=== PATIENT | male | born 1955 ===

== ENCOUNTER 2020-02-25 10:33 | Emergency (ER) | payer OTHER, SELFPAY ==
[2020-02-25 10:58] VITALS: BP 175/82; PULSE 79; RESP 16; TEMP 36.7; O2SAT 97; BMI 27.3
--- NOTE | 2020-02-25 10:58 | ED_ITS ---
HPI - Abdominal Pain General Chief Complaint: Abdominal Pain Stated Complaint: abd pain Time Seen by Provider: 02/25/20 10:48 Source: patient Mode of arrival: ambulatory Limitations: no limitations History of Present Illness HPI narrative: Patient presents to the ED for left lower abdominal/groin pain that is worse on movement. Patient states no nausea, vomiting, fever, chills, flank pain, testicular pain, swelling in the groin, penile discharge, penile lesions, dysuria, or hematuria. Patient admits to heavy lifting and plenty of bending down movements for work. Related Data Previous Rx's Medication Instructions Recorded cyclobenzaprine 10 mg PO TID PRN #15 tab 02/25/20 naproxen 500 mg PO BID PRN #20 tab 02/25/20 Allergies Allergy/AdvReac Type Severity Reaction Status Date / Time tramadol Allergy Unknown Unknown Verified 02/25/20 11:09 Review of Systems Review of Systems Yes all other systems are reviewed and are negative Constitutional: Reports as per HPI and Reports no additional constitutional complaints Eyes: Reports as per HPI and Reports no additional eye complaints Reports system reviewed and no additional complaints, except as documented and Reports as per HPI Cardiovascular: Reports as per HPI and Reports no additional cardiovascular complaints Respiratory: Reports as per HPI and Reports no additional respiratory complaints Gastrointestinal: Reports as per HPI, Reports no additional gastrointestinal complaints, Reports abdominal pain, Denies belching, Denies melena, Denies bloating, Denies hematochezia, Denies change in bowel habits, Denies tenesmus, Denies coffee ground emesis, Denies constipation, Denies GI cramping, Denies heartburn, Denies fecal incontinence, Denies diarrhea, Denies nausea and Denies vomiting Genitourinary: Reports no additional male genitourinary complaints and Reports as per HPI Musculoskeletal: Reports no additional musculoskeletal complaints and Reports as per HPI Reports system reviewed and no additional complaints, except as documented and Reports as per HPI Psychiatric: Reports no additional psychiatric complaints and Reports as per HPI Physical Exam Vital Signs: Vital Signs: Last Vital Signs Temp 98.0 F 02/25/20 10:58 Pulse 62 02/25/20 16:22 Resp 16 02/25/20 16:22 BP 136/77 02/25/20 16:22 Pulse Ox 98 02/25/20 16:22 Body Mass Index 27.3 Const: General: cooperative, healthy appearing, comfortable, no acute distr ess, well developed, alert, awake and Physically active Orientation/consciousness: oriented to person, oriented to place, oriented to time and patient oriented x3 HENMT: Head: Yes normal to inspection and Yes No palpable skull fracture present Eyes: General: appearance normal, both eyes and all related structures Neck: Neck: Yes normal visual inspection and Yes full ROM Chest: Chest palpation & inspection: normal inspection of the chest, normal palpation of entire chest wall and no localized rib tenderness Resp: Effort & Inspection: normal respiratory effort and able to speak in complete sentences Auscultation: clear to auscultation bilaterally Cardio: Jugular venous distension: no JVD Heart sounds: S1 normal heart sound present and S2 normal heart sound present GI: Inspection: Yes normal to inspection and No abdominal wall ecchymosis Palpation (GI): Soft to palpation, not firm, Tenderness to palpation present (GI) in the LLQ (mild), no guarding and not rigid : Other: negative for any mass, swelling, or tenderness in bilateral groins or testicles. Negative for lymphadenopathy. Negative for penile lesions or penile discharge. Negative for testicular tenderness or swelling. General: Yes Bimanual renal exam normal bilaterally Male General Exam: Yes normal external exam, No ecchymosis, No edema, No erythema, No hernia and No Genital lesions present Penis: normal penis, no ecchymosis, not edematous, not erythematous, no masses, no nodules, no papules, no pustules, no vesicles, no paraphimosis, no phimosis, no swelling, no ulcerations and No Genital lesions present Meatus: meatus normal Scrotum: scrotum normal, no ecchymosis, not edematous, not erythematous, No testes descended bilaterally, no hydroceles, no inguinal hernias, no masses, no scrotal swelling, no spermatoceles, no ulcerations and no varicoceles Testes: Testes normal, testicular lie normal, not enlarged, no epididymal induration, no epidiymal masses, no epidiymal tenderness, no masses, no testicular mass, no testicular swelling and no testicular tenderness Skin: General skin exam: no rashes or lesions noted Neuro: General: oriented to person, oriented to place, oriented to time, patient oriented x3 and CN's II-XI intact bilaterally Cranial nerves: Yes CN' s II-XII intact bilaterally Extrem: General: Yes normal to inspection and Yes full ROM Psych: Appearance: grossly normal, well kempt and not disheveled Course Course Course Narrative: history physical exam indicates most likely abdominal/groin strain. But due to patient's age he will have labs, urine and possibly CT scan. Patient presently ordered fluids and Toradol Reevaluation(s) Reevaluation #1: Labs came back normal. Negative for white blood cell count, negative for any urinary tract infection. Negative for abnormal LFTs. Due to age, patient will be sent for CT scan to make sure there is no diverticulitis. Patient presently stable in ER Time: 12:57 Reevaluation #2: CT scan came back negative for any emergent medical/surgical etiology. Negative for any diverticulitis, appendicitis, cholecystitis, peritonitis, pancreatitis, or bleed. Patient probably have abdominal/ /inguinal strain. CT scan shows fat containing inguinal hernia that is not incarcerated. Time: 16:02 MDM - Abdominal Pain MDM Narrative Medical decision making narrative: abdominal/inguinal strain. Lab Data Result diagrams: 02/25/20 11:17 02/25/20 12:57 Labs: Lab Results 02/25/20 02/25/20 02/25/20 Range/Units 11:17 11:17 11:17 WBC 6.2 (4.8-10.8) X10*3/uL RBC 5.15 (4.60-5.80) X10*6/uL Hgb 14.9 (14.0-18.0) g/dl Hct 44.8 (42-52) % MCV 87.0 (80-98) fL MCH 28.9 (27.0-33.0) pg MCHC 33.3 (31.0-36.0) g/dl RDW 14.5 (11.0-16.0) % Plt Count 184 (160-400) X10*3/uL MPV Not Reportable Immature Gran % (Auto) 0.2 (0.0-0.4) % Neut % (Auto) 51.9 (45-73) % Lymph % (Auto) 37.2 (20-40) % Anson % (Auto) 6.1 (2-11) % Eos % (Auto) 4.0 (0-4) % Baso % (Auto) 0.6 (0-2) % Lymph # (Auto) 2.3 (1.2-4.9) X10*3/uL Anson # (Auto) 0.4 (0.1-1.2) X10*3/uL Eos # (Auto) 0.3 (0.0-0.4) X10*3/uL Baso # (Auto) 0.0 (0.0-0.2) X10*3/uL Abs Immat Gran (auto) 0.01 (0.00-0.03) X10*3/uL Absolute Neuts (auto) 3.2 (2.0-8.3) X10*3/uL Absolute Nucleated RBC 0.000 (0.0-0.012) X10*3/uL Nucleated RBC % (auto) 0.0 (0.0-0.2) /100WBC Smear Tech's Comments VERIFIED PT Cancelled INR Cancelled APTT Cancelled Sodium Cancelled Potassium Cancelled Chloride Cancelled Carbon Dioxide Cancelled Anion Gap Cancelled BUN Cancelled Creatinine Cancelled Estim Creat Clear Calc Cancelled Estimated GFR Cancelled Random Glucose Cancelled Calcium Cancelled Total Bilirubin Cancelled Direct Bilirubin Cancelled AST Cancelled ALT Cancelled Alkaline Phosphatase Cancelled Total Protein Cancelled Albumin Cancelled Lipase Cancelled Urine Color Urine Appearance Urine pH (5.0-8.0) Ur Specific [place] (1.005-1.025) Urine Protein (NEG-TRACE) MG/DL Urine Glucose (UA) (NEG) MG/DL Urine Ketones (NEG) MG/DL Urine Blood (NEG) Urine Nitrite (NEG) Ur Leukocyte Esterase (NEG) 02/25/20 02/25/20 02/25/20 Range/Units 11:17 12:57 12:57 WBC (4.8-10.8) X10*3/uL RBC (4.60-5.80) X10*6/uL Hgb (14.0-18.0) g/dl Hct (42-52) % MCV (80-98) fL MCH (27.0-33.0) pg MCHC (31.0-36.0) g/dl RDW (11.0-16.0) % Plt Count (160-400) X10*3/uL MPV Immature Gran % (Auto) (0.0-0.4) % Neut % (Auto) (45-73) % Lymph % (Auto) (20-40) % Anson % (Auto) (2-11) % Eos % (Auto) (0-4) % Baso % (Auto) (0-2) % Lymph # (Auto) (1.2-4.9) X10*3/uL Anson # (Auto) (0.1-1.2) X10*3/uL Eos # (Auto) (0.0-0.4) X10*3/uL Baso # (Auto) (0.0-0.2) X10*3/uL Abs Immat Gran (auto) (0.00-0.03) X10*3/uL Absolute Neuts (auto) (2.0-8.3) X10*3/uL Absolute Nucleated RBC (0.0-0.012) X10*3/uL Nucleated RBC % (auto) (0.0-0.2) /100WBC Smear Tech's Comments PT 11.7 INR 1.0 APTT 33.1 Sodium 139 Potassium 4.2 Chloride 105 Carbon Dioxide 28 Anion Gap 10 L BUN 11 Creatinine 1.12 Estim Creat Clear Calc 66.1 Estimated GFR > 60 Random Glucose 145 H Calcium 8.7 Total Bilirubin 0.8 Direct Bilirubin 0.2 AST 24 ALT 23 Alkaline Phosphatase 58 Total Protein 7.4 Albumin 4.2 Lipase 49 Urine Color YELLOW Urine Appearance CLEAR Urine pH 7.0 (5.0-8.0) Ur Specific [place] 1.015 (1.005-1.025) Urine Protein NEG (NEG-TRACE) MG/DL Urine Glucose (UA) NEG (NEG) MG/DL Urine Ketones NEG (NEG) MG/DL Urine Blood NEG (NEG) Urine Nitrite NEG (NEG) Ur Leukocyte Esterase NEG (NEG) Discharge Plan Discharge Clinical Impression: Abdominal muscle strain Patient Disposition: Home, Self-Care Instructions: Muscle Strain (ED), Groin Strain (ED) Additional Instructions: return to the ED immediately for any worsening abdominal pain, fever, chills, shortness of breath, dysuria, hematuria, flank pain, fever, chills, testicular swelling, testicular pain, blood in urine, swelling of the groin, vomtting, diarrhea, or any other concerning symptoms. Prescriptions: New naproxen 500 mg tablet 500 mg PO BID PRN (Reason: pain) Qty: 20 RF: 0 cyclobenzaprine 10 mg tablet 10 mg PO TID PRN (Reason: muscle spasm) Qty: 15 RF: 0 Referrals: Josué Ríos MD [Primary Care Provider] - 2 days ( Abdominal wall strain. CT scan negative for any emergent surgical/ medical etiology. incidental small left fat containing inguinal hernia and hepatic steatosis.) Stand Alone Forms: Work/School Release Print Language: Croatian [facility] Past Medical History Medical History Hypothyroidism Multiple sclerosis Social History Social History Advance Directives: No Advance Directives Information Provided: No
[2020-02-25 11:38] LABS: Imm Gran Abs Auto 0.01 X10*3/uL (0.00-0.03); Imm Gran Pct Auto 0.2 % (0.0-0.4); MANUAL DIFF FLAG SCAN; Neutrophils Percent Auto 51.9 % (45-73); PLT CLUMP 1; SCAN SMEAR FLAG 1
[2020-02-25 11:40] LABS: Basophils Percent Auto 0.6 % (0-2); Eosinophils Absolute Auto 0.3 X10*3/uL (0.0-0.4); Hematocrit 44.8 % (42-52); Hemoglobin 14.9 g/dl (14.0-18.0); Lymphocytes Absolute Auto 2.3 X10*3/uL (1.2-4.9); Lymphocytes Percent Auto 37.2 % (20-40); Mean Corpuscular HGB Conc 33.3 g/dl (31.0-36.0); Mean Corpuscular Hemoglobin 28.9 pg (27.0-33.0); Monocytes Absolute Auto 0.4 X10*3/uL (0.1-1.2); Monocytes Percent Auto 6.1 % (2-11); Neutrophils Absolute Auto 3.2 X10*3/uL (2.0-8.3); Red Blood Count 5.15 X10*6/uL (4.60-5.80); Red Cell Distribution Width 14.5 % (11.0-16.0); White Blood Count 6.2 X10*3/uL (4.8-10.8)
[2020-02-25] MEDS: 0.9 % Sodium Chloride 1,000 ML 999 ML IVCONT (11:40)
[2020-02-25] MEDS: Ketorolac Tromethamine 15 MG/ML VIAL 30 MG IVPUSH (11:40)
[2020-02-25 11:45] LABS: Glucose Urine UA NEG (NEG); Leukocyte Esterase Urine NEG (NEG); Nitrite Urine NEG (NEG); Specific Gravity - Urine 1.015 (1.005-1.025); Urine Blood NEG (NEG); Urine Ketones NEG (NEG); Urine Protein NEG (NEG-TRACE)
[2020-02-25 11:48] LABS: Appearance Urine CLEAR; Color Urine YELLOW
[2020-02-25 12:18] LABS: Platelet Count 184 X10*3/uL (160-400)
[2020-02-25 13:13] LABS: Prothrombin Time 11.7 SEC (10.8-13.0)
[2020-02-25 13:14] VITALS: BP 144/84; PULSE 60; RESP 18; O2SAT 97
[2020-02-25 13:16] LABS: Partial Thromboplastin Time 33.1 SEC (24.1-38.0)
--- NOTE | 2020-02-25 13:30 | PC.NURSE ---
pt triaged c/o LLQ pain, chronic pain for yrs, recently worsened, typically worse overnight. denies n/v/d/, fevers. Reports heavy lifting as part of occupational hazards. Reports relief with IV Toradol.
[2020-02-25 13:40] LABS: Alanine Aminotransferase 23 U/L (0-40); Albumin Level 4.2 g/dL (3.5-5.0); Alkaline Phosphatase 58 U/L (39-117); Anion Gap 10 (12-20); Aspartate Amino Transferase 24 U/L (5-37); Bilirubin Direct 0.2 mg/dL (0.0-0.5); Bilirubin Total 0.8 mg/dL (0.0-1.0); Blood Urea Nitrogen 11 mg/dL (9-16); Calcium 8.7 mg/dL (8.4-10.2); Carbon Dioxide 28 mmol/L (22-29); Chloride 105 mmol/L (96-108); Creatinine Clr Calc Pharmacy 66.1; Estimated Glomerular Filt Rate > 60; Glucose Random 145 mg/dL (60-115); Lipase 49 U/L (8-78); Potassium 4.2 mmol/l (3.3-5.1); Sodium 139 mmol/L (135-145); Total Protein 7.4 g/dL (6.5-8.0)
--- NOTE | 2020-02-25 13:43 | CT_ITS ---
EXAMINATION: CT ABDOMEN AND PELVIS WITH CONTRAST CLINICAL INFORMATION: Left lower quadrant pain. COMPARISON: 02/09/2018 CT scan of the abdomen and pelvis. TECHNIQUE: Multidetector volumetric images were obtained from the superior aspect of the liver through the pubic symphysis following administration 85 mL of Omnipaque 350 intravenous contrast. Sagittal and coronal reformatted images were obtained on the technologist's workstation. Oral contrast: No This CT examination was performed using dose optimization techniques as appropriate, variously including the following: *Automated exposure control *Adjustment of mA and/or kV according to patient size (this includes techniques or standardized protocols for targeted exams where dose is matched to indication/reason for exam; i.e. extremities or head) *Use of iterative reconstruction technique DLP: 542 mGy-cm FINDINGS: LUNG BASES: A 0.5 cm nodule is seen on the first image posteriorly in the left lower lobe without significant change (image 1, series 2). No new nodule seen in the visualized lung elizabeth. No pericardial or pleural effusions. LIVER, GALLBLADDER, AND BILIARY TREE: Mild diffuse decreased attenuation without focal abnormality. PANCREAS: Unremarkable. SPLEEN: Unremarkable. ADRENAL GLANDS: Unremarkable. KIDNEYS AND URETERS: The kidneys are normal in size, shape, and attenuation. No hydronephrosis, hydroureter, or calculi seen. No perinephric stranding. BLADDER: Unremarkable. GASTROINTESTINAL TRACT: The stomach, small bowel and appendix are unremarkable. The colon is unremarkable. ABDOMINAL WALL: Small fat-containing left inguinal hernia without abnormality or change. LYMPH NODES: No lymphadenopathy. VASCULAR: Unremarkable. PELVIC VISCERA: Unremarkable. OSSEOUS STRUCTURES: Unremarkable. CT/CT abdomen pelvis w con IMPRESSION: 1. No abnormality in the left lower quadrant to explain the patient's pain. 2. Hepatic steatosis. 3. Very small fat-containing left inguinal hernia without significant change or associated abnormality.
[2020-02-25 14:44] LABS: SLIDE REVIEW VERIFIED
[2020-02-25] MEDS: iohexoL 350 MG/ML 100 ML INFUS..BTL 85 ML IV (14:44)
[2020-02-25 15:26] VITALS: BP 134/79; PULSE 58; RESP 18; O2SAT 96
[2020-02-25 16:22] VITALS: BP 136/77; PULSE 62; RESP 16; O2SAT 98
== END 2020-02-25 16:40 | disposition home or self-care (01) ==
PROVIDERS: Nurse Practitioner Family; Physician Assistant; Emergency Provider Emergency Medicine; PCP Internal Medicine
DX: S39.011A Strain of muscle, fascia and tendon of abdomen, initial encounter (principal); X50.0XXA Overexertion from strenuous movement or load, initial encounter; G35 Multiple sclerosis; E03.9 Hypothyroidism, unspecified; Y93.9 Activity, unspecified; Y92.9 Unspecified place or not applicable; Y99.9 Unspecified external cause status
CPT/HCPCS: 36415; 74177; 80053; 80076; 81003; 82248; 83690; 85025; 85610; 85730; 96361; 96374; 99284; J1885; Q9967

== ENCOUNTER 2020-04-14 12:42 | Outpatient (REF) | payer OTHER, SELFPAY | END 2020-04-14 12:43 | disposition home or self-care (01) | LOC: HO.LAB 12:42 | PROVIDERS: PCP Internal Medicine; Visit Provider Internal Medicine | DX: Z20.822 Contact with and (suspected) exposure to COVID-19 (principal) | CPT/HCPCS: 36415; C9803; U0003 ==

== ENCOUNTER 2020-07-02 12:11 | Outpatient (REF) | payer OTHER, SELFPAY | END 2020-07-02 12:12 | disposition home or self-care (01) | LOC: HO.LAB 12:11 | PROVIDERS: Visit Provider Internal Medicine | DX: Z20.822 Contact with and (suspected) exposure to COVID-19 (principal) | CPT/HCPCS: C9803; U0003; U0005 ==

== ENCOUNTER 2020-07-07 13:21 | Outpatient (REF) | payer OTHER, SELFPAY | END 2020-07-07 13:22 | disposition home or self-care (01) | LOC: HO.LAB 13:21 | PROVIDERS: Visit Provider Internal Medicine | DX: Z20.822 Contact with and (suspected) exposure to COVID-19 (principal) | CPT/HCPCS: C9803; U0003; U0005 ==

== ENCOUNTER 2020-07-15 11:51 | Outpatient (REF) | payer OTHER, SELFPAY ==
[2020-07-15 13:14] LABS: COVID-19 Test Negative (Negative); IDNOW Serial# 55D5AD1C
== END 2020-07-15 11:52 | disposition home or self-care (01) ==
LOC: HO.LAB 11:51
PROVIDERS: Visit Provider Internal Medicine
DX: Z20.822 Contact with and (suspected) exposure to COVID-19 (principal)
CPT/HCPCS: 36415; 87635; C9803

== ENCOUNTER 2020-07-24 10:49 | Emergency (ER) | payer OTHER, SELFPAY ==
--- NOTE | ~2020-07-24 | US_ITS ---
EXAMINATION: US VENOUS ULTRASOUND WITH DOPPLER LOWER EXTREMITY, LEFT CLINICAL INFORMATION: Pain COMPARISON: None TECHNIQUE: Ultrasound of the deep veins is performed from the hip to the calf with compression sonography and color and pulse Doppler assessment. Spectral analysis with color-flow imaging is performed. FINDINGS: There is normal venous compression and respiratory variation and augmented flow. The visualized common femoral vein, superficial femoral vein, profunda femoral vein, popliteal vein, and the trifurcation region shows no evidence of deep venous thrombosis. There is no significant popliteal fossa cyst. US/US venous duplex LE LT IMPRESSION: No DVT demonstrated in the left lower extremity.
[2020-07-24 11:25] VITALS: BP 138/87; PULSE 84; RESP 16; TEMP 36.4; O2SAT 96; BMI 32.9
--- NOTE | 2020-07-24 11:50 | ED.EXTPRO ---
HPI - Extremity Problem General Chief complaint: Extremity Injury, Lower Stated complaint: LEG PAIN Time Seen by Provider: 07/24/20 11:49 Source: patient Mode of arrival: ambulatory Limitations: language barrier (Space Operations Officer present) History of Present Illness HPI Narrative: Patient is a male with a past medical history of multiple sclerosis and hypothyroidism complaining of left leg pain that has gotten worse over the last month or 2. States he can walk but it is very painful. He states the pain starts in the knee healing goes all the way up the leg. He also has a pain on the bottom of his foot rate below his toe, he states there is a bump that is painful. He denies any history of cancer, long sedentary periods and is a nonsmoker. Related Data Previous Rx's Medication Instructions Recorded cyclobenzaprine 10 mg PO TID PRN #15 tab 02/25/20 naproxen 500 mg PO BID PRN #20 tab 02/25/20 Allergies Allergy/AdvReac Type Severity Reaction Status Date / Time tramadol Allergy Unknown Unknown Verified 02/25/20 11:09 Review of Systems Review of Systems: Yes all other systems are reviewed and are negative [facility] Past Medical History Medical History Hypothyroidism Multiple sclerosis Social History Social History Advance Directives: No Advance Directives Information Provided: No Physical Exam Vital Signs: Vital Signs: Last Vital Signs Temp 97.5 F 07/24/20 11:25 Pulse 84 07/24/20 11:25 Resp 16 07/24/20 11:25 BP 138/87 07/24/20 11:25 Pulse Ox 96 07/24/20 11:25 Body Mass Index 32.9 Const: General: cooperative, healthy appearing, comfortable and no acute distress Nutritional Appearance: obese Orientation/consciousness: patient oriented x3 Eyes: General: appearance normal, both eyes and all related structures EOM: EOMs intact bilaterally Neuro: General: patient oriented x3 Extrem: Right lower extremity: normal to inspection Left lower extremity: normal to inspection, full ROM, normal capillary refill, no joint enlargement and lower leg Details: normal to inspection and tenderness (- César's, slight ttp along anterior left leg); no edema Course Course Course Narrative: Patient is a 65-year-old male with past medical history of MS and hypothyroidism who presents with 2 months of leg pain which is much worse today, he is unable to ambulate on it without pain. VSS. Physical exam revealed normal appearing leg but slightly tender to palpation, negative Homans. Full range of motion. Wells criteria is a 1 so I will get an ultrasound to rule out a DVT. Reevaluation(s) Reevaluation #1: US negative for DVT Time: 14:02 MDM - Extremity (Nontraumatic) Imaging Data Venous US: Attestation: I personally reviewed and interpreted this imaging study as follows: Radiologist's impression: [address] [id number] ReportSigned Patient: Juan Monroe AMR#: [id number]: 8Acct:[id number]/Sex: 65 / MADM Date: 07/24/20Loc: [email or web address] Dr: Ordering Physician: Apple Villegas PA-C Date of Service: 07/24/20 Procedure(s): US venous duplex LE LT Accession Number(s): [id number] cc: Apple Villegas PA-C~ EXAMINATION: US VENOUS ULTRASOUND WITH DOPPLER LOWER EXTREMITY, LEFT CLINICAL INFORMATION: Pain COMPARISON: None TECHNIQUE: Ultrasound of the deep veins is performed from the hip to the calf with compression sonography and color and pulse Doppler assessment. Spectral analysis with color-flow imaging is performed. FINDINGS: There is normal venous compression and respiratory variation and augmented flow. The visualized common femoral vein, superficial femoral vein, profunda femoral vein, popliteal vein, and the trifurcation region shows no evidence of deep venous thrombosis. There is no significant popliteal fossa cyst. US/US venous duplex LE LT IMPRESSION: No DVT demonstrated in the left lower extremity. Dictated By:STEW OLGUIN MDSigned By:<Electronically signed by STEW OLGUIN MD in OV>07/24/20 1355 DD/ [id number]/TT: Supply Clerk: TOMASA Discharge Plan Discharge Clinical Impression: Foot pain, left Patient Disposition: Home, Self-Care Instructions: Leg Pain (ED) Additional Instructions: You have been ruled out for a DVT in your left leg today. The pain on the bottom of your foot near your toe on your left foot is likely causing you to change how your walking which is throwing off your knee in your hip in causing her leg pain. You can follow-up with your PCP and possibly get a referral to a log chain worker. If you develop any chest pain shortness of breath or coughing up blood, please return to the emergency department. Prescriptions: No Action naproxen 500 mg tablet 500 mg PO BID PRN (Reason: pain) Qty: 20 RF: 0 cyclobenzaprine 10 mg tablet 10 mg PO TID PRN (Reason: muscle spasm) Qty: 15 RF: 0 Referrals: Josué Ríos MD [Primary Care Provider] - 2 days (referral for podiatry)
== END 2020-07-24 14:25 | disposition home or self-care (01) ==
PROVIDERS: Emergency Provider Emergency Medicine; PCP Internal Medicine
DX: M79.605 Pain in left leg (principal); G35 Multiple sclerosis; M79.672 Pain in left foot
CPT/HCPCS: 93971; 99283; 99284

== ENCOUNTER 2020-09-22 09:19 | Outpatient (REF) | payer OTHER, SELFPAY ==
--- NOTE | ~2020-09-22 | XR_ITS ---
EXAMINATION: BILATERAL FOOT. CLINICAL INFORMATION: Bilateral heel pain. COMPARISON: None TECHNIQUE: 3 views of each foot. FINDINGS: RIGHT FOOT: There is no visible acute fracture, dislocation or subluxation seen. No bony erosive changes seen. The ankle mortise and subtalar joints are normal. There is a small calcaneal heel and retrocalcaneal enthesophytes. LEFT FOOT: There is a small calcaneal heel spur. Ankle mortise and subtalar joints are normal. No visible acute fracture, dislocation or subluxation seen. The soft tissues are normal. XR/XR foot LT min 3V IMPRESSION: Bilateral calcaneal heel and and right retrocalcaneal heel enthesophytes. No visible acute fracture, dislocation or subluxation seen.
--- NOTE | ~2020-09-22 | XR_ITS ---
EXAMINATION: BILATERAL FOOT. CLINICAL INFORMATION: Bilateral heel pain. COMPARISON: None TECHNIQUE: 3 views of each foot. FINDINGS: RIGHT FOOT: There is no visible acute fracture, dislocation or subluxation seen. No bony erosive changes seen. The ankle mortise and subtalar joints are normal. There is a small calcaneal heel and retrocalcaneal enthesophytes. LEFT FOOT: There is a small calcaneal heel spur. Ankle mortise and subtalar joints are normal. No visible acute fracture, dislocation or subluxation seen. The soft tissues are normal. XR/XR foot RT min 3V IMPRESSION: Bilateral calcaneal heel and and right retrocalcaneal heel enthesophytes. No visible acute fracture, dislocation or subluxation seen.
[2020-09-22 10:49] LABS: PSA,Total (Free>4and<10) 0.57 ng/mL (0.00-4.00)
== END 2020-09-22 09:20 | disposition home or self-care (01) ==
LOC: HO.LAB 09:19
PROVIDERS: Absent Provider Podiatrist; PCP Internal Medicine; Visit Provider Urology
DX: Z12.5 Encounter for screening for malignant neoplasm of prostate (principal); M79.672 Pain in left foot; M79.671 Pain in right foot
CPT/HCPCS: 36415; 73630; 84153

== ENCOUNTER → 2020-11-24 13:41 | Outpatient (BNVA) | payer OTHER, SELFPAY | PROVIDERS: PCP Internal Medicine; Visit Provider Urology | DX: N40.0 Benign prostatic hyperplasia without lower urinary tract symptoms (principal); N52.9 Male erectile dysfunction, unspecified | CPT/HCPCS: Q3014 ==

== ENCOUNTER 2021-02-22 10:03 | Outpatient (REF) | payer OTHER, SELFPAY ==
[2021-02-22 11:23] LABS: PSA,Total (Free>4and<10) 0.72 ng/mL (0.00-4.00)
== END 2021-02-22 10:04 | disposition home or self-care (01) ==
LOC: HO.LAB 10:03
PROVIDERS: PCP Internal Medicine; Visit Provider Urology
DX: N40.0 Benign prostatic hyperplasia without lower urinary tract symptoms (principal); Z12.5 Encounter for screening for malignant neoplasm of prostate
CPT/HCPCS: 36415; 84153

== ENCOUNTER → 2021-02-24 14:03 | Outpatient (BNVA) | payer OTHER, SELFPAY | PROVIDERS: Visit Provider Urology | DX: N40.0 Benign prostatic hyperplasia without lower urinary tract symptoms (principal); N52.9 Male erectile dysfunction, unspecified | CPT/HCPCS: 99212 ==

== ENCOUNTER 2021-06-17 09:00 | Outpatient (RCR) | payer OTHER, SELFPAY | END 2021-07-19 08:19 | disposition home or self-care (01) | LOC: HO.PT 09:00 | PROVIDERS: PCP Internal Medicine; Visit Provider Nurse Practitioner Primary Care | DX: R42 Dizziness and giddiness (principal) | CPT/HCPCS: 95992; 97112; 97162; 97530 ==

== ENCOUNTER → 2021-06-29 20:38 | Outpatient (REF) | payer OTHER, MEDICAID, SELFPAY | LOC: HO.SL 20:38 | PROVIDERS: PCP Internal Medicine; Visit Provider Internal Medicine | DX: G47.33 Obstructive sleep apnea (adult) (pediatric) (principal); R06.83 Snoring | CPT/HCPCS: 95810 ==

== ENCOUNTER 2021-07-06 09:40 | Emergency (ER) | payer OTHER, MEDICAID, SELFPAY ==
[2021-07-06 09:54] VITALS: BP 150/91; PULSE 89; RESP 20; TEMP 36.4; O2SAT 100; BMI 27.2
[2021-07-06 10:00] LABS: Glucose, Whole Blood 503 mg/dL (60-115)
--- NOTE | 2021-07-06 10:00 | ECG_ITS ---
Test Reason : sugar elevated Blood Pressure : / mmHG Vent. Rate : 083 BPM Atrial Rate : 083 BPM P-R Int : 154 ms QRS Dur : 090 ms QT Int : 370 ms P-R-T Axes : 066 014 040 degrees QTc Int : 434 ms Normal sinus rhythm Normal ECG When compared to the previous EKG of No significant changes seen Referred By: Herlinda Chamorro Electronically Signed By:Reji Green
--- NOTE | 2021-07-06 10:08 | ED_ITS ---
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 Mode of arrival: ambulatory Limitations: no limitations History of Present Illness complaint: abnormal lab (sent by PCP for elevated BS) Initial visit (ago): hour(s) (just prior to arrival) Initial visit for: other (check up) Returns today for: called because of abnormal lab/test (BS HIGH in PCP office) Symptoms since prior visit: no new symptoms Context: other (sent from office here) Associated symptoms: other (dry mouth, increased thirst almost 20lb weight loss over 2 months) Related Data Previous Rx's Medication Instructions Recorded cyclobenzaprine 10 mg tablet 10 mg PO TID PRN #15 tab 02/25/20 naproxen 500 mg tablet 500 mg PO BID PRN #20 tab 02/25/20 tadalafil 10 mg tablet 10 mg PO DAILY 90 Days #90 tab 02/24/21 alcohol swabs (Alcohol Prep Pads) 1 pad TOPICAL QIDACHS #100 ea 07/06/21 blood sugar diagnostic (FreeStyle #100 ea 07/06/21 Test) blood-glucose meter (FreeStyle #1 ea 07/06/21 Lite Meter) insulin glargine 100 unit/mL (3 10 unit (0.1 mL) SUBCUT QAM #3 ml 07/06/21 mL) subcutaneous pen (Lantus Solostar U-100 Insulin) lancets 28 gauge (FreeStyle #100 ea 07/06/21 Lancets) metformin 500 mg tablet 500 mg PO BID #30 tab 07/06/21 Allergies Allergy/AdvReac Type Severity Reaction Status Date / Time tramadol Allergy Unknown Unknown Verified 02/24/21 14:13 Review of Systems Review of Systems: Constitutional : pos Weight loss, No Fever, No Chills, No Fatigue, No Malaise ENT/Mouth : No sore throat, No Rhinorrhe, pos dry mouth Eyes: No Eye Pain, No Swelling, No Redness Cardiovascular : No Chest Pain, No SOB, No Dyspnea on Exertion, No Orthopnea, No Edema, No Palpitations Respiratory : No Cough, No Sputum, No Wheezing Gastrointestinal : No Nausea, No Vomiting, No Diarrhea, No Constipation, No abdominal Pain, No Hematochezia, No Melena Genitourinary : No Dysuria, No Urinary Frequency, No Hematuria, Musculoskeletal : No joint pain, No Myalgias, No Joint Swelling Skin : No Skin Lesions, No rash Neuro : No Weakness, No Numbness, No Dizziness, No Headache Psych : No Anxiety/Panic, No Depression Heme/Lymph: No Bruising, No Bleeding,No Lymphadenopathy Endocrine : pos Polyuria, pos Polydipsia All other systems reviewed and are negative [facility] Past Medical History Attestation statement: The following information was validated with the patient. Medical History TAMIKO positive Arthralgia Enlarged prostate without lower urinary tract symptoms (luts) Flatus History of urinary hesitancy Hypothyroidism Medial meniscus tear Multiple sclerosis OA (osteoarthritis) Prostate nodule Unspecified constipation Surgical History History of surgery Social History Social History Patient Tobacco Use Status: Never used Tobacco Advance Directives: No Advance Directives Information Provided: No Physical Exam Vital Signs: Vital Signs: Last Vital Signs Temp 98.0 F 07/06/21 14:15 Pulse 63 07/06/21 14:15 Resp 15 07/06/21 14:15 BP 125/90 H 07/06/21 14:15 Pulse Ox 96 07/06/21 14:15 BMI result Body Mass Index 27.2 Appearance: Alert. Oriented X3. No acute distress. Eyes: Pupils equal, round and reactive to light. ENT: Pharynx dry MM Neck: Normal inspection. Neck supple. CVS: Normal heart rate and rhythm. Pulses normal. Respiratory: No respiratory distress. Breath sounds normal. Abdomen: Soft and nontender. Skin: Skin warm and dry. Normal skin color. Normal skin turgor. Extremities: No lower extremity edema. No calf ttp Neuro: Oriented X 3. No motor deficit. No sensory deficit. Course Course Course Narrative: BS in 200s will need glucometer, lantus and metformin repeat blood sugars remain in 200s MDM - Recheck/Abnormal Lab/Rx MDM Narrative Medical decision making narrative: 65 yo male with hx of HTN, MS - no recent infections or steroid use per him but reports over 2 months dry mouth, thirst and almost 20 lb weight loss at this time BS > 500. Will obtain labs, UA, IVF and IV insulin - will check hemoglobin A1c as well. Daughter is at bedside and states mom is a diabetic and is very good at managing her own and can help him with his new diagnosis. Lab Data Result diagrams: 07/06/21 10:08 07/06/21 10:08 Labs: Lab Results 07/06/21 07/06/21 07/06/21 Range/Units 09:56 10:08 10:08 WBC 5.2 (4.8-10.8) X10*3/uL RBC 5.20 (4.60-5.80) X10*6/uL Hgb 15.7 (14.0-18.0) g/dl Hct 44.3 (42.0-52.0) % MCV 85.2 (80.0-98.0) fL MCH 30.2 (27.0-33.0) pg MCHC 35.4 (31.0-36.0) g/dl RDW 12.5 (11.0-16.0) % Plt Count 190 (160-400) X10*3/uL MPV 12.1 (9.4-12.4) fL Immature Gran % (Auto) 0.2 (0.0-0.4) % Neut % (Auto) 46.0 (45-73) % Lymph % (Auto) 38.4 (20-40) % [place] % (Auto) 8.2 (2-11) % Eos % (Auto) 6.4 H (0-4) % Baso % (Auto) 0.8 (0-2) % Lymph # (Auto) 2.0 (1.2-4.9) X10*3/uL [place] # (Auto) 0.4 (0.1-1.2) X10*3/uL Eos # (Auto) 0.3 (0.0-0.4) X10*3/uL Baso # (Auto) 0.0 (0.0-0.2) X10*3/uL Abs Immat Gran (auto) 0.01 (0.00-0.03) X10*3/uL Absolute Neuts (auto) 2.4 (2.0-8.3) x10*3/uL Absolute Nucleated RBC 0.000 (0.0-0.012) X10*3/uL Nucleated RBC % (auto) 0.0 (0.0-0.2) /100WBC VBG pH (7.32-7.43) VBG pCO2 mmHg VBG pO2 mmHg VBG HCO3 (22-26) mmol/L VBG O2 Saturation % VBG Base Excess mmol/L Sodium 132 L (135-145) mmol/L Potassium 4.1 (3.3-5.1) mmol/L Chloride 99 (96-108) mmol/L Carbon Dioxide 23 (22-29) mmol/L Anion Gap 14 (12-20) BUN 16 (9-16) mg/dL Creatinine 1.30 (0.5-1.4) mg/dL Estim Creat Clear Calc 56.2 Estimated GFR 56 POC Glucose 503 H* (60-115) mg/dL Random Glucose 540 H* (60-115) mg/dL Estimat Average Glucose mg/dL Hemoglobin A1c % % Lactic Acid (0.5-2.0) mmol/L Calcium 9.7 D (8.4-10.2) mg/dL Magnesium 1.8 (1.6-2.6) mg/dL Total Bilirubin 0.8 (0.0-1.0) mg/dL Direct Bilirubin 0.2 (0.0-0.5) mg/dL AST 16 (5-37) U/L ALT 22 (0-40) U/L Alkaline Phosphatase 80 D (39-117) U/L Troponin I High Sens (<3.5-35.0) ng/L Total Protein 7.4 (6.5-8.0) g/dL Albumin 4.2 (3.5-5.0) g/dL Lipase 48 (8-78) U/L Urine Color Urine Appearance Urine pH (5.0-8.0) Ur Specific [place] (1.005-1.025) Urine Protein (NEG-TRACE) MG/DL Urine Glucose (UA) (NEG) MG/DL Urine Ketones (NEG) MG/DL Urine Blood (NEG) Urine Nitrite (NEG) Ur Leukocyte Esterase (NEG) Urine RBC (0) /HPF Urine WBC (0-4) /HPF Ur Squamous Epith Cells /LPF Urine Bacteria /LPF Acetone, Qual Negative (Negative) COVID-19 ([place]) (Negative) COVID-19 Clin Com 07/06/21 07/06/21 07/06/21 Range/Units 10:08 10:08 10:08 WBC (4.8-10.8) X10*3/uL RBC (4.60-5.80) X10*6/uL Hgb (14.0-18.0) g/dl Hct (42.0-52.0) % MCV (80.0-98.0) fL MCH (27.0-33.0) pg MCHC (31.0-36.0) g/dl RDW (11.0-16.0) % Plt Count (160-400) X10*3/uL MPV (9.4-12.4) fL Immature Gran % (Auto) (0.0-0.4) % Neut % (Auto) (45-73) % Lymph % (Auto) (20-40) % [place] % (Auto) (2-11) % Eos % (Auto) (0-4) % Baso % (Auto) (0-2) % Lymph # (Auto) (1.2-4.9) X10*3/uL [place] # (Auto) (0.1-1.2) X10*3/uL Eos # (Auto) (0.0-0.4) X10*3/uL Baso # (Auto) (0.0-0.2) X10*3/uL Abs Immat Gran (auto) (0.00-0.03) X10*3/uL Absolute Neuts (auto) (2.0-8.3) x10*3/uL Absolute Nucleated RBC (0.0-0.012) X10*3/uL Nucleated RBC % (auto) (0.0-0.2) /100WBC VBG pH (7.32-7.43) VBG pCO2 mmHg VBG pO2 mmHg VBG HCO3 (22-26) mmol/L VBG O2 Saturation % VBG Base Excess mmol/L Sodium (135-145) mmol/L Potassium (3.3-5.1) mmol/L Chloride (96-108) mmol/L Carbon Dioxide (22-29) mmol/L Anion Gap (12-20) BUN (9-16) mg/dL Creatinine (0.5-1.4) mg/dL Estim Creat Clear Calc Estimated GFR POC Glucose (60-115) mg/dL Random Glucose (60-115) mg/dL Estimat Average Glucose mg/dL Hemoglobin A1c % % Lactic Acid 1.5 (0.5-2.0) mmol/L Calcium (8.4-10.2) mg/dL Magnesium (1.6-2.6) mg/dL Total Bilirubin (0.0-1.0) mg/dL Direct Bilirubin (0.0-0.5) mg/dL AST (5-37) U/L ALT (0-40) U/L Alkaline Phosphatase (39-117) U/L Troponin I High Sens < 3.5 (<3.5-35.0) ng/L Total Protein (6.5-8.0) g/dL Albumin (3.5-5.0) g/dL Lipase (8-78) U/L Urine Color Urine Appearance Urine pH (5.0-8.0) Ur Specific [place] (1.005-1.025) Urine Protein (NEG-TRACE) MG/DL Urine Glucose (UA) (NEG) MG/DL Urine Ketones (NEG) MG/DL Urine Blood (NEG) Urine Nitrite (NEG) Ur Leukocyte Esterase (NEG) Urine RBC (0) /HPF Urine WBC (0-4) /HPF Ur Squamous Epith Cells /LPF Urine Bacteria /LPF Acetone, Qual (Negative) COVID-19 ([place]) Negative (Negative) COVID-19 Clin Com See Note 07/06/21 07/06/21 07/06/21 Range/Units 10:08 10:13 11:27 WBC (4.8-10.8) X10*3/uL RBC (4.60-5.80) X10*6/uL Hgb (14.0-18.0) g/dl Hct (42.0-52.0) % MCV (80.0-98.0) fL MCH (27.0-33.0) pg MCHC (31.0-36.0) g/dl RDW (11.0-16.0) % Plt Count (160-400) X10*3/uL MPV (9.4-12.4) fL Immature Gran % (Auto) (0.0-0.4) % Neut % (Auto) (45-73) % Lymph % (Auto) (20-40) % [place] % (Auto) (2-11) % Eos % (Auto) (0-4) % Baso % (Auto) (0-2) % Lymph # (Auto) (1.2-4.9) X10*3/uL [place] # (Auto) (0.1-1.2) X10*3/uL Eos # (Auto) (0.0-0.4) X10*3/uL Baso # (Auto) (0.0-0.2) X10*3/uL Abs Immat Gran (auto) (0.00-0.03) X10*3/uL Absolute Neuts (auto) (2.0-8.3) x10*3/uL Absolute Nucleated RBC (0.0-0.012) X10*3/uL Nucleated RBC % (auto) (0.0-0.2) /100WBC VBG pH 7.40 (7.32-7.43) VBG pCO2 33 mmHg VBG pO2 95 mmHg VBG HCO3 21 L (22-26) mmol/L VBG O2 Saturation 97.0 % VBG Base Excess -2.6 mmol/L Sodium (135-145) mmol/L Potassium (3.3-5.1) mmol/L Chloride (96-108) mmol/L Carbon Dioxide (22-29) mmol/L Anion Gap (12-20) BUN (9-16) mg/dL Creatinine (0.5-1.4) mg/dL Estim Creat Clear Calc Estimated GFR POC Glucose (60-115) mg/dL Random Glucose (60-115) mg/dL Estimat Average Glucose 332 mg/dL Hemoglobin A1c % 13.2 % Lactic Acid (0.5-2.0) mmol/L Calcium (8.4-10.2) mg/dL Magnesium (1.6-2.6) mg/dL Total Bilirubin (0.0-1.0) mg/dL Direct Bilirubin (0.0-0.5) mg/dL AST (5-37) U/L ALT (0-40) U/L Alkaline Phosphatase (39-117) U/L Troponin I High Sens (<3.5-35.0) ng/L Total Protein (6.5-8.0) g/dL Albumin (3.5-5.0) g/dL Lipase (8-78) U/L Urine Color STRAW Urine Appearance CLEAR Urine pH 5.5 (5.0-8.0) Ur Specific [place] 1.010 (1.005-1.025) Urine Protein NEG (NEG-TRACE) MG/DL Urine Glucose (UA) >=1000 H (NEG) MG/DL Urine Ketones 15 (NEG) MG/DL Urine Blood NEG (NEG) Urine Nitrite NEG (NEG) Ur Leukocyte Esterase NEG (NEG) Urine RBC 0-2 (0) /HPF Urine WBC 0 (0-4) /HPF Ur Squamous Epith Cells NONE /LPF Urine Bacteria NONE /LPF Acetone, Qual (Negative) COVID-19 ([place]) (Negative) COVID-19 Clin Com 07/06/21 Range/Units 14:10 WBC (4.8-10.8) X10*3/uL RBC (4.60-5.80) X10*6/uL Hgb (14.0-18.0) g/dl Hct (42.0-52.0) % MCV (80.0-98.0) fL MCH (27.0-33.0) pg MCHC (31.0-36.0) g/dl RDW (11.0-16.0) % Plt Count (160-400) X10*3/uL MPV (9.4-12.4) fL Immature Gran % (Auto) (0.0-0.4) % Neut % (Auto) (45-73) % Lymph % (Auto) (20-40) % [place] % (Auto) (2-11) % Eos % (Auto) (0-4) % Baso % (Auto) (0-2) % Lymph # (Auto) (1.2-4.9) X10*3/uL [place] # (Auto) (0.1-1.2) X10*3/uL Eos # (Auto) (0.0-0.4) X10*3/uL Baso # (Auto) (0.0-0.2) X10*3/uL Abs Immat Gran (auto) (0.00-0.03) X10*3/uL Absolute Neuts (auto) (2.0-8.3) x10*3/uL Absolute Nucleated RBC (0.0-0.012) X10*3/uL Nucleated RBC % (auto) (0.0-0.2) /100WBC VBG pH (7.32-7.43) VBG pCO2 mmHg VBG pO2 mmHg VBG HCO3 (22-26) mmol/L VBG O2 Saturation % VBG Base Excess mmol/L Sodium (135-145) mmol/L Potassium (3.3-5.1) mmol/L Chloride (96-108) mmol/L Carbon Dioxide (22-29) mmol/L Anion Gap (12-20) BUN (9-16) mg/dL Creatinine (0.5-1.4) mg/dL Estim Creat Clear Calc Estimated GFR POC Glucose 288 H (60-115) mg/dL Random Glucose (60-115) mg/dL Estimat Average Glucose mg/dL Hemoglobin A1c % % Lactic Acid (0.5-2.0) mmol/L Calcium (8.4-10.2) mg/dL Magnesium (1.6-2.6) mg/dL Total Bilirubin (0.0-1.0) mg/dL Direct Bilirubin (0.0-0.5) mg/dL AST (5-37) U/L ALT (0-40) U/L Alkaline Phosphatase (39-117) U/L Troponin I High Sens (<3.5-35.0) ng/L Total Protein (6.5-8.0) g/dL Albumin (3.5-5.0) g/dL Lipase (8-78) U/L Urine Color Urine Appearance Urine pH (5.0-8.0) Ur Specific [place] (1.005-1.025) Urine Protein (NEG-TRACE) MG/DL Urine Glucose (UA) (NEG) MG/DL Urine Ketones (NEG) MG/DL Urine Blood (NEG) Urine Nitrite (NEG) Ur Leukocyte Esterase (NEG) Urine RBC (0) /HPF Urine WBC (0-4) /HPF Ur Squamous Epith Cells /LPF Urine Bacteria /LPF Acetone, Qual (Negative) COVID-19 ([place]) (Negative) COVID-19 Clin Com ECG Data Attestation: I personally reviewed and interpreted this ECG as follows: ECG interpretation date: 07/06/21 ECG interpretation time: 10:15 Interpretation: Rate: 83 Rhythm: NSR [place]: normal Normal P waves. Normal LILIA. Normal QRS complex. ST T wave : normal no GINGER qTC: normal prior studies: no acute ischemia The study has been interpreted contemporaneously by me. . Critical Care Time Critical Care Time Critical Care Time: Yes Total Critical Care Time: 35 Attestation: IVF x 2L, IV insulin I attest to this time spent taking care of the patient Discharge Plan Discharge Clinical Impression: Diabetes mellitus with hyperglycemia Qualifiers: Diabetes mellitus type: type 2 Diabetes mellitus custodial insulin use: without machine long goods helper use Qualified Code(s): E11.65 - Type 2 diabetes mellitus with hyperglycemia Patient Disposition: Home, Self-Care Instructions: How to Give an Insulin Injection (ED), Diabetic Hyperglycemia ( ED), How to Check your Blood Sugar (ED), Type 2 Diabetes Management for Adults (ED) Additional Instructions: return to ED for any worsening symptoms or concerns Prescriptions: New Lantus Solostar U-100 Insulin 100 unit/mL (3 mL) insulin pen 10 unit subcut QAM Qty: 3 0RF metformin 500 mg tablet 500 mg PO BID Qty: 30 0RF (DME) blood-glucose meter [FreeStyle Lite Meter] Kit See Rx Instructions .Route Qty: 1 0RF Rx Instructions: As directed (DME) lancets [FreeStyle Lancets] 28 gauge misc See Rx Instructions .Route Qty: 100 0RF Rx Instructions: As directed (DME) FreeStyle Test Strip See Rx Instructions .Route Qty: 100 0RF Rx Instructions: As directed alcohol swabs [Alcohol Prep Pads] Pads, Medicated 1 pad topical QIDACHS Qty: 100 0RF No Action naproxen 500 mg tablet 500 mg PO BID PRN (Reason: pain) Qty: 20 0RF cyclobenzaprine 10 mg tablet 10 mg PO TID PRN (Reason: muscle spasm) Qty: 15 0RF Rx Instructions: side effect is drowsiness. Do not take at work or while driving. tadalafil 10 mg tablet 10 mg PO DAILY 90 Days Qty: 90 0RF Referrals: [place],[facility] [Primary Care Provider] - 2 days Interventions: ED Discharge Assessment Last Done: 07/06/21 15:30 Print Language: English
[2021-07-06] MEDS: 0.9 % Sodium Chloride 1,000 ML 999 ML IVCONT (10:11)
[2021-07-06 10:17] LABS: MANUAL DIFF FLAG NO
[2021-07-06 10:18] LABS: VBG Base Excess -2.6 mmol/L; VBG HCO3 21 mmol/L (22-26); VBG pCO2 33 mmHg; VBG pO2 95 mmHg
[2021-07-06 10:19] LABS: Venous Blood Gas Refer to POC result
[2021-07-06] MEDS: Insulin Regular, Human 100 UNIT/ML 3 ML VIAL IVPUSH ×2 (10:20→11:36)
[2021-07-06 10:24] LABS: Basophils Percent Auto 0.8 % (0-2); Eosinophils Absolute Auto 0.3 X10*3/uL (0.0-0.4); Eosinophils Percent Auto 6.4 % (0-4); Hematocrit 44.3 % (42.0-52.0); Hemoglobin 15.7 g/dl (14.0-18.0); Imm Gran Abs Auto 0.01 X10*3/uL (0.00-0.03); Imm Gran Pct Auto 0.2 % (0.0-0.4); Lymphocytes Percent Auto 38.4 % (20-40); Mean Corpuscular HGB Conc 35.4 g/dl (31.0-36.0); Mean Corpuscular Hemoglobin 30.2 pg (27.0-33.0); Mean Corpuscular Volume 85.2 fL (80.0-98.0); Mean Platelet Volume 12.1 fL (9.4-12.4); Monocytes Absolute Auto 0.4 X10*3/uL (0.1-1.2); Monocytes Percent Auto 8.2 % (2-11); Neutrophils Absolute Auto 2.4 x10*3/uL (2.0-8.3); Platelet Count 190 X10*3/uL (160-400); Red Cell Distribution Width 12.5 % (11.0-16.0); White Blood Count 5.2 X10*3/uL (4.8-10.8)
[2021-07-06 10:29] LABS: Lactic Acid 1.5 mmol/L (0.5-2.0)
[2021-07-06 10:36] LABS: Alanine Aminotransferase 22 U/L (0-40); Albumin Level 4.2 g/dL (3.5-5.0); Alkaline Phosphatase 80 U/L (39-117); Anion Gap 14 (12-20); Aspartate Amino Transferase 16 U/L (5-37); Bilirubin Direct 0.2 mg/dL (0.0-0.5); Bilirubin Total 0.8 mg/dL (0.0-1.0); Blood Urea Nitrogen 16 mg/dL (9-16); Calcium 9.7 mg/dL (8.4-10.2); Carbon Dioxide 23 mmol/L (22-29); Chloride 99 mmol/L (96-108); Creatinine Clr Calc Pharmacy 56.2; Estimated Glomerular Filt Rate 56; Glucose Random 540 mg/dL (60-115); Lipase 48 U/L (8-78); Magnesium 1.8 mg/dL (1.6-2.6); Potassium 4.1 mmol/L (3.3-5.1); Sodium 132 mmol/L (135-145); Total Protein 7.4 g/dL (6.5-8.0)
[2021-07-06 10:37] LABS: Acetone, serum QL Negative (Negative)
[2021-07-06 10:41] LABS: Estimated Average Glucose 332 mg/dL; Hemoglobin A1c % 13.2 %
[2021-07-06 10:43] LABS: Troponin-I High Sensitivity < 3.5 ng/L (<3.5-35.0)
[2021-07-06 10:52] LABS: COVID-19 Test Negative (Negative); IDNOW Serial# 16C4AD1C
--- NOTE | 2021-07-06 11:09 | PC.NURSE ---
RN aware of POC [id number]
[2021-07-06 11:37] LABS: Appearance Urine CLEAR; Color Urine STRAW; Glucose Urine UA >=1000 MG/DL (NEG); Leukocyte Esterase Urine NEG (NEG); Nitrite Urine NEG (NEG); PH 5.5 (5.0-8.0); Urine Blood NEG (NEG); Urine Ketones 15 MG/DL (NEG); Urine Protein NEG (NEG-TRACE)
[2021-07-06 11:41] VITALS: BP 144/75; PULSE 78; RESP 16; O2SAT 97
[2021-07-06 12:02] LABS: RBC Urine 0-2 /HPF (0); WBC Urine 0 /HPF (0-4)
--- NOTE | 2021-07-06 12:46 | PC.NURSE ---
RN aware of POC [id number]
[2021-07-06] MEDS: 0.9 % Sodium Chloride 1,000 ML 999 ML IV (13:02)
[2021-07-06] MEDS: Insulin Regular, Human 100 UNIT/ML 3 ML VIAL 10 UNIT IVPUSH (13:21)
--- NOTE | 2021-07-06 14:12 | PC.NURSE ---
RN aware POC [id number]
[2021-07-06 14:15] VITALS: BP 125/90; PULSE 63; RESP 15; TEMP 36.7; O2SAT 96
[2021-07-06 14:19] LABS: Glucose, Whole Blood 288 mg/dL (60-115)
[2021-07-06] MEDS: metFORMIN HCl 500 MG TABLET PO (15:21)
[2021-07-06 15:43] LABS: Glucose, Whole Blood 238 mg/dL (60-115)
[2021-07-07 09:05] LABS: Glucose, Whole Blood 456 mg/dL (60-115)
[2021-07-07 09:06] LABS: Glucose, Whole Blood 468 mg/dL (60-115)
== END 2021-07-06 15:48 | disposition home or self-care (01) ==
PROVIDERS: Emergency Provider Emergency Medicine
DX: E11.65 Type 2 diabetes mellitus with hyperglycemia (principal); I10 Essential (primary) hypertension; Z20.822 Contact with and (suspected) exposure to COVID-19
CPT/HCPCS: 36415; 80048; 80076; 81001; 82009; 82803; 82947; 83036; 83605; 83690; 83735; 84484; 85025; 87635; 93005; 96361; 96374; 96376; 99284; 99291

== ENCOUNTER → 2021-07-21 09:23 | Outpatient (BNVA) | payer OTHER, MEDICAID, SELFPAY | PROVIDERS: PCP Internal Medicine; Visit Provider Urology | DX: Z13.89 Encounter for screening for other disorder (principal) | CPT/HCPCS: Q3014 ==

== ENCOUNTER → 2021-10-26 09:52 | Outpatient (BNVA) | payer OTHER, SELFPAY | PROVIDERS: PCP Internal Medicine; Visit Provider Nurse Practitioner Family | DX: G47.33 Obstructive sleep apnea (adult) (pediatric) (principal) | CPT/HCPCS: 99202 ==

== ENCOUNTER 2021-12-09 07:26 | Outpatient (REF) | payer OTHER, SELFPAY ==
[2021-12-09 07:42] LABS: MANUAL DIFF FLAG NO
[2021-12-09 08:13] LABS: Basophils Percent Auto 0.7 % (0-2); Eosinophils Absolute Auto 0.2 X10*3/uL (0.0-0.4); Eosinophils Percent Auto 3.4 % (0-4); Hematocrit 42.7 % (42.0-52.0); Hemoglobin 14.6 g/dl (14.0-18.0); Imm Gran Abs Auto 0.02 X10*3/uL (0.00-0.03); Imm Gran Pct Auto 0.4 % (0.0-0.4); Lymphocytes Absolute Auto 2.4 X10*3/uL (1.2-4.9); Lymphocytes Percent Auto 42.2 % (20-40); Mean Corpuscular HGB Conc 34.2 g/dl (31.0-36.0); Mean Corpuscular Hemoglobin 29.5 pg (27.0-33.0); Mean Corpuscular Volume 86.3 fL (80.0-98.0); Mean Platelet Volume 10.5 fL (9.4-12.4); Monocytes Absolute Auto 0.4 X10*3/uL (0.1-1.2); Monocytes Percent Auto 6.6 % (2-11); Neutrophils Absolute Auto 2.6 x10*3/uL (2.0-8.3); Neutrophils Percent Auto 46.7 % (45-73); Platelet Count 170 X10*3/uL (160-400); Red Blood Count 4.95 X10*6/uL (4.60-5.80); Red Cell Distribution Width 14.2 % (11.0-16.0); White Blood Count 5.6 X10*3/uL (4.8-10.8)
[2021-12-09 08:26] LABS: Alanine Aminotransferase 22 U/L (0-40); Albumin Level 4.2 g/dL (3.5-5.0); Alkaline Phosphatase 56 U/L (39-117); Anion Gap 14 (12-20); Aspartate Amino Transferase 23 U/L (5-37); Bilirubin Total 0.6 mg/dL (0.0-1.0); Blood Urea Nitrogen 11 mg/dL (9-16); C Reactive Protein 0.51 mg/dL (< or = 0.50); Calcium 8.9 mg/dL (8.4-10.2); Carbon Dioxide 26 mmol/L (22-29); Chloride 106 mmol/L (96-108); Cholesterol 178 mg/dL; Estimated Glomerular Filt Rate > 60; Glucose Fasting 100 mg/dL (60-99); HDL Cholesterol 32 mg/dL; LDL Cholesterol Calculated 110 mg/dl; Potassium 4.2 mmol/L (3.3-5.1); Rheumatoid Factor < 15.0 IU/mL (<15.0); Sodium 142 mmol/L (135-145); Total Protein 7.4 g/dL (6.5-8.0); Triglycerides 180 mg/dL
[2021-12-09 08:49] LABS: Free T4 (Free Thyroxine) 0.93 ng/dL (0.71-1.85); Thyroid Stimulating Hormone 14.38 uIU/mL (0.32-4.0); Vitamin D 25-OH Total 41.8 ng/mL (>30)
[2021-12-09 08:56] LABS: Erythrocyte Sedimentation Rate 9 MM/HR (0-15)
[2021-12-09 12:04] LABS: Creatinine Urine 33.13 mg/dL; Microalbumin Urine < 5.0 mg/L
[2021-12-11 09:06] LABS: Thyroglobulin Antibodies >1000 IU/mL (< or = 1); Thyroid Peroxidase Antibodies 294 IU/mL (<9)
[2021-12-13 11:21] LABS: Cyclic Citrullinated Peptide 16 UNITS
[2021-12-13 22:57] LABS: Anti DNA DS Antibody <1 IU/mL
== END 2021-12-09 07:27 | disposition home or self-care (01) ==
LOC: HO.LAB 07:26
PROVIDERS: PCP Internal Medicine; Visit Provider Internal Medicine
DX: E11.9 Type 2 diabetes mellitus without complications (principal); R76.8 Other specified abnormal immunological findings in serum; G35 Multiple sclerosis; E03.9 Hypothyroidism, unspecified; E55.9 Vitamin D deficiency, unspecified; Z79.4 Long term (current) use of insulin
CPT/HCPCS: 36415; 80053; 80061; 82043; 82306; 84439; 84443; 85025; 85652; 86140; 86200; 86225; 86376; 86431; 86800

== ENCOUNTER 2021-12-28 10:35 | Outpatient (REF) | payer OTHER, SELFPAY | END 2021-12-28 10:36 | disposition home or self-care (01) | LOC: HO.XRAY 10:35 | PROVIDERS: PCP Internal Medicine; Visit Provider Internal Medicine | DX: M25.562 Pain in left knee (principal) | CPT/HCPCS: 73560 ==

== ENCOUNTER 2022-01-18 08:05 | Outpatient (REF) | payer OTHER, SELFPAY ==
[2022-01-18 09:21] LABS: Prostate Specific Antigen 0.73 ng/mL (<0.05-4.0)
== END 2022-01-18 08:06 | disposition home or self-care (01) ==
LOC: HO.LAB 08:05
PROVIDERS: PCP Internal Medicine; Visit Provider Urology
DX: Z12.5 Encounter for screening for malignant neoplasm of prostate (principal); N40.1 Benign prostatic hyperplasia with lower urinary tract symptoms; N13.8 Other obstructive and reflux uropathy
CPT/HCPCS: 36415; 84153

== ENCOUNTER 2022-01-18 08:17 | Emergency (ER) | payer OTHER, SELFPAY ==
--- NOTE | ~2022-01-18 | CT_ITS ---
EXAMINATION: CT HEAD WITHOUT CONTRAST CLINICAL INFORMATION: Status post fall, rule out intracranial abnormality. COMPARISON: Brain MRI dated 11/26/2015. TECHNIQUE: Contiguous axial imaging was performed from the skull base to vertex without intravenous administration of contrast. Coronal and sagittal reformatted images were obtained. This CT examination was performed using dose optimization techniques as appropriate, variously including the following: *Automated exposure control *Adjustment of mA and/or kV according to patient size (this includes techniques or standardized protocols for targeted exams where dose is matched to indication/reason for exam; i.e. extremities or head) *Use of iterative reconstruction technique DLP: 769.66 mGy-cm FINDINGS: The cortical sulci are normal. The lateral ventricles are symmetrical. The third and fourth ventricles are in their normal midline position. The basilar and prepontine cisterns are unremarkable. There is no acute intra or extracerebral abnormality. There is no mass effect or midline shift. Sections through the bony calvarium are unremarkable. The paranasal sinuses are clear. The bony orbits and orbital contents are unremarkable. Mild anterior nasal septal deviation, apex the left. CT/CT head/brain wo IV con IMPRESSION: No acute intracranial pathology.
--- NOTE | ~2022-01-18 | CT_ITS ---
EXAMINATION: CT CERVICAL SPINE WITHOUT CONTRAST CLINICAL INFORMATION: Status post fall with neck pain. COMPARISON: None TECHNIQUE: Multiple axial images of the cervical spine were obtained without the administration of intravenous contrast. Coronal and sagittal reformatted images were obtained. This CT examination was performed using dose optimization techniques as appropriate, variously including the following: *Automated exposure control *Adjustment of mA and/or kV according to patient size (this includes techniques or standardized protocols for targeted exams where dose is matched to indication/reason for exam; i.e. extremities or head) *Use of iterative reconstruction technique DLP: 583.68 mGy-cm FINDINGS: There is normal cervical lordosis and spinal alignment. The vertebral bodies and intervertebral disc spaces are unremarkable. Mild anterior osteophyte formation is seen at C6-7. The odontoid process is intact. The neural foramina are patent. The facet joints are unremarkable. The spinous processes are intact. The transverse processes are intact. The cervical soft tissues are unremarkable. No lymphadenopathy. The thyroid gland is unremarkable. The lung apices are clear. CT/CT cervical spine wo IV con IMPRESSION: Mild anterior osteophyte formation at C6-7 without other significant abnormality.
[2022-01-18 08:20] VITALS: BP 130/88; PULSE 93; RESP 20; TEMP 36.5; O2SAT 98; BMI 28.1
--- NOTE | 2022-01-18 09:31 | ED_ITS ---
HPI - General Adult General Chief complaint: General Medical Stated complaint: Pain Back Of Head Time Seen by Provider: 01/18/22 09:18 Source: patient Mode of arrival: ambulatory Limitations: language barrier ([place]) History of Present Illness HPI narrative: Patient is a 66 year old male with a past medical history of MS, type 2 diabetes, hypothyroidism, ROLDAN, and BPH who presents to the ED today with left-sided neck and eye pain x2 weeks. Patient states he was trimming trees in his yard 1 month ago when a branch fell and hit the back of his neck. He denies any LOC or pain at the time of injury. He reports having no complaints up until 2 weeks ago when he gradually developed pain on the left side of his neck and left eye. He denies any associated vision changes, hearing changes, dizziness, numbness and tingling, weakness, CP, back pain, and urinary/bowel dysfunction. He states that he has a slow gait and intermittent HAs due to his MS, however denies any changes or worsening of these symptoms since his initial injury. MD complaint: head injury/neck injury Onset (ago): month(s) (1) Location: neck Radiation: non-radiation Severity: moderate Severity scale (1-10): 8 Quality: aching and constant Pain Consistency: constant Relieving factors: immobilization Exacerbating factors: movement (turning neck side to side) Associated symptoms: other (L eye pain) Treatments prior to arrival: none Related Data Home Medications Medication Instructions Recorded Confirmed cholecalciferol (vitamin D3) 25 25 mcg PO BID 07/20/21 12/21/21 mcg (1,000 unit) tablet quetiapine 25 mg tablet 25 mg PO BID 07/20/21 12/21/21 amlodipine 5 mg tablet 5 mg PO DAILY 07/21/21 12/21/21 citalopram 20 mg tablet 20 mg PO DAILY 07/21/21 12/21/21 clotrimazole 10 mg radha 10 mg PO 07/21/21 12/21/21 fluticasone propionate 50 1 - 2 spray intranasal DAILY PRN 07/21/21 12/21/21 mcg/actuation nasal spray,suspension lancets 33 gauge (TRUEplus Lancets) #100 ea 07/21/21 12/21/21 metformin 850 mg tablet 850 mg PO 07/21/21 12/21/21 oxybutynin chloride 10 mg 10 mg PO DAILY 07/21/21 12/21/21 tablet,extended release 24 hr sennosides 8.6 mg tablet (senna) 17.2 mg PO BID 07/21/21 12/21/21 omeprazole 20 mg capsule,delayed 20 mg PO QAM 10/26/21 12/21/21 release Previous Rx's Medication Instructions Recorded cyclobenzaprine 10 mg tablet 10 mg PO TID PRN muscle spasm #15 02/25/20 tabs naproxen 500 mg tablet 500 mg PO BID PRN pain #20 tabs 02/25/20 alcohol swabs (Alcohol Prep Pads) 1 pad topical QIDACHS #100 ea 07/06/21 blood sugar diagnostic (FreeStyle #100 ea 07/06/21 Test strips) blood-glucose meter (FreeStyle #1 ea 07/06/21 Lite Meter kit) insulin glargine 100 unit/mL (3 10 unit (0.1 mL) subcut QAM #3 mL 07/06/21 mL) subcutaneous pen (Lantus Solostar U-100 Insulin) lancets 28 gauge (FreeStyle #100 ea 07/06/21 Lancets) tadalafil 10 mg tablet 10 mg PO DAILY sexual activity 90 07/21/21 days #90 tabs melatonin 3 mg tablet 3 mg PO BEDTIME PRN sleep 30 days 10/26/21 #30 tabs CPAP (CPAP Machine/Device) #1 ea 12/21/21 levothyroxine 175 mcg tablet 175 mcg PO DAILY 90 days #90 tabs 12/21/21 cyclobenzaprine 10 mg tablet 10 mg PO Q8H PRN Muscle spasm #14 01/18/22 tabs naproxen 500 mg tablet 500 mg PO BID PRN pain #10 tabs 01/18/22 Allergies Allergy/AdvReac Type Severity Reaction Status Date / Time tramadol Allergy Intermediate Hives Verified 12/21/21 14:05 Review of Systems Review of Systems: Constitutional : No trauma, No Weight loss, No Fever, No Chills, ENT/Mouth : + eye pain. No Hearing loss, No Ear Pain, No Nasal Congestion, No Sinus Pain, No Hoarseness, No sore throat, No Rhinorrhea, No Swallowing Difficulty Cardiovascular : No Chest Pain, No SOB Respiratory : No Cough, No Dyspnea Gastrointestinal : No Nausea, No Vomiting, No Diarrhea, No abdominal Pain, No Hematochezia, No Melena Genitourinary : No Dysuria, No Urinary Frequency, No Hematuria, No Urinary or Bowel Incontinence/retention Musculoskeletal : + Neck pain, No Back pain, No joint stiffness, No joint swelling Skin : No Skin Lesions, No rash or signs of infection Neuro : No Tingling to b/l arms/legs, No Weakness, No radiation, No Numbness, No headache, no loss of bowel or bladder incontinence, no saddle anesthesia Denies history of IV drug usage. Yes all other systems are reviewed and are negative [facility] Past Medical History Attestation statement: The following information was validated with the patient. Source: old records reviewed, obtained from family and nursing notes reviewed Medical History CATHY positive Arthralgia Enlarged prostate without lower urinary tract symptoms (luts) Erectile dysfunction Flatus History of urinary hesitancy Hypothyroidism Hypovitaminosis D Medial meniscus tear Moderate recurrent major depression Multiple sclerosis OA (osteoarthritis) ROLDAN (obstructive sleep apnea) Prostate nodule Type 2 diabetes mellitus, with long-term current use of insulin Unspecified constipation Voice hoarseness Surgical History History of surgery Family History Family History Mother No problems noted. Father No problems noted. Social History Social History Household Members Other:: and daughter Housing: House Alcohol intake: never Patient Tobacco Use Status: Never used Tobacco e-Cigarette/Vaping Use: Never Used Second Hand Smoke Exposure: No Advance Directives: No Advance Directives Information Provided: Yes service: No Current occupational status: disabled Cognitive needs: Yes Hearing needs: No Vision needs: Yes Physical Exam ED Vital Signs: Vital Signs - 24 hr 01/18/22 08:20 Temperature 97.7 F Pulse Rate 93 Respiratory Rate 20 Blood Pressure 130/88 Pulse Oximetry 98 Oxygen Delivery Method Room Air BMI result Body Mass Index 28.1 vital signs have been reviewed as normal and appeared to be correct. Blood pressure normal. Heart rate normal. Respiration rate normal. Temperature normal. Oxygen saturation normal. Appearance: Alert. Oriented X3. No acute distress. Head: Normal external exam. Normocephalic. Atraumatic. No Harman signs noted. No raccoon eyes noted Eyes: PERRLA. EOMI. Conjunctiva and sclera normal. Eyelids normal. ENT: EAC normal. TM's Normal. No septal hematoma noted. No hemotympanum noted. Pharynx normal. Uvula midline. Moist mucous membranes. No lesions/ulcerations or masses noted on the tongue. Normal voice. No trismus noted. No drooling noted. No muffled voice noted. Neck: Normal inspection. Neck supple. FROM. Pain with rotation of neck and mild tenderness palpation to left upper paracervical musculature. No mid cervical tenderness step-offs or deformities are noted. No adenopathy. Thyroid Normal. No tracheal deviation noted. No crepitus is noted. No meningeal signs. No neck mass noted. No signs of trauma noted. No rashes/lesion/induration/fluctuance or signs of infection noted. Patient neuro intact bilaterally and distally in all 4 extremities. Reflexes intact bilaterally and distally in all 4 extremities. CVS: Normal heart rate and rhythm. Heart sound normal. Pulses normal throughout. No murmurs/rales/gallops. Respiratory: No respiratory distress. Painless inspiration. Breath sounds normal. No wheezes/rales/rhonchi noted. Chest nontender. No crepitus is noted. No signs of trauma noted. No accessory muscle usage noted or decreased air movement noted. No signs of trauma. Back: Full range of motion noted. Nontender. No signs of trauma. Patient neuro intact bilaterally and distally on all 4 extremities. No rashes/lesion/induration/fluctuance or signs of infection noted. Skin: Skin warm and dry. Normal skin color. Normal skin turgor. No rashes/lesions/lacerations noted. Extremities: Extremities exhibit normal range of motion and nontender. Neuro: Oriented X 3. No motor deficit. No sensory deficit. Reflexes normal. Normal steady gait. No focal neuro deficits noted. CN's II-XII intact bilaterally? Vascular: + radial pulses. Normal cap refill. Course Course Course Narrative: Patient is a 66 year old male with a past medical history of MS, type 2 diabetes, hypothyroidism, ROLDAN, and BPH who presents to the ED today with left- sided neck and eye pain x2 weeks. Patient states he was trimming trees in his yard 1 month ago when a branch fell and hit the back of his neck. He denies any LOC or pain at the time of injury. He reports having no complaints up until 2 weeks ago when he gradually developed pain on the left side of his neck and left eye pain. He denies any associated vision changes, dizziness, numbness and tingling, weakness, back pain, and urinary/bowel dysfunction. He states that he has a slower gait and intermittent HAs prior to the injury due to his MS, however denies any changes in these symptoms since his initial injury. VSS. PE unremarkable aside from pain with active neck rotation. FROM with no focal neuro deficits noted. Plan: CT of head and neck without contrast and re-evaluate. Reevaluation(s) Reevaluation #1: CT scan of brain within normal limits no acute processes noted. CT scan of cervical spine revealed chronic changes no acute processes noted. Therefore at this time patient most likely muscular skeletal pain. Will DC home with symptomatic treatment instructions return if any new or worsening symptoms follow up with primary care provider. Patient understands agrees with this plan. Time: 12:26 Medical Decision Making Medical Records Medical records reviewed: Yes I reviewed the patient's medical records. Imaging Data CT scan of brain/cervical spine without contrast: Attestation: I personally reviewed and interpreted this imaging study as follows: Radiologist's impression: FINDINGS: The cortical sulci are normal. The lateral ventricles are symmetrical. The third and fourth ventricles are in their normal midline position. The basilar and prepontine cisterns are unremarkable. There is no acute intra or extracerebral abnormality. There is no mass effect or midline shift. Sections through the bony calvarium are unremarkable. The paranasal sinuses are clear. The bony orbits and orbital contents are unremarkable. Mild anterior nasal septal deviation, apex the left. CT/CT head/brain wo IV con IMPRESSION: No acute intracranial pathology. FINDINGS: There is normal cervical lordosis and spinal alignment. The vertebral bodies and intervertebral disc spaces are unremarkable. Mild anterior osteophyte formation is seen at C6-7. The odontoid process is intact. The neural foramina are patent. The facet joints are unremarkable. The spinous processes are intact. The transverse processes are intact. The cervical soft tissues are unremarkable. No lymphadenopathy. The thyroid gland is unremarkable. The lung apices are clear. CT/CT cervical spine wo IV con IMPRESSION: Mild anterior osteophyte formation at C6-7 without other significant abnormality. Discharge Plan Discharge Clinical Impression: Cervical muscle strain Patient Disposition: Home, Self-Care Prescriptions: New cyclobenzaprine 10 mg tablet 10 mg PO Q8H PRN (Reason: Muscle spasm) Qty: 14 0RF naproxen 500 mg tablet 500 mg PO BID PRN (Reason: pain) Qty: 10 0RF No Action naproxen 500 mg tablet 500 mg PO BID PRN (Reason: pain) Qty: 20 0RF cyclobenzaprine 10 mg tablet 10 mg PO TID PRN (Reason: muscle spasm) Qty: 15 0RF Rx Instructions: side effect is drowsiness. Do not take at work or while driving. Lantus Solostar U-100 Insulin 100 unit/mL (3 mL) insulin pen 10 unit subcut QAM Qty: 3 0RF (DME) blood-glucose meter [FreeStyle Lite Meter] Kit See Rx Instructions .Route Qty: 1 0RF Rx Instructions: As directed (DME) lancets [FreeStyle Lancets] 28 gauge misc See Rx Instructions .Route Qty: 100 0RF Rx Instructions: As directed (DME) FreeStyle Test Strip See Rx Instructions .Route Qty: 100 0RF Rx Instructions: As directed alcohol swabs [Alcohol Prep Pads] Pads, Medicated 1 pad topical QIDACHS Qty: 100 0RF cholecalciferol (vitamin D3) 25 mcg (1,000 unit) tablet 25 mcg PO BID quetiapine 25 mg tablet 25 mg PO BID (DME) CPAP Machine/Device Device See Rx Instructions .Route Qty: 1 0RF Rx Instructions: autoPAP 5-20 cmH2O, heated humidification unit levothyroxine 175 mcg tablet 175 mcg PO DAILY 90 Days Qty: 90 1RF sennosides [senna] 8.6 mg tablet 17.2 mg PO BID metformin 850 mg tablet 850 mg PO (DME) lancets [TRUEplus Lancets] 33 gauge misc See Rx Instructions topical .MEDSUPPLY Qty: 100 Rx Instructions: As directed amlodipine 5 mg tablet 5 mg PO DAILY clotrimazole 10 mg radha 10 mg PO fluticasone propionate 50 mcg/actuation spray,suspension 1 - 2 spray intranasal DAILY PRN citalopram 20 mg tablet 20 mg PO DAILY oxybutynin chloride 10 mg tablet extended release 24hr 10 mg PO DAILY tadalafil 10 mg tablet 10 mg PO DAILY 90 Days Qty: 90 2RF omeprazole 20 mg capsule,delayed release(DR/EC) 20 mg PO QAM melatonin 3 mg tablet 3 mg PO BEDTIME PRN (Reason: sleep) 30 Days Qty: 30 3RF Referrals: Cathy Velazquez MD [Primary Care Provider] - 2 days Print Language: [place]
== END 2022-01-18 12:44 | disposition home or self-care (01) ==
PROVIDERS: Emergency Provider Emergency Medicine Emergency Medical Services; PCP Internal Medicine
DX: R51.9 Headache, unspecified (principal); M54.2 Cervicalgia; E11.9 Type 2 diabetes mellitus without complications; Z79.899 Other long term (current) drug therapy; Z79.4 Long term (current) use of insulin
CPT/HCPCS: 70450; 72125; 99283; 99284

== ENCOUNTER → 2022-01-25 09:47 | Outpatient (BNVA) | payer OTHER, SELFPAY | PROVIDERS: PCP Internal Medicine; Visit Provider Urology | DX: N40.1 Benign prostatic hyperplasia with lower urinary tract symptoms (principal); N13.8 Other obstructive and reflux uropathy; E11.69 Type 2 diabetes mellitus with other specified complication; N52.1 Erectile dysfunction due to diseases classified elsewhere | CPT/HCPCS: 51798; 99212 ==

== ENCOUNTER → 2022-02-08 13:37 | Outpatient (BNVA) | payer OTHER, SELFPAY | PROVIDERS: PCP Internal Medicine; Visit Provider Nurse Practitioner Family | DX: G47.33 Obstructive sleep apnea (adult) (pediatric) (principal) | CPT/HCPCS: 99212 ==

== ENCOUNTER 2022-04-14 09:34 | Outpatient (REF) | payer OTHER, SELFPAY ==
[2022-04-14 11:15] LABS: Alanine Aminotransferase 30 U/L (0-40); Albumin Level 4.4 g/dL (3.5-5.0); Alkaline Phosphatase 61 U/L (39-117); Anion Gap 13 (12-20); Aspartate Amino Transferase 24 U/L (5-37); Bilirubin Total 0.8 mg/dL (0.0-1.0); Blood Urea Nitrogen 9 mg/dL (9-16); Calcium 9.4 mg/dL (8.4-10.2); Carbon Dioxide 28 mmol/L (22-29); Chloride 104 mmol/L (96-108); Cholesterol 175 mg/dL; Estimated Glomerular Filt Rate > 60; Glucose Fasting 118 mg/dL (60-99); HDL Cholesterol 30 mg/dL; LDL Cholesterol Calculated 102 mg/dl; Potassium 4.2 mmol/L (3.3-5.1); Sodium 141 mmol/L (135-145); Total Protein 7.8 g/dL (6.5-8.0); Triglycerides 219 mg/dL
[2022-04-14 11:31] LABS: Vitamin D 25-OH Total 28.8 ng/mL (>30)
[2022-04-14 13:37] LABS: Creatinine Urine 184.69 mg/dL; Microalbum/Creatinine Ratio Ur 10.2 ug/mg cr
== END 2022-04-14 09:35 | disposition home or self-care (01) ==
LOC: HO.LAB 09:34
PROVIDERS: PCP Internal Medicine; Visit Provider Internal Medicine
DX: E03.9 Hypothyroidism, unspecified (principal); E78.5 Hyperlipidemia, unspecified; G35 Multiple sclerosis; E55.9 Vitamin D deficiency, unspecified; E11.9 Type 2 diabetes mellitus without complications
CPT/HCPCS: 36415; 80053; 80061; 82043; 82306; 84443

== ENCOUNTER → 2022-04-25 21:59 | Outpatient (REF) | payer OTHER, SELFPAY | LOC: HO.SL 21:59 | PROVIDERS: PCP Internal Medicine; Visit Provider Nurse Practitioner Family | DX: G47.33 Obstructive sleep apnea (adult) (pediatric) (principal) | CPT/HCPCS: 95811 ==

== ENCOUNTER 2022-07-08 11:19 | Outpatient (REF) | payer OTHER, SELFPAY ==
--- NOTE | ~2022-07-08 | XR_ITS ---
EXAMINATION: XR CHEST CLINICAL INFORMATION: Shortness of breath COMPARISON: Previous chest x-ray most recent July 2017 and lung windows from abdominal and pelvic CT scan February 2020 TECHNIQUE: Two-view chest FINDINGS: The cardiac and mediastinal contours are stable. There is question of a 7 mm nodule at the left lung base overlying the left anterior sixth rib. It is uncertain whether this corresponds to nodule seen on abdominal and pelvic CT scan. This is not appreciated on prior chest x-rays. The lungs are otherwise clear. No pleural effusion or pneumothorax. Bony structures are unremarkable. XR/XR chest 2V IMPRESSION: Question 7 mm nodule at the left lung base. It is uncertain whether this corresponds to nodule seen on older abdominal and pelvic CT scan. Follow-up chest CT scan should be considered.
== END 2022-07-08 11:20 | disposition home or self-care (01) ==
LOC: HO.HMGCX 11:19
PROVIDERS: PCP Internal Medicine; Visit Provider Internal Medicine
DX: R06.02 Shortness of breath (principal)
CPT/HCPCS: 71046

== ENCOUNTER 2022-07-19 08:37 | Outpatient (REF) | payer OTHER, SELFPAY ==
[2022-07-19 11:26] LABS: Creatinine Urine 87.66 mg/dL; Microalbum/Creatinine Ratio Ur 7.9 ug/mg cr
[2022-07-19 11:36] LABS: Alanine Aminotransferase 32 U/L (0-40); Albumin Level 4.4 g/dL (3.5-5.0); Alkaline Phosphatase 73 U/L (39-117); Anion Gap 17 (12-20); Aspartate Amino Transferase 22 U/L (5-37); Bilirubin Total 0.9 mg/dL (0.0-1.0); Blood Urea Nitrogen 15 mg/dL (9-16); Calcium 9.2 mg/dL (8.4-10.2); Carbon Dioxide 22 mmol/L (22-29); Chloride 105 mmol/L (96-108); Cholesterol 114 mg/dL; Estimated Glomerular Filt Rate > 60; Glucose Fasting 125 mg/dL (60-99); HDL Cholesterol 26 mg/dL; LDL Cholesterol Calculated 48 mg/dl; Potassium 4.6 mmol/L (3.3-5.1); Sodium 139 mmol/L (135-145); Total Protein 7.4 g/dL (6.5-8.0); Triglycerides 201 mg/dL
[2022-07-19 11:43] LABS: Prostate Specific Antigen 1.05 ng/mL (<0.05-4.0); Vitamin D 25-OH Total 27.8 ng/mL (>30)
[2022-07-26 13:43] LABS: Testosterone, Total 379 ng/dL (250-1100)
== END 2022-07-19 08:38 | disposition home or self-care (01) ==
LOC: HO.LAB 08:37
PROVIDERS: Absent Provider Internal Medicine; PCP Internal Medicine; Visit Provider Urology
DX: N40.1 Benign prostatic hyperplasia with lower urinary tract symptoms (principal); N13.8 Other obstructive and reflux uropathy; E55.9 Vitamin D deficiency, unspecified; E78.5 Hyperlipidemia, unspecified; E11.9 Type 2 diabetes mellitus without complications; Z12.5 Encounter for screening for malignant neoplasm of prostate
CPT/HCPCS: 36415; 80053; 80061; 82043; 82306; 84153; 84403

== ENCOUNTER 2022-07-27 09:58 | Emergency (ER) | payer OTHER, SELFPAY ==
--- NOTE | ~2022-07-27 | XR_ITS ---
EXAMINATION: XR CHEST CLINICAL INFORMATION: Chest pain. COMPARISON: 07/08/2022 chest radiographs. TECHNIQUE: 2 views of the chest were obtained. FINDINGS: No significant abnormality is noted involving the heart, lungs, mediastinum, bony thorax or soft tissues. XR/XR chest 2V IMPRESSION: No acute cardiopulmonary process.
--- NOTE | 2022-07-27 10:05 | ECG_ITS ---
Test Reason : cp Blood Pressure : / mmHG Vent. Rate : 086 BPM Atrial Rate : 086 BPM P-R Int : 156 ms QRS Dur : 088 ms QT Int : 340 ms P-R-T Axes : 073 014 035 degrees QTc Int : 406 ms Normal sinus rhythm Normal ECG When compared with ECG of 06-JUL-2021 10:07, No significant change was found Referred By: Generic ED Physician Electronically Signed By:ANNAMARIA YUN MD
[2022-07-27 10:29] LABS: MANUAL DIFF FLAG NO
[2022-07-27 10:31] LABS: Basophils Percent Auto 0.7 % (0-2); Eosinophils Absolute Auto 0.2 X10*3/uL (0.0-0.4); Eosinophils Percent Auto 3.9 % (0-4); Hemoglobin 15.1 g/dl (14.0-18.0); Imm Gran Abs Auto 0.02 X10*3/uL (0.00-0.03); Imm Gran Pct Auto 0.3 % (0.0-0.4); Lymphocytes Absolute Auto 2.2 X10*3/uL (1.2-4.9); Lymphocytes Percent Auto 36.5 % (20-40); Mean Corpuscular HGB Conc 35.1 g/dl (31.0-36.0); Mean Corpuscular Hemoglobin 29.9 pg (27.0-33.0); Mean Corpuscular Volume 85.1 fL (80.0-98.0); Mean Platelet Volume 10.4 fL (9.4-12.4); Monocytes Absolute Auto 0.4 X10*3/uL (0.1-1.2); Monocytes Percent Auto 6.6 % (2-11); Neutrophils Absolute Auto 3.1 x10*3/uL (2.0-8.3); Platelet Count 200 X10*3/uL (160-400); Red Blood Count 5.05 X10*6/uL (4.60-5.80); Red Cell Distribution Width 12.8 % (11.0-16.0); White Blood Count 5.9 X10*3/uL (4.8-10.8)
[2022-07-27 10:39] VITALS: BP 119/75; PULSE 82; RESP 18; TEMP 36.6; O2SAT 98; BMI 26.8
[2022-07-27 10:45] LABS: Anion Gap 13 (12-20); Blood Urea Nitrogen 11 mg/dL (9-16); Calcium 9.4 mg/dL (8.4-10.2); Carbon Dioxide 23 mmol/L (22-29); Chloride 105 mmol/L (96-108); Estimated Glomerular Filt Rate > 60; Glucose Random 227 mg/dL (60-115); Potassium 4.2 mmol/L (3.3-5.1); Sodium 137 mmol/L (135-145)
[2022-07-27 11:03] LABS: Troponin-I High Sensitivity < 2.7 ng/L (<3.5-35.0)
--- NOTE | 2022-07-27 12:55 | ED_ITS ---
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 Patient states his last episode was last night at approximately midnight where he states that it feels like somebody is grabbing onto the right side of his chest he and has been associated with some dizziness and nausea. Patient reports he still has is gallbladder denies any fever, chills. Related Data Home Medications Medication Instructions Recorded Confirmed cholecalciferol (vitamin D3) 25 25 mcg PO BID 07/20/21 04/18/22 mcg (1,000 unit) tablet quetiapine 25 mg tablet 25 mg PO BID 07/20/21 04/18/22 citalopram 20 mg tablet 20 mg PO DAILY 07/21/21 04/18/22 clotrimazole 10 mg radha 10 mg PO 07/21/21 04/18/22 lancets 33 gauge (TRUEplus Lancets) #100 ea 07/21/21 04/18/22 sumatriptan succinate 50 mg tablet 50 mg PO DAILY PRN 02/08/22 04/18/22 Previous Rx's Medication Instructions Recorded cyclobenzaprine 10 mg tablet 10 mg PO TID PRN muscle spasm #15 02/25/20 tabs naproxen 500 mg tablet 500 mg PO BID PRN pain #20 tabs 02/25/20 lancets 28 gauge (FreeStyle #100 ea 07/06/21 Lancets) melatonin 3 mg tablet 3 mg PO BEDTIME PRN sleep 30 days 10/26/21 #30 tabs CPAP (CPAP Machine/Device) #1 ea 12/21/21 cyclobenzaprine 10 mg tablet 10 mg PO Q8H PRN Muscle spasm #14 01/18/22 tabs atorvastatin 10 mg tablet 10 mg PO BEDTIME 90 days #90 tabs 04/18/22 lisinopril 10 mg tablet 10 mg PO DAILY 90 days #90 tabs 04/18/22 metformin 500 mg tablet 500 mg PO DAILY 90 days #90 tabs 04/18/22 nonslip bath mat #1 ea 06/23/22 pantoprazole 40 mg tablet,delayed 40 mg PO DAILY #30 tabs 07/08/22 release levothyroxine 200 mcg tablet 200 mcg PO DAILY 90 days #90 tabs 07/20/22 Allergies Allergy/AdvReac Type Severity Reaction Status Date / Time tramadol Allergy Intermediate Hives Verified 07/27/22 10:42 Review of Systems Review of Systems: Pertinent positives and negatives as stated in [facility] Past Medical History Source: nursing notes reviewed Medical History CATHY positive Arthralgia Enlarged prostate without lower urinary tract symptoms (luts) Erectile dysfunction Flatus History of urinary hesitancy Hypothyroidism Hypovitaminosis D Medial meniscus tear Moderate recurrent major depression Multiple sclerosis OA (osteoarthritis) ROLDAN (obstructive sleep apnea) Prostate nodule Type 2 diabetes mellitus, with long-term current use of insulin Unspecified constipation Voice hoarseness Surgical History History of surgery Family History Family History Mother No problems noted. Father No problems noted. Social History Social History Household Members Other:: and daughter Housing: House Alcohol intake: never Patient Tobacco Use Status: Never used Tobacco e-Cigarette/Vaping Use: Never Used Second Hand Smoke Exposure: No Advance Directives: No service: No Current occupational status: disabled Cognitive needs: Yes Hearing needs: No Vision needs: Yes Physical Exam ED Vital Signs: Vital Signs - 24 hr 07/27/22 10:39 Temperature 98 F Pulse Rate 82 Respiratory Rate 18 Blood Pressure 119/75 Pulse Oximetry 98 Oxygen Delivery Method Room Air BMI result Body Mass Index 26.8 VITAL SIGNS: Reviewed. GENERAL: Well developed, well nourished, in no acute distress. HEAD: Normocephalic/atraumatic EYES: PERRLA, EOMI EARS: Ext canals without abnormality LUNGS: Normal breath sounds. No adventitious sounds or accessory muscle use. SpO2<98> CARDIOVASCULAR: Regular rate and rhythm without noted murmurs, no JVD or lower extremity edema. ABDOMEN: Soft, non-tender, non-distended with bowel sounds. MUSCULOSKELETAL: No tenderness, deformities, or effusions noted on gross insp ection. EXTREMITIES: No cyanosis, clubbing or edema. SKIN: Inspection of the skin reveals no rashes NEUROLOGIC: Alert and oriented x 4. Strength and sensation to light touch were grossly intact x 4. Medical Decision Making Medical Decision Making MDM Narrative: 67-year-old male with history and clinical presentation of atypical chest pain, no clinical exam findings to suggest right upper quadrant pain/pancreatitis and history does not support this either. The nature of patient's chest pain ap pears to be more consistent with muscle strain although he does report dizziness and nausea this appears to be somewhat nonspecific and the pain lasts for proximally 1 hour in the middle the night. Patient also endorses that he has ROLDAN but has not been started on a CPAP machine yet. I reviewed all investigations to include EKG and chest x-ray and my interpretation is this patient is suffering from atypical chest pain that is not associated with infection, anemia, electrolyte abnormalities and I have very low clinical suspicion for any ischemic event, HEART Score-3. Differential Diagnosis Please see the discussion above Lab Data Please see the discussion above 07/27/22 10:23 07/27/22 10:23 Labs: Lab Results 07/27/22 07/27/22 07/27/22 Range/Units 10:23 10:23 10:23 WBC 5.9 (4.8-10.8) X10*3/uL RBC 5.05 (4.60-5.80) X10*6/uL Hgb 15.1 (14.0-18.0) g/dl Hct 43.0 (42.0-52.0) % MCV 85.1 (80.0-98.0) fL MCH 29.9 (27.0-33.0) pg MCHC 35.1 (31.0-36.0) g/dl RDW 12.8 (11.0-16.0) % Plt Count 200 (160-400) X10*3/uL MPV 10.4 (9.4-12.4) fL Immature Gran % (Auto) 0.3 (0.0-0.4) % Neut % (Auto) 52.0 (45-73) % Lymph % (Auto) 36.5 (20-40) % Lares % (Auto) 6.6 (2-11) % Eos % (Auto) 3.9 (0-4) % Baso % (Auto) 0.7 (0-2) % Lymph # (Auto) 2.2 (1.2-4.9) X10*3/uL Lares # (Auto) 0.4 (0.1-1.2) X10*3/uL Eos # (Auto) 0.2 (0.0-0.4) X10*3/uL Baso # (Auto) 0.0 (0.0-0.2) X10*3/uL Abs Immat Gran (auto) 0.02 (0.00-0.03) X10*3/uL Absolute Neuts (auto) 3.1 (2.0-8.3) x10*3/uL Absolute Nucleated RBC 0.000 (0.0-0.012) X10*3/uL Nucleated RBC % (auto) 0.0 (0.0-0.2) /100WBC Sodium 137 (135-145) mmol/L Potassium 4.2 (3.3-5.1) mmol/L Chloride 105 (96-108) mmol/L Carbon Dioxide 23 (22-29) mmol/L Anion Gap 13 (12-20) BUN 11 (9-16) mg/dL Creatinine 1.13 (0.5-1.4) mg/dL Estim Creat Clear Calc 63.0 Estimated GFR > 60 Random Glucose 227 H (60-115) mg/dL Calcium 9.4 (8.4-10.2) mg/dL Troponin I High Sens < 2.7 (<3.5-35.0) ng/L Independent Interpretation I performed an independent interpretation of an: EKG Interpretation: Normal sinus rhythm, HR-86, no STEMI, TX/QRS/QTC is within normal limits. Radiology Impression Radiologist Impression: My interpretation is in agreement with radiology's impression of the imaging studies. External Record Review External record reviewed: Outpatient record and Prior outpatient labs Chronic Conditions Patient?s care impacted by: Diabetes and Hypertension Discharge Plan Discharge Clinical Impression: Atypical chest pain, Musculoskeletal pain Patient Disposition: Home, Self-Care Instructions: Chest Wall Pain (ED), Musculoskeletal Pain (ED) Additional Instructions: 1. Reanudar todos los medicamentos caseros. 2. Recomendar Tylenol/ibuprofeno de venta shirley seg?n sea necesario para controlar el dolor. 3. Llame hoy al consultorio de gutierres proveedor de atenci?n primaria para programar emeli derrick para emeli reevaluaci?n Regrese a la camryn de emergencias si los s?ntomas empeoran. 1. Resume all home medications. 2. Recommend [id number] Tylenol/ibuprofen as needed for pain control. 3. Please call the office of your primary care provider today to set up an appointment for re-evaluation Return to the ER for any worsening symptoms. Prescriptions: No Action (DME) nonslip bath mat See Rx Instructions .Route .MEDSUPPLY Qty: 1 0RF Rx Instructions: As directed levothyroxine 200 mcg tablet 200 mcg PO DAILY 90 Days Qty: 90 0RF naproxen 500 mg tablet 500 mg PO BID PRN (Reason: pain) Qty: 20 0RF cyclobenzaprine 10 mg tablet 10 mg PO TID PRN (Reason: muscle spasm) Qty: 15 0RF Rx Instructions: side effect is drowsiness. Do not take at work or while driving. (DME) lancets [FreeStyle Lancets] 28 gauge misc See Rx Instructions .Route Qty: 100 0RF Rx Instructions: As directed cyclobenzaprine 10 mg tablet 10 mg PO Q8H PRN (Reason: Muscle spasm) Qty: 14 0RF cholecalciferol (vitamin D3) 25 mcg (1,000 unit) tablet 25 mcg PO BID quetiapine 25 mg tablet 25 mg PO BID (DME) CPAP Machine/Device Device See Rx Instructions .Route Qty: 1 0RF Rx Instructions: autoPAP 5-20 cmH2O, heated humidification unit atorvastatin 10 mg tablet 10 mg PO BEDTIME 90 Days Qty: 90 1RF lisinopril 10 mg tablet 10 mg PO DAILY 90 Days Qty: 90 1RF metformin 500 mg tablet 500 mg PO DAILY 90 Days Qty: 90 1RF pantoprazole 40 mg tablet,delayed release (DR/EC) 40 mg PO DAILY Qty: 30 1RF (DME) lancets [TRUEplus Lancets] 33 gauge misc See Rx Instructions topical .MEDSUPPLY Qty: 100 Rx Instructions: As directed clotrimazole 10 mg radha 10 mg PO citalopram 20 mg tablet 20 mg PO DAILY melatonin 3 mg tablet 3 mg PO BEDTIME PRN (Reason: sleep) 30 Days Qty: 30 3RF sumatriptan succinate 50 mg tablet 50 mg PO DAILY PRN Referrals: Cathy Velazquez MD [Primary Care Provider] - Print Language: Guatemalan
[2022-07-27 14:25] VITALS: BP 147/81; PULSE 77; RESP 18; O2SAT 98
== END 2022-07-27 14:26 | disposition home or self-care (01) ==
PROVIDERS: Emergency Provider Student in an Organized Health Care Education/Training Program; PCP Internal Medicine
DX: R07.89 Other chest pain (principal); M79.10 Myalgia, unspecified site; E11.9 Type 2 diabetes mellitus without complications; I10 Essential (primary) hypertension; E78.5 Hyperlipidemia, unspecified; Z79.899 Other long term (current) drug therapy
CPT/HCPCS: 36415; 71046; 80048; 84484; 85025; 93005; 99283; 99284

== ENCOUNTER 2022-08-12 09:14 | Outpatient (REF) | payer OTHER, SELFPAY ==
--- NOTE | ~2022-08-12 | CT_ITS ---
EXAMINATION: CT CHEST WITHOUT CONTRAST CLINICAL INFORMATION: Pulmonary nodule COMPARISON: Previous chest x-ray July 2022 and lung windows from abdominal and pelvic CT from 2017 TECHNIQUE: Multidetector volumetric CT imaging of the chest was done. Axial MIP volume rendering provided. Sagittal and coronal reformatted images were obtained. This CT examination was performed using dose optimization techniques as appropriate, variously including the following: *Automated exposure control *Adjustment of mA and/or kV according to patient size (this includes techniques or standardized protocols for targeted exams where dose is matched to indication/reason for exam; i.e. extremities or head) *Use of iterative reconstruction technique DLP: 238 mGy-cm FINDINGS: LUNGS: Biapical pleural and parenchymal scarring. 2 mm peripheral or subpleural left upper lobe nodule axial image 138 series 4. 2 mm left upper lobe nodule axial image 147 series 4. 3 mm peripheral or subpleural right middle lobe nodule adjacent to the minor fissure axial image 242 series 4. 5 mm peripheral left lower lobe nodule axial image 263 series 4. This is similar to previous abdominal and pelvic CT January 2018 axial image 19 series 3. MEDIASTINUM: The mediastinum is normal. CORONARY ARTERY CALCIFICATION: None visualized on this study. PLEURA: There is no pleural effusion. No pleural mass or thickening. AXILLA: No lymphadenopathy. UPPER ABDOMEN: Unremarkable. OSSEOUS STRUCTURES: Unremarkable. CT/CT chest wo IV con IMPRESSION: Small pulmonary nodules. According to the UPDATED 2017 Fleischner Society recommendations, the advised follow-up imaging for less than 6 mm solid nodule: Low risk, no chest CT follow-up and high risk, optional chest CT follow-up in one year. Fleischner guidelines were followed.
== END 2022-08-12 09:15 | disposition home or self-care (01) ==
LOC: HO.CT 09:14
PROVIDERS: PCP Internal Medicine; Visit Provider Internal Medicine
DX: R91.1 Solitary pulmonary nodule (principal)
CPT/HCPCS: 71250

== ENCOUNTER → 2022-08-16 12:40 | Outpatient (REF) | payer OTHER, SELFPAY | LOC: HO.SL 12:40 | PROVIDERS: PCP Internal Medicine; Visit Provider Nurse Practitioner Family | DX: I10 Essential (primary) hypertension (principal); E11.9 Type 2 diabetes mellitus without complications; G47.33 Obstructive sleep apnea (adult) (pediatric); N40.1 Benign prostatic hyperplasia with lower urinary tract symptoms; N13.8 Other obstructive and reflux uropathy; R35.0 Frequency of micturition; Z79.4 Long term (current) use of insulin; Z79.899 Other long term (current) drug therapy | CPT/HCPCS: 95806; Q3014 ==

== ENCOUNTER → 2022-09-01 10:46 | Outpatient (BNVA) | payer OTHER, SELFPAY | PROVIDERS: PCP Internal Medicine; Visit Provider Nurse Practitioner Family | DX: G47.33 Obstructive sleep apnea (adult) (pediatric) (principal) | CPT/HCPCS: 99212 ==

== ENCOUNTER → 2022-09-16 20:22 | Outpatient (REF) | payer OTHER, SELFPAY | LOC: HO.SL 20:22 | PROVIDERS: PCP Internal Medicine; Visit Provider Nurse Practitioner Family | DX: G47.33 Obstructive sleep apnea (adult) (pediatric) (principal) | CPT/HCPCS: 95810 ==

== ENCOUNTER 2022-10-11 14:43 | Outpatient (AMB) | payer OTHER, SELFPAY ==
--- NOTE | 2022-10-11 14:58 | MHC.OFFVIS ---
Intake Intake Visit Reasons: Cysto Intake Note: Patient is present for Cystoscopy Urology Med: Terazosin Antibiotic Allergy:None Blood Thinner: None Disposable Cystoscope LOT:[id number] EXP:08/15/2024 Allergies tramadol Allergy (Intermediate, Verified 10/11/22 15:03) Hives Medication List - Last Reconciled 10/11/22 by Phillip Jennings MD atorvastatin 10 mg PO BEDTIME 90 days cholecalciferol (vitamin D3) 25 mcg PO BID citalopram 20 mg PO DAILY clotrimazole 10 mg PO cyclobenzaprine 10 mg PO Q8H PRN 30 days lancets (FreeStyle Lancets) As directed lancets (TRUEplus Lancets) As directed levothyroxine 200 mcg PO DAILY 90 days lisinopril 10 mg PO DAILY 90 days melatonin 3 mg PO BEDTIME PRN 30 days metformin 500 mg PO DAILY 90 days naproxen 500 mg PO BID PRN [nonslip bath mat As directed] pantoprazole 40 mg PO DAILY quetiapine 25 mg PO BID sumatriptan succinate 50 mg PO DAILY PRN terazosin 5 mg PO BEDTIME 90 days HPI HPI Comments History of Present Illness Details Juan is a pleasant a male. He is a patient of Dr. Jimenez. He is seen for the following urologic conditions. - lower urinary tract symptoms - erectile dysfunction Here for cystoscopy Had trial of terazosin Prior prostate procedure Open bladder neck Remain on terazosin Dominican translation provided by qualified medical technologist blood bank Lower urinary tract symptoms Prior therapy laser prostatectomy 2014 PSA 09/14 0.6, 02/14 0.7, 01/15 0.7, 07/17 T 380 P 1.1 Family history of prostate cancer Progressive weakness of stream Comorbidities include multiple sclerosis, type 2 diabetes Erectile dysfunction secondary to diabetes Limited response to on demand Cialis Trial of daily 10 mg Cialis Last HbA1c 07/16 12.4, 12/16 6.0 PFSH Medical History TAMIKO positive Arthralgia Enlarged prostate without lower urinary tract symptoms (luts) Erectile dysfunction Flatus History of urinary hesitancy Hypothyroidism Hypovitaminosis D Medial meniscus tear Moderate recurrent major depression Multiple sclerosis OA (osteoarthritis) ROLDAN (obstructive sleep apnea) Prostate nodule Type 2 diabetes mellitus, with long-term current use of insulin Unspecified constipation Voice hoarseness Surgical History History of surgery Family History Mother No problems noted. Father No problems noted. Social History Household Members Other:: and daughter Housing: House Alcohol intake: never Patient Tobacco Use Status: Never used Tobacco e-Cigarette/Vaping Use: Never Used Second Hand Smoke Exposure: No service: No Current occupational status: disabled Cognitive needs: Yes Hearing needs: No Vision needs: Yes Review of Systems Const Denies chills and Denies fever(s) Card Reports no additional complaints and Denies syncope Resp Denies cough GI Denies abdominal pain and Denies heartburn Reports as per HPI and Denies change in libido Neuro Denies syncope Psych Denies change in libido Endo Denies change in libido Physical Exam Const General: cooperative, healthy appearing, comfortable and no acute distress Orientation/consciousness: patient oriented x3 HEENT Face and sinus: Yes normal facial exam Mouth: moist mucous membranes Neck Neck: Yes normal visual inspection, Yes full ROM and Yes trachea midline Chest Chest palpation & inspection: normal inspection of the chest Resp Effort & Inspection: normal respiratory effort, able to speak in complete sentences and no respiratory distress GI Inspection: Yes normal to inspection Back/Spine/Pelvis Cervical Spine: normal cervical lordosis Thoracic/Lumbar Spine: thoracic and lumbar spine normal to inspection Skin General skin exam: no rashes or lesions noted Neuro General: patient oriented x3, gait normal, tone normal and moves all extremities Extrem General: Yes normal to inspection and Yes capillary refill normal Office Procedures Cystoscopy Consent Discussed risk and benefit or proposed procedure with the patient. Information consent for procedure given to the patient. Discussed technical aspects, risks, benefits and alternatives in full. Addressed all of the patient's questions and concerns regarding the procedure. The patient demonstrated knowledge and understanding. They wish to proceed with this procedure. Preparation The patient was prepped in the usual manner. A horticultural therapist was present and in the room. Genitalia was prepped with betadine solution in a sterile manner. Lidocaine Jelly 2% was placed into the urethra and 16Fr flexible Olympus cystoscope was inserted into the meatus after adequate lubrication. Procedure Meatus uncircumcised Urethra anterior posterior and normal Prostatic Urethra TURP defect Bladder examination with retroflexion of cystoscope Bladder Orifices normal shape and position Bladder Capacity medium Trabeculations grade 2 trabeculations Cellule Formation - Diverticulum Formation - Mucosal Erythema - Bladder Tumor - [id number] Procedure code (CPT) selection complete Office Meds lidocaine HCl Performing Provider: Phillip Jennings MD Documented (not given) by: Phillip Jennings MD on 10/11/22 15:28 Dose Route Admin Location Lot Number Expiration Date NDC Chair Upholsterer 10 mL intra-urethral nitrofurantoin monohyd/m-cryst 100 mg Performing Provider: Phillip Jennings MD Documented (not given) by: Phillip Jennings MD on 10/11/22 15:28 Dose Route Admin Location Lot Number Expiration Date NDC Chair Upholsterer 100 mg PO Assessment & Plan Assessment & Plan (1) BPH w urinary obs/LUTS: Code(s): N40.1 - Benign prostatic hyperplasia with lower urinary tract symptoms; N13.8 - Other obstructive and reflux uropathy (2) Erectile dysfunction associated with type 2 diabetes mellitus: Code(s): E11.69 - Type 2 diabetes mellitus with other specified complication; N52.1 - Erectile dysfunction due to diseases classified elsewhere Plan 6 month follow-up PVR Orders: Orders AMB Cystoscopy Today N13.8 - Other obstructive and reflux uropathy, N40.1 - Benign prostatic hyperplasia with lower urinary tract symptoms Medications: New nitrofurantoin monohyd/m-cryst 100 mg 100 mg PO ONCE 1 cap 0RF N13.8 - Other obstructive and reflux uropathy, N40.1 - Benign prostatic hyperplasia with lower urinary tract symptoms lidocaine HCl 2% 10 mL intra-urethral ONCE 10 mL 0RF N13.8 - Other obstructive and reflux uropathy, N40.1 - Benign prostatic hyperplasia with lower urinary tract symptoms tadalafil 5 mg PO DAILY 90 days 90 tabs 1RF sexual activity E11.69 - Type 2 diabetes mellitus with other specified complication, N52.01 - Erectile dysfunction due to arterial insufficiency, N52.1 - Erectile dysfunction due to diseases classified elsewhere Changed From terazosin 5 mg PO BEDTIME 30 days 30 caps 1RF N40.0 - Benign prostatic hyperplasia without lower urinary tract symptoms, N40.1 - Benign prostatic hyperplasia with lower urinary tract symptoms, R35.0 - Frequency of micturition To terazosin 5 mg PO BEDTIME 90 days 90 caps 1RF N40.0 - Benign prostatic hyperplasia without lower urinary tract symptoms, N40.1 - Benign prostatic hyperplasia with lower urinary tract symptoms, R35.0 - Frequency of micturition Patient Instructions: Imaging studies, laboratory and physical exam results were discussed and reviewed in detail. No major barriers to patient understanding were identified. An opportunity to ask questions regarding the treatment plan was provided. All questions were answered. The patient expressed understanding and agreement with the above treatment plan. The patient is aware they should contact our office by phone for worsening of their current condition or the appearance of new urologic symptoms. Compliance is encouraged with any medications and followup testing that is ordered. It is a privilege to participate in the urologic care of your patient. If you have any questions or concerns regarding treatment for the above conditions, or other urologic issues, please do not hesitate to contact me. The office telephone contact is [phone]. This note is constructed using voice recognition software. While every effort has been made to ensure accuracy bottom turning lathe tender errors may have been included. Yours sincerely, Dr Phillip Jennings MD, [facility] - Urology Providers of Expert, Compassionate Care for the Genitourinary System Coding Level of Care Code Est Pt Level 3 (86954) Diagnoses BPH w urinary obs/LUTS N40.1; N13.8 Erectile dysfunction associated with type 2 diabetes mellitus E11.69; N52.1 CPT Codes Cystoscopy - CPT: 20001-[id number] ([id number])
== END 2022-10-11 15:28 | disposition home or self-care (01) ==
PROVIDERS: Visit Provider Urology
DX: N40.1 Benign prostatic hyperplasia with lower urinary tract symptoms (principal)
CPT/HCPCS: 52000

== ENCOUNTER → 2022-10-11 14:43 | Outpatient (BNVA) | payer OTHER, SELFPAY | PROVIDERS: Visit Provider Urology | DX: N40.1 Benign prostatic hyperplasia with lower urinary tract symptoms (principal); N13.8 Other obstructive and reflux uropathy; G35 Multiple sclerosis; E11.69 Type 2 diabetes mellitus with other specified complication; N52.1 Erectile dysfunction due to diseases classified elsewhere; R39.12 Poor urinary stream; Z90.79 Acquired absence of other genital organ(s); Z79.4 Long term (current) use of insulin; Z79.899 Other long term (current) drug therapy | CPT/HCPCS: 52000 ==

== ENCOUNTER 2022-11-16 14:16 | Outpatient (AMB) | payer OTHER, SELFPAY ==
--- NOTE | 2022-11-16 14:18 | MHC.OFFVIS ---
Intake Vital Signs 11/16/22 14:19 Height 5 ft 8 in Weight 190 lb 11.198 oz BMI 29.0 BP 100/64 Blood Pressure Location Lt brachial Position Sitting Pulse 94 Pulse Source Pulse Oximeter Pulse Oximetry (%) 96 Oxygen Delivery Method Room Air Intake Visit Reasons: Pulmonary Nodules Allergies tramadol Allergy (Intermediate, Verified 11/16/22 14:23) Hives HPI Pulmonary Nodules HPI Details 67-year-old gentleman, nonsmoker, with no underlying family or personal history of lung disease with had CT chest demonstrating multiple bilateral 5 mm and under pulmonary nodules referred for further evaluation. Patient denies any pulmonary related concerns or complaints at this time. He denies exposure to industrial dusts. Patient is following with sleep medicine for underlying ROLDAN and is pending receiving his CPAP machine. [facility] Medical History TAMIKO positive Arthralgia Enlarged prostate without lower urinary tract symptoms (luts) Erectile dysfunction Flatus History of urinary hesitancy Hypothyroidism Hypovitaminosis D Medial meniscus tear Moderate recurrent major depression Multiple sclerosis OA (osteoarthritis) ROLDAN (obstructive sleep apnea) Prostate nodule Type 2 diabetes mellitus, with long-term current use of insulin Unspecified constipation Voice hoarseness Surgical History History of surgery Family History Mother No problems noted. Father No problems noted. Social History Household Members Other:: and daughter Housing: House Alcohol intake: never Patient Tobacco Use Status: Never used Tobacco e-Cigarette/Vaping Use: Never Used Second Hand Smoke Exposure: No service: No Current occupational status: disabled Cognitive needs: Yes Hearing needs: No Vision needs: Yes Review of Systems Const Denies daytime sleepiness, Denies excessive sweating, Denies fatigue, Denies fever(s), Denies lethargy, Denies malaise, Denies night sweats, Denies snoring and Denies weight loss Eyes Denies blurry vision and Denies itchy eyes ENT Denies nasal congestion, Denies post nasal drip, Denies sinus pain, Denies sinus pressure and Denies other ( Thrush) Card Denies chest pain, Denies pedal edema, Denies dyspnea, Denies orthopnea and Denies paroxysmal nocturnal dyspnea Resp Denies cough, Denies hemoptysis, Denies excessive phlegm production, Denies dyspnea, Denies snoring and Denies wheezing GI Denies abdominal pain and Denies heartburn Musc Denies myalgias, Denies arthralgias and Denies joint swelling Skin/Breast Denies rash Neuro Denies memory loss and Denies seizure-like activity Psych Denies abnormal sleep pattern, Denies anxiety and Denies memory loss Endo Denies excessive sweating, Denies fatigue and Denies heat intolerance Parish/Lymph Denies easy bruising Aller/Immun Denies itchy eyes, Denies seasonal rhinorrhea and Denies wheezing Physical Exam Vital Signs: Last Vital Signs Pulse 94 11/16/22 14:19 BP 100/64 11/16/22 14:19 Pulse Ox 96 11/16/22 14:19 Oxygen Delivery Method Room Air 11/16/22 14:19 BMI result Body Mass Index 29.0 Const General: no acute distress and alert Nutritional Appearance: not obese Orientation/consciousness: Other orientation findings ( oriented) HEENT Head: Yes atraumatic Eyes General: appearance normal, both eyes and all related structures Sclerae: sclerae normal EOM: EOMs intact bilaterally Neck Neck: Yes supple Lymphatic: no lymphadenopathy noted Resp Effort & Inspection: normal respiratory effort and no use of accessory muscles Auscultation: clear to auscultation bilaterally Cardio Rate: regular rate Rhythm: regular rhythm Heart sounds: no gallops, no murmurs and no rubs Skin General skin exam: other ( warm) Extrem General: No clubbing, No cyanosis and No edema Assessment & Plan Assessment & Plan (1) Lung nodule: Code(s): R91.1 - Solitary pulmonary nodule Plan: Results of CT chest reviewed, multiple bilateral 5 mm and under pulmonary nodules in a low risk patient. Will repeat CT chest for follow-up. Orders: Orders CT chest wo IV con Today R91.1 - Solitary pulmonary nodule Coding Level of Care Code New Pt Level 3 (34326) Diagnoses Lung nodule R91.1
[2022-11-16 14:19] VITALS: BP 100/64; PULSE 94; O2SAT 96; BMI 29.0
== END 2022-11-16 14:42 | disposition home or self-care (01) ==
PROVIDERS: PCP Internal Medicine; Visit Provider Internal Medicine Pulmonary Disease
DX: R91.1 Solitary pulmonary nodule (principal)
CPT/HCPCS: 99203

== ENCOUNTER → 2022-11-16 14:16 | Outpatient (BNVA) | payer OTHER, SELFPAY | PROVIDERS: PCP Internal Medicine; Visit Provider Internal Medicine Pulmonary Disease | DX: R91.1 Solitary pulmonary nodule (principal) | CPT/HCPCS: 99202 ==

== ENCOUNTER 2022-11-18 13:03 | Outpatient (AMB) | payer OTHER, SELFPAY ==
--- NOTE | 2022-11-18 13:17 | MHC.OFFVIS ---
Intake Vital Signs 11/18/22 13:20 Height 5 ft 8 in Weight 191 lb BMI 29.0 BP 112/74 Blood Pressure Location Rt brachial Position Sitting Intake Visit Reasons: 2m follow up ROLDAN - LVM Intake Note: Patient presents for 2 month follow up. Patient states I wasn't able to sleep because of chocking while sleeping, he hasn't gotten the machine Allergies tramadol Allergy (Intermediate, Verified 11/18/22 13:19) Hives HPI HPI Comments History of Present Illness Details 67 y/o male patient presents for follow up of ROLDAN. Pt had a repeat sleep study done. The PSG sleep study result was significant for moderate degree of sleep apnea. The AHI was 24/hr and oxygen oren was 85%. Pt had a titration study and his breathing and oxygenation stablized on CPAP at [id number]. CPAP ordered, but patient has not received it yet. Pt experiences daytime tiredness, frequent gasping arousal with heartburn and chest tightness. Pt has hx of mild MS and is followed by Dr. Street.? Pt's usual bedtime is 10 pm to 6 am, denies difficulty falling asleep but has difficulty maintaining sleep. ? [facility] Medical History TAMIKO positive Arthralgia Enlarged prostate without lower urinary tract symptoms (luts) Erectile dysfunction Flatus History of urinary hesitancy Hypothyroidism Hypovitaminosis D Medial meniscus tear Moderate recurrent major depression Multiple sclerosis OA (osteoarthritis) ROLDAN (obstructive sleep apnea) Prostate nodule Type 2 diabetes mellitus, with long-term current use of insulin Unspecified constipation Voice hoarseness Surgical History History of surgery Family History Mother No problems noted. Father No problems noted. Social History Household Members Other:: and daughter Housing: House Alcohol intake: never Patient Tobacco Use Status: Never used Tobacco e-Cigarette/Vaping Use: Never Used Second Hand Smoke Exposure: No service: No Current occupational status: disabled Cognitive needs: Yes Hearing needs: No Vision needs: Yes Review of Systems Const All systems reviewed & are unremarkable except as noted in HPI and below Physical Exam Vital Signs: Last Vital Signs BP 112/74 11/18/22 13:20 BMI result Body Mass Index 29.0 Const General: cooperative and no acute distress Nutritional Appearance: overweight Orientation/consciousness: patient oriented x3 Limitations: language barrier (tongan only) Neck Neck: Yes full ROM and Yes supple Resp Effort & Inspection: normal respiratory effort and able to speak in complete sentences Neuro General: patient oriented x3 and gait normal Cranial nerves: Yes CN's II-XII intact bilaterally Cognition (Neuro): normal cognition Motor exam (neuro): Motor abnormalities not present Psych Appearance: grossly normal Mental Status: mental status grossly normal Speech and movement: Normal speech and movement present Assessment & Plan Assessment & Plan (1) ROLDAN (obstructive sleep apnea): Comment: Severe degree of sleep apnea with increased in REM. The total AHI was 28/hr, REM was 48/hr, oxygen oren was 79%. Code(s): G47.33 - Obstructive sleep apnea (adult) (pediatric) Plan Start CPAP at [id number]. Stressed compliance, use CPAP nightly and more than 4 hrs. Advised patient to avoid taking a nap, and try melatonin 3 mg q HS. Coding Level of Care Code Est Pt Level 3 (80270) Diagnoses ROLDAN (obstructive sleep apnea) G47.33
[2022-11-18 13:20] VITALS: BP 112/74; BMI 29.0
== END 2022-11-18 13:47 | disposition home or self-care (01) ==
PROVIDERS: PCP Internal Medicine; Visit Provider Nurse Practitioner Family
DX: G47.33 Obstructive sleep apnea (adult) (pediatric) (principal)
CPT/HCPCS: 99213

== ENCOUNTER → 2022-11-18 13:03 | Outpatient (BNVA) | payer OTHER, SELFPAY | PROVIDERS: PCP Internal Medicine; Visit Provider Nurse Practitioner Family | DX: G47.33 Obstructive sleep apnea (adult) (pediatric) (principal) | CPT/HCPCS: 99212 ==

== ENCOUNTER 2022-12-21 07:36 | Outpatient (REF) | payer OTHER, SELFPAY ==
--- NOTE | ~2022-12-21 | CT_ITS ---
EXAMINATION: CT CHEST WITHOUT CONTRAST CLINICAL INFORMATION: Follow-up solitary pulmonary nodule COMPARISON: Aug 12 2022 TECHNIQUE: Multidetector volumetric CT imaging of the chest was done. Axial MIP volume rendering provided. Sagittal and coronal reformatted images were obtained. This CT examination was performed using dose optimization techniques as appropriate, variously including the following: *Automated exposure control *Adjustment of mA and/or kV according to patient size (this includes techniques or standardized protocols for targeted exams where dose is matched to indication/reason for exam; i.e. extremities or head) *Use of iterative reconstruction technique DLP: 194 mGy-cm FINDINGS: FLIGHT ENGINEER PERFORMANCE QUALIFIED: Unremarkable LUNGS: There is new since previous examination 0.5 cm nodule in the left lower lobe, seen on image 253 series 6. There is left upper lobe 0.3 cm nodule is identified on image 113. And there is stable since previous study left upper lobe 0.3 cm nodule on image 14. On the right there is right upper lobe stable 0.3 cm nodule seen on image 35 and 0.3 cm nodule seen on image 40. MEDIASTINUM: The mediastinum is normal. CORONARY ARTERY CALCIFICATION: None visualized on this study. PLEURA: There is no pleural effusion. No pleural mass or thickening. AXILLA: No lymphadenopathy. UPPER ABDOMEN: Unremarkable. OSSEOUS STRUCTURES: Unremarkable. CT/CT chest wo IV con IMPRESSION: New since previous examination 0.5 cm nodule in the left lower lobe. Fleischner guidelines were followed.
== END 2022-12-21 07:37 | disposition home or self-care (01) ==
LOC: HO.CT 07:36
PROVIDERS: PCP Internal Medicine; Visit Provider Internal Medicine Pulmonary Disease
DX: R91.1 Solitary pulmonary nodule (principal)
CPT/HCPCS: 71250

== ENCOUNTER 2022-12-22 14:13 | Outpatient (AMB) | payer OTHER, SELFPAY ==
--- NOTE | 2022-12-22 14:14 | MHC.PC.OV ---
Vital Signs 12/22/22 14:15 Height 5 ft 8 in Weight 187 lb BMI 28.4 BP 140/90 H Blood Pressure Location Lt brachial Position Sitting Intake Visit Reasons: PE Intake Note: Patient here for a physical exam Logistics Assistant Required: No Accompanied by: Self / Same As Patient Allergies tramadol Allergy (Intermediate, Verified 12/22/22 14:26) Hives Medication List - Last Reconciled 12/22/22 by Cathy Jimenez MD atorvastatin 10 mg PO BEDTIME 90 days cholecalciferol (vitamin D3) 25 mcg PO BID citalopram 20 mg PO DAILY clotrimazole 10 mg PO cyclobenzaprine 10 mg PO Q8H PRN 30 days lancets (FreeStyle Lancets) As directed lancets (TRUEplus Lancets) As directed levothyroxine 200 mcg PO DAILY 90 days lisinopril 10 mg PO DAILY 90 days melatonin 3 mg PO BEDTIME PRN 30 days metformin 500 mg PO DAILY 90 days naproxen 500 mg PO BID PRN [nonslip bath mat As directed] pantoprazole 40 mg PO DAILY quetiapine 25 mg PO BID sumatriptan succinate 50 mg PO DAILY PRN tadalafil 5 mg PO DAILY 90 days terazosin 5 mg PO BEDTIME 90 days Tobacco use date assessed: 08/08/22 Fall risk assessment: No Falls in past year Last assessed Fall Risk: 12/22/22 Dental Screening Dental Screen Date: 12/22/22 Did you have a dental visit in the last 12 months?: No Did you have a dental problem in the last 6 months where you did not have access to dental care?: No Was dental information given to patient?: Patient has dentist HPI HPI Comments History of Present Illness Details This is a 67-year-old male with diabetes mellitus type 2 that comes for his physical exam. A1c within goal. Last LDL was within goal. Last diabetic eye exam was about 3 years ago and will be referred to Ophthalmology. Had colonoscopy 2018 showing multiple polyps and was advised to repeat colonoscopy in 3-5 years. Was referred to open access last year but have never had a cold. Was refer again to open access today. [facility] Medical History Voice hoarseness ROLDAN (obstructive sleep apnea) Hypovitaminosis D Type 2 diabetes mellitus, with long-term current use of insulin Moderate recurrent major depression Erectile dysfunction History of urinary hesitancy Prostate nodule Enlarged prostate without lower urinary tract symptoms (luts) Flatus Unspecified constipation Medial meniscus tear OA (osteoarthritis) Arthralgia CATHY positive Hypothyroidism Multiple sclerosis Surgical History History of surgery Family History (Updated 12/22/22 @ 14:31 by Cathy Jimenez MD) Mother Diabetes mellitus Father No problems noted. Social History Household Members Other:: and daughter Housing: House Alcohol intake: never Patient Tobacco Use Status: Never used Tobacco e-Cigarette/Vaping Use: Never Used Second Hand Smoke Exposure: No service: No Current occupational status: disabled Cognitive needs: Yes Hearing needs: No Vision needs: Yes Questionnaire Thrive Questionnaire Date Thrive assessed: 08/08/22 RODDY-7 AMB Questionnaire RODDY-7 Date RODDY - 7 assessed: 08/08/22 Source: Developed by Drs. Jonas Rodriguez, Kelly Santo, Kingsley Keen and colleagues, with an educational alda from [employer]. Review of Systems Const All systems reviewed & are unremarkable except as noted in HPI and below Eyes Reports no additional complaints, Denies change in vision and Denies other visual disturbances Card Denies chest pain at rest, Denies chest pain with activity, Denies edema, Denies irregular heart rhythm, Denies claudication, Denies dyspnea, Denies dyspnea on exertion, Denies orthopnea, Denies paroxysmal nocturnal dyspnea and Denies slow heart rate Resp Denies cough, Denies dyspnea and Denies dyspnea on exertion GI Denies abdominal pain, Denies change in bowel habits, Denies excessive flatus, Denies nausea and Denies vomiting Denies urinary hesitancy, Denies urinary incontinence and Denies urinary urgency Musc Denies abnormal gait, Denies atrophy, Denies deformity and Denies limited range of motion Skin/Breast Denies bleeding lesions, Denies changing lesions and Denies rash Neuro Denies abnormal gait and Denies lack of coordination Physical exam (Primary Care) Vital Signs: Last Vital Signs BP 140/90 H 12/22/22 14:15 BMI result Body Mass Index 28.4 Tobacco/Smoking Status: Tobacco use Status Tobacco use date assessed 08/08/22 12/22/22 14:21 Patient Tobacco Use Status Never used Tobacco 12/22/22 14:21 e-Cigarette/Vaping Use Never Used 12/22/22 14:21 Thrive Assessment: Date of Thrive Assessment Date Thrive assessed 08/08/22 12/22/22 14:21 Const Orientation/consciousness: patient oriented x3 HENMT Head: Yes normal to inspection, Yes normocephalic and Yes atraumatic Ears: external ears normal Eyes General: appearance normal, both eyes and all related structures Eyelids: Yes eyelids normal Conjunctivae: conjunctivae normal Neck Neck: Yes normal visual inspection and Yes supple Resp Effort & Inspection: normal respiratory effort Auscultation: clear to auscultation bilaterally Cardio Jugular venous distension: no JVD Rate: regular rate Rhythm: regular rhythm Heart sounds: S1 normal heart sound present and S2 normal heart sound present GI Inspection: Yes normal to inspection Palpation (GI): Soft to palpation and nontender Auscultation: normal bowel sounds Skin General skin exam: no rashes or lesions noted Neuro General: patient oriented x3 and no focal motor deficits Extrem General: Yes full ROM Psych Appearance: grossly normal Results AMB Hemoglobin A1c AMB Hemoglobin A1c 6.0 % Last Edit by ELLY Tyson on 12/22/22 14:26 Assessment and Plan Assessment & Plan (1) Physical exam: Code(s): Z00.00 - Encounter for general adult medical examination without abnormal findings Plan: Repeat in a year. (2) Diabetes mellitus: Code(s): E11.9 - Type 2 diabetes mellitus without complications Plan: Continue metformin. A1c goal is equal or less than 7% Orders: Orders AMB Hemoglobin A1c Today E11.9 - Type 2 diabetes mellitus without complications Thyroid Stimulating Hormone 4 Months E03.9 - Hypothyroidism, unspecified Lipid Panel 4 Months E78.5 - Hyperlipidemia, unspecified Microalbumin, Random (w Creat) 4 Months E11.9 - Type 2 diabetes mellitus without complications Vitamin D 25-OH Total 4 Months E55.9 - Vitamin D deficiency, unspecified Comprehensive [place]. Panel Fast 4 Months E11.9 - Type 2 diabetes mellitus without complications Referrals Open Access Screening Colonoscopy Referral Z12.11 - Encounter for screening for malignant neoplasm of colon Ophthalmology Referral E11.9 - Type 2 diabetes mellitus without complications Coding Level of Care Code Est Pt Prev Care >65y(31789) Diagnoses Physical exam Z00.00 Diabetes mellitus E11.9 Time Spent (min) 31
[2022-12-22 14:15] VITALS: BP 140/90; BMI 28.4
== END 2022-12-22 14:35 | disposition home or self-care (01) ==
PROVIDERS: Visit Provider Internal Medicine
DX: Z00.00 Encounter for general adult medical examination without abnormal findings (principal); E11.9 Type 2 diabetes mellitus without complications
CPT/HCPCS: 83036; 99397

== ENCOUNTER 2023-01-11 14:17 | Outpatient (AMB) | payer OTHER, SELFPAY ==
[2023-01-11 14:18] VITALS: BP 128/80; PULSE 81; O2SAT 97; BMI 28.8
--- NOTE | 2023-01-11 14:18 | MHC.OFFVIS ---
Intake Vital Signs 01/11/23 14:18 Height 5 ft 8 in Weight 189 lb 9.561 oz BMI 28.8 BP 128/80 Blood Pressure Location Rt brachial Position Sitting Pulse 81 Pulse Source Doppler Pulse Oximetry (%) 97 Oxygen Delivery Method Room Air Intake Visit Reasons: Pulmonary Nodules Engine Service Repairer Required: Yes Engine Service Repairer Name: Tram Derek Layne Allergies tramadol Allergy (Intermediate, Verified 01/11/23 14:21) Hives HPI Pulmonary Nodules HPI Details 67-year-old gentleman, nonsmoker, with no underlying family or personal history of lung disease for followed for multiple bilateral 5 mm and under pulmonary nodules. Patient had follow-up CT scan in November of 2022 showing stable bilateral 5 admitted under pulmonary nodules and a new 5 mm left-sided nodule. [facility] Medical History Voice hoarseness ROLDAN (obstructive sleep apnea) Hypovitaminosis D Type 2 diabetes mellitus, with long-term current use of insulin Moderate recurrent major depression Erectile dysfunction History of urinary hesitancy Prostate nodule Enlarged prostate without lower urinary tract symptoms (luts) Flatus Unspecified constipation Medial meniscus tear OA (osteoarthritis) Arthralgia CATHY positive Hypothyroidism Multiple sclerosis Surgical History History of surgery Family History (Updated 12/22/22 @ 14:31 by Cathy Jimenez MD) Mother Diabetes mellitus Father No problems noted. Social History Household Members Other:: and daughter Housing: House Alcohol intake: never Patient Tobacco Use Status: Never used Tobacco e-Cigarette/Vaping Use: Never Used Second Hand Smoke Exposure: No service: No Current occupational status: disabled Cognitive needs: Yes Hearing needs: No Vision needs: Yes Review of Systems Const Denies daytime sleepiness, Denies excessive sweating, Denies fatigue, Denies fever(s), Denies lethargy, Denies malaise, Denies night sweats, Denies snoring and Denies weight loss Eyes Denies blurry vision and Denies itchy eyes ENT Denies nasal congestion, Denies post nasal drip, Denies sinus pain, Denies sinus pressure and Denies other ( Thrush) Card Denies chest pain, Denies pedal edema, Denies dyspnea, Denies orthopnea and Denies paroxysmal nocturnal dyspnea Resp Denies cough, Denies hemoptysis, Denies excessive phlegm production, Denies dyspnea, Denies snoring and Denies wheezing GI Denies abdominal pain and Denies heartburn Musc Denies myalgias, Denies arthralgias and Denies joint swelling Skin/Breast Denies rash Neuro Denies memory loss and Denies seizure-like activity Psych Denies abnormal sleep pattern, Denies anxiety and Denies memory loss Endo Denies excessive sweating, Denies fatigue and Denies heat intolerance Parish/Lymph Denies easy bruising Aller/Immun Denies itchy eyes, Denies seasonal rhinorrhea and Denies wheezing Physical Exam Vital Signs: Last Vital Signs Pulse 81 01/11/23 14:18 BP 128/80 01/11/23 14:18 Pulse Ox 97 01/11/23 14:18 Oxygen Delivery Method Room Air 01/11/23 14:18 BMI result Body Mass Index 28.8 Const General: no acute distress and alert Nutritional Appearance: not obese Orientation/consciousness: Other orientation findings ( oriented) HEENT Head: Yes atraumatic Eyes General: appearance normal, both eyes and all related structures Sclerae: sclerae normal EOM: EOMs intact bilaterally Neck Neck: Yes supple Lymphatic: no lymphadenopathy noted Resp Effort & Inspection: normal respiratory effort and no use of accessory muscles Auscultation: clear to auscultation bilaterally Cardio Rate: regular rate Rhythm: regular rhythm Heart sounds: no gallops, no murmurs and no rubs Skin General skin exam: other ( warm) Extrem General: No clubbing, No cyanosis and No edema Assessment & Plan Assessment & Plan (1) Lung nodule: Code(s): R91.1 - Solitary pulmonary nodule Plan: Follow-up CT scan reviewed, new 5 mm nodule on the left and otherwise stable 5 mm and under bilateral pulmonary nodules. Will repeat CT chest in 6 months. Orders: Orders CT chest wo IV con 07/03/23 R91.1 - Solitary pulmonary nodule Coding Level of Care Code Est Pt Level 3 (08465) Diagnoses Lung nodule R91.1
== END 2023-01-11 14:30 | disposition home or self-care (01) ==
PROVIDERS: PCP Internal Medicine; Visit Provider Internal Medicine Pulmonary Disease
DX: R91.1 Solitary pulmonary nodule (principal)
CPT/HCPCS: 99213

== ENCOUNTER → 2023-01-11 14:17 | Outpatient (BNVA) | payer OTHER, SELFPAY | PROVIDERS: PCP Internal Medicine; Visit Provider Internal Medicine Pulmonary Disease | DX: R91.1 Solitary pulmonary nodule (principal) | CPT/HCPCS: 99212 ==

== ENCOUNTER 2023-01-19 09:56 | Outpatient (AMB) | payer OTHER, SELFPAY ==
--- NOTE | 2023-01-19 09:57 | AM.OFFVISNUR ---
Intake Intake Visit Reasons: flu shot Allergies tramadol Allergy (Intermediate, Verified 01/11/23 14:21) Hives Office Procedures Flu Questionnaire Does the patient have a severe egg allergy?: No Does the patient have severe life threatening allergies?: No Does the patient have a fever or illness today?: No Has the patient ever had Guillain-[place] Syndrome?: No Has the patient ever had any past reaction to a flu shot?: No Immunizations flu vacc [id number] 6mos up(PF) 60 mcg(15 mcgx4)/0.5 mL IM syringe Performing Provider: Cathy Jimenez MD Performing Location: [facility] Administered by: Padmini Mari RN on 01/19/23 10:03 Dose Route Admin Location Dispensed Lot Number Expiration Date NDC Education Officer 0.5 mL IM Left Deltoid 0.5 mL [id number] 09/24/23 28201-736-90 Yeelion VIS Given Date VIS Provided VIS Publication Date 01/19/23 Single Vaccine 20 Eligibility Eligibility Date Funding Source Not [facility] Eligible 01/19/23 Private Coding Assessment & Plan Assessment & Plan Orders: Orders Influenza [id number] Immunization Today Z23 - Encounter for immunization
== END 2023-01-19 10:04 | disposition home or self-care (01) ==
PROVIDERS: PCP Internal Medicine; Visit Provider Internal Medicine
DX: Z23 Encounter for immunization (principal)
CPT/HCPCS: 90471; 90686

== ENCOUNTER 2023-03-22 13:51 | Outpatient (AMB) | payer OTHER, SELFPAY ==
[2023-03-22 13:58] VITALS: BP 122/88; PULSE 72; O2SAT 96; BMI 29.4
--- NOTE | 2023-03-22 13:58 | MHC.OFFVIS ---
Intake Vital Signs 03/22/23 13:58 Height 5 ft 8 in Weight 193 lb 6 oz BMI 29.4 BP 122/88 Blood Pressure Location Lt brachial Position Sitting Pulse 72 Pulse Source Pulse Oximeter Pulse Oximetry (%) 96 Oxygen Delivery Method Room Air Intake Visit Reasons: 2m follow up ROLDAN-Confirmed Intake Note: Patiet present for 2 mo fu-ROLDAN Wire Mesh Filter Fabricator Required: Yes Wire Mesh Filter Fabricator Name: Jocelyn [id number] Accompanied by: Spouse Allergies tramadol Allergy (Intermediate, Verified 03/22/23 14:01) Hives HPI HPI Comments History of Present Illness Details 67 y/o male patient presents for follow up of ROLDAN. splicing technician Jocelyn ID # [id number] helped for this visit. Pt had a repeat sleep study done. The PSG sleep study result was significant for moderate degree of sleep apnea. The AHI was 24/hr and oxygen oren was 85%. Pt had a titration study and his breathing and oxygenation stablized on CPAP at [id number]. Pt has received CPAP and started using it. The CPAP compliance and therapy response (02/20/23-03/21/23) reviewed. The usage days 50% and the average usage hours 5 hrs 30 min. The residual AHI was 1.2/ hr. Pt reports he sleeps much better, rested and wakes up refreshed. However, he was sick and had difficulty using CPAP due to cough and congestion. [facility] Medical History Voice hoarseness ROLDAN (obstructive sleep apnea) Hypovitaminosis D Type 2 diabetes mellitus, with long-term current use of insulin Moderate recurrent major depression Erectile dysfunction History of urinary hesitancy Prostate nodule Enlarged prostate without lower urinary tract symptoms (luts) Flatus Unspecified constipation Medial meniscus tear OA (osteoarthritis) Arthralgia CATHY positive Hypothyroidism Multiple sclerosis Surgical History History of surgery Family History Mother Diabetes mellitus Father No problems noted. Social History Household Members Other:: and daughter Housing: House Alcohol intake: never Patient Tobacco Use Status: Never used Tobacco e-Cigarette/Vaping Use: Never Used Second Hand Smoke Exposure: No service: No Current occupational status: disabled Cognitive needs: Yes Hearing needs: No Vision needs: Yes Review of Systems Const All systems reviewed & are unremarkable except as noted in HPI and below Physical Exam Vital Signs: Last Vital Signs Pulse 72 03/22/23 13:58 BP 122/88 03/22/23 13:58 Pulse Ox 96 03/22/23 13:58 Oxygen Delivery Method Room Air 03/22/23 13:58 BMI result Body Mass Index 29.4 Const General: cooperative and no acute distress Nutritional Appearance: overweight Orientation/consciousness: patient oriented x3 Limitations: language barrier (maori only) Neck Neck: Yes full ROM and Yes supple Resp Effort & Inspection: normal respiratory effort and able to speak in complete sentences Neuro General: patient oriented x3 and gait normal Cranial nerves: Yes CN's II-XII intact bilaterally Cognition (Neuro): normal cognition Motor exam (neuro): Motor abnormalities not present Psych Appearance: grossly normal Mental Status: mental status grossly normal Speech and movement: Normal speech and movement present Assessment & Plan Assessment & Plan (1) ROLDAN (obstructive sleep apnea): Comment: Severe degree of sleep apnea with increased in REM. The total AHI was 28/hr, REM was 48/hr, oxygen oren was 79%. Code(s): G47.33 - Obstructive sleep apnea (adult) (pediatric) Plan Continue to use CPAP at [id number] as patient experiences good clinical effects. Stressed compliance, use CPAP nightly and more than 4 hrs. Continue to practice good sleep hygiene. Coding Level of Care Code Est Pt Level 3 (33030) Diagnoses ROLDAN (obstructive sleep apnea) G47.33
== END 2023-03-22 14:14 | disposition home or self-care (01) ==
PROVIDERS: PCP Internal Medicine; Visit Provider Nurse Practitioner Family
DX: G47.33 Obstructive sleep apnea (adult) (pediatric) (principal)
CPT/HCPCS: 99213

== ENCOUNTER → 2023-03-22 13:51 | Outpatient (BNVA) | payer OTHER, SELFPAY | PROVIDERS: PCP Internal Medicine; Visit Provider Nurse Practitioner Family | DX: G47.33 Obstructive sleep apnea (adult) (pediatric) (principal) | CPT/HCPCS: 99212 ==

== ENCOUNTER 2023-03-28 08:24 | Outpatient (REF) | payer OTHER, SELFPAY ==
[2023-03-28 09:54] LABS: Creatinine Urine 124.78 mg/dL; Microalbum/Creatinine Ratio Ur 14.4 ug/mg cr (<30)
[2023-03-28 09:59] LABS: Alanine Aminotransferase 26 U/L (0-40); Albumin Level 4.3 g/dL (3.5-5.0); Alkaline Phosphatase 67 U/L (39-117); Anion Gap 10 (12-20); Aspartate Amino Transferase 19 U/L (5-37); Bilirubin Total 0.7 mg/dL (0.0-1.0); Blood Urea Nitrogen 12 mg/dL (9-16); Calcium 9.7 mg/dL (8.4-10.2); Carbon Dioxide 30 mmol/L (22-29); Chloride 103 mmol/L (96-108); Cholesterol 197 mg/dL (<200); Estimated Glomerular Filt Rate > 60; Glucose Fasting 228 mg/dL (60-99); HDL Cholesterol 31 mg/dL (>40); LDL Cholesterol Calculated 89 mg/dL (<100); Potassium 3.8 mmol/L (3.3-5.1); Sodium 139 mmol/L (135-145); Total Protein 8.3 g/dL (6.5-8.0); Triglycerides 388 mg/dL (<150)
[2023-03-28 10:15] LABS: Thyroid Stimulating Hormone 39.29 uIU/mL (0.32-4.0); Vitamin D 25-OH Total 26.8 ng/mL (>30)
== END 2023-03-28 08:25 | disposition home or self-care (01) ==
LOC: HO.LAB 08:24
PROVIDERS: PCP Internal Medicine; Visit Provider Internal Medicine
DX: E11.9 Type 2 diabetes mellitus without complications (principal); E78.5 Hyperlipidemia, unspecified; E06.3 Autoimmune thyroiditis; E55.9 Vitamin D deficiency, unspecified
CPT/HCPCS: 36415; 80053; 80061; 82043; 82306; 82570; 84443

== ENCOUNTER 2023-04-11 14:20 | Outpatient (AMB) | payer OTHER, SELFPAY ==
--- NOTE | 2023-04-11 14:22 | A.OFFVIS_ITS ---
Intake Intake Visit Reasons: 6M PVR Intake Note: Patient is Present for Follow Up Urology Medication:Tadalafil, Terazosin Antibiotic Allergies: None Blood Thinners: None PVR: 38ml Patient states that his urinary stream is not as strong Allergies tramadol Allergy (Intermediate, Verified 03/22/23 14:01) Hives Medication List - Last Reconciled 04/11/23 by Phillip Jennings MD atorvastatin 10 mg PO BEDTIME 90 days cholecalciferol (vitamin D3) 25 mcg PO BID citalopram 20 mg PO DAILY clotrimazole 10 mg PO cyclobenzaprine 10 mg PO Q8H PRN 30 days lancets (FreeStyle Lancets) As directed lancets (TRUEplus Lancets) As directed levothyroxine 200 mcg PO DAILY 90 days levothyroxine (Synthroid) 50 mcg PO DAILY 90 days lisinopril 10 mg PO DAILY 90 days melatonin 3 mg PO BEDTIME PRN 30 days metformin 1,000 mg PO BID 90 days naproxen 500 mg PO BID PRN [nonslip bath mat As directed] pantoprazole 40 mg PO DAILY quetiapine 25 mg PO BID sumatriptan succinate 50 mg PO DAILY PRN tadalafil 20 mg PO ONCE PRN 30 days terazosin 5 mg PO BEDTIME 90 days HPI HPI Comments History of Present Illness Details Juan is a pleasant a male. He is a patient of Dr. Jimenez. He is seen for the following urologic conditions. - lower urinary tract symptoms - erectile dysfunction Senegalese translation provided by qualified medical stenographer Continues with terazosin PVR 40 cc Weak stream Still has effective emptying No longer taking daily tadalafil Would like to restart p.r.n. Prescription provided Lower urinary tract symptoms Continues with terazosin Prior therapy laser prostatectomy 2014 PSA 09/14 0.6, 02/14 0.7, 01/15 0.7, 07/17 T 380 P 1.1 Family history of prostate cancer Progressive weakness of stream Comorbidities include multiple sclerosis, type 2 diabetes Cystoscopy 10/16 open bladder neck Erectile dysfunction secondary to diabetes Limited response to on demand Cialis Trial of daily 10 mg Cialis Last HbA1c 07/16 12.4, 12/16 6.0 PFSH Medical History Voice hoarseness ROLDAN (obstructive sleep apnea) Hypovitaminosis D Type 2 diabetes mellitus, with long-term current use of insulin Moderate recurrent major depression Erectile dysfunction History of urinary hesitancy Prostate nodule Enlarged prostate without lower urinary tract symptoms (luts) Flatus Unspecified constipation Medial meniscus tear OA (osteoarthritis) Arthralgia TAMIKO positive Hypothyroidism Multiple sclerosis Surgical History History of surgery Family History Mother Diabetes mellitus Father No problems noted. Social History Household Members Other:: and daughter Housing: House Alcohol intake: never Patient Tobacco Use Status: Never used Tobacco e-Cigarette/Vaping Use: Never Used Second Hand Smoke Exposure: No service: No Current occupational status: disabled Cognitive needs: Yes Hearing needs: No Vision needs: Yes Review of Systems Const Denies chills and Denies fever(s) Card Reports no additional complaints and Denies syncope Resp Denies cough GI Denies abdominal pain and Denies heartburn Reports as per HPI and Denies change in libido Neuro Denies syncope Psych Denies change in libido Endo Denies change in libido Physical Exam Const General: cooperative, healthy appearing, comfortable and no acute distress Orientation/consciousness: patient oriented x3 HEENT Face and sinus: Yes normal facial exam Mouth: moist mucous membranes Neck Neck: Yes normal visual inspection, Yes full ROM and Yes trachea midline Chest Chest palpation & inspection: normal inspection of the chest Resp Effort & Inspection: normal respiratory effort, able to speak in complete sentences and no respiratory distress GI Inspection: Yes normal to inspection Back/Spine/Pelvis Cervical Spine: normal cervical lordosis Thoracic/Lumbar Spine: thoracic and lumbar spine normal to inspection Skin General skin exam: no rashes or lesions noted Neuro General: patient oriented x3, gait normal, tone normal and moves all extremities Extrem General: Yes normal to inspection and Yes capillary refill normal Office Procedures Post Void Residual Post Residual Void Post Void Residual (PVR): 38 [id number] Void Residual by ultrasound Assessment & Plan Assessment & Plan (1) Erectile dysfunction associated with type 2 diabetes mellitus: Code(s): E11.69 - Type 2 diabetes mellitus with other specified complication; N52.1 - Erectile dysfunction due to diseases classified elsewhere (2) BPH w urinary obs/LUTS: Code(s): N40.1 - Benign prostatic hyperplasia with lower urinary tract symptoms; N13.8 - Other obstructive and reflux uropathy Plan Six-month follow-up Orders: Orders Prostate Specific Antigen 6 Months N13.8 - Other obstructive and reflux uropathy, N40.1 - Benign prostatic hyperplasia with lower urinary tract symptoms AMB Post Void Residual by ultrasound Today N40.0 - Benign prostatic hyperplasia without lower urinary tract symptoms Patient Instructions: Imaging studies, laboratory and physical exam results were discussed and reviewed in detail. No major barriers to patient understanding were identified. An opportunity to ask questions regarding the treatment plan was provided. All questions were answered. The patient expressed understanding and agreement with the above treatment plan. The patient is aware they should contact our office by phone for worsening of their current condition or the appearance of new urologic symptoms. Compliance is encouraged with any medications and followup testing that is ordered. It is a privilege to participate in the urologic care of your patient. If you have any questions or concerns regarding treatment for the above conditions, or other urologic issues, please do not hesitate to contact me. The office telephone contact is [phone]. This note is constructed using voice recognition software. While every effort has been made to ensure accuracy computer applications engineer errors may have been included. Yours sincerely, Dr Phillip Jennings MD, [facility] - Urology Providers of Expert, Compassionate Care for the Genitourinary System Coding Level of Care Code Est Pt Level 3 (45349) Diagnoses Erectile dysfunction associated with type 2 diabetes mellitus E11.69; N52.1 BPH w urinary obs/LUTS N40.1; N13.8 CPT Codes Post Residual Void - PVR CPT Code: [id number]-[id number] Void Residual by ultrasound ([id number])
== END 2023-04-11 14:48 | disposition home or self-care (01) ==
PROVIDERS: PCP Internal Medicine; Visit Provider Urology
DX: E11.69 Type 2 diabetes mellitus with other specified complication (principal); N52.1 Erectile dysfunction due to diseases classified elsewhere; N40.1 Benign prostatic hyperplasia with lower urinary tract symptoms; N13.8 Other obstructive and reflux uropathy
CPT/HCPCS: 99213

== ENCOUNTER → 2023-04-11 14:20 | Outpatient (BNVA) | payer OTHER, SELFPAY | PROVIDERS: PCP Internal Medicine; Visit Provider Urology | DX: N40.1 Benign prostatic hyperplasia with lower urinary tract symptoms (principal); N13.8 Other obstructive and reflux uropathy; E11.69 Type 2 diabetes mellitus with other specified complication; N52.1 Erectile dysfunction due to diseases classified elsewhere | CPT/HCPCS: 51798; 99212 ==

== ENCOUNTER 2023-04-26 12:58 | Outpatient (AMB) | payer OTHER, SELFPAY ==
[2023-04-26 13:04] VITALS: BP 132/80; BMI 28.7
--- NOTE | 2023-04-26 13:04 | A.OFFPC_ITS ---
Vital Signs 04/26/23 13:04 Height 5 ft 8 in Weight 189 lb BMI 28.7 BP 132/80 Blood Pressure Location Lt brachial Position Sitting Intake Visit Reasons: dm Intake Note: Patient here for a follow up DM Liquefaction Supervisor Required: No Accompanied by: Self / Same As Patient Allergies tramadol Allergy (Intermediate, Verified 04/26/23 13:31) Hives Medication List - Last Reconciled 04/26/23 by Cathy Jimenez MD atorvastatin 10 mg PO BEDTIME 90 days cholecalciferol (vitamin D3) 25 mcg PO BID citalopram 20 mg PO DAILY clotrimazole 10 mg PO cyclobenzaprine 10 mg PO Q8H PRN 30 days lancets (FreeStyle Lancets) As directed lancets (TRUEplus Lancets) As directed levothyroxine 200 mcg PO DAILY 90 days levothyroxine (Synthroid) 50 mcg PO DAILY 90 days lisinopril 10 mg PO DAILY 90 days melatonin 3 mg PO BEDTIME PRN 30 days metformin 1,000 mg PO BID 90 days naproxen 500 mg PO BID PRN [nonslip bath mat As directed] pantoprazole 40 mg PO DAILY quetiapine 25 mg PO BID sumatriptan succinate 50 mg PO DAILY PRN tadalafil 20 mg PO ONCE PRN 30 days terazosin 5 mg PO BEDTIME 90 days Tobacco use date assessed: 04/26/23 Fall risk assessment: No Falls in past year Last assessed Fall Risk: 04/26/23 Dental Screening Dental Screen Date: 04/26/23 Did you have a dental visit in the last 12 months?: No Did you have a dental problem in the last 6 months where you did not have access to dental care?: No Was dental information given to patient?: Patient has dentist HPI HPI Comments History of Present Illness Details This is a 67-year-old male with diabetes mellitus type 2, hypertension, hyperlipidemia, multiple sclerosis and moderate recurrent major depression that comes today accompanied by for follow-up on his conditions. A1c elevated and I will add Trulicity. Blood pressure stable. LDL not on goal and triglycerides are elevated and this is why I am adding fenofibrate. Multiple sclerosis has been in remission. Depression stable with Seroquel. 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 I told him to also have 50 mcg in addition to the 200. TSH will be repeated in 6 weeks. No chest pain or shortness of breath. No neurological deficit. [facility] Medical History (Updated 04/26/23 @ 13:45 by Cathy Jimenez MD) Voice hoarseness ROLDAN (obstructive sleep apnea) Hypovitaminosis D Type 2 diabetes mellitus, with long-term current use of insulin Moderate recurrent major depression Erectile dysfunction History of urinary hesitancy Prostate nodule Enlarged prostate without lower urinary tract symptoms (luts) Flatus Unspecified constipation Medial meniscus tear OA (osteoarthritis) Arthralgia CATHY positive Hypothyroidism Multiple sclerosis Surgical History History of surgery Family History Mother Diabetes mellitus Father No problems noted. Social History Household Members Other:: and daughter Housing: House Alcohol intake: never Patient Tobacco Use Status: Never used Tobacco e-Cigarette/Vaping Use: Never Used Second Hand Smoke Exposure: No service: No Current occupational status: disabled Cognitive needs: Yes Hearing needs: No Vision needs: Yes Questionnaire PHQ-9 Over the last 2 weeks, how often have you been bothered by any of the following problems? 1. Little interest or pleasure in doing things: not at all 2. Feeling down, depressed, or hopeless: not at all 3. Trouble falling or staying asleep, or sleeping too much: not at all 4. Feeling tired or having little energy: not at all 5. Poor appetite or overeating: not at all 6. Feeling bad about yourself - or that you are a failure or have let yourself or your family down: not at all 7. Trouble concentrating on things, such as reading the newspaper or watching television: not at all 8. Moving or speaking so slowly that other people could have noticed. Or the opposite - being so fidgety or restless that you have been moving around a lot more than usual: not at all 9. Thoughts that you would be better off or of hurting yourself in some way: not at all Total score: 0 Depression Screening Interpretation: Negative Depression Screening Done: Yes 49160 - PHQ-9 Billing: Yes Source: Developed by Drs. Joans Rodriguez, Kelly Santo, Kingsley Keen and colleagues, with an educational alda from [employer]. Thrive Questionnaire Date Thrive assessed: 04/26/23 I am a: Patient What is your living situation today?: I have a steady place to live Within the past 12 months, did the food you bought not last and you didn't have the money to get more?: Never true Within the past 12 months, did you worry whether your food would run out before you got money to buy more?: Never true Do you have trouble paying for medicines?: No Do you have trouble getting transportation to medical appointments?: No Do you have trouble paying your heating and electricity bill?: No Do you have trouble taking care of your child, family member or friend?: No Do you have trouble with day-to-day activities such as bathing, preparing meals, shopping, managing finances, etc.?: No Are you currently unemployed and looking for a job?: No Are you interested in more education?: No Please select the resources that you would like help with: None Currently or been in a relationship where the following occur: no concerns reported THRIVE Score: 0 AUDIT C Alcohol Use Questionnaire (AUDIT-C) 1. How often do you have a drink containing alcohol?: Never Total Score: 0 Score Reviewed/Action Taken: No RODDY-7 AMB Questionnaire RODDY-7 Date RODDY - 7 assessed: 04/26/23 Feeling nervous, anxious, or on edge: 1 = Several days Not being able to stop or control worryin = Not at all Worrying too much about different things: 0 = Not at all Trouble relaxin = Not at all Being so restless that it is hard to sit still: 0 = Not at all Becoming easily annoyed or irritable: 0 = Not at all Feeling afraid as if something awful might happen: 0 = Not at all Total RODDY-7 score (0-4 normal; 5-9 mild; 10-14 moderate; 15-21 severe): 1 Source: Developed by Drs. Jonas Rodriguez, Kingsley Booth and colleagues, with an educational alda from [employer]. RODDY-7 Assessment Billing RODDY-7 Assessment Tool: RODDY-7 Assessment 06980 Review of Systems Const All systems reviewed & are unremarkable except as noted in HPI and below Eyes Reports no additional complaints, Denies change in vision and Denies other visual disturbances Card Denies chest pain at rest, Denies chest pain with activity, Denies edema, Denies irregular heart rhythm, Denies claudication, Denies dyspnea, Denies dyspnea on exertion, Denies orthopnea, Denies paroxysmal nocturnal dyspnea and Denies slow heart rate Resp Denies cough, Denies dyspnea and Denies dyspnea on exertion GI Denies abdominal pain, Denies change in bowel habits, Denies excessive flatus, Denies nausea and Denies vomiting Denies urinary hesitancy, Denies urinary incontinence and Denies urinary urgency Musc Denies abnormal gait, Denies atrophy, Denies deformity and Denies limited range of motion Skin/Breast Denies bleeding lesions, Denies changing lesions and Denies rash Neuro Denies abnormal gait, Denies behavioral changes, Denies confusion and Denies l ack of coordination Psych Denies behavioral changes and Denies confusion Physical exam (Primary Care) Vital Signs: Last Vital Signs BP 132/80 04/26/23 13:04 BMI result Body Mass Index 28.7 Tobacco/Smoking Status: Tobacco use Status Tobacco use date assessed 04/26/23 04/26/23 13:13 Patient Tobacco Use Status Never used Tobacco 04/26/23 13:10 e-Cigarette/Vaping Use Never Used 04/26/23 13:10 PHQ-9: PHQ-9 Score PHQ-9: Total score 0 04/26/23 13:13 Depression Screening Interpretation: Negative Thrive Assessment: Date of Thrive Assessment Date Thrive assessed 04/26/23 04/26/23 13:13 Currently or been in a relationship where the following occur: no concerns reported Const General: No confusion Orientation/consciousness: patient oriented x3 and No confusion Eyes General: appearance normal, both eyes and all related structures Eyelids: Yes eyelids normal Conjunctivae: conjunctivae normal Neck Neck: Yes normal visual inspection and Yes supple Resp Effort & Inspection: normal respiratory effort Auscultation: clear to auscultation bilaterally Cardio Jugular venous distension: no JVD Rate: regular rate Rhythm: regular rhythm Heart sounds: S1 normal heart sound present and S2 normal heart sound present Neuro General: patient oriented x3, no focal motor deficits and No confusion Extrem General: Yes full ROM Results AMB Hemoglobin A1c AMB Hemoglobin A1c 8.5 % Last Edit by ELLY Tyson on 04/26/23 13:1 5 Results Reviewed Results Reviewed: Laboratory Last Values Hgb A1c (Clinic) 8.5 % (4.0-6.0) H 04/26/23 13:10 Assessment and Plan Assessment & Plan (1) Diabetes mellitus: Code(s): E11.9 - Type 2 diabetes mellitus without complications Plan: Continue metformin. Start Trulicity. A1c goal is equal or less than 7%. (2) Hyperlipidemia LDL goal <70: Code(s): E78.5 - Hyperlipidemia, unspecified Plan: Continue statins. Start fenofibrate. LDL goal is less than 70. 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 Start levothyroxine 50 mcg. Repeat TSH in 6 weeks. (4) Hypertension: Code(s): I10 - Essential (primary) hypertension Plan: Continue lisinopril. Blood pressure goal is equal or less than 130/80. (5) Multiple sclerosis: Code(s): G35 - Multiple sclerosis Plan: In remission. (6) Moderate recurrent major depression: Code(s): F33.1 - Major depressive disorder, recurrent, moderate Plan: Continue Seroquel. Orders: Orders Vitamin D 25-OH Total 4 Months E55.9 - Vitamin D deficiency, unspecified AMB Hemoglobin A1c Today E11.9 - Type 2 diabetes mellitus without complications Thyroid Stimulating Hormone 6 Weeks E03.9 - Hypothyroidism, unspecified Lipid Panel 4 Months E78.5 - Hyperlipidemia, unspecified Microalbumin, Random (w Creat) 4 Months E11.9 - Type 2 diabetes mellitus without complications Comprehensive Gray. Panel Fast 4 Months E11.9 - Type 2 diabetes mellitus without complications Medications: New fenofibrate 54 mg PO DAILY 90 days 90 tabs 1RF E78.5 - Hyperlipidemia, unspecified dulaglutide (Trulicity) 0.75 mg (0.5 mL) subcut QWEEK 30 days 2.5 mL 3RF E11.9 - Type 2 diabetes mellitus without complications Coding Level of Care Code Est Pt Level 4 (14668) Diagnoses Diabetes mellitus E11.9 Hyperlipidemia LDL goal <70 E78.5 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 Hypertension I10 Multiple sclerosis G35 Moderate recurrent major depression F33.1 Additional Codes RODDY-7 Assessment Billing - RODDY-7 Assessment Tool: RODDY-7 Assessment 14454 ([id number]) Time Spent (min) 24
== END 2023-04-26 13:40 | disposition home or self-care (01) ==
PROVIDERS: PCP Internal Medicine; Visit Provider Internal Medicine
DX: E11.69 Type 2 diabetes mellitus with other specified complication (principal); G35 Multiple sclerosis; F33.1 Major depressive disorder, recurrent, moderate; E78.5 Hyperlipidemia, unspecified; E06.3 Autoimmune thyroiditis; I10 Essential (primary) hypertension
CPT/HCPCS: 83036; 99214

== ENCOUNTER 2023-06-30 15:19 | Outpatient (REF) | payer OTHER, SELFPAY ==
--- NOTE | ~2023-06-30 | CT_ITS ---
EXAMINATION: CT CHEST WITHOUT CONTRAST CLINICAL INFORMATION: Solitary pulmonary nodule. COMPARISON: CT chest 12/21/2022 : New since previous examination 0.5 cm nodule in the left lower lobe. CT chest 08/12/2022. TECHNIQUE: Multidetector volumetric CT imaging of the chest was done. Axial MIP volume rendering provided. Sagittal and coronal reformatted images were obtained. This CT examination was performed using dose optimization techniques as appropriate, variously including the following: *Automated exposure control. *Adjustment of mA and/or kV according to patient size (this includes techniques or standardized protocols for targeted exams where dose is matched to indication/reason for exam; i.e. extremities or head). *Use of iterative reconstruction technique. DLP: 159.89 mGy-cm FINDINGS: LUNGS: The previously seen new 5 mm nodule in the left lower lobe (prior 12/21/2022, 6:252), I believe was present on the exam prior on 08/12/2022 but had surrounding atelectasis and was more difficult to see (prior 08/12/2022, 4:263). This remains entirely unchanged (5:288). Other smaller nodules appear unchanged. Infante images of all have been saved. MEDIASTINUM: The mediastinum is normal. CORONARY ARTERY CALCIFICATION: Minimal. PLEURA: There is no pleural effusion. No pleural mass or thickening. AXILLA: No lymphadenopathy. UPPER ABDOMEN: Unremarkable. OSSEOUS STRUCTURES: Unremarkable. CT/CT chest wo IV con IMPRESSION: The previously new 5 mm left lower lobe nodule is unchanged and I believe this was not actually new at the time of the prior study but has been unchanged since at least 08/12/2022. Fleischner guidelines were followed.
== END 2023-06-30 15:20 | disposition home or self-care (01) ==
LOC: HO.CT 15:19
PROVIDERS: PCP Internal Medicine; Visit Provider Internal Medicine Pulmonary Disease
DX: R91.1 Solitary pulmonary nodule (principal)
CPT/HCPCS: 71250

== ENCOUNTER 2023-07-06 12:38 | Outpatient (AMB) | payer OTHER, SELFPAY ==
[2023-07-06 13:01] VITALS: BP 142/80; PULSE 76; O2SAT 96; BMI 28.5
--- NOTE | 2023-07-06 13:01 | A.OFFVIS_ITS ---
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 Patient had a follow-up CT scan on June 29, official read is not available for this visit. On my review pulmonary nodules are stable. He denies any other pulmonary related complaints. [facility]LY [facility] Medical History (Updated 04/26/23 @ 13:45 by Cathy Jimenez MD) Voice hoarseness ROLDAN (obstructive sleep apnea) Hypovitaminosis D Type 2 diabetes mellitus, with long-term current use of insulin Moderate recurrent major depression Erectile dysfunction History of urinary hesitancy Prostate nodule Enlarged prostate without lower urinary tract symptoms (luts) Flatus Unspecified constipation Medial meniscus tear OA (osteoarthritis) Arthralgia CATHY positive Hypothyroidism Multiple sclerosis Surgical History History of surgery Family History Mother Diabetes mellitus Father No problems noted. Social History Household Members Other:: and daughter Housing: House Alcohol intake: never Patient Tobacco Use Status: Never used Tobacco e-Cigarette/Vaping Use: Never Used Second Hand Smoke Exposure: No service: No Current occupational status: disabled Cognitive needs: Yes Hearing needs: No Vision needs: Yes Review of Systems Const Denies daytime sleepiness, Denies excessive sweating, Denies fatigue, Denies fever(s), Denies lethargy, Denies malaise, Denies night sweats, Denies snoring and Denies weight loss Eyes Denies blurry vision and Denies itchy eyes ENT Denies nasal congestion, Denies post nasal drip, Denies sinus pain, Denies sinus pressure and Denies other ( Thrush) Card Denies chest pain, Denies pedal edema, Denies dyspnea, Denies orthopnea and Denies paroxysmal nocturnal dyspnea Resp Denies cough, Denies hemoptysis, Denies excessive phlegm production, Denies dyspnea, Denies snoring and Denies wheezing GI Denies abdominal pain and Denies heartburn Musc Denies myalgias, Denies arthralgias and Denies joint swelling Skin/Breast Denies rash Neuro Denies memory loss and Denies seizure-like activity Psych Denies abnormal sleep pattern, Denies anxiety and Denies memory loss Endo Denies excessive sweating, Denies fatigue and Denies heat intolerance Parish/Lymph Denies easy bruising Aller/Immun Denies itchy eyes, Denies seasonal rhinorrhea and Denies wheezing Physical Exam Vital Signs: Last Vital Signs Pulse 76 07/06/23 13:01 BP 142/80 H 07/06/23 13:01 Pulse Ox 96 07/06/23 13:01 Oxygen Delivery Method Room Air 07/06/23 13:01 BMI result Body Mass Index 28.5 Const General: no acute distress and alert Nutritional Appearance: not obese Orientation/consciousness: Other orientation findings ( oriented) HEENT Head: Yes atraumatic Eyes General: appearance normal, both eyes and all related structures Sclerae: sclerae normal EOM: EOMs intact bilaterally Neck Neck: Yes supple Lymphatic: no lymphadenopathy noted Resp Effort & Inspection: normal respiratory effort and no use of accessory muscles Auscultation: clear to auscultation bilaterally Cardio Rate: regular rate Rhythm: regular rhythm Heart sounds: no gallops, no murmurs and no rubs Skin General skin exam: other ( warm) Extrem General: No clubbing, No cyanosis and No edema Assessment & Plan Assessment & Plan (1) Lung nodule: Code(s): R91.1 - Solitary pulmonary nodule Plan: Bilateral pulmonary nodules, stable on follow-up CT scan. Will repeat CT scan in 12 months. Orders: Orders CT chest wo IV con 06/28/24 R91.1 - Solitary pulmonary nodule Coding Level of Care Code Est Pt Level 3 (73373) Diagnoses Lung nodule R91.1
== END 2023-07-06 13:12 | disposition home or self-care (01) ==
PROVIDERS: PCP Internal Medicine; Visit Provider Internal Medicine Pulmonary Disease
DX: R91.1 Solitary pulmonary nodule (principal)
CPT/HCPCS: 99213

== ENCOUNTER → 2023-07-06 12:38 | Outpatient (BNVA) | payer OTHER, SELFPAY | PROVIDERS: PCP Internal Medicine; Visit Provider Internal Medicine Pulmonary Disease | DX: R91.1 Solitary pulmonary nodule (principal) | CPT/HCPCS: 99212 ==

== ENCOUNTER 2023-08-26 08:40 | Outpatient (REF) | payer OTHER, SELFPAY ==
[2023-08-26 10:36] LABS: Alanine Aminotransferase 23 U/L (0-40); Albumin Level 4.2 g/dL (3.5-5.0); Alkaline Phosphatase 64 U/L (39-117); Anion Gap 12 (12-20); Aspartate Amino Transferase 25 U/L (5-37); Bilirubin Total 0.7 mg/dL (0.0-1.0); Blood Urea Nitrogen 11 mg/dL (9-16); Calcium 9.4 mg/dL (8.4-10.2); Carbon Dioxide 26 mmol/L (22-29); Chloride 107 mmol/L (96-108); Cholesterol 136 mg/dL (<200); Estimated Glomerular Filt Rate > 60; Glucose Fasting 128 mg/dL (60-99); HDL Cholesterol 31 mg/dL (>40); LDL Cholesterol Calculated 58 mg/dL (<100); Potassium 3.7 mmol/L (3.3-5.1); Sodium 141 mmol/L (135-145); Total Protein 7.7 g/dL (6.5-8.0); Triglycerides 235 mg/dL (<150)
[2023-08-26 10:44] LABS: Thyroid Stimulating Hormone 0.59 uIU/mL (0.32-4.0); Vitamin D 25-OH Total 23.1 ng/mL (>30)
== END 2023-08-26 08:41 | disposition home or self-care (01) ==
LOC: HO.LAB 08:40
PROVIDERS: PCP Internal Medicine; Visit Provider Internal Medicine
DX: E11.9 Type 2 diabetes mellitus without complications (principal); E03.9 Hypothyroidism, unspecified; E55.9 Vitamin D deficiency, unspecified; E78.5 Hyperlipidemia, unspecified
CPT/HCPCS: 36415; 80053; 80061; 82306; 84443

== ENCOUNTER 2023-08-28 10:59 | Outpatient (REF) | payer OTHER, SELFPAY ==
[2023-08-28 12:20] LABS: Creatinine Urine 87.46 mg/dL; Microalbum/Creatinine Ratio Ur 12.5 ug/mg cr (<30)
== END 2023-08-28 11:00 | disposition home or self-care (01) ==
LOC: HO.LNP 10:59
PROVIDERS: Visit Provider Internal Medicine
DX: E11.9 Type 2 diabetes mellitus without complications (principal)
CPT/HCPCS: 82043; 82570

== ENCOUNTER 2023-08-29 15:27 | Outpatient (AMB) | payer OTHER, SELFPAY ==
--- NOTE | 2023-08-29 15:29 | MHC.PC.OV ---
Vital Signs 08/29/23 15:30 Height 5 ft 8 in Weight 186 lb BMI 28.3 BP 132/76 Blood Pressure Location Rt brachial Position Sitting Intake Visit Reasons: 4M follow up DM Sub Prior Required: No Accompanied by: Self / Same As Patient Allergies tramadol Allergy (Intermediate, Verified 08/29/23 15:50) Hives Medication List - Last Reconciled 08/29/23 by Cathy Jimenez MD atorvastatin 10 mg PO BEDTIME 90 days cholecalciferol (vitamin D3) 25 mcg PO BID citalopram 20 mg PO DAILY clotrimazole 10 mg PO cyclobenzaprine 10 mg PO Q8H PRN 30 days dulaglutide (Trulicity) 0.75 mg (0.5 mL) subcut QWEEK 30 days fenofibrate 54 mg PO DAILY 90 days lancets (FreeStyle Lancets) As directed lancets (TRUEplus Lancets) As directed levothyroxine 200 mcg PO DAILY 90 days levothyroxine (Synthroid) 50 mcg PO DAILY 90 days lisinopril 10 mg PO DAILY 90 days melatonin 3 mg PO BEDTIME PRN 30 days metformin 1,000 mg PO BID 90 days naproxen 500 mg PO BID PRN [nonslip bath mat As directed] pantoprazole 40 mg PO DAILY quetiapine 25 mg PO BID sumatriptan succinate 50 mg PO DAILY PRN tadalafil 20 mg PO ONCE PRN 30 days terazosin 5 mg PO BEDTIME 90 days Tobacco use date assessed: 04/26/23 Fall risk assessment: No Falls in past year Last assessed Fall Risk: 08/29/23 Dental Screening Dental Screen Date: 04/26/23 HPI HPI Comments History of Present Illness Details This is a 68-year-old male with diabetes mellitus type 2, Mark's disease, hypertension, hyperlipidemia, moderate recurrent major depression and multiple sclerosis that comes today complaining of diffuse itchiness. I will start him on antihistamines as needed. A1c within goal. Blood pressure stable. LDL within goal. TSH normal. On citalopram for his depression which is working adequately. Multiple sclerosis is in remission and follow by Neurology. [facility] Medical History (Updated 08/29/23 @ 16:27 by Cathy Jimenez MD) Voice hoarseness ROLDAN (obstructive sleep apnea) Hypovitaminosis D Type 2 diabetes mellitus, with long-term current use of insulin Moderate recurrent major depression Erectile dysfunction History of urinary hesitancy Prostate nodule Enlarged prostate without lower urinary tract symptoms (luts) Flatus Unspecified constipation Medial meniscus tear OA (osteoarthritis) Arthralgia CATHY positive Hypothyroidism Multiple sclerosis Surgical History History of surgery Family History Mother Diabetes mellitus Father No problems noted. Social History Household Members Other:: and daughter Housing: House Alcohol intake: never Patient Tobacco Use Status: Never used Tobacco e-Cigarette/Vaping Use: Never Used Second Hand Smoke Exposure: No service: No Current occupational status: disabled Cognitive needs: Yes Hearing needs: No Vision needs: Yes Questionnaire PHQ-9 Over the last 2 weeks, how often have you been bothered by any of the following problems? 1. Little interest or pleasure in doing things: several days 2. Feeling down, depressed, or hopeless: several days 3. Trouble falling or staying asleep, or sleeping too much: several days 4. Feeling tired or having little energy: several days 5. Poor appetite or overeating: not at all 6. Feeling bad about yourself - or that you are a failure or have let yourself or your family down: not at all 7. Trouble concentrating on things, such as reading the newspaper or watching television: not at all 8. Moving or speaking so slowly that other people could have noticed. Or the opposite - being so fidgety or restless that you have been moving around a lot more than usual: not at all 9. Thoughts that you would be better off or of hurting yourself in some way: not at all Total score: 4 Depression Screening Interpretation: Positive Depression Screening Follow-up: Existing condition, In treatment and Follow-up Visit Requested Depression Screening Done: Yes [id number] - PHQ-9 Billing: Yes Source: Developed by Drs. Jonas Rodriguez, Kelly Santo, Kingsley Keen and colleagues, with an educational alda from [employer]. Thrive Questionnaire Date Thrive assessed: 04/26/23 RODDY-7 AMB Questionnaire RODDY-7 Date RODDY - 7 assessed: 04/26/23 Source: Developed by Drs. Jonas Rodriguez, Kelly Santo, Kingsley Keen and colleagues, with an educational alda from [employer]. Review of Systems Const All systems reviewed & are unremarkable except as noted in HPI and below Card Denies chest pain at rest, Denies chest pain with activity, Denies edema, Denies irregular heart rhythm, Denies claudication, Denies dyspnea, Denies dyspnea on exertion, Denies orthopnea, Denies paroxysmal nocturnal dyspnea and Denies slow heart rate Resp Denies cough, Denies dyspnea and Denies dyspnea on exertion Physical exam (Primary Care) Vital Signs: Last Vital Signs BP 132/76 08/29/23 15:30 BMI result Body Mass Index 28.3 Tobacco/Smoking Status: Tobacco use Status Tobacco use date assessed 04/26/23 08/29/23 15:40 Patient Tobacco Use Status Never used Tobacco 08/29/23 15:40 e-Cigarette/Vaping Use Never Used 08/29/23 15:40 Depression Screening Interpretation: Positive Depression Screening Follow-up: Existing condition, In treatment and Follow-up Visit Requested Thrive Assessment: Date of Thrive Assessment Date Thrive assessed 04/26/23 08/29/23 15:40 Resp Effort & Inspection: normal respiratory effort Auscultation: clear to auscultation bilaterally Cardio Jugular venous distension: no JVD Rate: regular rate Rhythm: regular rhythm Heart sounds: S1 normal heart sound present and S2 normal heart sound present Extrem General: Yes full ROM Results AMB Hemoglobin A1c AMB Hemoglobin A1c 6.9 % Last Edit by ELLY Tyson on 08/29/23 15:45 Results Reviewed Results Reviewed: Laboratory Last Values Hgb A1c (Clinic) 6.9 % (4.0-6.0) H 08/29/23 15:28 Assessment and Plan Assessment & Plan (1) Diabetes mellitus: Code(s): E11.9 - Type 2 diabetes mellitus without complications Plan: Continue metformin. A1c goal is equal or less than 7%. (2) Moderate recurrent major depression: Code(s): F33.1 - Major depressive disorder, recurrent, moderate Plan: Continue citalopram. (3) Multiple sclerosis: Code(s): G35 - Multiple sclerosis Plan: In remission. Follow-up with Neurology. (4) 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 Plan: Continue levothyroxine. Monitor TSH. (5) Hyperlipidemia LDL goal <70: Code(s): E78.5 - Hyperlipidemia, unspecified Plan: Continue statins. LDL goal less than 70. (6) Hypertension: Code(s): I10 - Essential (primary) hypertension Qualifiers: Hypertension type: primary hypertension Qualified Code(s): I10 - Essential (primary) hypertension Plan: Continue lisinopril. Blood pressure goal is equal or less than 130/80. Orders: Orders AMB Hemoglobin A1c Today E11.9 - Type 2 diabetes mellitus without complications XR chest 2V Today R07.89 - Other chest pain Lipid Panel 4 Months E78.5 - Hyperlipidemia, unspecified Microalbumin, Random (w Creat) 4 Months E11.9 - Type 2 diabetes mellitus without complications Vitamin D 25-OH Total 4 Months E55.9 - Vitamin D deficiency, unspecified Comprehensive [place]. Panel Fast 4 Months E11.9 - Type 2 diabetes mellitus without complications Thyroid Stimulating Hormone 4 Months E06.3 - Autoimmune thyroiditis Medications: New cetirizine (All Day Allergy (cetirizine)) 10 mg PO DAILY 90 days PRN 90 tabs 1RF allergy symptoms nystatin 1 appl topical BID 15 days 15 grams 2RF Coding Level of Care Code Est Pt Level 4 (19711) Complex EM visit Add On G2211 Diagnoses Diabetes mellitus E11.9 Moderate recurrent major depression F33.1 Multiple sclerosis G35 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 Hyperlipidemia LDL goal <70 E78.5 Primary hypertension I10 Hypertension type: primary hypertension Time Spent (min) 24
[2023-08-29 15:30] VITALS: BP 132/76; BMI 28.3
== END 2023-08-29 15:59 | disposition home or self-care (01) ==
PROVIDERS: PCP Internal Medicine; Visit Provider Internal Medicine
DX: E11.9 Type 2 diabetes mellitus without complications (principal); F33.1 Major depressive disorder, recurrent, moderate; G35 Multiple sclerosis; E06.3 Autoimmune thyroiditis; E78.5 Hyperlipidemia, unspecified; I10 Essential (primary) hypertension
CPT/HCPCS: 83036; 99214; G2211

== ENCOUNTER 2023-08-29 16:06 | Outpatient (REF) | payer OTHER, SELFPAY ==
--- NOTE | ~2023-08-29 | XR_ITS ---
EXAMINATION: XR CHEST CLINICAL INFORMATION: Chest pain. COMPARISON CT chest 06/30/2023. Chest radiograph 07/27/2022. TECHNIQUE: 2 views of the chest were obtained. FINDINGS: No significant abnormality is noted involving the heart, lungs, mediastinum, bony thorax or soft tissues. XR/XR chest 2V IMPRESSION: Unremarkable examination.
== END 2023-08-29 16:07 | disposition home or self-care (01) ==
LOC: HO.XRAY 16:06
PROVIDERS: PCP Internal Medicine; Visit Provider Internal Medicine
DX: R07.89 Other chest pain (principal)
CPT/HCPCS: 71046

== ENCOUNTER 2023-09-26 08:24 | Outpatient (REF) | payer OTHER, SELFPAY ==
[2023-09-26 10:50] LABS: Prostate Specific Antigen 1.26 ng/mL (<0.05-4.0)
== END 2023-09-26 08:25 | disposition home or self-care (01) ==
LOC: HO.LAB 08:24
PROVIDERS: PCP Internal Medicine; Visit Provider Urology
DX: N40.1 Benign prostatic hyperplasia with lower urinary tract symptoms (principal); N13.8 Other obstructive and reflux uropathy; Z12.5 Encounter for screening for malignant neoplasm of prostate
CPT/HCPCS: 36415; 84153

== ENCOUNTER 2023-11-28 09:49 | Outpatient (AMB) | payer OTHER, SELFPAY ==
--- NOTE | 2023-11-28 10:03 | MHC.OFFVIS ---
Intake Visit Reasons: 6M Follow Up-PSA/PVR(set) Intake Note: Patient is Present for 6M Follow Up/PSA/PVR Urology Medication:Tadalafil, Terazosin Antibiotic Allergies: None Blood Thinners: None PVR: 38ml TODAY'S PVR:0ML'S Director Of Pupil Personnel Program Required: No Allergies tramadol Allergy (Intermediate, Verified 11/28/23 10:04) Hives Medication List - Last Reconciled 11/28/23 by Phillip Jennings MD atorvastatin 10 mg PO BEDTIME 90 days cetirizine (All Day Allergy (cetirizine)) 10 mg PO DAILY PRN 90 days cholecalciferol (vitamin D3) 25 mcg PO BID citalopram 20 mg PO DAILY clotrimazole 10 mg PO cyclobenzaprine 10 mg PO Q8H PRN 30 days dulaglutide (Trulicity) 0.75 mg (0.5 mL) subcut QWEEK 30 days fenofibrate 54 mg PO DAILY 90 days lancets (FreeStyle Lancets) As directed lancets (TRUEplus Lancets) As directed levothyroxine 200 mcg PO DAILY 90 days levothyroxine (Synthroid) 50 mcg PO DAILY 90 days lisinopril 10 mg PO DAILY 90 days melatonin 3 mg PO BEDTIME PRN 30 days metformin 1,000 mg PO BID 90 days naproxen 500 mg PO BID PRN [nonslip bath mat As directed] nystatin 1 appl topical BID 15 days pantoprazole 40 mg PO DAILY quetiapine 25 mg PO BID sumatriptan succinate 50 mg PO DAILY PRN tadalafil 20 mg PO ONCE PRN 30 days terazosin 5 mg PO BEDTIME 90 days HPI Comments Details: Juan is a pleasant a male. He is a patient of Dr. Jimenez. He is seen for the following urologic conditions. - lower urinary tract symptoms - background of multiple sclerosis - erectile dysfunction Brazilian translation provided by qualified medical laboratory specialist PVR 0 Terazosin On tadalafil p.r.n. Increase p.r.n. dose Six-month follow-up tele Lower urinary tract symptoms Continues with terazosin Prior therapy laser prostatectomy 2014 PSA 09/14 0.6, 02/14 0.7, 01/15 0.7, 07/17 T 380 P 1.1 Family history of prostate cancer Progressive weakness of stream Comorbidities include multiple sclerosis, type 2 diabetes Cystoscopy 10/16 open bladder neck Erectile dysfunction secondary to diabetes Limited response to on demand Cialis Trial of daily 10 mg Cialis Last HbA1c 07/16 12.4, 12/16 6.0 [facility] Medical History (Updated 08/29/23 @ 16:27 by Cathy Jimenez MD) Voice hoarseness ROLDAN (obstructive sleep apnea) Hypovitaminosis D Type 2 diabetes mellitus, with long-term current use of insulin Moderate recurrent major depression Erectile dysfunction History of urinary hesitancy Prostate nodule Enlarged prostate without lower urinary tract symptoms (luts) Flatus Unspecified constipation Medial meniscus tear OA (osteoarthritis) Arthralgia CATHY positive Hypothyroidism Multiple sclerosis Surgical History History of surgery Family History Mother Diabetes mellitus Father No problems noted. Social History Household Members Other:: and daughter Housing: House Alcohol intake: never Patient Tobacco Use Status: Never used Tobacco e-Cigarette/Vaping Use: Never Used Second Hand Smoke Exposure: No service: No Current occupational status: disabled Cognitive needs: Yes Hearing needs: No Vision needs: Yes Review of Systems Const Denies chills and Denies fever(s) Card Reports no additional complaints and Denies syncope Resp Denies cough GI Denies abdominal pain and Denies heartburn Reports as per HPI and Denies change in libido Neuro Denies syncope Psych Denies change in libido Endo Denies change in libido Physical Exam Const General: cooperative, healthy appearing, comfortable and no acute distress Orientation/consciousness: patient oriented x3 HEENT Face and sinus: Yes normal facial exam Mouth: moist mucous membranes Neck Neck: Yes normal visual inspection, Yes full ROM and Yes trachea midline Chest Chest palpation & inspection: normal inspection of the chest Resp Effort & Inspection: normal respiratory effort, able to speak in complete sentences and no respiratory distress GI Inspection: Yes normal to inspection Back/Spine/Pelvis Cervical Spine: normal cervical lordosis Thoracic/Lumbar Spine: thoracic and lumbar spine normal to inspection Skin General skin exam: no rashes or lesions noted Neuro General: patient oriented x3, gait normal, tone normal and moves all extremities Extrem General: Yes normal to inspection and Yes capillary refill normal Office Procedures Post Void Residual Post Residual Void Post Void Residual (PVR): 0 33201-Coar Void Residual by ultrasound Results AMB Urinalysis, Automated UA Leukoctes 0 Lumdila/uL Last Edit by ALVA Burns on 11/28/23 10:18 UA Nitrite Negative Last Edit by Akash Cerna CCM on 11/28/23 10:18 UA Urobilinogen 0.2 mg/dL Last Edit by ALVA Burns on 11/28/23 10:18 UA Protein 0 mg/dL Last Edit by Akash Cerna CCM on 11/28/23 10:18 UA pH 6.0 Last Edit by Akash Cerna [facility] on 11/28/23 10:18 UA Blood 0 Cisco/uL Last Edit by Akash Cerna [facility] on 11/28/23 10:18 UA Specific [place] 1.020 Last Edit by Akash Cerna CCM on 11/28/23 10:18 UA Ketone Negative Last Edit by Akash Cerna [facility] on 11/28/23 10:18 UA Bilirubin 0 mg/dL Last Edit by Akash Cerna [facility] on 11/28/23 10:18 UA Glucose 0 mg/dL Last Edit by Akash Cerna [facility] on 11/28/23 10:18 Results Reviewed Results Reviewed: Laboratory Last Values Urine pH (Auto) 6.0 11/28/23 10:18 Specific [place] (Auto) 1.020 11/28/23 10:18 Urine Protein (Auto) 0 mg/dL 11/28/23 10:18 Glucose (UA)(Auto) 0 mg/dL 11/28/23 10:18 Urine Ketones (Auto) Negative 11/28/23 10:18 Urine Blood (Auto) 0 Cisco/uL 11/28/23 10:18 Urine Nitrite (Auto) Negative 11/28/23 10:18 Urine Bilirubin (Auto) 0 mg/dL 11/28/23 10:18 Urine Urobilinogen (Auto) 0.2 mg/dL 11/28/23 10:18 Leukocyte Esterase (Auto) 0 Ludmila/uL 11/28/23 10:18 Assessment & Plan Assessment & Plan (1) BPH w urinary obs/LUTS: Code(s): N40.1 - Benign prostatic hyperplasia with lower urinary tract symptoms; N13.8 - Other obstructive and reflux uropathy Category: Medical (2) Erectile dysfunction associated with type 2 diabetes mellitus: Code(s): E11.69 - Type 2 diabetes mellitus with other specified complication; N52.1 - Erectile dysfunction due to diseases classified elsewhere Category: Medical Plan Six-month follow-up Orders: Orders AMB Urinalysis Automated Today Z13.9 - Encounter for screening, unspecified Medications: Changed From tadalafil Take on demand 60 min prior to intended activity 20 mg PO ONCE 30 days PRN 30 tabs 1RF sexual activity E11.69 - Type 2 diabetes mellitus with other specified complication, N52.1 - Erectile dysfunction due to diseases classified elsewhere To tadalafil Take on demand 60 min prior to intended activity - 1-2 tabs 20 mg PO ONCE 30 days PRN 30 tabs 1RF sexual activity E11.69 - Type 2 diabetes mellitus with other specified complication, N52.1 - Erectile dysfunction due to diseases classified elsewhere Patient Instructions: Imaging studies, laboratory and physical exam results were discussed and reviewed in detail. No major barriers to patient understanding were identified. An opportunity to ask questions regarding the treatment plan was provided. All questions were answered. The patient expressed understanding and agreement with the above treatment plan. The patient is aware they should contact our office by phone for worsening of their current condition or the appearance of new urologic symptoms. Compliance is encouraged with any medications and followup testing that is ordered. It is a privilege to participate in the urologic care of your patient. If you have any questions or concerns regarding treatment for the above conditions, or other urologic issues, please do not hesitate to contact me. The office telephone contact is [phone]. This note is constructed using voice recognition software. While every effort has been made to ensure accuracy tester sound errors may have been included. Yours sincerely, Dr Phillip Jennings MD, [facility] - Urology Providers of Expert, Compassionate Care for the Genitourinary System Coding Level of Care Code Est Pt Level 3 (49626) Diagnoses BPH w urinary obs/LUTS N40.1; N13.8 Erectile dysfunction associated with type 2 diabetes mellitus E11.69; N52.1 CPT Codes Post Residual Void - PVR CPT Code: 08820-Gcjt Void Residual by ultrasound ([id number])
== END 2023-11-28 10:50 | disposition home or self-care (01) ==
PROVIDERS: PCP Internal Medicine; Visit Provider Urology
DX: N40.1 Benign prostatic hyperplasia with lower urinary tract symptoms (principal); N13.8 Other obstructive and reflux uropathy; E11.69 Type 2 diabetes mellitus with other specified complication; N52.1 Erectile dysfunction due to diseases classified elsewhere; Z13.9 Encounter for screening, unspecified
CPT/HCPCS: 99213

== ENCOUNTER → 2023-11-28 09:49 | Outpatient (BNVA) | payer OTHER, SELFPAY | PROVIDERS: PCP Internal Medicine; Visit Provider Urology | DX: N40.1 Benign prostatic hyperplasia with lower urinary tract symptoms (principal); N13.8 Other obstructive and reflux uropathy; E11.69 Type 2 diabetes mellitus with other specified complication; N52.1 Erectile dysfunction due to diseases classified elsewhere | CPT/HCPCS: 51798; 81003; 99212 ==

== ENCOUNTER 2023-12-22 10:15 | Outpatient (REF) | payer OTHER, SELFPAY ==
[2023-12-22 11:50] LABS: Alanine Aminotransferase 30 U/L (0-40); Albumin Level 4.5 g/dL (3.5-5.0); Alkaline Phosphatase 52 U/L (39-117); Anion Gap 13 (12-20); Aspartate Amino Transferase 41 U/L (5-37); Bilirubin Total 0.9 mg/dL (0.0-1.0); Blood Urea Nitrogen 10 mg/dL (9-16); Calcium 9.5 mg/dL (8.4-10.2); Carbon Dioxide 25 mmol/L (22-29); Chloride 107 mmol/L (96-108); Cholesterol 199 mg/dL (<200); Estimated Glomerular Filt Rate 51; Glucose Fasting 126 mg/dL (60-99); HDL Cholesterol 36 mg/dL (>40); LDL Cholesterol Calculated 127 mg/dL (<100); Potassium 3.8 mmol/L (3.3-5.1); Sodium 141 mmol/L (135-145); Triglycerides 180 mg/dL (<150)
[2023-12-22 12:30] LABS: Thyroid Stimulating Hormone > 100.00 uIU/mL (0.32-4.0); Vitamin D 25-OH Total 24.6 ng/mL (>30)
== END 2023-12-22 10:16 | disposition home or self-care (01) ==
LOC: HO.LAB 10:15
PROVIDERS: PCP Internal Medicine; Visit Provider Internal Medicine
DX: E11.9 Type 2 diabetes mellitus without complications (principal); E78.5 Hyperlipidemia, unspecified; E55.9 Vitamin D deficiency, unspecified; E06.3 Autoimmune thyroiditis
CPT/HCPCS: 36415; 80053; 80061; 82306; 84443

== ENCOUNTER 2024-01-04 13:02 | Outpatient (AMB) | payer OTHER, SELFPAY ==
--- NOTE | 2024-01-04 13:36 | MHC.PC.OV ---
Vital Signs 01/04/24 13:40 Height 5 ft 8 in Weight 192 lb BMI 29.2 BP 120/70 Blood Pressure Location Lt brachial Position Sitting Intake Visit Reasons: annual exam Intake Note: Patient here for an Annual Physical Exam Dress Designer Required: No Accompanied by: Spouse Allergies tramadol Allergy (Intermediate, Verified 01/04/24 13:55) Hives Medication List - Last Reconciled 01/04/24 by Cathy Jimenez MD atorvastatin 10 mg PO BEDTIME 90 days cetirizine (All Day Allergy (cetirizine)) 10 mg PO DAILY PRN 90 days cholecalciferol (vitamin D3) 25 mcg PO BID citalopram 20 mg PO DAILY clotrimazole 10 mg PO cyclobenzaprine 10 mg PO Q8H PRN 30 days dulaglutide (Trulicity) 0.75 mg (0.5 mL) subcut QWEEK 30 days fenofibrate 54 mg PO DAILY 90 days lancets (FreeStyle Lancets) As directed lancets (TRUEplus Lancets) As directed levothyroxine 200 mcg PO DAILY 90 days levothyroxine (Synthroid) 50 mcg PO DAILY 90 days lisinopril 10 mg PO DAILY 90 days melatonin 3 mg PO BEDTIME PRN 30 days metformin 1,000 mg PO BID 90 days naproxen 500 mg PO BID PRN [nonslip bath mat As directed] nystatin 1 appl topical BID 15 days pantoprazole 40 mg PO DAILY quetiapine 25 mg PO BID sumatriptan succinate 50 mg PO DAILY PRN tadalafil 20 mg PO ONCE PRN 30 days terazosin 5 mg PO BEDTIME 90 days Tobacco use date assessed: 04/26/23 Fall risk assessment: No Falls in past year Last assessed Fall Risk: 01/04/24 Dental Screening Dental Screen Date: 01/04/24 Did you have a dental visit in the last 12 months?: No Did you have a dental problem in the last 6 months where you did not have access to dental care?: No Was dental information given to patient?: Patient has dentist HPI HPI Comments History of Present Illness Details This is a 68-year-old male with diabetes mellitus type 2 and mild recurrent major depression that comes today accompanied by for his physical exam. A1c slightly elevated and I will increase Trulicity. Depression present and I will refill citalopram. Colonoscopy done 2019 showing tubular adenoma and I will refer him through open access. He complains of left foot mass in the plantar area between the 4th and the 5th toe that has been bothering him for years. [facility] Medical History (Updated 01/04/24 @ 16:49 by Cathy Jimenez MD) Voice hoarseness ROLDAN (obstructive sleep apnea) Hypovitaminosis D Type 2 diabetes mellitus, with long-term current use of insulin Moderate recurrent major depression Erectile dysfunction History of urinary hesitancy Prostate nodule Enlarged prostate without lower urinary tract symptoms (luts) Flatus Unspecified constipation Medial meniscus tear OA (osteoarthritis) Arthralgia CATHY positive Hypothyroidism Multiple sclerosis Surgical History History of surgery Family History Mother Diabetes mellitus Father No problems noted. Social History Household Members Other:: and daughter Housing: House Alcohol intake: never Patient Tobacco Use Status: Never used Tobacco e-Cigarette/Vaping Use: Never Used Second Hand Smoke Exposure: No service: No Current occupational status: disabled Cognitive needs: Yes Hearing needs: No Vision needs: Yes Questionnaire PHQ-9 Over the last 2 weeks, how often have you been bothered by any of the following problems? 1. Little interest or pleasure in doing things: not at all 2. Feeling down, depressed, or hopeless: not at all 3. Trouble falling or staying asleep, or sleeping too much: several days 4. Feeling tired or having little energy: several days 5. Poor appetite or overeating: not at all 6. Feeling bad about yourself - or that you are a failure or have let yourself or your family down: not at all 7. Trouble concentrating on things, such as reading the newspaper or watching television: not at all 8. Moving or speaking so slowly that other people could have noticed. Or the opposite - being so fidgety or restless that you have been moving around a lot more than usual: several days 9. Thoughts that you would be better off or of hurting yourself in some way: not at all Total score: 3 Depression Screening Interpretation: Positive Depression Screening Follow-up: Existing condition and Follow-up Visit Requested Depression Screening Done: Yes 12569 - PHQ-9 Billing: Yes Source: Developed by Drs. Jonas Rodriguez, Kelly Santo, Kingsley Keen and colleagues, with an educational alda from [employer]. Thrive Questionnaire Date Thrive assessed: 01/04/24 I am a: Patient What is your living situation today?: I have a steady place to live Within the past 12 months, did the food you bought not last and you didn't have the money to get more?: Never true Within the past 12 months, did you worry whether your food would run out before you got money to buy more?: Never true Do you have trouble paying for medicines?: I choose not to answer this question Do you have trouble getting transportation to medical appointments?: I choose not to answer this question Do you have trouble paying your heating and electricity bill?: I choose not to answer this question Do you have trouble taking care of your child, family member or friend?: I choose not to answer this question Do you have trouble with day-to-day activities such as bathing, preparing meals, shopping, managing finances, etc.?: I choose not to answer this question Are you currently unemployed and looking for a job?: I choose not to answer this question Are you interested in more education?: I choose not to answer this question Please select the resources that you would like help with: None Currently or been in a relationship where the following occur: No concerns reported THRIVE Score: 0 AUDIT C Alcohol Use Questionnaire (AUDIT-C) 1. How often do you have a drink containing alcohol?: Never Total Score: 0 Score Reviewed/Action Taken: Yes RODDY-7 AMB Questionnaire RODDY-7 Date RODDY - 7 assessed: 04/26/23 Feeling nervous, anxious, or on edge: 0 = Not at all Not being able to stop or control worryin = Not at all Worrying too much about different things: 0 = Not at all Trouble relaxin = Not at all Being so restless that it is hard to sit still: 0 = Not at all Becoming easily annoyed or irritable: 0 = Not at all Feeling afraid as if something awful might happen: 0 = Not at all Total RODDY-7 score (0-4 normal; 5-9 mild; 10-14 moderate; 15-21 severe): 0 Source: Developed by Drs. Jonas Rodriugez, Kelly Santo, Kingsley Keen and colleagues, with an educational alda from [employer]. RODDY-7 Assessment Billing RODDY-7 Assessment Tool: RODDY-7 Assessment 46792 Review of Systems Const All systems reviewed & are unremarkable except as noted in HPI and below Card Denies chest pain at rest, Denies chest pain with activity, Denies edema, Denies irregular heart rhythm, Denies claudication, Denies dyspnea, Denies dyspnea on exertion, Denies orthopnea, Denies paroxysmal nocturnal dyspnea and Denies slow heart rate Resp Denies cough, Denies dyspnea and Denies dyspnea on exertion GI Denies abdominal pain, Denies change in bowel habits, Denies excessive flatus, Denies nausea and Denies vomiting Denies urinary hesitancy, Denies urinary incontinence and Denies urinary urgency Musc Denies atrophy, Denies deformity and Denies limited range of motion Physical exam (Primary Care) Vital Signs: Last Vital Signs BP 120/70 01/04/24 13:40 BMI result Body Mass Index 29.2 BMI Assessment/Plan discussion: High BMI High, discussed plan: lifestyle, weight reduction, dietary and physical activity Tobacco/Smoking Status: Tobacco use Status Tobacco use date assessed 04/26/23 01/04/24 13:38 Patient Tobacco Use Status Never used Tobacco 01/04/24 13:38 e-Cigarette/Vaping Use Never Used 01/04/24 13:38 PHQ-9: PHQ-9 Score PHQ-9: Total score 3 01/04/24 15:13 Depression Screening Interpretation: Positive Depression Screening Follow-up: Existing condition and Follow-up Visit Requested Thrive Assessment: Date of Thrive Assessment Date Thrive assessed 01/04/24 01/04/24 13:38 Currently or been in a relationship where the following occur: No concerns reported HENRI Head: Yes normal to inspection, Yes normocephalic and Yes atraumatic Ears: external ears normal Eyes General: appearance normal, both eyes and all related structures Eyelids: Yes eyelids normal Conjunctivae: conjunctivae normal Neck Neck: Yes normal visual inspection and Yes supple Resp Effort & Inspection: normal respiratory effort Auscultation: clear to auscultation bilaterally Cardio Jugular venous distension: no JVD Rate: regular rate Rhythm: regular rhythm Heart sounds: S1 normal heart sound present and S2 normal heart sound present GI Inspection: Yes normal to inspection Palpation (GI): Soft to palpation and nontender Auscultation: normal bowel sounds Skin General skin exam: no rashes or lesions noted Neuro General: no focal motor deficits Extrem Other: left foot mass in plantar area between 4th and 5th toe General: Yes full ROM Psych Appearance: grossly normal Office Procedures Flu Questionnaire Does the patient have a severe egg allergy?: No Does the patient have severe life threatening allergies?: No Does the patient have a fever or illness today?: No Has the patient ever had Guillain-Natchez Syndrome?: No Has the patient ever had any past reaction to a flu shot?: No Results AMB Hemoglobin A1c AMB Hemoglobin A1c 7.4 % Last Edit by ELLY Tyson on 01/04/24 13:51 Immunizations Fluarix Triv 3785-6424 (PF) 45 mcg (15 mcg x 3)/0.5 mL IM syringe Performing Provider: Cathy Jimenez MD [facility] Administered by: ELLY Tyson on 01/04/24 14:12 Dose Route Admin Location Dispensed Lot Number Expiration Date [facility] Desk Assistant 0.5 mL IM Left Deltoid 0.5 mL [id number] 09/23/24 [id number] [employer] VIS Given Date VIS Provided VIS Publication Date 01/04/24 Single Vaccine 20 Eligibility Eligibility Date Funding Source Not [facility] Eligible 01/04/24 Private Results Reviewed Results Reviewed: Laboratory Last Values Hgb A1c (Clinic) 7.4 % (4.0-6.0) H 01/04/24 13:35 Coding Level of Care Code Est Pt Level 3 (61718) Est Pt Prev Care >65y(92089) Diagnoses Physical exam Z00.00 Type 2 diabetes mellitus with hyperglycemia, without long-term current use of insulin E11.65 Diabetes mellitus type: type 2 Diabetes mellitus intermediate card tender insulin use: without correction use Diabetes mellitus complication status: with hyperglycemia Mass of left foot R22.42 Moderate recurrent major depression F33.1 Additional Codes RODDY-7 Assessment Billing - RODDY-7 Assessment Tool: RODDY-7 Assessment 23482 ([id number]) Time Spent (min) 35 Assessment & Plan Assessment & Plan (1) Physical exam: Code(s): Z00.00 - Encounter for general adult medical examination without abnormal findings Category: Medical Plan: Repeat in a year. (2) Diabetes mellitus: Code(s): E11.9 - Type 2 diabetes mellitus without complications Category: Medical Qualifiers: Diabetes mellitus type: type 2 Diabetes mellitus intermediate card tender insulin use: without intermediate card tender use Diabetes mellitus complication status: with hyperglycemia Qualified Code(s): E11.65 - Type 2 diabetes mellitus with hyperglycemia Plan: Increase Trulicity. A1c goal is equal or less than 7%. (3) Mass of left foot: Code(s): R22.42 - Localized swelling, mass and lump, left lower limb Category: Medical Plan: X-ray ordered. Referred to physical therapy. (4) Moderate recurrent major depression: Code(s): F33.1 - Major depressive disorder, recurrent, moderate Category: Medical Plan: Restart citalopram. Orders: Orders AMB Hemoglobin A1c Today E11.9 - Type 2 diabetes mellitus without complications Influenza [id number] Immunization Today Z23 - Encounter for immunization Microalbumin, Random (w Creat) 4 Months R80.9 - Proteinuria, unspecified Vitamin D 25-OH Total 4 Months E55.9 - Vitamin D deficiency, unspecified XR foot LT 2V Today R22.42 - Localized swelling, mass and lump, left lower limb Thyroid Stimulating Hormone 6 Weeks E03.9 - Hypothyroidism, unspecified Lipid Panel 4 Months E78.5 - Hyperlipidemia, unspecified Comprehensive [place]. Panel Fast 4 Months E11.9 - Type 2 diabetes mellitus without complications Referrals Open Access Screening Colonoscopy Referral Z12.12 - Encounter for screening for malignant neoplasm of rectum Podiatry Referral R22.42 - Localized swelling, mass and lump, left lower limb Medications: New dulaglutide (Trulicity) 1.5 mg (0.5 mL) subcut QWEEK 6.5 mL 1RF 90 days atorvastatin 20 mg PO BEDTIME 90 tabs 1RF 90 days Changed From cholecalciferol (vitamin D3) 25 mcg PO BID To cholecalciferol (vitamin D3) 25 mcg PO DAILY 90 tabs 0RF 90 days From citalopram 20 mg PO DAILY To citalopram 20 mg PO DAILY 90 tabs 0RF 90 days Refilled levothyroxine 200 mcg PO DAILY 90 tabs 1RF 90 days metformin 1,000 mg PO BID 180 tabs 1RF 90 days lisinopril 10 mg PO DAILY 90 tabs 1RF 90 days I10 - Essential (primary) hypertension levothyroxine (Synthroid) 50 mcg PO DAILY 90 tabs 0RF 90 days fenofibrate 54 mg PO DAILY 90 tabs 1RF 90 days E78.5 - Hyperlipidemia, unspecified Discontinued dulaglutide (Trulicity) Discontinued Reason: Patient Completed Course 0.75 mg (0.5 mL) subcut QWEEK 30 days 2.5 mL 3RF E11.9 - Type 2 diabetes mellitus without complications atorvastatin Discontinued Reason: Patient Completed Course 10 mg PO BEDTIME 90 days 90 tabs 1RF E78.5 - Hyperlipidemia, unspecified
[2024-01-04 13:40] VITALS: BP 120/70; BMI 29.2
== END 2024-01-04 14:14 | disposition home or self-care (01) ==
PROVIDERS: PCP Internal Medicine; Visit Provider Internal Medicine
DX: Z00.00 Encounter for general adult medical examination without abnormal findings (principal); E11.65 Type 2 diabetes mellitus with hyperglycemia; F33.1 Major depressive disorder, recurrent, moderate; R22.42 Localized swelling, mass and lump, left lower limb

== ENCOUNTER → 2024-01-04 13:02 | Outpatient (BNVA) | payer OTHER, SELFPAY | PROVIDERS: PCP Internal Medicine; Visit Provider Internal Medicine | DX: Z00.01 Encounter for general adult medical examination with abnormal findings (principal); Z23 Encounter for immunization; E11.65 Type 2 diabetes mellitus with hyperglycemia; R22.42 Localized swelling, mass and lump, left lower limb; F33.1 Major depressive disorder, recurrent, moderate | CPT/HCPCS: 83036; 90471; 90656; 96127; 99212; 99397 ==

== ENCOUNTER 2024-01-17 11:15 | Outpatient (REF) | payer OTHER, SELFPAY ==
--- NOTE | ~2024-01-17 | XR_ITS ---
EXAMINATION: XR FOOT LEFT 3 VIEWS CLINICAL INFORMATION: Localized swelling, mass and lump, left lower limb R22.42. Patient states pain/bump on dorsal surface of foot near 4th/5th MCP joints. COMPARISON: XR Left foot 09/22/2020 TECHNIQUE: AP, lateral, and oblique views of the left foot. FINDINGS: Plantar calcaneal spur. No fracture identified. Alignment is anatomic. Joint spaces are maintained. Soft tissues appear unremarkable. XR/XR foot LT 2V IMPRESSION: No acute finding. Electronically signed by: Carroll King MD 03/06/2024 12:06 PM EST
== END 2024-01-17 11:16 | disposition home or self-care (01) ==
LOC: HO.XRAY 11:15
PROVIDERS: PCP Internal Medicine; Visit Provider Internal Medicine
DX: R22.42 Localized swelling, mass and lump, left lower limb (principal)
CPT/HCPCS: 73620

== ENCOUNTER 2024-02-02 12:34 | Outpatient (REF) | payer OTHER, SELFPAY ==
[2024-02-02 15:11] LABS: Microalbumin Urine < 5.0 mg/L
[2024-02-02 15:44] LABS: Alanine Aminotransferase 43 U/L (0-40); Albumin Level 4.4 g/dL (3.5-5.0); Alkaline Phosphatase 74 U/L (39-117); Anion Gap 12 (12-20); Aspartate Amino Transferase 45 U/L (5-37); Bilirubin Total 0.7 mg/dL (0.0-1.0); Blood Urea Nitrogen 10 mg/dL (9-16); Calcium 9.4 mg/dL (8.4-10.2); Carbon Dioxide 25 mmol/L (22-29); Chloride 107 mmol/L (96-108); Cholesterol 95 mg/dL (<200); Estimated Glomerular Filt Rate > 60; Glucose Fasting 126 mg/dL (60-99); HDL Cholesterol 29 mg/dL (>40); LDL Cholesterol Calculated 32 mg/dL (<100); Potassium 3.9 mmol/L (3.3-5.1); Sodium 140 mmol/L (135-145); Total Protein 7.9 g/dL (6.5-8.0); Triglycerides 172 mg/dL (<150)
[2024-02-02 15:49] LABS: Thyroid Stimulating Hormone 0.34 uIU/mL (0.32-4.0); Vitamin D 25-OH Total 30.6 ng/mL (>30)
== END 2024-02-02 12:35 | disposition home or self-care (01) ==
LOC: HO.LAB 12:34
PROVIDERS: PCP Internal Medicine; Visit Provider Internal Medicine
DX: E11.9 Type 2 diabetes mellitus without complications (principal); R80.9 Proteinuria, unspecified; E55.9 Vitamin D deficiency, unspecified; E03.9 Hypothyroidism, unspecified; E78.5 Hyperlipidemia, unspecified
CPT/HCPCS: 36415; 80053; 80061; 82043; 82306; 82570; 84443

== ENCOUNTER 2024-02-20 10:21 | Outpatient (AMB) | payer OTHER, SELFPAY ==
--- NOTE | 2024-02-20 11:01 | AM.OFFWIN_ITS ---
Intake Vital Signs 02/20/24 11:07 Weight 192 lb BP 130/80 Blood Pressure Location Rt brachial Position Sitting Pulse 90 Pulse Source Pulse Oximeter Pulse Oximetry (%) 96 Oxygen Delivery Method Room Air Intake Visit Reasons: EP-lt side lump in face and pain Intake Note: Patient here for left sided face pain which radiates into the ear and throat. states he woke up with it swollen on monday. Patient Tobacco Use Status: Never used Tobacco Allergies tramadol Allergy (Intermediate, Verified 02/20/24 11:07) Hives Do you need a note to return to daycare/school/sports/work: No HPI HPI Comments History of Present Illness Details The patient is a 68-year-old male presenting with painful swelling on the left side of the face. He describes the sensation as if he had been hit, although no trauma was reported. The condition began with a noticeable lump on his face, which was later identified as an abscess. The patient has previously consulted a dentist who recommended [id number] pain medication, but no antibiotics were prescribed at that time. The patient denies any pain currently, but initially experienced discomfort suggestive of an injury. The swelling is firm to touch and has not spontaneously drained. No additional systemic symptoms such as fever or chills were reported. [facility] Medical History Voice hoarseness ROLDAN (obstructive sleep apnea) Hypovitaminosis D Type 2 diabetes mellitus, with long-term current use of insulin Moderate recurrent major depression Erectile dysfunction History of urinary hesitancy Prostate nodule Enlarged prostate without lower urinary tract symptoms (luts) Flatus Unspecified constipation Medial meniscus tear OA (osteoarthritis) Arthralgia TAMIKO positive Hypothyroidism Multiple sclerosis Surgical History History of surgery Family History Mother Diabetes mellitus Father No problems noted. Social History Household Members Other:: and daughter Housing: House Alcohol intake: never Patient Tobacco Use Status: Never used Tobacco e-Cigarette/Vaping Use: Never Used Second Hand Smoke Exposure: No service: No Current occupational status: disabled Cognitive needs: Yes Hearing needs: No Vision needs: Yes Review of Systems Const All systems reviewed & are unremarkable except as noted in HPI and below Physical Exam Vital Signs: Last Vital Signs Pulse 90 02/20/24 11:07 BP 130/80 02/20/24 11:07 Pulse Ox 96 02/20/24 11:07 Oxygen Delivery Method Room Air 02/20/24 11:07 Const General: cooperative, healthy appearing, comfortable, no acute distress and well developed Orientation/consciousness: patient oriented x3 Limitations: no limitations HEENT Head: Yes normal to inspection Neck Neck: Yes normal visual inspection and Yes supple Skin Other: Left side lower cheek has a 1 cm slightly firm slightly tender area with erythema, no fluctuance, no drainage noticed, no warmth Neuro General: patient oriented x3 Assessment & Plan Assessment & Plan (1) Abscess of face: Code(s): L02.01 - Cutaneous abscess of face Plan: Can use a warm cloth and ibuprofen for pain, sent antibiotic to pharmacy. Patient was informed and verbally consented to the use of an ambient scribe for clinic note documentation during this visit. japanese interpreter used for this visit Medications: New amoxicillin-pot clavulanate 875-125 mg 1 tab PO Q12H 14 tabs 0RF Coding Level of Care Code Est Pt Level 3 (68711) Diagnoses Abscess of face L02.01
[2024-02-20 11:07] VITALS: BP 130/80; PULSE 90; O2SAT 96
== END 2024-02-20 13:42 | disposition home or self-care (01) ==
PROVIDERS: PCP Internal Medicine; Visit Provider Physician Assistant
DX: L02.01 Cutaneous abscess of face (principal)

== ENCOUNTER → 2024-02-20 10:21 | Outpatient (BNVA) | payer OTHER, SELFPAY | PROVIDERS: PCP Internal Medicine; Visit Provider Physician Assistant | DX: L02.01 Cutaneous abscess of face (principal) | CPT/HCPCS: 99212 ==

== ENCOUNTER 2024-04-29 14:55 | Outpatient (AMB) | payer OTHER, SELFPAY ==
--- NOTE | 2024-04-29 15:15 | MHC.OFFVIS ---
Vital Signs 04/29/24 15:16 Height 5 ft 8 in Weight 191 lb BMI 29.0 Intake Visit Reasons: 6 mo f/u - ROLDAN Intake Note: Patient presents for 6 month follow up ROLDAN Under Water Assistant Required: Yes Under Water Assistant Language: Nursing Home Physician Services: Under Water Assistant Present Under Water Assistant Name: Sindhu [id number] Allergies tramadol Allergy (Intermediate, Verified 04/29/24 15:23) Hives HPI Comments Details: 68 y/o male patient presents for follow up of ROLDAN. 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 The PSG sleep study result was significant for moderate degree of sleep apnea. The AHI was 24/hr and oxygen oren was 85%. Pt had a titration study and his breathing and oxygenation stablized on CPAP at 11olS6E. The CPAP compliance and therapy response (01/26/24-04/24/24) reviewed. The usage days 54% and the average usage hours 4 hrs 30 min. The residual AHI was 1.0/ hr. He says his mask broke last week and does not have replacement Pt reports he sleeps much better, rested and wakes up refreshed. [facility] Medical History Voice hoarseness ROLDAN (obstructive sleep apnea) Hypovitaminosis D Type 2 diabetes mellitus, with long-term current use of insulin Moderate recurrent major depression Erectile dysfunction History of urinary hesitancy Prostate nodule Enlarged prostate without lower urinary tract symptoms (luts) Flatus Unspecified constipation Medial meniscus tear OA (osteoarthritis) Arthralgia TAMIKO positive Hypothyroidism Multiple sclerosis Surgical History History of surgery Family History Mother Diabetes mellitus Father No problems noted. Social History Household Members Other:: and daughter Housing: House Alcohol intake: never Patient Tobacco Use Status: Never used Tobacco e-Cigarette/Vaping Use: Never Used Second Hand Smoke Exposure: No service: No Current occupational status: disabled Cognitive needs: Yes Hearing needs: No Vision needs: Yes Physical Exam Vital Signs: BMI result Body Mass Index 29.0 Const General: cooperative and no acute distress Nutritional Appearance: overweight Orientation/consciousness: patient oriented x3 Limitations: language barrier ([place] only) Neck Neck: Yes full ROM and Yes supple Resp Effort & Inspection: normal respiratory effort and able to speak in complete sentences Neuro General: patient oriented x3 and gait normal Cranial nerves: Yes CN's II-XII intact bilaterally Cognition (Neuro): normal cognition Motor exam (neuro): Motor abnormalities not present Psych Appearance: grossly normal Mental Status: mental status grossly normal Speech and movement: Normal speech and movement present Assessment & Plan Assessment & Plan (1) ROLDAN (obstructive sleep apnea): Comment: Severe degree of sleep apnea with increased in REM. The total AHI was 28/hr, REM was 48/hr, oxygen oren was 79%. Code(s): G47.33 - Obstructive sleep apnea (adult) (pediatric) Category: Medical Plan Continue CPAP at [id number]. Stressed compliance, use CPAP nightly and more than 4 hrs. Call home care company for mask fitting Coding Level of Care Code Est Pt Level 4 (88628) Diagnoses ROLDAN (obstructive sleep apnea) G47.33
[2024-04-29 15:16] VITALS: BMI 29.0
--- OUTSIDE RECORDS SUMMARY | 2024-04-29 16:29 | XMS_ITS | Clinical Summary ---
Author Organization [email or web address] Address [address] [place] [address] [address] [place] [address] Care Team Providers Care Manager Special Events Name Role Phone Unavailable Primary Care Provider Unavailabl e Allergies Active Allergy Reactions Criticality Noted Date Comments Tramadol 06/17/2010 Other reaction(s): unspecified Medications acetaminophen (Tylenol 8 Hour) 650 MG ER tablet Take 2 tablets by mouth every 8 (eight) hours. 2 Active amLODIPine (Norvasc) 5 MG tablet Take 1 tablet by mouth at bed time. 2 Active Artificial Saliva (Mouth Kote) solution spray topically in mouth daily as needed for dry mouth 2 Active chlorhexidine (Periogard) 0.12 % solution Place 15 mL into mouth between cheek and gum every 12 (twelve) hours. 2 Active citalopram (CeleXA) 20 MG tablet Take 1 tablet by mouth at bed time. Active clotrimazole (Mycelex) 10 MG radha take 1 tablet by oral route 5 times every day dissolved slowly in the mouth for 2 weeks, then use mouth kote 2 Active fluticasone (Flonase Allergy Relief) 50 MCG/ACT nasal spray Administer 1-2 sprays into affected nostril(s) at bed time. 2 Active glucose blood (FREESTYLE LITE) test strip USE 1 Each by DIRECTED route 3 times every day 2 Active ibuprofen 600 MG tablet Take 1 tablet by mouth every 12 (twelve) hours. 2 Active insulin glargine (Lantus) 100 UNIT/ML injection inject by subcutaneous route 6 units each evening 2 Active levothyroxine (Synthroid, Levoxyl) 150 MCG tablet Take 1 tablet by mouth at bed time. 2 Active metFORMIN (Glucophage) 850 MG tablet Take 1 tablet by mouth every 12 (twelve) hours. 2 Active sennosides (Senokot) 8.6 MG tablet Take by mouth every 12 (twelve) hours. 2 Active Active Problems Problem Noted Date Diagnosed Date Mild major depression, single episode 08/09/2016 Tubular adenoma of colon 06/23/2015 Erectile dysfunction due to diseases classified elsewhere 01/08/2015 Slow transit constipation 01/08/2015 Multiple sclerosis 12/19/2013 Acquired hypothyroidism 06/25/2012 Benign prostatic hyperplasia 06/25/2012 Carpal tunnel syndrome 06/25/2012 Gastroesophageal reflux disease 06/25/2012 Obstructive sleep apnea syndrome 06/25/2012 Positive antinuclear antibody 06/25/2012 Tinnitus 06/25/2012 Immunizations Name Administration Dates Next Due INFLUENZA INJECTABLE QUADRIV ALANT CCIIV4 MDCK Multi-dose vial 02/11/2019 Influenza injectable quadriv alent IIV4 with preservative 01/30/2018,01/08/2015 Influenza injectable quadriv alent preservative free 01/07/2022,03/09/2021,12/31/2019,01/05,05/03/2016 Influenza, IIV3, injectable 02/11/2019, 4 MMR 07/24/2008 Moderna Covid-19 Vaccine 12+ 03/23/2021,07/16/19 21,06/17/2020 Pneumococcal Conjugate PCV 20 07/14/2022 Pneumococcal Polysaccharide PPSV23 04/18/2014 TD (adult), 2 Lf tetanus tox oid, preservative free, adsorbed 07/24/2008 Tdap 03/09/2021 Zoster, Recombinant 07/14/2022 Social History Tobacco Use Types Packs/Day Years Used Date Smoking Tobacco: Never Assessed Sex and Gender Information Value Date Recorded Sex Assigned at Male 01/24/2022 10:17 AM EDT Legal Sex Male 10:17 AM EDT Gender Identity Male 01/24/2022 10:17 AM EDT Sexual Orientation Straight 01/24/2022 10 :17 AM EDT Last Filed Vital Signs Vital Sign Reading Time Taken Comments Blood Pressure 142/98 07/16/2021 12:04 AM EDT Pulse 87 07/16/2021 12:04 AM EDT Temperature - - Respiratory Rate - - Oxygen Saturation - - Inhaled Oxygen Concentration - - Weight 78.8 kg (173 lb 12.8 oz) 022 12:05 AM EDT Height 173.4 cm (5' 8.25 ) 08/04/2021 1 2:05 AM EDT Body Mass Index 26.23 08/04/2021 12:05 AM EDT Plan of Treatment Health Maintenance Due Date Last Done Comments CT Colonography 1957 Colonoscopy 1957 Colorectal Cancer Screening 1957 Depression Screening 1957 FIT DNA/Cologuard 1957 FIT 1957 FOBT 1957 SDOH Screening 1957 Sigmoidoscopy 1957 Alcohol/Substance Use Screening 1969 Tobacco Screening 1969 Hepatitis C Screening 07/12/1975 Zoster Vaccines (2 of 2) 09/08/2022 07/14/2022 COVID-19 Vaccine ( season) 2023 03/23/2021, 07/15/2020, 06/17/2020 Influenza Vaccine (#1) 2023 , 01/07/2022, 03/09/2021, Additional history exists Lipid Panel 08/14/2025 08/14/2020, 01/13/2020 DTaP/Tdap/Td Vaccines (2 - Td or Tdap) 03/09/2031 03/09/2021, 07/24/2008 RSV Patients and Patients Aged 60 years or older (1 - 1-dose 75+ series) 2032 Pneumococcal Vaccine: 50+ Years Completed 07/14/2022, 04/18/2014 HIB Vaccines Aged Out No longer eligi ble based on patient's age to complete this topic HPV Vaccines Aged Out No longer eligi ble based on patient's age to complete this topic Hepatitis A Vaccines Aged Out No long er eligible based on patient's age to complete this topic Hepatitis B Vaccines Aged Out No long er eligible based on patient's age to complete this topic IPV Vaccines Aged Out No longer eligi ble based on patient's age to complete this topic Meningococcal Vaccine Aged Out No desmond robina eligible based on patient's age to complete this topic RSV under 20 months Aged Out No longe r eligible based on patient's age to complete this topic Rotavirus Vaccines Aged Out No longer eligible based on patient's age to complete this topic Procedures Procedure Name Priority Date/Time Associated Diagnosis Comments LIPID PANEL, STANDARD Routine 08/14/2020 9:42 AM EDT from Last 3 Months or Most Recently Relevant to Health Maintenance Results * (ABNORMAL) LIPID PANEL, STANDARD (08/14/2020 9:42 AM EDT) Chol/HDLC Ratio 5.9(H) <5.0 (calc) [facility] Cholesterol, Total 190 <200 mg/dL [facility] HDL Cholesterol 32(L) > OR = 40 mg/dL [facility] LDL Cholesterol 111(H) mg/dL (calc) [facility] Comment: Reference range: <100 ?? Desirable range <100 mg/dL for primary prevention; ?? <70 mg/dL for patients with CHD or diabetic patients ?? with > or = 2 CHD risk factors. ?? LDL-C is now calculated using the Mejia-Ellsworth ?? calculation, which is a validated novel method providing ?? better accuracy than the Friedewald equation in the ?? estimation of LDL-C. ?? Mejia WARREN et al. EFRAÍN. 2013;310(19): 0392-3211 ?? (http://education.[employer].Back&/faq/HOR755) Non-HDL Cholesterol 158(H) <130 mg/dL (calc) [facility] Comment: For patients with diabetes plus 1 major ASCVD risk ?? factor, treating to a non-HDL-C goal of <100 mg/dL ?? (LDL-C of <70 mg/dL) is considered a therapeutic ?? option. Triglycerides 351(H) <150 mg/dL [facility] Comment: ?? If a non-fasting specimen was collected, consider repeat triglyceride testing on a fasting specimen if clinically indicated. ?? Rodrigo et al. J. of Clin. Lipidol. 2015;9:129-169. ?? 08/14/2020 9:42 AM EDT us Josué Winkler MD LAB BLOOD ORDERABLES Final Result [facility] [address] [place] [address], from Last 3 Months or Most Recently Relevant to Health Maintenance Insurance [facility]
--- OUTSIDE RECORDS SUMMARY | 2024-04-29 16:29 | XMS_ITS | Encounter Summary ---
Author Organization [employer] Address [address] [place] [address] [address] [place] [address] Care Team Providers Care Freight Receiver Name Role Phone Unavailable Primary Care Provider Unavailabl e Reason for Visit * Reason Comments Med Refill Encounter Details Date Type Department Care Team ([facility] st Contact Info) Description 04/04/2022 Refill [facility] MEDICINE [address] [place] [address] Josué Valencia MD [address] [place] [address] Social History Tobacco Use Types Packs/Day Years Used Date Smoking Tobacco: Never Assessed Sex and Gender Information Value Date Recorded Sex Assigned at Male 01/24/2022 10:17 AM EDT Legal Sex Male 10:17 AM EDT Gender Identity Male 01/24/2022 10:17 AM EDT Sexual Orientation Straight 01/24/2022 10 :17 AM EDT documented as of this encounter Plan of Treatment Not on file documented as of this encounter Visit Diagnoses Not on filedocumented in this encounter
--- OUTSIDE RECORDS SUMMARY | 2024-04-29 16:29 | XMS_ITS | Encounter Summary ---
Author Organization [employer] Address [address] [place] [address] [address] [place] [address] Care Team Providers Care X Ray Control Equipment Repairer Name Role Phone Unavailable Primary Care Provider Unavailabl e Encounter Details Date Type Department Care Team (Latest Contact Info) Description 09/22/2020 Abstract [facility] CONVERSIONS Dental, Provider, DDS Social History Tobacco Use Types Packs/Day Years [...]
--- OUTSIDE RECORDS SUMMARY | 2024-04-29 16:29 | XMS_ITS | Encounter Summary ---
Author Organization [employer] Address [address] [place] [address] 7t [place] [address] Care Team Providers Care Competitive Intelligence Manager Name Role Phone Unavailable Primary Care Provider Unavailabl e Reason for Visit * Reason Comments Med Refill Encounter Details Date Type Department Care Team ([facility] st Contact Info) Description 04/18/[address] [facility] MEDICINE [address] [place] [address] Josué Valencia MD [address] [place] [address] Social History Tobacco Use Types Packs/Day Years [...]
--- OUTSIDE RECORDS SUMMARY | 2024-04-29 16:29 | XMS_ITS | Encounter Summary ---
Author Organization [employer] Address [address] [place] [address] 7t [place] [address] Care Team Providers Care Electronic Calibration Technician Name Role Phone Unavailable Primary Care Provider Unavailabl e Reason for Visit * Reason Comments Med Refill Encounter Details Date Type Department Care Team ([facility] st Contact Info) Description 10/27/2022 Refill [facility] MEDICINE [address] [place] [address] Josué Valencia MD [address] [place] [address] Social History Tobacco Use Types Packs/Day Years [...]
--- OUTSIDE RECORDS SUMMARY | 2024-04-29 16:29 | XMS_ITS | Encounter Summary ---
Author Organization [employer] Address [address] [place] [address] 7t [place] [address] Care Team Providers Care Haulpak Driver Name Role Phone Unavailable Primary Care Provider Unavailabl e Reason for Visit * Reason Comments Med Refill Encounter Details Date Type Department Care Team ([facility] st Contact Info) Description 07/20/2022 Refill [facility] MEDICINE [address] [place] [address] Josué Valencia MD [address] [place] [address] Social History Tobacco Use Types Packs/Day Years Used Date Smoking Tobacco: Never Assessed Sex and Gender Information Value Date Recorded Sex Assigned at Male 01/24/2022 10:17 AM EDT Legal Sex Male 10:17 AM EDT Gender Identity Male 01/24/2022 10:17 AM EDT Sexual Orientation Straight 01/24/2022 10 :17 AM EDT COVID-19 Exposure Response Date Recorded In the last 10 days, have yo u been in contact with someone who was confirmed or suspected to have Coronavirus/COVID-19? No / Unsure 07/14/2022 12:49 PM EDT documented as of this encounter Plan of Treatment Not on file documented as of this encounter Visit Diagnoses Not on filedocumented in this encounter
--- OUTSIDE RECORDS SUMMARY | 2024-04-29 16:29 | XMS_ITS | Encounter Summary ---
Author Organization [employer] Address [address] [place] [address] [address]t [place] [address] Care Team Providers Care Route Sales Trainee Name Role Phone Unavailable Primary Care Provider Unavailabl e Encounter Details Date Type Department Care Team (Latest Contact Info) Description 12/31/2021 Abstract [facility] CONVERSIONS Dental, Provider, DDS Social History Tobacco [...]
== END 2024-04-29 15:55 | disposition home or self-care (01) ==
PROVIDERS: Absent Provider Psychiatry & Neurology Neurology; PCP Internal Medicine; Visit Provider Psychiatry & Neurology Neurology
DX: G47.33 Obstructive sleep apnea (adult) (pediatric) (principal)
CPT/HCPCS: 99214

== ENCOUNTER → 2024-04-29 14:55 | Outpatient (BNVA) | payer OTHER, SELFPAY | PROVIDERS: Absent Provider Psychiatry & Neurology Neurology; PCP Internal Medicine; Visit Provider Psychiatry & Neurology Neurology | DX: G47.33 Obstructive sleep apnea (adult) (pediatric) (principal) | CPT/HCPCS: 99212 ==

== ENCOUNTER 2024-05-13 07:13 | Outpatient (REF) | payer OTHER, SELFPAY ==
[2024-05-13 08:32] LABS: Creatinine Urine 114.15 mg/dL; Microalbum/Creatinine Ratio Ur 6.1 ug/mg cr (<30)
== END 2024-05-13 07:14 | disposition home or self-care (01) ==
LOC: HO.LAB 07:13
PROVIDERS: PCP Internal Medicine; Visit Provider Internal Medicine
DX: E11.9 Type 2 diabetes mellitus without complications (principal)
CPT/HCPCS: 82043; 82570

== ENCOUNTER 2024-05-13 13:48 | Outpatient (AMB) | payer OTHER, SELFPAY ==
--- OUTSIDE RECORDS SUMMARY | 2024-05-13 13:51 | XMS_ITS | Clinical Summary ---
Author Organization [employer] Address [address] [place] [address] [address]t [address] [address] Care Team Providers Care Telephone Advice Nurse Name Role Phone Unavailable Primary Care Provider [...] ?? Mejia WARREN et al. EFRAÍN. 2013;310(19): 2006-1592 ?? (http://education.[employer].Musikki/faq/UVT180) Non-HDL Cholesterol 158(H) <130 mg/dL (calc) [facility] Winkler MD LAB BLOOD ORDERABLES Final Result [facility] [address] [place] [address], from Last 3 Months or Most Recently Relevant to Health Maintenance Insurance [facility]
--- OUTSIDE RECORDS SUMMARY | 2024-05-13 13:51 | XMS_ITS | Encounter Summary ---
Author Organization [employer] Address [address] [place] [address] 7t [place] [address] Care Team Providers Care Regional Liaison Name Role Phone Unavailable Primary Care Provider Unavailabl e Encounter Details Date Type Department Care Team (Latest Contact Info) Description 12/31/2021 Abstract [facility] CONVERSIONS Dental, Provider, DDS Social History [...]
--- OUTSIDE RECORDS SUMMARY | 2024-05-13 13:51 | XMS_ITS | Encounter Summary ---
Author Organization [employer] Address [address] [place] [address] [address]t [place] [address] Care Team Providers Care Reach Truck Operator Name Role Phone Unavailable Primary Care Provider Unavailabl e Reason for Visit * Reason Comments Med Refill Encounter Details Date Type Department Care Team ([facility] st Contact Info) Description 04/18/2022 Refill [facility] MEDICINE [address] [place] [address] Josué Valencia MD [address] [place] [address] Social History Tobacco Use Types Packs/Day Years [...]
--- OUTSIDE RECORDS SUMMARY | 2024-05-13 13:51 | XMS_ITS | Encounter Summary ---
Author Organization [employer] Address [address] [place] [address] [address]t [place] [address] Care Team Providers Care Senior Abap Developer Name Role Phone Unavailable Primary Care Provider Unavailabl e Reason for Visit * Reason Comments Med Refill Encounter Details Date Type Department Care Team ([facility] st Contact Info) Description 04/04/2022 Refill [facility] MEDICINE [address] [place] [address] Josué Valencia MD [address] [place] [address] Social History Tobacco Use Types Packs/Day Years [...]
--- OUTSIDE RECORDS SUMMARY | 2024-05-13 13:51 | XMS_ITS | Encounter Summary ---
Author Organization [employer] Address [address] [place] [address] [address]t [place] [address] Care Team Providers Care Patient Admitting Clerk Name Role Phone Unavailable Primary Care Provider Unavailabl e Reason for Visit * Reason Comments Med Refill Encounter Details Date Type Department Care Team ([facility] st Contact Info) Description 10/27/2022 Refill [facility] MEDICINE [address] [place] [address] Josué Valencia MD [address] [place] [address] Social History Tobacco Use Types Packs/Day Years [...]
--- OUTSIDE RECORDS SUMMARY | 2024-05-13 13:51 | XMS_ITS | Encounter Summary ---
Author Organization [employer] Address [address] [place] [address] [address]t [place] [address] Care Team Providers Care Nurse Practitioner Home Assessments Name Role Phone Unavailable Primary Care Provider Unavailabl e Reason for Visit * Reason Comments Med Refill Encounter Details Date Type Department Care Team ([facility] st Contact Info) Description 07/20/2022 Refill [facility] MEDICINE [address] [place] [address] Josué Valencia MD [address] [place] [address] Social History Tobacco Use Types Packs/Day Years [...]
--- OUTSIDE RECORDS SUMMARY | 2024-05-13 13:51 | XMS_ITS | Encounter Summary ---
Author Organization [employer] Address [address] [place] [address] [address]t [place] [address] Care Team Providers Care Pr Manager Name Role Phone Unavailable Primary Care Provider Unavailabl e Encounter Details Date Type Department Care Team (Latest Contact Info) Description 09/22/[address] [facility] CONVERSIONS Dental, Provider, DDS Social History [...]
--- NOTE | 2024-05-13 14:01 | MHC.PC.OV ---
Vital Signs 05/13/24 14:02 Height 5 ft 8 in Weight 189 lb BMI 28.7 BP 132/80 Blood Pressure Location Lt brachial Position Sitting Intake Visit Reasons: dm Intake Note: Patient here for a follow up DM Construction Economist Required: Yes Construction Economist Language: Packager Head Name: Cathy Jimenez MD Information Interpreted: non-clinical & clinical Accompanied by: Self / Same As Patient Allergies tramadol Allergy (Intermediate, Verified 05/13/24 14:08) Hives Medication List - Last Reconciled 05/13/24 by Cathy Jimenez MD atorvastatin 20 mg PO BEDTIME 90 days cetirizine (All Day Allergy (cetirizine)) 10 mg PO DAILY PRN 90 days cholecalciferol (vitamin D3) 25 mcg PO DAILY 90 days citalopram 20 mg PO DAILY 90 days clotrimazole 10 mg PO cyclobenzaprine 10 mg PO Q8H PRN 30 days dulaglutide (Trulicity) 1.5 mg (0.5 mL) subcut QWEEK 90 days fenofibrate 54 mg PO DAILY 90 days lancets (FreeStyle Lancets) As directed lancets (TRUEplus Lancets) As directed levothyroxine 200 mcg PO DAILY 90 days levothyroxine (Synthroid) 50 mcg PO DAILY 90 days lisinopril 10 mg PO DAILY 90 days melatonin 3 mg PO BEDTIME PRN 30 days metformin 1,000 mg PO BID 90 days naproxen 500 mg PO BID PRN [nonslip bath mat As directed] nystatin 1 appl topical BID 15 days pantoprazole 40 mg PO DAILY quetiapine 25 mg PO BID sumatriptan succinate 50 mg PO DAILY PRN tadalafil 20 mg PO ONCE PRN 30 days terazosin 5 mg PO BEDTIME 90 days Tobacco use date assessed: 05/13/24 Fall risk assessment: No Falls in past year Last assessed Fall Risk: 05/13/24 Dental Screening Dental Screen Date: 05/13/24 Did you have a dental visit in the last 12 months?: Yes Did you have a dental problem in the last 6 months where you did not have access to dental care?: No Was dental information given to patient?: Patient has dentist HPI HPI Comments History of Present Illness Details The patient is a 68-year-old male presenting with a routine follow-up for diabetes management. The patient reports good control of his diabetes, with the most recent HbA1c level recorded at 7.1%, indicating near-goal achievement. Previous diabetic retinopathy screening in June last year was negative. He is also being treated for hypothyroidism, with prior adjustments made to his levothyroxine dose, currently stable at 200 mcg. The patient is on atorvastatin 20 mg for primary hyperlipidemia, with his LDL cholesterol within target range. He has depression managed with citalopram 20 mg. Hypertension is controlled with lisinopril 10 mg. The patient experiences occasional migraines and uses sumatriptan as needed. Additionally, he takes fenofibrate for elevated triglycerides and uses pantoprazole for gastroesophageal reflux. The patient reported a significant allergic reaction, presenting as hives, to tramadol. He underwent a colonoscopy in 2015, where tubular adenomas were found, necessitating a follow-up procedure before 2025. He also has history of multiple sclerosis and denies any neurological deficit but last MRI of the brain was over a year ago. Has erectile dysfunction follow by Urology. [facility] Medical History (Updated 05/13/24 @ 14:26 by Cathy Jimenez MD) Voice hoarseness ROLDAN (obstructive sleep apnea) Hypovitaminosis D Type 2 diabetes mellitus, with long-term current use of insulin Moderate recurrent major depression Erectile dysfunction History of urinary hesitancy Prostate nodule Enlarged prostate without lower urinary tract symptoms (luts) Flatus Unspecified constipation Medial meniscus tear OA (osteoarthritis) Arthralgia CATHY positive Hypothyroidism Multiple sclerosis Surgical History History of surgery Family History Mother Diabetes mellitus Father No problems noted. Social History Household Members Other:: and daughter Housing: House Alcohol intake: never Patient Tobacco Use Status: Never used Tobacco e-Cigarette/Vaping Use: Never Used Second Hand Smoke Exposure: No service: No Current occupational status: disabled Cognitive needs: Yes Hearing needs: No Vision needs: Yes Questionnaire PHQ-9 Over the last 2 weeks, how often have you been bothered by any of the following problems? 1. Little interest or pleasure in doing things: not at all 2. Feeling down, depressed, or hopeless: not at all 3. Trouble falling or staying asleep, or sleeping too much: not at all 4. Feeling tired or having little energy: not at all 5. Poor appetite or overeating: not at all 6. Feeling bad about yourself - or that you are a failure or have let yourself or your family down: not at all 7. Trouble concentrating on things, such as reading the newspaper or watching television: not at all 8. Moving or speaking so slowly that other people could have noticed. Or the opposite - being so fidgety or restless that you have been moving around a lot more than usual: not at all 9. Thoughts that you would be better off or of hurting yourself in some way: not at all Total score: 0 Depression Screening Interpretation: Negative Depression Screening Done: Yes 81314 - PHQ-9 Billing: Yes Source: Developed by Drs. Jonas Rodriguez, Kelly Santo, Kingsley Keen and colleagues, with an educational alda from [employer]. Thrive Questionnaire Date Thrive assessed: 05/13/24 I am a: Patient What is your living situation today?: I have a steady place to live Within the past 12 months, did the food you bought not last and you didn't have the money to get more?: Never true Within the past 12 months, did you worry whether your food would run out before you got money to buy more?: Never true Do you have trouble paying for medicines?: No Do you have trouble getting transportation to medical appointments?: No Do you have trouble paying your heating and electricity bill?: No Do you have trouble taking care of your child, family member or friend?: No Do you have trouble with day-to-day activities such as bathing, preparing meals, shopping, managing finances, etc.?: No Are you currently unemployed and looking for a job?: No Are you interested in more education?: No Please select the resources that you would like help with: None Currently or been in a relationship where the following occur: No concerns reported THRIVE Score: 0 AUDIT C Alcohol Use Questionnaire (AUDIT-C) 1. How often do you have a drink containing alcohol?: Never Total Score: 0 Score Reviewed/Action Taken: No RODDY-7 AMB Questionnaire RODDY-7 Date RODDY - 7 assessed: 05/13/24 Feeling nervous, anxious, or on edge: 0 = Not at all Not being able to stop or control worryin = Not at all Worrying too much about different things: 0 = Not at all Trouble relaxin = Not at all Being so restless that it is hard to sit still: 0 = Not at all Becoming easily annoyed or irritable: 0 = Not at all Feeling afraid as if something awful might happen: 0 = Not at all Total RODDY-7 score (0-4 normal; 5-9 mild; 10-14 moderate; 15-21 severe): 0 Source: Developed by Drs. Jonas Rodriguez, Kelly Santo, Kingsley Keen and colleagues, with an educational alda from [employer]. RODDY-7 Assessment Billing RODDY-7 Assessment Tool: RODDY-7 Assessment 44144 Review of Systems Const All systems reviewed & are unremarkable except as noted in HPI and below Card Denies chest pain at rest, Denies chest pain with activity, Denies edema, Denies irregular heart rhythm, Denies claudication, Denies dyspnea, Denies dyspnea on exertion, Denies orthopnea, Denies paroxysmal nocturnal dyspnea and Denies slow heart rate Resp Denies cough, Denies dyspnea and Denies dyspnea on exertion Physical exam (Primary Care) Vital Signs: Last Vital Signs BP 132/80 05/13/24 14:02 BMI result Body Mass Index 28.7 Tobacco/Smoking Status: Tobacco use Status Tobacco use date assessed 05/13/24 05/13/24 14:06 Patient Tobacco Use Status Never used Tobacco 05/13/24 14:06 e-Cigarette/Vaping Use Never Used 05/13/24 14:06 PHQ-9: PHQ-9 Score PHQ-9: Total score 0 05/13/24 14:06 Depression Screening Interpretation: Negative Thrive Assessment: Date of Thrive Assessment Date Thrive assessed 05/13/24 05/13/24 14:06 Currently or been in a relationship where the following occur: No concerns reported Resp Effort & Inspection: normal respiratory effort Auscultation: clear to auscultation bilaterally Cardio Jugular venous distension: no JVD Rate: regular rate Rhythm: regular rhythm Heart sounds: S1 normal heart sound present and S2 normal heart sound present Extrem General: Yes full ROM Results AMB Hemoglobin A1c AMB Hemoglobin A1c 7.1 % Last Edit by ELLY Tyson on 05/13/24 14:11 Coding Level of Care Code Est Pt Level 4 (75992) Complex EM visit Add On G2211 Diagnoses Type 2 diabetes mellitus with hyperglycemia, without long-term current use of insulin E11.65 Diabetes mellitus type: type 2 Diabetes mellitus exterminator helper termite insulin use: without exterminator helper termite use Diabetes mellitus complication status: with hyperglycemia Primary hypertension I10 Hypertension type: primary hypertension Hyperlipidemia LDL goal <70 E78.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 F33.1 Multiple sclerosis G35 Erectile dysfunction associated with type 2 diabetes mellitus E11.69; N52.1 GERD (gastroesophageal reflux disease) K21.9 Migraines G43.909 Additional Codes PHQ-9 - 67791 - PHQ-9 Billing: Yes ([id number]) RODDY-7 Assessment Billing - RODDY-7 Assessment Tool: RODDY-7 Assessment 18146 ([id number]) Time Spent (min) 22 Assessment & Plan Assessment & Plan (1) Diabetes mellitus: Code(s): E11.9 - Type 2 diabetes mellitus without complications Category: Medical Qualifiers: Diabetes mellitus type: type 2 Diabetes mellitus assisted insulin use: without assisted use Diabetes mellitus complication status: with hyperglycemia Qualified Code(s): E11.65 - Type 2 diabetes mellitus with hyperglycemia (2) Hypertension: Code(s): I10 - Essential (primary) hypertension Category: Medical Qualifiers: Hypertension type: primary hypertension Qualified Code(s): I10 - Essential (primary) hypertension (3) Hyperlipidemia LDL goal <70: Code(s): E78.5 - Hyperlipidemia, unspecified Category: Medical (4) 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 Category: Medical (5) Moderate recurrent major depression: Code(s): F33.1 - Major depressive disorder, recurrent, moderate Category: Medical (6) Multiple sclerosis: Code(s): G35 - Multiple sclerosis Category: Medical (7) Erectile dysfunction associated with type 2 diabetes mellitus: Code(s): E11.69 - Type 2 diabetes mellitus with other specified complication; N52.1 - Erectile dysfunction due to diseases classified elsewhere Category: Medical (8) GERD (gastroesophageal reflux disease): Code(s): K21.9 - Gastro-esophageal reflux disease without esophagitis Category: Medical (9) Migraines: Code(s): G43.909 - Migraine, unspecified, not intractable, without status migrainosus Category: Medical Plan - Monitor HbA1c quarterly: - Maintain current dose of levothyroxine, reassess thyroid function annually. - Continue atorvastatin and fenofibrate for lipid control; repeat lipid panel bi-annually. - Maintain current regimen with citalopram for depression. - Continue lisinopril for blood pressure control. - Avoid tramadol due to allergic reaction. - Patient to continue pantoprazole for reflux management. - Arrange for repeat colonoscopy ahead of 2025 as previously recommended. - Maintain migraine management with sumatriptan as needed. - MRI of the brain to rule out new lesions for multiple sclerosis. Patient was informed and verbally consented to the use of an ambient scribe for clinic note documentation during this visit. I discussed the favorable control of the patient?s diabetes and explained the importance of maintaining current management strategies. We reviewed the significance of his stable thyroid function and lipid levels. I emphasized the need to repeat the colonoscopy before the due date in 2025 due to prior adenomas, ensuring understanding of the need for follow-up surveillance. We addressed the allergic reaction to tramadol, advising avoidance. I also confirmed the continuation of medications for his other chronic conditions and assessed the need for routine lab work and monitoring. Orders: Orders AMB Hemoglobin A1c Today E11.65 - Type 2 diabetes mellitus with hyperglycemia Vitamin D 25-OH Total 4 Months E55.9 - Vitamin D deficiency, unspecified Thyroid Stimulating Hormone 4 Months E06.3 - Autoimmune thyroiditis Lipid Panel 4 Months E78.5 - Hyperlipidemia, unspecified Microalbumin, Random (w Creat) 4 Months R80.9 - Proteinuria, unspecified Comprehensive [place]. Panel Fast 4 Months E11.65 - Type 2 diabetes mellitus with hyperglycemia MR head/brain wo con Today G35 - Multiple sclerosis Patient Instructions: - Continue all current medications as prescribed. - Monitor blood sugar regularly and report any significant changes. - Schedule lab work in four months for diabetes, lipid, and thyroid monitoring. - Call to schedule a repeat colonoscopy before 2025. - Avoid using tramadol due to past allergic reaction. - Contact the office if experiencing any new or worsening symptoms. - Ensure prescription refills are requested as needed. - Continue regular vaccinations as appropriate.
[2024-05-13 14:02] VITALS: BP 132/80; BMI 28.7
== END 2024-05-13 14:18 | disposition home or self-care (01) ==
PROVIDERS: PCP Internal Medicine; Visit Provider Internal Medicine
DX: E11.65 Type 2 diabetes mellitus with hyperglycemia (principal); I10 Essential (primary) hypertension; E78.5 Hyperlipidemia, unspecified; E06.3 Autoimmune thyroiditis; F33.1 Major depressive disorder, recurrent, moderate; G35 Multiple sclerosis; E11.69 Type 2 diabetes mellitus with other specified complication; N52.1 Erectile dysfunction due to diseases classified elsewhere; K21.9 Gastro-esophageal reflux disease without esophagitis; G43.909 Migraine, unspecified, not intractable, without status migrainosus

== ENCOUNTER 2024-05-28 09:53 | Outpatient (AMB) | payer OTHER, SELFPAY ==
--- NOTE | 2024-05-28 10:00 | MHC.OFFVIS ---
Intake Visit Reasons: 6m/BPH/ERECTILE DYS(SET) Intake Note: Patient is Present for 6M Follow Up/BPH Urology Medication:Tadalafil, Terazosin Antibiotic Allergies: None Blood Thinners: None Relief Master Required: No Allergies tramadol Allergy (Intermediate, Verified 05/13/24 14:08) Hives HPI Comments Details: Juan is a pleasant a male. He is a patient of Dr. Jimenez. He is seen for the following urologic conditions. - lower urinary tract symptoms - background of multiple sclerosis - erectile dysfunction Cymraes translation provided by qualified medical/surgery registered nurse Terazosin 5 mg daily 12m f/u PSA Lower urinary tract symptoms Continues with terazosin Prior therapy laser prostatectomy 2014 PSA 09/14 0.6, 02/14 0.7, 01/15 0.7, 07/17 T 380 P 1.1 Family history of prostate cancer Progressive weakness of stream Comorbidities include multiple sclerosis, type 2 diabetes Cystoscopy 10/16 open bladder neck Erectile dysfunction secondary to diabetes Limited response to on demand Cialis Trial of daily 10 mg Cialis previously Remains on multiple diabetic medication Last HbA1c 07/16 12.4, 12/16 6.0 PFSH Medical History Voice hoarseness ROLDAN (obstructive sleep apnea) Hypovitaminosis D Type 2 diabetes mellitus, with long-term current use of insulin Moderate recurrent major depression Erectile dysfunction History of urinary hesitancy Prostate nodule Enlarged prostate without lower urinary tract symptoms (luts) Flatus Unspecified constipation Medial meniscus tear OA (osteoarthritis) Arthralgia CATHY positive Hypothyroidism Multiple sclerosis Surgical History History of surgery Family History Mother Diabetes mellitus Father No problems noted. Social History Household Members Other:: and daughter Housing: House Alcohol intake: never Patient Tobacco Use Status: Never used Tobacco e-Cigarette/Vaping Use: Never Used Second Hand Smoke Exposure: No service: No Current occupational status: disabled Cognitive needs: Yes Hearing needs: No Vision needs: Yes Review of Systems Const Denies chills and Denies fever(s) Card Reports no additional complaints and Denies syncope Resp Denies cough GI Denies abdominal pain and Denies heartburn Reports as per HPI and Denies change in libido Neuro Denies syncope Psych Denies change in libido Endo Denies change in libido Physical Exam Const General: cooperative, healthy appearing, comfortable and no acute distress Orientation/consciousness: patient oriented x3 HEENT Face and sinus: Yes normal facial exam Mouth: moist mucous membranes Neck Neck: Yes normal visual inspection, Yes full ROM and Yes trachea midline Chest Chest palpation & inspection: normal inspection of the chest Resp Effort & Inspection: normal respiratory effort, able to speak in complete sentences and no respiratory distress GI Inspection: Yes normal to inspection Back/Spine/Pelvis Cervical Spine: normal cervical lordosis Thoracic/Lumbar Spine: thoracic and lumbar spine normal to inspection Skin General skin exam: no rashes or lesions noted Neuro General: patient oriented x3, gait normal, tone normal and moves all extremities Extrem General: Yes normal to inspection and Yes capillary refill normal Assessment & Plan Assessment & Plan (1) BPH w urinary obs/LUTS: Code(s): N40.1 - Benign prostatic hyperplasia with lower urinary tract symptoms; N13.8 - Other obstructive and reflux uropathy Category: Medical Plan Twelve month follow-up PSA office Orders: Orders Prostate Specific Antigen 364 Days N13.8 - Other obstructive and reflux uropathy, N40.1 - Benign prostatic hyperplasia with lower urinary tract symptoms Patient Instructions: This note is constructed using voice recognition software. While every effort has been made to ensure accuracy coffee roaster helper errors may have been included. Imaging studies, laboratory and physical exam results were discussed and reviewed in detail. No major barriers to patient understanding were identified. An opportunity to ask questions regarding the treatment plan was provided. All questions were answered. The patient expressed understanding and agreement with the above treatment plan. The patient is aware they should contact our office by phone for worsening of their current condition or the appearance of new urologic symptoms. Compliance is encouraged with any medications and followup testing that is ordered. It is a privilege to participate in the urologic care of your patient. If you have any questions or concerns regarding treatment for the above conditions, or other urologic issues, please do not hesitate to contact me. The office telephone contact is [phone]. Sincerely, Dr Phillip Jennings MD, [facility] - Urology Compassionate Specialist Care for the Genitourinary System Coding Level of Care Code Est Pt Level 3 (58142) Diagnoses BPH w urinary obs/LUTS N40.1; N13.8
--- OUTSIDE RECORDS SUMMARY | 2024-05-28 11:31 | XMS_ITS | Encounter Summary ---
Author Organization [employer] Address [address] [place] [address] [address] [place] [address] Care Team Providers Care Die Repairer Stamping Name Role Phone Unavailable Primary Care Provider Unavailabl e Reason for Visit * Reason Comments Med Refill Encounter Details Date Type Department Care Team ([facility] st Contact Info) Description 04/04/2022 Refill [facility] [address] [place] [address] Josué Valencia MD [address] [place] [address] Social History Tobacco Use Types Packs/Day Years [...]
--- OUTSIDE RECORDS SUMMARY | 2024-05-28 11:31 | XMS_ITS | Encounter Summary ---
Author Organization [employer] Address [address] [place] [address] [address] [place] [address] Care Team Providers Care Fabric Lay Out Worker Name Role Phone Unavailable Primary Care Provider Unavailabl e Encounter Details Date Type Department Care Team (Latest Contact Info) Description 09/22/2020 Abstract [facility] CONVERSIONS Dental, Provider, DDS Social History [...]
--- OUTSIDE RECORDS SUMMARY | 2024-05-28 11:32 | XMS_ITS | Encounter Summary ---
Author Organization [employer] Address [address] [place] [address] [address] [place] [address] Care Team Providers Care Planning Feeder Name Role Phone Unavailable Primary Care Provider Unavailabl e Reason for Visit * Reason Comments Med Refill Encounter Details Date Type Department Care Team ([facility] st Contact Info) Description 07/20/2022 Refill [facility] [address] [place] [address] Josué Valencia MD [address] [place] [address] Social History Tobacco Use Types Packs/Day Years [...]
--- OUTSIDE RECORDS SUMMARY | 2024-05-28 11:32 | XMS_ITS | Clinical Summary ---
Author Organization [employer] Address [address] [place] [address] [address] [place] [address] Care Team Providers Care Fuel Attendant Name Role Phone Unavailable Primary Care Provider [...] ?? Mejia WARREN et al. EFRAÍN. 2013;310(19): 8024-0823 ?? (http://education.iLink.WebSafety/faq/ZWB707) Non-HDL Cholesterol 158(H) <130 mg/dL (calc) FOUNDATION [...] Winkler MD LAB BLOOD ORDERABLES Final Result [facility] [address] [place] [address], from Last 3 Months or Most Recently Relevant to Health Maintenance Insurance [facility]
--- OUTSIDE RECORDS SUMMARY | 2024-05-28 11:32 | XMS_ITS | Encounter Summary ---
Author Organization [employer] Address [address] [place] [address] [address] [place] [address] Care Team Providers Care Latex Ribbon Machine Operator Name Role Phone Unavailable Primary Care Provider Unavailabl e Reason for Visit * Reason Comments Med Refill Encounter Details Date Type Department Care Team ([facility] st Contact Info) Description 10/27/2022 Refill [facility] MEDICINE [address] [place] [address] Josué Valencia MD [address] [place] [address] Social History Tobacco Use Types Packs/Day Years [...]
--- OUTSIDE RECORDS SUMMARY | 2024-05-28 11:32 | XMS_ITS | Encounter Summary ---
Author Organization [employer] Address [address] [place] [address] [address] [place] [address] Care Team Providers Care Therapy Assistant Name Role Phone Unavailable Primary Care Provider Unavailabl e Encounter Details Date Type Department Care Team (Latest Contact Info) Description 12/31/[address] [facility] CONVERSIONS Dental, Provider, DDS Social History [...]
--- OUTSIDE RECORDS SUMMARY | 2024-05-28 11:32 | XMS_ITS | Encounter Summary ---
Author Organization [employer] Address [address] [place] [address] [address] [place] [address] Care Team Providers Care Assemblyman Or Woman Name Role Phone Unavailable Primary Care Provider Unavailabl e Reason for Visit * Reason Comments Med Refill Encounter Details Date Type Department Care Team ([facility] st Contact Info) Description 04/18/2022 Refill [facility] [address] [place] [address] Josué Valencia MD [address] [place] [address] Social History Tobacco Use Types Packs/Day Years [...]
== END 2024-05-28 10:28 | disposition home or self-care (01) ==
PROVIDERS: PCP Internal Medicine; Visit Provider Urology
DX: N40.1 Benign prostatic hyperplasia with lower urinary tract symptoms (principal); N13.8 Other obstructive and reflux uropathy
CPT/HCPCS: 99213

== ENCOUNTER → 2024-05-28 09:53 | Outpatient (BNVA) | payer OTHER, SELFPAY | PROVIDERS: PCP Internal Medicine; Visit Provider Urology | DX: N40.1 Benign prostatic hyperplasia with lower urinary tract symptoms (principal); N13.8 Other obstructive and reflux uropathy | CPT/HCPCS: 99212 ==

== ENCOUNTER 2024-06-08 10:07 | Outpatient (REF) | payer OTHER, SELFPAY ==
--- NOTE | ~2024-06-08 | MR_ITS ---
EXAMINATION: MR BRAIN WITHOUT CONTRAST CLINICAL INFORMATION: Multiple sclerosis. Follow-up. Headache. Decreased/hearing loss, left-sided. COMPARISON: November 26, 2015. TECHNIQUE: MRI of the brain was obtained using routine sequences without contrast. FINDINGS: Bilateral, multifocal, patchy and punctate, perpendicularly oriented nonrestricted effusion deep periventricular white matter hyperintense T2 FLAIR signal involving centrum semiovale and rey radiata, the most conspicuous and larger in the right periatrial. Some of the signal abnormalities involving the body of the corpus callosum. There is subtle patchy hyperintense T2 FLAIR signal in the left cerebellar white matter. No acute intracranial hemorrhage, mass effect, midline shift, hydrocephalus or herniation. Prominence of the extra-axial CSF spaces cerebral sulci and ventricles. No restricted diffusion. There is a vascular morphology pattern susceptibility signal extending from the subcortical/cortical left frontal into the subependymal left lateral ventricle. There is associated patchy hyperintense T2 FLAIR signal. Sellar/suprasellar region demonstrated no gross masses or signal abnormality. Craniocervical junction is intact and normal. MR/MR head/brain wo con IMPRESSION: Demyelinating plaques mostly in the supratentorial compartment with a similar morphology and distribution pattern. Global cerebral atrophy. Developmental venous anomaly, left frontal. No acute brain abnormality. Electronically signed by: Edwin Hill MD 06/10/2024 03:45 PM EDT
--- OUTSIDE RECORDS SUMMARY | 2024-06-08 10:13 | XMS_ITS | Encounter Summary ---
Author Organization [employer] Address [address] [place] [address] [address] [place] [address] Care Team Providers Care Contact Center Director Name Role Phone Unavailable Primary Care Provider Unavailabl e Reason for Visit * Reason Comments Med Refill Encounter Details Date Type Department Care Team ([facility] st Contact Info) Description 04/04/2022 Refill [facility] MEDICINE [address] [place] [address] Josué Valencia MD [address] [place] [address] Social History Tobacco Use Types Packs/Day Years [...]
--- OUTSIDE RECORDS SUMMARY | 2024-06-08 10:13 | XMS_ITS | Clinical Summary ---
Author Organization [employer] Address [address] [place] [address] [address] [place] [address] Care Team Providers Care Hospitality Team Member Name Role Phone Unavailable Primary Care Provider [...] ?? Mejia WARREN et al. EFRAÍN. 2013;310(19): 4739-8210 ?? (http://education.[employer] (SCTE).[employer]/faq/BDR441) Non-HDL Cholesterol 158(H) <130 mg/dL (calc) FOUNDATION [...] Winkler MD LAB BLOOD ORDERABLES Final Result [facility] [address] [place] [address], from Last 3 Months or Most Recently Relevant to Health Maintenance Insurance [facility]
--- OUTSIDE RECORDS SUMMARY | 2024-06-08 10:13 | XMS_ITS | Encounter Summary ---
Author Organization [employer] Address [address] [place] [address] 7t [place] [address] Care Team Providers Care Outdoor Studies Director Name Role Phone Unavailable Primary Care Provider Unavailabl e Encounter Details Date Type Department Care Team (Latest Contact Info) Description 12/31/2021 Abstract [facility] CONVERSIONS Dental, Provider, DDS Social History [...]
--- OUTSIDE RECORDS SUMMARY | 2024-06-08 10:13 | XMS_ITS | Encounter Summary ---
Author Organization [employer] Address [address] [place] [address] 7t [place] [address] Care Team Providers Care Beater Worker Helper Name Role Phone Unavailable Primary Care Provider Unavailabl e Reason for Visit * Reason Comments Med Refill Encounter Details Date Type Department Care Team ([facility] st Contact Info) Description 07/20/2022 Refill [facility] MEDICINE [address] [place] [address] Josué Valencia MD [address] [place] [address] Social History Tobacco Use Types Packs/Day Years [...]
--- OUTSIDE RECORDS SUMMARY | 2024-06-08 10:13 | XMS_ITS | Encounter Summary ---
Author Organization [employer] Address [address] [place] [address] 7t [place] [address] Care Team Providers Care Administrative Receptionist Name Role Phone Unavailable Primary Care Provider Unavailabl e Reason for Visit * Reason Comments Med Refill Encounter Details Date Type Department Care Team ([facility] st Contact Info) Description 04/18/2022 Refill [facility] MEDICINE [address] [place] [address] Josué Valencia MD [address] [place] [address] Social History Tobacco Use Types Packs/Day Years [...]
--- OUTSIDE RECORDS SUMMARY | 2024-06-08 10:13 | XMS_ITS | Encounter Summary ---
Author Organization [employer] Address [address] [place] [address] 7t [place] [address] Care Team Providers Care Waiter Waitress Name Role Phone Unavailable Primary Care Provider Unavailabl e Encounter Details Date Type Department Care Team (Latest Contact Info) Description 09/22/2020 Abstract [facility] CONVERSIONS Dental, Provider, DDS Social History [...]
--- OUTSIDE RECORDS SUMMARY | 2024-06-08 10:13 | XMS_ITS | Encounter Summary ---
Author Organization [employer] Address [address] [place] [address] 7t [place] [address] Care Team Providers Care Vehicle Upholsterer Name Role Phone Unavailable Primary Care Provider Unavailabl e Reason for Visit * Reason Comments Med Refill Encounter Details Date Type Department Care Team ([facility] st Contact Info) Description 10/27/2022 Refill [facility] MEDICINE [address] [place] [address] Josué Valencia MD [address] [place] [address] Social History Tobacco Use Types Packs/Day Years [...]
== END 2024-06-08 10:08 | disposition home or self-care (01) ==
LOC: HO.MRI 10:07
PROVIDERS: PCP Internal Medicine; Visit Provider Internal Medicine
DX: G35 Multiple sclerosis (principal)
CPT/HCPCS: 70551

== ENCOUNTER → 2024-06-08 10:22 | Outpatient (BNV) | payer OTHER, SELFPAY | PROVIDERS: PCP Internal Medicine; Visit Provider Radiology Diagnostic Radiology | DX: G35 Multiple sclerosis (principal); R51.9 Headache, unspecified; H91.92 Unspecified hearing loss, left ear; G31.9 Degenerative disease of nervous system, unspecified | CPT/HCPCS: 70551 ==

== ENCOUNTER 2024-06-21 13:10 | Outpatient (REF) | payer OTHER, SELFPAY ==
--- NOTE | ~2024-06-21 | CT_ITS ---
EXAMINATION: CT CHEST WITHOUT CONTRAST CLINICAL INFORMATION: Solitary pulmonary nodule reported as 5 mm in the left lung. COMPARISON: June 30, 2023. TECHNIQUE: Multidetector volumetric CT imaging of the chest was done. Axial MIP volume rendering provided. Sagittal and coronal reformatted images were obtained. This CT examination was performed using dose optimization techniques as appropriate, variously including the following: *Automated exposure control *Adjustment of mA and/or kV according to patient size (this includes techniques or standardized protocols for targeted exams where dose is matched to indication/reason for exam; i.e. extremities or head) *Use of iterative reconstruction technique DLP: 177 mGy centimeter. FINDINGS: MANAGER PROGRAMMING: No hyperinflation. The upper extremities at the size of the head. LUNGS: There is a 4 mm noncalcified pulmonary nodule in the periphery of the left lower lung lobe. Bilateral apical lung scarring. No bronchiectasis. No honeycombing. Respiratory airways is patent. MEDIASTINUM: No lymphadenopathy. No aneurysm, thoracic aorta. No gross pericardial effusion. Small appearance of the heart. CORONARY ARTERY CALCIFICATION: Minimal. PLEURA: No pleural effusion. No pneumothorax. AXILLA: No lymphadenopathy. UPPER ABDOMEN: Contracted gallbladder. No peripancreatic fluid collection. No gross ascites. No gross nodular lesions in the adrenal glands. OSSEOUS STRUCTURES: Multilevel spondylosis in the axial skeleton. Degenerative changes, mild to moderate in the left glenohumeral joint. CT/CT chest wo IV con IMPRESSION: 4 mm noncalcified pulmonary nodule, left lower lung lobe. Stable. Follow-up Fleischner criteria. Fleischner guidelines were followed. Electronically signed by: Edwin Hill MD 06/21/2024 02:25 PM EDT
== END 2024-06-21 13:11 | disposition home or self-care (01) ==
LOC: HO.CT 13:10
PROVIDERS: PCP Internal Medicine; Visit Provider Internal Medicine Pulmonary Disease
DX: R91.1 Solitary pulmonary nodule (principal)
CPT/HCPCS: 71250

== ENCOUNTER → 2024-06-21 13:11 | Outpatient (BNV) | payer OTHER, SELFPAY | PROVIDERS: PCP Internal Medicine; Visit Provider Radiology Diagnostic Radiology | DX: R91.1 Solitary pulmonary nodule (principal) | CPT/HCPCS: 71250 ==

== ENCOUNTER 2024-07-29 09:40 | Outpatient (AMB) | payer OTHER, SELFPAY ==
--- NOTE | 2024-07-29 09:44 | MHC.OFFVIS ---
Vital Signs 07/29/24 09:45 Height 5 ft 8 in Weight 183 lb 2 oz BMI 27.8 Pulse 102 H Pulse Source Pulse Oximeter Pulse Oximetry (%) 96 Oxygen Delivery Method Room Air Intake Visit Reasons: 3 mo follow up Intake Note: Patient presents follow up ROLDAN. Compliance in chart ([id number]--74/90 days, >=4hrs-66 days, Median- 3.5, AHI-1). Patient states at times he feels like hes choking. 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 PMH In 1990 he was diagnosed with MS, by Dr. Street, in 2016 he started to have symptoms of relapsing and remitting episodes and did not start any medications. Today he c/o visual changes, diplopia, eyes tearing and headaches. He denies falls, vertigo and or balance difficulties. The PSG 09/29/2022 sleep study result was significant for moderate degree of sleep apnea. The AHI was 24/hr and oxygen oren was 85%. Pt had a titration study and his breathing and oxygenation stabilized on CPAP at [id number]. Today he c/o choking when using the cpap machine at night, he denies moisture collection in the hoses or the mask. We discussed pressure settings and he says that it is possible but denies the pressure being too strong for his face and it is only occasionally he notices this choking sensation. He says his sleep has improved, however he still feels tired daily. He washes his mask and hoses, changes filters and refills reservoir with water daily RLS: He has a warm uncomfortable sensation bilaterally in the feet, that travels up the shins with pins and needles, occasionally spasms. [facility] Medical History Voice hoarseness ROLDAN (obstructive sleep apnea) Hypovitaminosis D Type 2 diabetes mellitus, with long-term current use of insulin Moderate recurrent major depression Erectile dysfunction History of urinary hesitancy Prostate nodule Enlarged prostate without lower urinary tract symptoms (luts) Flatus Unspecified constipation Medial meniscus tear OA (osteoarthritis) Arthralgia TAMIKO positive Hypothyroidism Multiple sclerosis Surgical History History of surgery Family History Mother Diabetes mellitus Father No problems noted. Social History Household Members Other:: and daughter Housing: House Alcohol intake: never Patient Tobacco Use Status: Never used Tobacco e-Cigarette/Vaping Use: Never Used Second Hand Smoke Exposure: No service: No Current occupational status: disabled Cognitive needs: Yes Hearing needs: No Vision needs: Yes Physical Exam Vital Signs: Last Vital Signs Pulse 102 H 07/29/24 09:45 Pulse Ox 96 07/29/24 09:45 Oxygen Delivery Method Room Air 07/29/24 09:45 BMI result Body Mass Index 27.8 Const General: cooperative and no acute distress Nutritional Appearance: overweight Orientation/consciousness: patient oriented x3 Limitations: language barrier (slovak only) Neck Neck: Yes full ROM and Yes supple Resp Effort & Inspection: normal respiratory effort and able to speak in complete sentences Neuro General: patient oriented x3 and gait normal Cranial nerves: Yes CN's II-XII intact bilaterally Cognition (Neuro): normal cognition Motor exam (neuro): Motor abnormalities not present Psych Appearance: grossly normal Results Reviewed Results Reviewed: The CPAP compliance and therapy response (04/23/24-07/21/24) reviewed. The usage days and the average usage >6 hrs 3 min, CPAP [id number] Leaks/min 3.5cmH20 - 25.7cmH20 AHI 1.0. Assessment & Plan Assessment & Plan (1) ROLDAN (obstructive sleep apnea): Comment: Severe degree of sleep apnea with increased in REM. The total AHI was 28/hr, REM was 48/hr, oxygen oren was 79%. Code(s): G47.33 - Obstructive sleep apnea (adult) (pediatric) Category: Medical Plan: Continue using CPAP [id number], wash mask, change filters and fill reservoir as needed. (2) RLS (restless legs syndrome): Code(s): G25.81 - Restless legs syndrome Category: Medical Plan: Gabapentin 300mg PO daily at bedtime. Orders: Orders Comprehensive Met. Panel 07/29/24 G25.81 - Restless legs syndrome, G47.33 - Obstructive sleep apnea (adult) (pediatric) Ferritin 07/29/24 G25.81 - Restless legs syndrome, G47.33 - Obstructive sleep apnea (adult) (pediatric) TSH reflex Free T4 07/29/24 G25.81 - Restless legs syndrome, G47.33 - Obstructive sleep apnea (adult) (pediatric) Methylmalonic Acid 07/29/24 R53.83 - Other fatigue, G47.9 - Sleep disorder, unspecified, G25.81 - Restless legs syndrome, G47.33 - Obstructive sleep apnea (adult) (pediatric) Complete Blood Count no Diff 07/29/24 G25.81 - Restless legs syndrome, G47.33 - Obstructive sleep apnea (adult) (pediatric) Vitamin B12 and Folate 07/29/24 G25.81 - Restless legs syndrome, G47.33 - Obstructive sleep apnea (adult) (pediatric) Vitamin D 25-OH Total 07/29/24 G25.81 - Restless legs syndrome, G47.33 - Obstructive sleep apnea (adult) (pediatric) Homocysteine 07/29/24 R53.83 - Other fatigue, G47.9 - Sleep disorder, unspecified, G25.81 - Restless legs syndrome, G47.33 - Obstructive sleep apnea (adult) (pediatric) Referrals Neurology Referral G35 - Multiple sclerosis Medications: New gabapentin Take 300mg PO daily at bedtime for RLS. 300 mg PO BEDTIME 30 caps 1RF Restless Legs 1 month MDD 300mg G25.81 - Restless legs syndrome Patient Instructions: Sleep Hygiene provided: set a scheduled bedtime and wake time to help regulate the circadian rhythm and balance the release of pituitary hormones. Sleep in a dark room, temperatures below 68 degrees, and no devices n bed. Limit caffeinated products 6 hours prior to bed, and limit fluids 2-4 hours prior to bed. Gentle night yoga, diffusing essential oils, and playing soft music can be relaxing. Coding Level of Care Code Est Pt Level 4 (88914) Diagnoses ROLDAN (obstructive sleep apnea) G47.33 RLS (restless legs syndrome) G25.81 Time Spent (min) 30
[2024-07-29 09:45] VITALS: PULSE 102; O2SAT 96; BMI 27.8
--- OUTSIDE RECORDS SUMMARY | 2024-07-29 10:33 | XMS_ITS | Clinical Summary ---
Author Organization [employer] Address [address] [place] [address] 7t [place] [address] Care Team Providers Care Rig Operator Name Role Phone Unavailable Primary Care [...] ?? Mejia WARREN et al. EFRAÍN. 2013;310(19): 4250-3362 ?? (http://education.[employer]/faq/VBK621) Non-HDL Cholesterol 158(H) <130 mg/dL (calc) [facility]OUNDATION [...] Winkler MD LAB BLOOD ORDERABLES Final Result [facility] [address] [place] [address], from Last 3 Months or Most Recently Relevant to Health Maintenance Insurance [facility] [employer] OPTIONS (O D-SNP) [place] [phone]
--- OUTSIDE RECORDS SUMMARY | 2024-07-29 10:33 | XMS_ITS | Encounter Summary ---
Author Organization [employer] Address [address] [place] [address] 7t [place] [address] Care Team Providers Care Infection Control Coordinator Name Role Phone Unavailable Primary Care Provider Unavailabl e Reason for Visit * Reason Comments Med Refill Encounter Details Date Type Department Care Team ([facility] st Contact Info) Description 07/20/2022 Refill [facility] MEDICINE [address] [place] [address] Josué Valencia MD [address] [place] [address] Social History Tobacco Use Types Packs/Day Years [...]
--- OUTSIDE RECORDS SUMMARY | 2024-07-29 10:33 | XMS_ITS | Encounter Summary ---
Author Organization [employer] Address [address] [place] [address] 7t [place] [address] Care Team Providers Care Hypercil Core Transformer Assembler Name Role Phone Unavailable Primary Care Provider Unavailabl e Encounter Details Date Type Department Care Team (Latest Contact Info) Description 12/31/2021 Abstract [facility] CONVERSIONS Dental, Provider, DDS Social History [...]
--- OUTSIDE RECORDS SUMMARY | 2024-07-29 10:33 | XMS_ITS | Encounter Summary ---
Author Organization [employer] Address [address] [place] [address] 7t [place] [address] Care Team Providers Care Flat Folding Machine Operator Name Role Phone Unavailable Primary Care Provider Unavailabl e Reason for Visit * Reason Comments Med Refill Encounter Details Date Type Department Care Team ([facility] st Contact Info) Description 04/04/2022 Refill [facility] MEDICINE [address] [place] [address] Josué Valencia MD [address] [place] [address] Social History Tobacco Use Types Packs/Day Years [...]
--- OUTSIDE RECORDS SUMMARY | 2024-07-29 10:33 | XMS_ITS | Encounter Summary ---
Author Organization [employer] Address [address] [place] [address] 7t [place] [address] Care Team Providers Care Medical Equipment Repair Technician Name Role Phone Unavailable Primary Care Provider Unavailabl e Encounter Details Date Type Department Care Team (Latest Contact Info) Description 09/22/2020 Abstract [facility] CONVERSIONS Dental, Provider, DDS Social History [...]
--- OUTSIDE RECORDS SUMMARY | 2024-07-29 10:33 | XMS_ITS | Encounter Summary ---
Author Organization [employer] Address [address] [place] [address] 7t [place] [address] Care Team Providers Care Soa Integration Developer Name Role Phone Unavailable Primary Care Provider Unavailabl e Reason for Visit * Reason Comments Med Refill Encounter Details Date Type Department Care Team ([facility] st Contact Info) Description 10/27/2022 Refill [facility] MEDICINE [address] [place] [address] Josué Valencia MD [address] [place] [address] Social History Tobacco Use Types Packs/Day Years [...]
--- OUTSIDE RECORDS SUMMARY | 2024-07-29 10:33 | XMS_ITS | Encounter Summary ---
Author Organization [employer] Address [address] [place] [address] 7t [place] [address] Care Team Providers Care Power Barker Operator Name Role Phone Unavailable Primary Care Provider Unavailabl e Reason for Visit * Reason Comments Med Refill Encounter Details Date Type Department Care Team ([facility] st Contact Info) Description 04/18/2022 Refill [facility] MEDICINE [address] [place] [address] Josué Valencia MD [address] [place] [address] Social History Tobacco Use Types Packs/Day Years [...]
== END 2024-07-29 10:34 | disposition home or self-care (01) ==
LOC: HO.HSMS 09:41
PROVIDERS: PCP Internal Medicine; Visit Provider Physician Assistant Medical
DX: G47.33 Obstructive sleep apnea (adult) (pediatric) (principal); G25.81 Restless legs syndrome
CPT/HCPCS: 99214

== ENCOUNTER → 2024-07-29 09:40 | Outpatient (BNVA) | payer OTHER, SELFPAY | PROVIDERS: PCP Internal Medicine; Visit Provider Physician Assistant Medical | DX: G47.33 Obstructive sleep apnea (adult) (pediatric) (principal); G25.81 Restless legs syndrome | CPT/HCPCS: 99212 ==

== ENCOUNTER → 2024-08-26 23:59 | Outpatient (BNV) | payer OTHER, SELFPAY | PROVIDERS: PCP Internal Medicine; Visit Provider Internal Medicine | DX: G35 Multiple sclerosis (principal); F32.A Depression, unspecified; I10 Essential (primary) hypertension | CPT/HCPCS: G0180 ==

== ENCOUNTER → 2024-08-27 23:59 | Outpatient (BNV) | payer OTHER, SELFPAY | PROVIDERS: PCP Internal Medicine; Visit Provider Internal Medicine | DX: G35 Multiple sclerosis (principal); F32.A Depression, unspecified; E11.69 Type 2 diabetes mellitus with other specified complication | CPT/HCPCS: G0180 ==

== ENCOUNTER 2024-09-05 12:37 | Outpatient (AMB) | payer OTHER, SELFPAY ==
[2024-09-05 12:55] VITALS: BP 122/70; PULSE 76; O2SAT 98; BMI 27.8
--- NOTE | 2024-09-05 12:55 | A.OFFVIS_ITS ---
Vital Signs 09/05/24 12:55 Height 5 ft 8 in Weight 182 lb 15.739 oz BMI 27.8 BP 122/70 Blood Pressure Location Rt brachial Position Sitting Pulse 76 Pulse Source Pulse Oximeter Pulse Oximetry (%) 98 Oxygen Delivery Method Room Air Intake Visit Reasons: pulm nodule Allergies tramadol Allergy (Intermediate, Verified 09/05/24 12:59) Hives Medication List - Last Reconciled 09/05/24 by Chana Welsh LPN atorvastatin 20 mg PO BEDTIME 90 days cetirizine (All Day Allergy (cetirizine)) 10 mg PO DAILY PRN 90 days cholecalciferol (vitamin D3) 25 mcg PO DAILY 90 days citalopram 20 mg PO DAILY 90 days clotrimazole 10 mg PO cyclobenzaprine 10 mg PO Q8H PRN 30 days dulaglutide (Trulicity) 1.5 mg (0.5 mL) subcut QWEEK 90 days fenofibrate 54 mg PO DAILY 90 days gabapentin 300 mg PO BEDTIME 1 month MDD 300mg lancets (FreeStyle Lancets) As directed lancets (TRUEplus Lancets) As directed levothyroxine (Synthroid) 50 mcg PO DAILY 90 days levothyroxine 200 mcg PO DAILY 90 days lisinopril 10 mg PO DAILY 90 days melatonin 3 mg PO BEDTIME PRN 30 days metformin 1,000 mg PO BID 90 days naproxen 500 mg PO BID PRN [nonslip bath mat As directed] nystatin 1 appl topical BID 15 days pantoprazole 40 mg PO DAILY quetiapine 25 mg PO BID sumatriptan succinate 50 mg PO DAILY PRN tadalafil 20 mg PO ONCE PRN 30 days terazosin 5 mg PO BEDTIME 90 days HPI HPI pulm nodule: Details: 69-year-old gentleman, nonsmoker, with no underlying family or personal history of lung disease for followed for multiple bilateral 5 mm and under pulmonary nodules and environmental allergies. His most recent CT scan shows stable pulmonary nodules. He denies pulmonary related concerns or complaints. His allergy has been controlled on as needed Zyrtec. [facility] Medical History Voice hoarseness ROLDAN (obstructive sleep apnea) Hypovitaminosis D Type 2 diabetes mellitus, with long-term current use of insulin Moderate recurrent major depression Erectile dysfunction History of urinary hesitancy Prostate nodule Enlarged prostate without lower urinary tract symptoms (luts) Flatus Unspecified constipation Medial meniscus tear OA (osteoarthritis) Arthralgia TAMIKO positive Hypothyroidism Multiple sclerosis Surgical History History of surgery Family History Mother Diabetes mellitus Father No problems noted. Social History Household Members Other:: and daughter Housing: House Alcohol intake: never Patient Tobacco Use Status: Never used Tobacco e-Cigarette/Vaping Use: Never Used Second Hand Smoke Exposure: No service: No Current occupational status: disabled Cognitive needs: Yes Hearing needs: No Vision needs: Yes Review of Systems Const Denies daytime sleepiness, Denies excessive sweating, Denies fatigue, Denies fever(s), Denies lethargy, Denies malaise, Denies night sweats, Denies snoring and Denies weight loss Eyes Denies blurry vision and Denies itchy eyes ENT Denies nasal congestion, Denies post nasal drip, Denies sinus pain, Denies sinus pressure and Denies other ( Thrush) Card Denies chest pain, Denies pedal edema, Denies dyspnea, Denies orthopnea and Denies paroxysmal nocturnal dyspnea Resp Denies cough, Denies hemoptysis, Denies excessive phlegm production, Denies dyspnea, Denies snoring and Denies wheezing GI Denies abdominal pain and Denies heartburn Musc Denies myalgias, Denies arthralgias and Denies joint swelling Skin/Breast Denies rash Neuro Denies memory loss and Denies seizure-like activity Psych Denies abnormal sleep pattern, Denies anxiety and Denies memory loss Endo Denies excessive sweating, Denies fatigue and Denies heat intolerance Parish/Lymph Denies easy bruising Aller/Immun Denies itchy eyes, Denies seasonal rhinorrhea and Denies wheezing Physical Exam Vital Signs: Last Vital Signs Pulse 76 09/05/24 12:55 BP 122/70 09/05/24 12:55 Pulse Ox 98 09/05/24 12:55 Oxygen Delivery Method Room Air 09/05/24 12:55 BMI result Body Mass Index 27.8 Const General: no acute distress and alert Nutritional Appearance: not obese Orientation/consciousness: Other orientation findings ( oriented) HEENT Head: Yes atraumatic Eyes General: appearance normal, both eyes and all related structures Sclerae: sclerae normal EOM: EOMs intact bilaterally Neck Neck: Yes supple Lymphatic: no lymphadenopathy noted Resp Effort & Inspection: normal respiratory effort and no use of accessory muscles Auscultation: clear to auscultation bilaterally Cardio Rate: regular rate Rhythm: regular rhythm Heart sounds: no gallops, no murmurs and no rubs Skin General skin exam: other ( warm) Extrem General: No clubbing, No cyanosis and No edema Assessment & Plan Assessment & Plan (1) Lung nodule: Code(s): R91.1 - Solitary pulmonary nodule Category: Medical Plan: Results of follow-up CT chest reviewed, stable pulmonary nodules, will repeat CT chest in 12 months, stable at that time, no further imaging follow-up would be required. (2) Environmental allergies: Code(s): Z91.09 - Other allergy status, other than to drugs and biological substances Category: Medical Plan: Well controlled on as needed Zyrtec. Continue current regimen. Coding Level of Care Code Est Pt Level 4 (51444) Diagnoses Lung nodule R91.1 Environmental allergies Z91.09
--- OUTSIDE RECORDS SUMMARY | 2024-09-05 14:31 | XMS_ITS | Encounter Summary ---
Author Organization [employer] Address [address] [place] [address] [address] [place] [address] Care Team Providers Care Transcription Typist Name Role Phone Unavailable Primary Care Provider Unavailabl e Reason for Visit * Reason Comments Med Refill Encounter Details Date Type Department Care Team ([facility] st Contact Info) Description 04/04/2022 Refill [facility] MEDICINE [address] [place] [address] Josué Valencia MD [address] [place] [address] Social History Tobacco Use Types Packs/Day Years [...]
== END 2024-09-05 13:19 | disposition home or self-care (01) ==
LOC: HO.HPS 12:38
PROVIDERS: PCP Internal Medicine; Visit Provider Internal Medicine Pulmonary Disease
DX: R91.1 Solitary pulmonary nodule (principal); Z91.09 Other allergy status, other than to drugs and biological substances
CPT/HCPCS: 99214

== ENCOUNTER → 2024-09-05 12:37 | Outpatient (BNVA) | payer OTHER, SELFPAY | PROVIDERS: PCP Internal Medicine; Visit Provider Internal Medicine Pulmonary Disease | DX: R91.1 Solitary pulmonary nodule (principal); Z91.09 Other allergy status, other than to drugs and biological substances | CPT/HCPCS: 99212 ==

== ENCOUNTER 2024-09-06 08:52 | Outpatient (REF) | payer OTHER, SELFPAY ==
--- OUTSIDE RECORDS SUMMARY | 2024-09-06 09:13 | XMS_ITS | Encounter Summary ---
Author Organization [employer] Address [address] [place] [address] [address] [place] [address] Care Team Providers Care Digital Account Manager Name Role Phone Unavailable Primary Care Provider Unavailabl e Reason for Visit * Reason Comments Med Refill Encounter Details Date Type Department Care Team ([facility] st Contact Info) Description 04/04/2022 Refill [facility] MEDICINE [address] [place] [address] Josué Valencia MD [address] [place] [address] Social History Tobacco Use Types Packs/Day Years [...]
[2024-09-06 09:20] LABS: Hematocrit 41.5 % (42.0-52.0); Hemoglobin 14.6 g/dl (14.0-18.0); Mean Corpuscular HGB Conc 35.2 g/dl (31.0-36.0); Mean Corpuscular Hemoglobin 30.2 pg (27.0-33.0); Mean Corpuscular Volume 85.7 fL (80.0-98.0); Mean Platelet Volume 10.6 fL (9.4-12.4); Platelet Count 190 X10*3/uL (160-400); Red Blood Count 4.84 X10*6/uL (4.60-5.80); Red Cell Distribution Width 13.3 % (11.0-16.0); White Blood Count 5.5 X10*3/uL (4.8-10.8)
[2024-09-06 09:49] LABS: Alanine Aminotransferase 30 U/L (0-40); Albumin Level 4.3 g/dL (3.5-5.0); Alkaline Phosphatase 60 U/L (39-117); Anion Gap 9 (12-20); Aspartate Amino Transferase 27 U/L (5-37); Bilirubin Total 0.8 mg/dL (0.0-1.0); Blood Urea Nitrogen 11 mg/dL (9-16); Calcium 8.9 mg/dL (8.4-10.2); Carbon Dioxide 27 mmol/L (22-29); Chloride 108 mmol/L (96-108); Cholesterol 158 mg/dL (<200); Estimated Glomerular Filt Rate > 60; Glucose Fasting 101 mg/dL (60-99); Glucose Random 101 mg/dL (60-115); HDL Cholesterol 30 mg/dL (>40); LDL Cholesterol Calculated 100 mg/dL (<100); Potassium 3.9 mmol/L (3.3-5.1); Sodium 140 mmol/L (135-145); Total Protein 7.5 g/dL (6.5-8.0); Triglycerides 144 mg/dL (<150)
[2024-09-06 10:04] LABS: Vitamin D 25-OH Total 35.9 ng/mL (>30)
[2024-09-06 10:09] LABS: Ferritin 56 ng/mL (20-250); TSH reflex Free T4 0.16 uIU/mL (0.32-4.0); Thyroid Stimulating Hormone 0.16 uIU/mL (0.32-4.0); Vitamin D 25-OH Total 39.2 ng/mL (>30)
[2024-09-06 10:17] LABS: Folate 12.7 ng/mL (> or = 4.0); Vitamin B12 289 pg/mL (200-900)
[2024-09-06 12:06] LABS: Free T4 (Free Thyroxine) 1.29 ng/dL (0.71-1.85)
[2024-09-06 14:16] LABS: Creatinine Urine 133.26 mg/dL
[2024-09-09 15:38] LABS: Homocysteine 17.7 umol/L (< or = 15.2)
[2024-09-10 08:04] LABS: Methylmalonic Acid 401 nmol/L (69-390)
== END 2024-09-06 08:53 | disposition home or self-care (01) ==
LOC: HO.LAB 08:52
PROVIDERS: Physician Assistant Medical; PCP Internal Medicine; Visit Provider Internal Medicine
DX: G25.81 Restless legs syndrome (principal); G47.33 Obstructive sleep apnea (adult) (pediatric); R53.83 Other fatigue; G47.9 Sleep disorder, unspecified; E55.9 Vitamin D deficiency, unspecified; E06.3 Autoimmune thyroiditis; E78.5 Hyperlipidemia, unspecified; E11.65 Type 2 diabetes mellitus with hyperglycemia; R80.9 Proteinuria, unspecified
CPT/HCPCS: 36415; 80053; 80061; 82043; 82306; 82570; 82607; 82728; 82746; 83090; 83921; 84439; 84443; 85027

== ENCOUNTER 2024-09-12 13:49 | Outpatient (AMB) | payer OTHER, SELFPAY ==
--- OUTSIDE RECORDS SUMMARY | 2024-09-10 09:00 | XMS_ITS | Encounter Summary ---
Author Organization [facility] Address [address] [place] [address] Care Team Providers Care Normalizer Name Role Phone Cathy Jimenez MD Primary Care Provider [phone] Reason for Visit * Consultation (Routine) - Authorized Specialty Diagnoses / Procedures Referred By Ghanshyam duncan Referred To Contact Physical Therapy Diagnoses Multiple sclerosis ([facility] V24, [facility] V28) Gait abnormality Cornelio Olivier MD [address] [facility] [address] [place] [address] Phone: tel: fax: Referral ID Status Reason Start Date Expiration Date Visits Requested Visits Authorized [id number] Authorized Specialty Services Required 08/06/2024 08/06/2025 20 20 Encounter Details Date Type Department Care Team (Late st Contact Info) Description 09/10/2024 9:00 AM EDT Treatment [facility] [address] [facility] [address] [place] [address] Robert Peacock PTA Multiple sclerosis ([facility] V24, [facility] V28) (Primary Dx); Gait abnormality Social History Tobacco Use Types Packs/Day Years Used Date Smoking Tobacco: Never Assessed Sex and Gender Information Value Date Recorded Sex Assigned at Male 08/13/2024 8:54 AM EDT Legal Sex Male 11:29 AM EST Gender Identity Male 08/13/2024 8:54 AM EDT Sexual Orientation Straight 08/13/2024 8: 54 AM EDT documented as of this encounter Progress Notes * Robert Peacock PTA - 09/10/2024 9:00 AM EDT [facility] - Outpatient PHYSICAL THERAPY DAILY TREATMENT NOTE - OP Date: 09/10/2024 Visit Number: 3 Patient Name: Juan Casillas : 1955 Age: 69 y.o. Gender: male Diagnosis: ICD-10-CM ICD-9-CM 1. Multiple sclerosis (CMS/HCC V24, CMS/HCC V28) G35 340 2. 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 citalopram (CeleXA) 20 mg tablet Take 1 tablet (20 mg total) by mouth 1 (one) time each day. gabapentin (NEURONTIN) 300 mg capsule Take 1 capsule (300 mg total) by mouth 2 (two) times a day. at bedtime levothyroxine (SYNTHROID, LEVOTHROID) 200 mcg tablet Take 1 tablet (200 mcg total) by mouth 1 (one)time each day. lisinopriL (PRINIVIL,ZESTRIL) 10 mg tablet Take 2 tablets (20 mg total) by mouth 1 (one) time each day. meclizine (ANTIVERT) 25 mg tablet Take 1 tablet (25 mg total) by mouth. at bedtime. metFORMIN (GLUCOPHAGE) 850 mg tablet Take 1 tablet (850 mg total) by mouth every 12 hours. QUEtiapine (SEROquel) 25 mg tablet Take 1 tablet (25 mg total) by mouth at bedtime. SUMAtriptan (IMITREX) 50 mg tablet Take 1 tablet (50 mg total) by mouth 1 (one) time if needed for migraine. May repeat dose once in 2 hours if no relief. Do not exceed 2 doses in 24 hours. No current facility-administered medications on file prior to visit. Allergies: is allergic to tramadol. Precautions: Avoid over fatigue Fall risk: No SUBJECTIVE Subjective Report: Patient reports nightly R calf pain that lasts all night Chart Reviewed: Yes Pain: no pain at the moment TREATMENT INTERVENTION: NuStep x 5 mins, LE's L5 R and L hip flexor stretch in True, 3x30 secs ea Seated HS stretch, 3x30 secs ea Gastroc stretch in standing x 3 x 30 secs ea leg Above exs printed and given as home exercise program Standing . Hip abd, hip ext 10 reps HOME EXERCISE PROGRAM: hip flexor, HS, gastroc stretch ASSESSMENT/Response to Treatment Good tolerance with exercises. Fatigues fairly easily Patient Education: Education provided: yes. Added to hep Education Provided To: Patient utilizing Explanation and Demonstration mode(s) of education Response to Education: Verbal Understanding PLAN POC Development/Review: No Change in the Plan of Care; Participants: Patient Interventions Time Entry: Modalities: Therapeutic procedures: Therapeutic Exercise Time Entry: 30 Total Treatment Time: 30 mins Documentation completed by Robert Peacock PTA documented in this encounter Plan of Treatment Upcoming Encounters Date Type Department Care Team (Late st Contact Info) Description 09/12/2024 3:30 PM EDT Treatment [facility] [address] [phone] Sarthak Hsu, SHELBY 09/17/2024 2:30 PM EDT Treatment [facility] [address] [phone] Robert Peacock, SHELBY 09/19/2024 1:00 PM EDT Treatment [facility] [address] [phone] Preethi Jung, CAROLYNN 09/19/2024 2:45 PM EDT Evaluation [facility] [address] [phone] Liz Garcia, OCCUPATIONAL THERAPY DEPARTMENT CHAIR 09/23/2024 2:30 PM EDT Treatment [facility] [address] [phone] Sarthak Hsu, TYPING OFFICE WORKER 09/25/2024 2:00 PM EDT Treatment [facility] [address] [phone] Emily Gonzalez, PT 09/30/2024 3:30 PM EDT Treatment [facility] [address] [phone] Preethi Jung, PT 10/02/2024 2:30 PM EDT Treatment [facility] [address] [phone] Preethi Jung, PT 10/10/2024 4:00 PM EDT Office Visit [facility] 175 [facility] [address] [place] [phone] Cornelio Olivier MD [address] [phone] 10/21/2024 2:30 PM EDT Treatment [facility] [address] [phone] Preethi Jung, PT documented as of this encounter Visit Diagnoses Diagnosis Multiple sclerosis (CMS/HCC V24, CMS/HCC V28)- Primary Multiple sclerosis Gait abnormality Abnormality of gait documented in this encounter Care Teams Normalizer Relationship Specialty Start Date End Date Cathy Jimenez MD 2 [facility] [address] Physician Associ [facility]B/A: [facility] [place] PCP - General Internal Medicine 03/13/24 documented as of this encounter
--- NOTE | 2024-09-12 13:55 | A.OFFPC_ITS ---
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 Accompanied by: Self / Same As Patient Allergies tramadol Allergy (Intermediate, Verified 09/12/24 14:15) Hives Medication List - Last Reconciled 09/12/24 by Cathy Jimenez MD atorvastatin 20 mg PO BEDTIME 90 days cetirizine (All Day Allergy (cetirizine)) 10 mg PO DAILY PRN 90 days cholecalciferol (vitamin D3) 25 mcg PO DAILY 90 days citalopram 20 mg PO DAILY 90 days clotrimazole 10 mg PO cyclobenzaprine 10 mg PO Q8H PRN 30 days dulaglutide (Trulicity) 1.5 mg (0.5 mL) subcut QWEEK 90 days fenofibrate 54 mg PO DAILY 90 days gabapentin 300 mg PO BEDTIME 1 month MDD 300mg lancets (FreeStyle Lancets) As directed lancets (TRUEplus Lancets) As directed levothyroxine (Synthroid) 50 mcg PO DAILY 90 days levothyroxine 200 mcg PO DAILY 90 days lisinopril 10 mg PO DAILY 90 days melatonin 3 mg PO BEDTIME PRN 30 days metformin 1,000 mg PO BID 90 days naproxen 500 mg PO BID PRN [nonslip bath mat As directed] nystatin 1 appl topical BID 15 days pantoprazole 40 mg PO DAILY quetiapine 25 mg PO BID sumatriptan succinate 50 mg PO DAILY PRN tadalafil 20 mg PO ONCE PRN 30 days terazosin 5 mg PO BEDTIME 90 days Tobacco use date assessed: 05/13/24 Fall risk assessment: No Falls in past year Last assessed Fall Risk: 09/12/24 Dental Screening Dental Screen Date: 05/13/24 HPI HPI Comments History of Present Illness Details The patient is a 69-year-old male presenting with the management of multiple chronic conditions including diabetes mellitus, hyperlipidemia, and hypothyroidism. Diabetes mellitus has been managed with metformin 1000 mg twice daily, and recent lab results show an A1c of 6.1%, indicating good control. The patient denies any recent episodes of chest pain, dyspnea, fever, or cough. Hyperlipidemia is currently being treated with atorvastatin, which has been increased from 20 mg to 40 mg due to an LDL level of 100 mg/dL. The patient also takes fenofibrate for triglycerides. Hypothyroidism is managed with levothyroxine, which has been adjusted from 50 mcg to 25 mcg, with a follow-up lab test scheduled in six weeks. The patient has a history of sleep apnea and uses a CPAP machine regularly. Depression with anxiety is treated with citalopram 20 mg daily. The patient experiences migraines and uses sumatriptan for management. Benign prostatic hyperplasia is managed with terazosin. The patient has an allergic reaction to tramadol and avoids its use. [facility] Medical History Voice hoarseness ROLDAN (obstructive sleep apnea) Hypovitaminosis D Type 2 diabetes mellitus, with long-term current use of insulin Moderate recurrent major depression Erectile dysfunction History of urinary hesitancy Prostate nodule Enlarged prostate without lower urinary tract symptoms (luts) Flatus Unspecified constipation Medial meniscus tear OA (osteoarthritis) Arthralgia CATHY positive Hypothyroidism Multiple sclerosis Surgical History History of surgery Family History Mother Diabetes mellitus Father No problems noted. Social History Household Members Other:: and daughter Housing: House Alcohol intake: never Patient Tobacco Use Status: Never used Tobacco e-Cigarette/Vaping Use: Never Used Second Hand Smoke Exposure: No service: No Current occupational status: disabled Cognitive needs: Yes Hearing needs: No Vision needs: Yes Questionnaire Thrive Questionnaire Date Thrive assessed: 09/10/24 I am a: Patient What is your living situation today?: I have a steady place to live Within the past 12 months, did the food you bought not last and you didn't have the money to get more?: Never true Within the past 12 months, did you worry whether your food would run out before you got money to buy more?: Never true Do you have trouble paying for medicines?: No Do you have trouble getting transportation to medical appointments?: No Do you have trouble paying your heating and electricity bill?: No Do you have trouble taking care of your child, family member or friend?: No Do you have trouble with day-to-day activities such as bathing, preparing meals, shopping, managing finances, etc.?: No Are you currently unemployed and looking for a job?: I choose not to answer this question Are you interested in more education?: Yes Please select the resources that you would like help with: None Currently or been in a relationship where the following occur: No concerns reported THRIVE Score: 0 AUDIT C Alcohol Use Questionnaire (AUDIT-C) 1. How often do you have a drink containing alcohol?: Never Total Score: 0 RODDY-7 AMB Questionnaire RODDY-7 Date RODDY - 7 assessed: 05/13/24 Feeling nervous, anxious, or on edge: 0 = Not at all Not being able to stop or control worryin = Several days Worrying too much about different things: 1 = Several days Trouble relaxin = Several days Being so restless that it is hard to sit still: 1 = Several days Becoming easily annoyed or irritable: 1 = Several days Feeling afraid as if something awful might happen: 1 = Several days Total RODDY-7 score (0-4 normal; 5-9 mild; 10-14 moderate; 15-21 severe): 6 Source: Developed by Drs. Jonas Rodriguez, Kelly Santo, Kingsley Keen and colleagues, with an educational alda from [employer]. RODDY-7 Assessment Billing RODDY-7 Assessment Tool: RODDY-7 Assessment 17858 Review of Systems Const All systems reviewed & are unremarkable except as noted in HPI and below Card Denies chest pain at rest, Denies chest pain with activity, Denies edema, Denies irregular heart rhythm, Denies claudication, Denies dyspnea, Denies dyspnea on exertion, Denies orthopnea, Denies paroxysmal nocturnal dyspnea and Denies slow heart rate Resp Denies cough, Denies dyspnea and Denies dyspnea on exertion GI Denies abdominal pain, Denies change in bowel habits, Denies excessive flatus, Denies nausea and Denies vomiting Skin/Breast Denies bleeding lesions, Denies changing lesions and Denies rash Neuro Denies lack of coordination Physical exam (Primary Care) Vital Signs: Last Vital Signs BP 122/76 09/12/24 14:01 BMI result Body Mass Index 27.8 Tobacco/Smoking Status: Tobacco use Status Tobacco use date assessed 05/13/24 09/12/24 13:58 Patient Tobacco Use Status Never used Tobacco 09/12/24 13:58 e-Cigarette/Vaping Use Never Used 09/12/24 13:58 Thrive Assessment: Date of Thrive Assessment Date Thrive assessed 09/10/24 09/12/24 13:58 Currently or been in a relationship where the following occur: No concerns reported Resp Effort & Inspection: normal respiratory effort Auscultation: clear to auscultation bilaterally Cardio Jugular venous distension: no JVD Rate: regular rate Rhythm: regular rhythm Heart sounds: S1 normal heart sound present and S2 normal heart sound present Extrem General: Yes full ROM Results AMB Hemoglobin A1c AMB Hemoglobin A1c 6.1 % Last Edit by ELLY Tyson on 09/12/24 14:1 3 Results Reviewed Results Reviewed: Laboratory Last Values Hgb A1c (Clinic) 6.1 % (4.0-6.0) H 09/12/24 13:54 Coding Level of Care Code Est Pt Level 4 (59077) Complex EM visit Add On G2211 Diagnoses Moderate recurrent major depression F33.1 Hyperlipidemia LDL goal <70 E78.5 Primary hypertension I10 Hypertension type: primary hypertension Type 2 diabetes mellitus with hyperglycemia, without long-term current use of insulin E11.65 Diabetes mellitus type: type 2 Diabetes mellitus penitentiary insulin use: without termite control servicer use Diabetes mellitus complication status: with hyperglycemia 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 BPH w urinary obs/LUTS N40.1; N13.8 GERD (gastroesophageal reflux disease) K21.9 Additional Codes RODDY-7 Assessment Billing - RODDY-7 Assessment Tool: RODDY-7 Assessment 61361 ([id number]) Time Spent (min) 23 Assessment & Plan Assessment & Plan (1) Moderate recurrent major depression: Code(s): F33.1 - Major depressive disorder, recurrent, moderate Category: Medical (2) Hyperlipidemia LDL goal <70: Code(s): E78.5 - Hyperlipidemia, unspecified Category: Medical (3) Hypertension: Code(s): I10 - Essential (primary) hypertension Category: Medical Qualifiers: Hypertension type: primary hypertension Qualified Code(s): I10 - Essential (primary) hypertension (4) Diabetes mellitus: Code(s): E11.9 - Type 2 diabetes mellitus without complications Category: Medical Qualifiers: Diabetes mellitus type: type 2 Diabetes mellitus termite control servicer insulin use: without penitentiary use Diabetes mellitus complication status: with hyperglycemia Qualified Code(s): E11.65 - Type 2 diabetes mellitus with hyperglycemia (5) 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 For hyperlipidemia, atorvastatin dosage has been increased to 40 mg to better manage LDL levels, and the patient will continue fenofibrate for triglycerides. Hypothyroidism management includes reducing levothyroxine to 25 mcg, with a follow-up lab test in six weeks to reassess thyroid function. The patient will continue using a CPAP machine for sleep apnea. Depression with anxiety will continue to be managed with citalopram 20 mg daily. For migraines, sumatriptan will be used as needed. Terazosin will continue to be used for benign prostatic hyperplasia. The patient is advised to avoid tramadol due to an allergic reaction. Patient was informed and verbally consented to the use of an ambient scribe for clinic note documentation during this visit. Orders: Orders AMB Hemoglobin A1c Today E11.65 - Type 2 diabetes mellitus with hyperglycemia Thyroid Stimulating Hormone 6 Weeks E06.3 - Autoimmune thyroiditis Medications: New levothyroxine (Levoxyl) 25 mcg PO DAILY 90 tabs 1RF 90 days atorvastatin (Lipitor) 40 mg PO BEDTIME 90 tabs 1RF 90 days Discontinued atorvastatin Discontinued Reason: Patient Completed Course 20 mg PO BEDTIME 90 days 90 tabs 1RF levothyroxine (Synthroid) Discontinued Reason: No Longer Medically Relevant 50 mcg PO DAILY 90 days 90 tabs 0RF
[2024-09-12 14:01] VITALS: BP 122/76; BMI 27.8
== END 2024-09-12 14:25 | disposition home or self-care (01) ==
LOC: HO.HMCH 13:49
PROVIDERS: PCP Internal Medicine; Visit Provider Internal Medicine
DX: F33.1 Major depressive disorder, recurrent, moderate (principal); E78.5 Hyperlipidemia, unspecified; I10 Essential (primary) hypertension; E11.65 Type 2 diabetes mellitus with hyperglycemia; E06.3 Autoimmune thyroiditis; N40.1 Benign prostatic hyperplasia with lower urinary tract symptoms; N13.8 Other obstructive and reflux uropathy; K21.9 Gastro-esophageal reflux disease without esophagitis

== ENCOUNTER → 2024-09-12 13:49 | Outpatient (BNVA) | payer OTHER, SELFPAY | PROVIDERS: PCP Internal Medicine; Visit Provider Internal Medicine | DX: E11.9 Type 2 diabetes mellitus without complications (principal); E78.5 Hyperlipidemia, unspecified; E03.9 Hypothyroidism, unspecified; G47.30 Sleep apnea, unspecified; F41.9 Anxiety disorder, unspecified; G43.909 Migraine, unspecified, not intractable, without status migrainosus; F33.1 Major depressive disorder, recurrent, moderate; I10 Essential (primary) hypertension; E11.65 Type 2 diabetes mellitus with hyperglycemia; E06.3 Autoimmune thyroiditis; N13.8 Other obstructive and reflux uropathy; N40.1 Benign prostatic hyperplasia with lower urinary tract symptoms; K21.9 Gastro-esophageal reflux disease without esophagitis; Z79.84 Long term (current) use of oral hypoglycemic drugs; Z99.89 Dependence on other enabling machines and devices | CPT/HCPCS: 83036; 96127; 99212 ==

== ENCOUNTER 2024-10-29 12:51 | Outpatient (AMB) | payer OTHER, SELFPAY ==
[2024-10-29 12:56] VITALS: BP 120/78; PULSE 99; O2SAT 97; BMI 28.0
--- NOTE | 2024-10-29 12:56 | A.OFFVIS_ITS ---
Vital Signs 10/29/24 12:56 Height 5 ft 8 in Weight 184 lb BMI 28.0 BP 120/78 Blood Pressure Location Lt brachial Pulse 99 Pulse Source Pulse Oximeter Pulse Oximetry (%) 97 Oxygen Delivery Method Room Air Intake Visit Reasons: 3 mo follow up Intake Note: Patient presents follow up ROLDAN/RLS medication. Labs/Compliance in chart(83/90days, >=4hrs-62%, Average usage- 5hrs 17min, Pressure-14cm, Med leaks-1.8, AHI-0.8). Patient states he tend to take of mask in his sleep. 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 PMH In 1990 he was diagnosed with MS, by Dr. Street, in 2016 he started to have symptoms of relapsing and remitting episodes and did not start any medications. He is now being followed by the [facility] clinic for weekly PT. 09/29/2022 PSG results significant for moderate degree of sleep apnea, AHI was 24/hr and oxygen oren was 85%. Pt had a titration study and his breathing and oxygenation stabilized on CPAP at [id number]. ROLDAN Compliance Report 07/2024 - 09/2024 Total 83/90 days >4 hours 62% avg usage 5 hours and 17min Median press 14cm, Leaks 1.8cm/H20 AHI 0.8/hr He washes his mask, rinses hoses, changes filters and refills reservoir with water daily. He pulls his mask off in his sleep and has broken two mask. We discussed pressure settings and he says that it is possible but denies the pressure being too strong for his face and it is only occasionally he notices this choking sensation. He says his sleep has improved, and does feel better when he uses the cpap. His memory is poor, easily forgets names, conversation, loses track of time, he must write everything down. RLS:He has an uncomfortable sensation traveling down the r. side of the hip radiating down to the posterior aspect of knee with a dull numbness.His feet hurt bilaterally, left > right foot. His l. foot feels like he is walking on a lump or a ball in the plantar surface with pressure, a stiff burning pain with pins, and needles at night. He has spasms, jolts of cramps in the calves and quads. COUNTS INCLUDE 234 BEDS AT THE [facility] Medical History Voice hoarseness ROLDAN (obstructive sleep apnea) Hypovitaminosis D Type 2 diabetes mellitus, with long-term current use of insulin Moderate recurrent major depression Erectile dysfunction History of urinary hesitancy Prostate nodule Enlarged prostate without lower urinary tract symptoms (luts) Flatus Unspecified constipation Medial meniscus tear OA (osteoarthritis) Arthralgia TAMIKO positive Hypothyroidism Multiple sclerosis Surgical History History of surgery Family History Mother Diabetes mellitus Father No problems noted. Social History Household Members Other:: and daughter Housing: House Alcohol intake: never Patient Tobacco Use Status: Never used Tobacco e-Cigarette/Vaping Use: Never Used Second Hand Smoke Exposure: No service: No Current occupational status: disabled Cognitive needs: Yes Hearing needs: No Vision needs: Yes Physical Exam Vital Signs: Last Vital Signs Pulse 99 10/29/24 12:56 BP 120/78 10/29/24 12:56 Pulse Ox 97 10/29/24 12:56 Oxygen Delivery Method Room Air 10/29/24 12:56 BMI result Body Mass Index 28.0 Const General: cooperative, comfortable and no acute distress Nutritional Appearance: overweight Orientation/consciousness: patient oriented x3 Limitations: language barrier (thai only) HEENT Face and sinus: Yes face symmetric Neck Neck: Yes full ROM and Yes supple Resp Effort & Inspection: normal respiratory effort and able to speak in complete sentences Neuro Other: facial tremor/ oral tremor bilateral upper ext tremor General: patient oriented x3, gait normal and moves all extremities Cranial nerves: Yes Normal accommodation reflex present, Yes Normal facial strength present, Yes Ability to bilaterally rotate head present and Yes Ability to bilaterally elevate shoulders present Cognition (Neuro): normal cognition Motor exam (neuro): Motor abnormalities not present Psych Appearance: grossly normal Mental Status: mental status grossly normal Thought process: Normal thought process present Thought content: Normal thought content present Results Reviewed Results Reviewed: FINDINGS: Plantar calcaneal spur. No fracture identified. Alignment is anatomic. Joint spaces are maintained. Soft tissues appear unremarkable. Assessment & Plan Assessment & Plan (1) ROLDAN (obstructive sleep apnea): Comment: Severe degree of sleep apnea with increased in REM. The total AHI was 28/hr, REM was 48/hr, oxygen oren was 79%. Code(s): G47.33 - Obstructive sleep apnea (adult) (pediatric) Category: Medical Plan: Continue using CPAP [id number], wash mask, change filters and fill reservoir as needed. (2) RLS (restless legs syndrome): Comment: on gabapentin 300mg po at bedtime. Code(s): G25.81 - Restless legs syndrome Category: Medical (3) Plantar fasciitis, left: Code(s): M72.2 - Plantar fascial fibromatosis Category: Medical (4) REM behavioral disorder: Comment: will evaluate with a psg if not improved with gabapentin and melatonin Code(s): G47.52 - REM sleep behavior disorder Category: Medical Plan ROLDAN continue CPAP at [id number], REM disorder, will send him for mask fitting, so that he can find a mask which he is unable to pull off his face with chinstraps. RLS gabapentin 300mg po daily at bedtime to 600mg po daily at bedtime. Sleep difficulties Melatonin 6mg po daily 3 hours prior to bedtime. Referral podiatry for plantar fasciitis and orthotics. Reviewed imaging xray of feet, bone spur, will do an EMG/NCS if gets worse. f/u in 3 months for compliance and continue PT with [facility] for MS symptoms Labs reviewed b12/ Both homo and mma is elevated, B12 is low/ normal, start and continue B12 1000mcg daily will assess at next visit, vitamin d is insufficient continue vitamin d 25mcg daily. A1c is elevated f/u with pcp. Orders: Referrals Podiatry Referral M72.2 - Plantar fascial fibromatosis Medications: Changed From gabapentin Take 300mg PO daily at bedtime for RLS. 300 mg PO BEDTIME 1 month 30 caps 1RF Restless Legs MDD 300mg G25.81 - Restless legs syndrome To gabapentin Take 300mg PO daily at bedtime for RLS. 600 mg (2 x 300 mg) PO BEDTIME 60 caps 1RF Restless Legs 1 month MDD 300mg G25.81 - Restless legs syndrome From melatonin 3 mg PO BEDTIME 30 days PRN 30 tabs 3RF sleep To melatonin 6 mg (2 x 3 mg) PO BEDTIME PRN 30 tabs 3RF sleep 30 days Patient Instructions: Sleep Hygiene provided: set a scheduled bedtime and wake time to help regulate the circadian rhythm and balance the release of pituitary hormones. Sleep in a dark room, temperatures below 68 degrees, and no devices n bed. Limit caffeinated products 6 hours prior to bed, and limit fluids 2-4 hours prior to bed. Gentle night yoga, diffusing essential oils, and playing soft music can be relaxing. Will use medication Gabapentin and Melatonin to help achieve N3/ REM sleep and assess with a PSG if behavior is not resolved. Continue f/u with [facility] for relapsing and remitting signs of MS and visual changes. Continue using cpap daily and >4hours a night. Meloxicam- Plantar fasciitis Rest Ice, Stretch, anti- inflammatory- meds Coding Level of Care Code Est Pt Level 4 (55109) Complex EM visit Add On G2211 Diagnoses ROLDAN (obstructive sleep apnea) G47.33 RLS (restless legs syndrome) G25.81 Plantar fasciitis, left M72.2 REM behavioral disorder G47.52 Time Spent (min) 40
--- OUTSIDE RECORDS SUMMARY | 2024-10-29 13:26 | XMS_ITS | Clinical Summary ---
Author Organization 175 [facility] Address [address] [place] [address] Phone Care Team Providers Care Furniture Sales Consultant Name Role Phone Tamiko Jimenez MD Primary Care Provider [phone] Allergies Active Allergy Reactions Criticality Noted Date Comments Tramadol 06/17/2010 Other reaction(s): unspecified Medications meclizine (ANTIVERT) 25 mg tablet Take 1 tablet (25 mg total) by mouth. at bedtime. 07/31/2024 Active gabapentin (NEURONTIN) 300 mg capsule Take 1 capsule (300 mg total) by mouth 2 (two) times a day. at bedtime 07/29/2024 Active levothyroxine (SYNTHROID, LEVOTHROID) 200 mcg tablet Take 1 tablet (200 mcg total) by mouth 1 (one) time each day. 07/31/2024 Active lisinopriL (PRINIVIL,ZESTR IL) 10 mg tablet Take 2 tablets (20 mg total) by mouth 1 (one) time each day. 07/31/2024 Active metFORMIN (GLUCOPHAGE) 850 mg tablet Take 1 tablet (850 mg total) by mouth every 12 hours. 07/09/2021 Active QUEtiapine (SEROquel) 25 mg tablet Take 1 tablet (25 mg total) by mouth at bedtime. Active SUMAtriptan (IMITREX) 50 mg tablet Take 1 tablet (50 mg total) by mouth 1 (one) time if needed for migraine. May repeat dose once in 2 hours if no relief. Do not exceed 2 doses in 24 hours. Active cholecalciferol (VITAMIN D-3) 50 mcg (2,000 unit) tablet Take 1 tablet (2,000 Units total) by mouth 1 (one) time each day. Active citalopram (CeleXA) 20 mg tablet Take 1 tablet (20 mg total) by mouth 1 (one) time each day. Active cyanocobalamin (VITAMIN B-12) 1,000 mcg tablet Take 1 tablet (1,000 mcg total) by mouth 1 (one) time each day. 30 each 11 10/10/2024 Active Active Problems Problem Noted Date Diagnosed Date MS (multiple sclerosis) ([facility] V24, [facility] V2 8) 10/11/2024 Encounters Date Type Department Care Team Description 10/24/2024 11:00 AM EDT Office Visit [facility] [address] [phone] Cornelio Olivier MD MS (multiple sclerosis) ([facility] V24, [facility] V28) (Primary Dx); Gait abnormality; Urinary symptom or sign 10/21/2024 3:15 PM EDT Treatment [facility] Speech Therapy [address] [place] [phone] Liz Garcia, DIGITAL ART DIRECTOR Dysphagia, oropharyngeal (Primary Dx); Multiple sclerosis ([facility] V24, CMS/HCC V28) 10/21/2024 2:30 PM EDT Treatment [facility] Outpatient Rehabilitation [address] [phone] Preethi Jung PT Multiple sclerosis ([facility] V24, [facility] V28) (Primary Dx) 10/16/2024 8:46 AM EDT - 10/16/2024 11:59 PM EDT Hospital Encounter [facility] Outpatient Rehabilititation [facility] [address] [phone] MS (multiple sclerosis) ([facility] V24, [facility] V28) (Primary Dx) Discharge Disposition: Home or Self Care 10/15/2024 9:48 AM EDT - 10/15/2024 11:59 PM EDT Hospital Encounter [facility] MS Outpatient Rehabilititation [address] [phone] MS (multiple sclerosis) (CMS/HCC V24, CMS/HCC V28) (Primary Dx) Discharge Disposition: Home or Self Care 10/11/2024 9:42 AM EDT - 10/11/2024 11:59 PM EDT Hospital [facility] [address] [phone] MS (multiple sclerosis) (CMS/HCC V24, CMS/HCC V28) (Primary Dx) Discharge Disposition: Home or Self Care 10/11/2024 Telephone [facility] [address] [phone] Cornelio Olivier MD SOLUMEDROL AUTH RECVD 10/10/2024 4:00 PM EDT Office Visit [facility] [address] [phone] Cornelio Olivier MD Multiple sclerosis (CMS/HCC V24, CMS/HCC V28) (Primary Dx); Gait abnormality; Urinary symptom or sign 10/02/2024 2:30 PM EDT Treatment [address] [phone] Preethi Jung, PT Multiple sclerosis (CMS/HCC V24, CMS/HCC V28) (Primary Dx) 09/30/2024 3:30 PM EDT Treatment [address] [phone] Preethi Jung, PT Multiple sclerosis (CMS/HCC V24, CMS/HCC V28) (Primary Dx) 09/25/2024 2:00 PM EDT Treatment [facility] [address] [phone] Emily Gonzalez, PT Multiple sclerosis (CMS/HCC V24, CMS/HCC V28) (Primary Dx) 09/23/2024 2:30 PM EDT Treatment [address] [phone] Aracelis, Sarthak, WHEELCHAIR VAN DRIVER Multiple sclerosis (CMS/HCC V24, CMS/HCC V28) (Primary Dx) 09/19/2024 2:45 PM EDT Evaluation [address] [phone] Liz Garcia, DIGITAL ART DIRECTOR Dysphagia, oropharyngeal (Primary Dx); Multiple sclerosis (CMS/HCC V24, CMS/HCC V28); Gait abnormality 09/19/2024 1:00 PM EDT Treatment [address] [phone] Preethi Jung, PT Multiple sclerosis (CMS/HCC V24, CMS/HCC V28) (Primary Dx) 09/19/2024 Plan of Care Documentation [address] [phone] 09/17/2024 2:30 PM EDT Treatment [address] [phone] Robert Peacock, WHEELCHAIR VAN DRIVER Multiple sclerosis (CMS/HCC V24, CMS/HCC V28) (Primary Dx) 09/12/2024 3:30 PM EDT Treatment [address] [phone] Sarthak Hsu, WHEELCHAIR VAN DRIVER Multiple sclerosis (CMS/HCC V24, CMS/HCC V28) (Primary Dx) 09/10/2024 9:00 AM EDT Treatment [address] [phone] Robert Peacock, WHEELCHAIR VAN DRIVER Multiple sclerosis (CMS/HCC V24, CMS/HCC V28) (Primary Dx); Gait abnormality 09/04/2024 1:30 PM EDT Treatment [address] [phone] Sarthak Hsu, WHEELCHAIR VAN DRIVER Multiple sclerosis (CMS/HCC V24, CMS/HCC V28) (Primary Dx) 08/27/2024 9:30 AM EDT Evaluation [address] [place] [phone] Preethi Jung PT Multiple sclerosis ([facility]/HCC V24, CMS/HCC V28) (Primary Dx); Gait abnormality 08/16/2024 12:27 PM EDT - 08/16/2024 11:59 PM EDT Hospital Encounter [facility] MRI [address] [place] [phone] Multiple sclerosis (CMS/HCC V24, CMS/HCC V28) Discharge Disposition: Home or Self Care 08/16/2024 12:27 PM EDT - 08/16/2024 11:59 PM EDT Hospital Encounter [facility] [address] [place] [phone] Multiple sclerosis ([facility]/HCC V24, CMS/HCC V28) Discharge Disposition: Home or Self Care 08/16/2024 12:22 PM EDT - 08/16/2024 11:59 PM EDT Hospital Encounter [facility] [address] [place] [phone] Multiple sclerosis ([facility]/HCC V24, CMS/HCC V28) Discharge Disposition: Home or Self Care 08/06/2024 3:00 PM EDT Consult [facility] 175 [facility] [address] [place] [phone] Cornelio Olivier MD Multiple sclerosis ([facility]/HCC V24, CMS/HCC V28) (Primary Dx); Gait abnormality from Last 3 Months Medical History Medical History Date Comments Diabetes mellitus ([facility]/HCC V24, CMS/HCC V28) Social History Tobacco Use Types Packs/Day Years Used Date Smoking Tobacco: Never Assessed Sex and Gender Information Value Date Recorded Sex Assigned at Male 08/13/2024 8:54 AM EDT Legal Sex Male 11:29 AM EST Gender Identity Male 08/13/2024 8:54 AM EDT Sexual Orientation Straight 08/13/2024 8: 54 AM EDT Obstetrics History Last Filed Vital Signs Vital Sign Reading Time Taken Comments Blood Pressure 128/74 10/24/2024 11:21 AM EDT Pulse 74 10/24/2024 11:21 AM EDT Temperature 36.2 C (97.2 F) 10/24/2024 11:21 AM EDT Respiratory Rate 16 10/16/2024 10:33 AM EDT Oxygen Saturation 96% 10/24/2024 11:21 AM EDT Inhaled Oxygen Concentration - - Weight 85.7 kg (189 lb) 10/24/2024 11:21 AM EDT Height 172.7 cm (5' 8 ) 10/24/2024 11:21 AM EDT Body Mass Index 28.74 10/24/2024 11:21 AM EDT Plan of Treatment Upcoming Encounters Date Type Department Care Team (Late st Contact Info) Description 11/13/2024 8:30 AM EDT Office Visit [facility] 175 [facility] [address] [place] [phone] Cornelio Olivier MD 175 [facility] [address] [place] [phone] 11/18/2024 3:00 PM EDT Treatment [facility] Speech Therapy 175 [facility] [address] [place] [phone] Liz Garcia, DIGITAL ART DIRECTOR 12/25/2024 9:00 AM EDT Appointment [facility] Xray [address] [place] [phone] Health Maintenance Due Date Last Done Comments Zoster Vaccines (2 of 2) 09/08/2022 07/14/2022 COVID-19 Vaccine ( season) 2023 03/23/2021, 07/15/2020, 06/17/2020 Abdominal Aortic Aneurysm (AAA) Screen 03/13/2024 Colorectal Cancer Screening: Colonoscopy 03/13/2024 Falls Risk Assessment 03/13/2024 Medicare Annual Wellness Visit 03/13/2024 Social Influencers of Health Screening 03/13/2024 Depression Screening 03/27/2024 Influenza Vaccine (#1) 2024 , 01/19/2023, 01/07/2022, Additional history exists Cholesterol Screening (Lipid Panel) 08/14/2025 08/14/2020 DTaP,Tdap,and Td Vaccines (3 - Td or Tdap) 03/09/2031 03/09/2021, 07/24/2008 RSV Immunization Adult Patients (1 - 1-dose 75+ series) 2032 MMR Vaccines Aged Out 07/24/2008 No longer eligi ble based on patient's age to complete this topic Pneumococcal Vaccine: 50+ Years Completed 07/14/2022, 04/18/2014 Hepatitis C Screening Completed 10/11/2024 HIB Vaccines Aged Out No longer eligi [...] patient's age to complete this topic Meningococcal ACWY Vaccine Aged Out N o longer eligible based on patient's age to complete this topic Meningococcal B Vaccine Aged Out No l onger eligible based on patient's age to complete this topic RSV Immunization Patients Under 20 months Aged Out No longer eligible based on patient's age to complete this topic Varicella Vaccines Aged Out No longer eligible based on patient's age to complete this topic Goals Goal Patient Goal Type Associated Problems Recent Progress Patient-Stated? Author DIGITAL ART DIRECTOR LTG General No Liz Garcia, DIGITAL ART DIRECTOR Note: Pt will consume least restrictive PO diet without changes to medical or respiratory status to maintain adequate oral nutrition hydration DIGITAL ART DIRECTOR STGs General No Liz Garcia, DIGITAL ART DIRECTOR Note: Pt will participate in MBS for further assessment of oral pharyngeal swallow Pt will consume recommended diet textures and utilize swallow strategies given min verbal or visual cues Pt will participate in development of personalized HEP and perform 3-4xs/wk with min assist for modifications Procedures Procedure Name Priority Date/Time Associated Diagnosis Comments INTERFERON GAMMA INTERPRETATION Routine 10/11/2024 9:37 AM EDT Multiple sclerosis ([facility]/HCC V24, CMS/HCC V28) Gait abnormality INTERFERON GAMMA ANTIGEN 2 Routine 10/11/2024 9:37 AM EDT Multiple sclerosis (CMS/HCC V24, CMS/HCC V28) Gait abnormality INTERFERON GAMMA ANTIGEN 1 Routine 10/11/2024 9:37 AM EDT Multiple sclerosis (CMS/HCC V24, CMS/HCC V28) Gait abnormality INTERFERON GAMMA MITOGEN Routine 10/11/2024 9:37 AM EDT Multiple sclerosis (CMS/HCC V24, CMS/HCC V28) Gait abnormality INTERFERON GAMMA NIL Routine 10/11/2024 9:37 AM EDT Multiple sclerosis (CMS/HCC V24, CMS/HCC V28) Gait abnormality HEPATITIS C ANTIBODY Routine 10/11/2024 9:37 AM EDT Multiple sclerosis (CMS/HCC V24, CMS/HCC V28) Gait abnormality HEPATITIS B CORE ANTIBODY IGM Routine 10/11/2024 9:37 AM EDT Multiple sclerosis (CMS/HCC V24, CMS/HCC V28) Gait abnormality HEPATITIS B SURFACE ANTIGEN WITH CONFIRMATION Routine 10/11/2024 9:37 AM EDT Multiple sclerosis (CMS/HCC V24, CMS/HCC V28) Gait abnormality JCV POLYOMA VIRUS ANTIBODY WITH REFLEX TO INHIBITION ASSAY Routine 10/11/2024 9:37 AM EDT Multiple sclerosis (CMS/HCC V24, CMS/HCC V28) Gait abnormality VARICELLA ZOSTER ANTIBODY IGG Routine 10/11/2024 9:37 AM EDT Multiple sclerosis (CMS/HCC V24, CMS/HCC V28) Gait abnormality INTERFERON GAMMA FOR TB, QUALITATIVE Routine 10/11/2024 9:37 AM EDT Multiple sclerosis (CMS/HCC V24, CMS/HCC V28) Gait abnormality IMMUNOGLOBULIN IGA Routine 10/11/2024 9: 37 AM EDT Multiple sclerosis (CMS/HCC V24, CMS/HCC V28) Gait abnormality IMMUNOGLOBULIN IGG Routine 10/11/2024 9: 37 AM EDT Multiple sclerosis (CMS/HCC V24, CMS/HCC V28) Gait abnormality IMMUNOGLOBULIN IGM Routine 10/11/2024 9: 37 AM EDT Multiple sclerosis (CMS/HCC V24, CMS/HCC V28) Gait abnormality HIV 1, 2 ANTIBODY, P24 ANTIGEN WITH REFLEX TO DIFFERENTIATION Routine 10/11/2024 9:37 AM EDT Multiple sclerosis (CMS/HCC V24, CMS/HCC V28) CBC WITH AUTO DIFFERENTIAL Routine 08/16/2024 2:57 PM EDT Multiple sclerosis (CMS/HCC V24, CMS/HCC V28) MYELIN OLIGODENDROCYTE GLYCOPROTEIN ANTIBODY WITH REFLEX TO TITER Routine 08/16/2024 2:57 PM EDT Multiple sclerosis (CMS/HCC V24, CMS/HCC V28) SJOGRENS ANTIBODIES, SSA AND SSB Routine 08/16/2024 2:57 PM EDT Multiple sclerosis (CMS/HCC V24, CMS/HCC V28) TAMIKO IFA WITH TITER AND PATTERN Routine 08/16/2024 2:57 PM EDT Multiple sclerosis (CMS/HCC V24, CMS/HCC V28) BORRELIA BURGDORFERI ANTIBODY Routine 08/16/2024 2:57 PM EDT Multiple sclerosis (CMS/HCC V24, CMS/HCC V28) CBC AND DIFFERENTIAL Routine 08/16/2024 2:57 PM EDT Multiple sclerosis (CMS/HCC V24, CMS/HCC V28) BUN Routine 08/16/2024 2:57 PM EDT Multiple sclerosis (CMS/HCC V24, CMS/HCC V28) CREATININE, SERUM Routine 08/16/2024 2:5 7 PM EDT Multiple sclerosis (CMS/HCC V24, CMS/HCC V28) VITAMIN B12 Routine 08/16/2024 2:57 PM EDT Multiple sclerosis (CMS/HCC V24, CMS/HCC V28) VITAMIN D 25 HYDROXY Routine 08/16/2024 2:57 PM EDT Multiple sclerosis (CMS/HCC V24, CMS/HCC V28) MR THORACIC SPINE WO AND W CONTRAST Routine 08/16/2024 2:42 PM EDT Multiple sclerosis (CMS/HCC V24, CMS/HCC V28) MR CERVICAL SPINE WO AND W CONTRAST Routine 08/16/2024 2:42 PM EDT Multiple sclerosis (CMS/HCC V24, CMS/HCC V28) MR BRAIN WO AND W CONTRAST Routine 08/16/2024 2:41 PM EDT Multiple sclerosis (CMS/HCC V24, CMS/HCC V28) from Last 3 Months Results * Hepatitis C antibody (10/11/2024 9:37 AM EDT) [facility] Hepatitis C Antibody Negative Negative LAB CHEMISTRY METHOD 10/11/2024 4:55 PM EDT [facility] Blood Venous blood specimen / Unknown Venipuncture / Unknown 10/11/2024 9:37 AM EDT 10/11/2024 9:37 AM EDT Cornelio Olivier MD LAB BLOOD ORDERABLES Fin al Result [facility] [address] [place] [address], * HIV 1,2 antibody, p24 antigen with reflex to differentiation (10/11/2024 9:37 AM EDT) [facility] HIV Combo AB/AG Negative Negative LAB CHEMISTRY METHOD 10/11/2024 4:56 PM EDT [facility] Blood Venous blood specimen / Unknown Venipuncture / Unknown 10/11/2024 9:37 AM EDT 10/11/2024 9:37 AM EDT Narrative [facility] - 10/11/2024 4:56 PM EDT This assay is a 4th generation assay allowing for earlier detection of HIV infection by detecting the presence of the HIV-1 p24 antigen as well as the traditional antibodies to HIV type 1 (including group O) and type 2. Use of a 4th generation assay is the current CDC recommendation for HIV screening. us Cornelio Olivier MD LAB BLOOD ORDERABLES Fin al Result Performing Organization Address City/[facility]/ZIP Co de Phone Number [facility] [address] [place] [address], * Interferon gamma interpretation (10/11/2024 9:37 AM EDT) [facility] Quantiferon Plus Interpretation Negative Negative LAB CHEMISTRY METHOD 10/12/2024 11:12 AM EDT [facility] Blood Venous blood specimen / Unknown Venipuncture / Unknown 10/11/2024 9:37 AM EDT 10/11/2024 9:37 AM EDT us Cornelio Olivier MD LAB BLOOD ORDERABLES Fin al Result Performing Organization Address [facility]/ZIP Co de Phone Number [facility] [address] [place] [address], [place] [phone] * Interferon gamma antigen 2 (10/11/2024 9:37 AM EDT) Blood Venous blood specimen / Unknown Venipuncture / Unknown 10/11/2024 9:37 AM EDT 10/11/2024 9:37 AM EDT us Cornelio Olivier MD LAB BLOOD ORDERABLES Fin al Result Performing Organization Address [facility]/ZIP Co de Phone Number [facility] [address] [place] [address], [place] [phone] * Interferon gamma antigen 1 (10/11/2024 9:37 AM EDT) Blood Venous blood specimen / Unknown Venipuncture / Unknown 10/11/2024 9:37 AM EDT 10/11/2024 9:37 AM EDT us Cornelio Olivier MD LAB BLOOD ORDERABLES Fin al Result Performing Organization Address City/[facility]/ZIP Co de Phone Number [facility] [address] [place] [address], [place] [phone] * Interferon gamma mitogen (10/11/2024 9:37 AM EDT) Blood Venous blood specimen / Unknown Venipuncture / Unknown 10/11/2024 9:37 AM EDT 10/11/2024 9:37 AM EDT us Cornelio Olivier MD LAB BLOOD ORDERABLES Fin al Result Performing Organization Address [facility] de Phone Number [facility] [address] [place] [address], [place] [phone] * Interferon gamma NIL (10/11/2024 9:37 AM EDT) Blood Venous blood specimen / Unknown Venipuncture / Unknown 10/11/2024 9:37 AM EDT 10/11/2024 9:37 AM EDT us Cornelio Olivier MD LAB BLOOD ORDERABLES Fin al Result Performing Organization Address [facility] de Phone Number [facility] [address] [place] [address], [place] [phone] * Hepatitis B surface antigen with reflex to confirmation (10/11/2024 9:37 AM EDT) Hepatitis B Surface Ag Negative Negative LAB CHEMISTRY METHOD 10/11/2024 4:27 PM EDT [facility] Blood Venous blood specimen / Unknown Venipuncture / Unknown 10/11/2024 9:37 AM EDT 10/11/2024 9:37 AM EDT Narrative [facility] - 10/11/2024 4:27 PM EDT Over the counter supplements containing high doses of biotin may interfere with this assay. If interference is suspected, patients shoud be retested after refraining from biotin supplements for 72 hours. Cornelio Olivier MD LAB BLOOD ORDERABLES Fin al Result [facility] [address] [place] [address], * (ABNORMAL) JCV polyoma virus antibody with reflex to inhibition assay (10/11/2024 9:37 AM EDT) [facility] Index Value 2.09 10/21/2024 1:05 PM EDT [facility] JCV Antibody Positive( A) 10/21/2024 1:05 PM EDT [facility] Comment: Index interpretive criteria: <0.20 negative 0.20-0.40 indeterminate >0.40 positive Interpretation Note 10/21/2024 1:05 PM EDT [facility] Comment: INTERPRETATION Negative: Antibodies to JCV not detected. Indeterminate: Low level reactivity detected, see Inhibition Assay result below for the final antibody result. Positive: Antibodies to PORSCHE virus (JCV) detected indicating the patient has been exposed to JCV at an undetermined time. The STRATIFY JCV(R) DxSelect(TM) Antibody Test is an enzyme-linked immunosorbent assay (MICHELLE) designed to detect JCV antibodies to help identify individuals who have been exposed to the virus. Samples with low level reactivity in the detection assay are retested in a confirmation (inhibition) assay to confirm presence or absense of JCV-specific antibodies. Retrospective analyses of post marketing data from various sources, including observational studies and spontaneous reports obtained worldwide, suggest that the risk of developing PML may be associated with relative levels of serum anti-JCV antibody as measured by anti-JCV antibody index. (1) (1) TYSABRI(natalizumab)US Prescribing Information Interpretation Note 10/21/2024 1:05 PM EDT [facility] Comment: Positive: Antibodies to PORSCHE virus (JCV) detected indicating the patient has been exposed to JCV at an undetermined time Negative: Antibodies to JCV not detected Blood Venous blood specimen / Unknown Venipuncture / Unknown 10/11/2024 9:37 AM EDT 10/11/2024 9:37 AM EDT Narrative [facility] - 10/21/2024 1:05 PM EDT Performed at: 01 - [facility] [address] [address] [place] [id number] Diesel Locomotive Engineer: Madelin Brambila MD, Phone: [phone] Cornelio Olivier MD LAB BLOOD ORDERABLES Fin al Result Performing Organization Address [facility] de Phone Number [facility] * Hepatitis B core antibody IgM (10/11/2024 9:37 AM EDT) [facility] Hep B Core IgM Negative Negative LAB CHEMISTRY METHOD 10/11/2024 4:55 PM EDT [facility] Blood Venous blood specimen / Unknown Venipuncture / Unknown 10/11/2024 9:37 AM EDT 10/11/2024 9:37 AM EDT Narrative [facility] - 10/11/2024 4:55 PM EDT Over the counter supplements containing high doses of biotin may interfere with this assay. If interference is suspected, patients shoud be retested after refraining from biotin supplements for 72 hours. us Cornelio Olivier MD LAB BLOOD ORDERABLES Fin al Result Performing Organization Address [facility] de Phone Number [facility] [address] [place] [address], [place] [phone] * Varicella zoster antibody IgG (10/11/2024 9:37 AM EDT) [facility] Varicella IgG Positive Positive LAB CHEMISTRY METHOD 10/11/2024 11:10 AM EDT [facility] Varicella Zoster IgG 28.70 >=1.00 S/CO LAB CHEMISTRY METHOD 10/11/2024 11:10 AM EDT [facility] Blood Venous blood specimen / Unknown Venipuncture / Unknown 10/11/2024 9:37 AM EDT 10/11/2024 9:37 AM EDT Narrative [facility] - 10/11/2024 11:10 AM EDT Interpretation >= 1.00 S/CO is considered to be consistent with Immunity us Cornelio Olivier MD LAB BLOOD ORDERABLES Fin al Result Performing Organization Address [facility] de Phone Number [facility] [address] [place] [address], [place] [phone] * (ABNORMAL) Immunoglobulin IgA (10/11/2024 9:37 AM EDT) IgA 369(H) 61 - 348 mg/dL LAB CHEMISTRY METHOD 10/11/2024 6:51 PM EDT [facility] Blood Venous blood specimen / Unknown Venipuncture / Unknown 10/11/2024 9:37 AM EDT 10/11/2024 9:37 AM EDT us Cornelio Olivier MD LAB BLOOD ORDERABLES Fin al Result Performing Organization Address [facility] de Phone Number [facility] [address] [place] [address], [place] [phone] * Immunoglobulin IgM (10/11/2024 9:37 AM EDT) IgM 34 23 - 259 mg/dL LAB CHEMISTRY METHOD 10/11/2024 6:58 PM EDT [facility] Blood Venous blood specimen / Unknown Venipuncture / Unknown 10/11/2024 9:37 AM EDT 10/11/2024 9:37 AM EDT us Cornelio Olivier MD LAB BLOOD ORDERABLES Fin al Result Performing Organization Address [facility] de Phone Number [facility] [address] [place] [address], [place] [phone] * Immunoglobulin IgG (10/11/2024 9:37 AM EDT) [facility] Total IgG 1,420 549 - 1,584 mg/dL LAB CHEMISTRY METHOD 10/11/2024 6:51 PM EDT [facility] Blood Venous blood specimen / Unknown Venipuncture / Unknown 10/11/2024 9:37 AM EDT 10/11/2024 9:37 AM EDT us Cornelio Olivier MD LAB BLOOD ORDERABLES Fin al Result Performing Organization Address [facility]/ZIP Co de Phone Number [facility] [address] [place] [address], [place] [phone] * Myelin oligodendrocyte glycoprotein antibody with reflex to titer (08/16/2024 2:57 PM EDT) [facility] MOG Antibody, Cell-based IFA Negative Negative 08/20/2024 3:05 PM EDT [facility] Blood Venous blood specimen / Unknown Venipuncture / Unknown 08/16/2024 2:57 PM EDT 08/16/2024 2:57 PM EDT Narrative [facility] - 08/20/2024 3:05 PM EDT Test(s) [id number] Antibody, Cell-based IFA was developed and its performance characteristics determined by [facility]. It has not been cleared or approved by the Food and Drug Administration. Performed at: - [address] [id number] Diesel Locomotive Engineer: Buck Styles MD, Phone: [phone] us Cornelio Olivier MD LAB BLOOD ORDERABLES Fin al Result [facility] * Sjogrens antibodies, SSA and SSB (08/16/2024 2:57 PM EDT) [facility] Sjogren's SS-A (Ro) Ab Quant 7 <20 units LAB CHEMISTRY METHOD 08/18/2024 11:00 AM EDT [facility] Sjogren's SS-A (Ro) Ab Negative Negative LAB CHEMISTRY METHOD 08/18/2024 11:00 AM EDT [facility] Sjogren's SS-B (La) Ab Quant 6 <20 units LAB CHEMISTRY METHOD 08/18/2024 11:00 AM EDT [facility] Sjogren's SS-B (La) Ab Negative Negative LAB CHEMISTRY METHOD 08/18/2024 11:00 AM EDT [facility] Blood Venous blood specimen / Unknown Venipuncture / Unknown 08/16/2024 2:57 PM EDT 08/16/2024 2:57 PM EDT Cornelio Olivier MD LAB BLOOD ORDERABLES Fin al Result [facility] [address] [place] [address], [place] [phone] * (ABNORMAL) TAMIKO IFA with titer and pattern (08/16/2024 2:57 PM EDT) TAMIKO Positive( A) Negative 08/20/2024 1:47 PM EDT [facility] TAMIKO Pattern Speckled( A) (none) 08/20/2024 1:47 PM EDT [facility] Comment: May be associated with SLE, Sjogren's syndrome, and mixed connective tissue disorder (MCTD). If clinical suspicion of Sjogren's syndrome consider testing for anti-Ro/SSA and anti-La/SSB. If clinical suspicion of mixed connective tissue disease, consider testing for anti-BUSINESS INTELLIGENCE MANAGER. Titer 1:640(A) <1:160 08/20/2024 1:47 PM EDT [facility] Blood Venous blood specimen / Unknown Venipuncture / Unknown 08/16/2024 2:57 PM EDT 08/16/2024 2:57 PM EDT Cornelio Olivier MD LAB BLOOD ORDERABLES Fin al Result [facility] [address] [place] [address], * (ABNORMAL) CBC auto differential (08/16/2024 2:57 PM EDT) Pathologist [facility] WBC 5.4 4.8 - 10.8 K/mcL LAB HEMETOLOGY METHOD 08/16/2024 6:30 PM EDT [facility] RBC 4.60 4.50 - 5.50 M/mcL LAB HEMETOLOGY METHOD 08/16/2024 6:30 PM EDT [facility] Hemoglobin 13.9 13.5 - 17.5 g/dL LAB HEMETOLOGY METHOD 08/16/2024 6:30 PM EDT [facility] Hematocrit 41.3(L) 42.0 - 54.0 % LAB HEMETOLOGY METHOD 08/16/2024 6:30 PM EDT [facility] MCV 90.2 79.0 - 98.0 FL LAB HEMETOLOGY METHOD 08/16/2024 6:30 PM EDT [facility] MCH 30.3 27.0 - 32.0 pcg LAB HEMETOLOGY METHOD 08/16/2024 6:30 PM EDT [facility] MCHC 33.7 32.0 - 37.0 g/dL LAB HEMETOLOGY METHOD 08/16/2024 6:30 PM EDT [facility] RDW 13.5 11.0 - 15.0 % LAB HEMETOLOGY METHOD 08/16/2024 6:30 PM EDT [facility] Platelets 188 130 - 400 K/mcL LAB HEMETOLOGY METHOD 08/16/2024 6:[address] [facility] MPV 11.2(H) 7.0 - 11.0 FL LAB HEMETOLOGY METHOD 08/16/2024 6:[address] [facility] NRBC 0.0 <1.0 % LAB HEMETOLOGY METHOD 08/16/2024 6:[address] [facility] NRBC Absolute 0.00 <0.10 K/mcL LAB HEMETOLOGY METHOD 08/16/2024 6:[address] [facility] Neutrophils Relative 45.5 % LAB HEMETOLOGY METHOD 08/16/2024 6:[address] [facility] Lymphocytes Relative 40.6 % LAB HEMETOLOGY METHOD 08/16/2024 6:[address] [facility] Monocytes Relative 8.9 % LAB HEMETOLOGY METHOD 08/16/2024 6:[address] [facility] Eosinophils Relative 3.9 % LAB HEMETOLOGY METHOD 08/16/2024 6:[address] [facility] Basophils Relative 0.7 % LAB HEMETOLOGY METHOD 08/16/2024 6:[address] [facility] Immature Granulocytes Relative 0.4 % LAB HEMETOLOGY METHOD 08/16/2024 6:[address] [facility] Neutrophils Absolute 2.47 1.50 - 7.00 K/mcL LAB HEMETOLOGY METHOD 08/16/2024 6:[address] [facility] Lymphocytes Absolute 2.20 1.00 - 5.00 K/mcL LAB HEMETOLOGY METHOD 08/16/2024 6:[address] [facility] Monocytes Absolute 0.48 0.20 - 1.00 K/mcL LAB HEMETOLOGY METHOD 08/16/2024 6:[address] [facility] Eosinophils Absolute 0.21 0.00 - 0.50 K/mcL LAB HEMETOLOGY METHOD 08/16/2024 6:30 PM EDT [facility] Basophils Absolute 0.04 0.00 - 0.20 K/[facility] LAB HEMETOLOGY METHOD 08/16/2024 6:30 PM EDT [facility] Immature Granulocytes Absolute 0.02 0.00 - 0.03 K/[facility] LAB HEMETOLOGY METHOD 08/16/2024 6:30 PM EDT [facility] Blood Venous blood specimen / Unknown Venipuncture / Unknown 08/16/2024 2:57 PM EDT 08/16/2024 2:57 PM EDT us Cornelio Olivier MD LAB BLOOD ORDERABLES Fin al Result Performing Organization Address [facility] de Phone Number [facility] [address] [place] [address], * Borrelia burgdorferi antibody (08/16/2024 2:57 PM EDT) [facility] Lyme Ab Negative Negative LAB CHEMISTRY METHOD 08/17/2024 8:15 AM EDT [facility] Comment: No laboratory evidence of infection with B. burgdorferi (Lyme disease). Negative results may occur in patients recently infected (<=14 days) with B. burgdorferi. If recent infection is suspected, repeat testing on a new sample collected in 7- 14 days is recommended. Blood Venous blood specimen / Unknown Venipuncture / Unknown 08/16/2024 2:57 PM EDT 08/16/2024 2:57 PM EDT us Cornelio Olivier MD LAB BLOOD ORDERABLES Fin al Result Performing Organization Address [facility]/ZIP Co de Phone Number [facility] [address] [place] [address], [place] [phone] * Creatinine (08/16/2024 2:57 PM EDT) [facility] Creatinine 1.03 0.70 - 1.30 mg/dL LAB CHEMISTRY METHOD 08/16/2024 7:13 PM EDT [facility] eGFR 80 >=60 mL/min/1. 73m2 LAB CHEMISTRY METHOD 08/16/2024 7:13 PM EDT [facility] Comment:Calculation based on the Chronic Kidney Disease Epidemiology Collaboration (CKD-EPI) equation refit without adjustment for race. Blood Venous blood specimen / Unknown Venipuncture / Unknown 08/16/2024 2:57 PM EDT 08/16/2024 2:57 PM EDT us Cornelio Olivier MD LAB BLOOD ORDERABLES Fin al Result Performing Organization Address City/[facility]/ZIP Co de Phone Number [facility] [address] [place] [address], [place] [phone] * Vitamin D 25 hydroxy (08/16/2024 2:57 PM EDT) Vit D, 25-Hydroxy 34.9 30.0 - 80.0 ng/mL LAB CHEMISTRY METHOD 08/16/2024 7:47 PM EDT [facility] Blood Venous blood specimen / Unknown Venipuncture / Unknown 08/16/2024 2:57 PM EDT 08/16/2024 2:57 PM EDT us Cornelio Olivier MD LAB BLOOD ORDERABLES Fin al Result [facility] [address] [place] [address], [place] [phone] * BUN (08/16/2024 2:57 PM EDT) BUN 9 5 - 25 mg/dL LAB CHEMISTRY METHOD 08/16/2024 7:13 PM EDT [facility] Blood Venous blood specimen / Unknown Venipuncture / Unknown 08/16/2024 2:57 PM EDT 08/16/2024 2:57 PM EDT us Cornelio Olivire MD LAB BLOOD ORDERABLES Fin al Result Performing Organization Address [facility]/ZIP Co de Phone Number [facility] [address] [place] [address], [place] [phone] * Vitamin B12 (08/16/2024 2:57 PM EDT) Pathologist [facility] Vitamin B-12 258 250 - 900 pcg/mL LAB CHEMISTRY METHOD 08/16/2024 7:37 PM EDT [facility] Blood Venous blood specimen / Unknown Venipuncture / Unknown 08/16/2024 2:57 PM EDT 08/16/2024 2:57 PM EDT us Cornelio Olivier MD LAB BLOOD ORDERABLES Fin al Result Performing Organization Address [facility] Co de Phone Number [facility] [address] [place] [address], [place] [phone] * MR Thoracic Spine wo and w Contrast (08/16/2024 2:42 PM EDT) Anatomical Region Laterality Modality T-spine, Spine Magnetic Resonan ce 08/21/2024 8:46 AM EDT Impressions 08/21/2024 9:43 AM EDT No evidence of demyelinating disease affecting the thoracic cord. -------- FINAL REPORT -------- Dictated By: Tommy Quezada Dictated Date: 08/21/2024 08:46 ET Assigned Physician: Tommy Quezada Reviewed and Electronically Signed By: Tommy Quezada Signed Date: 08/21/2024 09:43 ET Workstation ID: [id number] Transcribed By: Self Edit Transcribed Date: 08/21/2024 08:47 ET Narrative 08/21/2024 9:43 AM EDT PROCEDURE: MRI of the thoracic spine with intravenous contrast. HISTORY: MS MONITOR. COMPARISON: No prior study available for comparison. TECHNIQUE: Sagittal and axial multisequence MRI of the thoracic spine with and without intravenous contrast. IV contrast dose: 17 mL Dotarem from a 20 mL vial with 3 mL discarded. FINDINGS: There are degenerative changes of the cervical and lumbar spine evident on president & founder images which are incompletely evaluated on this exam. The paraspinous soft tissues are normal. Normal alignment. No compression deformity. Small hemangioma in the T5 vertebral body. No suspicious marrow infiltrative lesion. Mild diffuse degenerative irregularity of the vertebral endplates with small endplate osteophytes. Mild diffuse degenerative changes of the facet joints. There are a few very small disc bulges and protrusions which do not cause spinal stenosis or significant mass effect upon the cord. No significant foraminal stenosis. The conus is somewhat high in position, located at T11-12. The cord is normal in caliber and contour. No cord signal abnormality to suggest demyelinating disease. No abnormal cord enhancement. Procedure Note Tommy Quezada MD - 08/21/2024 PROCEDURE: MRI of the thoracic spine with intravenous contrast. HISTORY: MS MONITOR. COMPARISON: No prior study available for comparison. TECHNIQUE: Sagittal and axial multisequence MRI of the thoracic spine withand without intravenous contrast. IV contrast dose: 17 mL Dotarem from a 20 mL vial with 3 mL discarded. FINDINGS: There are degenerative changes of the cervical and lumbar spine evident onscout images which are incompletely evaluated on this exam. The paraspinous soft tissues are normal. Normal alignment. No compression deformity. Small hemangioma in the [id number] body. No suspicious marrow infiltrative lesion. Mild diffuse degenerative irregularity of the vertebral endplates withsmall endplate osteophytes. Mild diffuse degenerative changes of thefacet joints. There are a few very small disc bulges and protrusionswhich do not cause spinal stenosis or significant mass effect upon thecord. No significant foraminal stenosis. The conus is somewhat high in position, located at T11-12. The cord isnormal in caliber and contour. No cord signal abnormality to suggestdemyelinating disease. No abnormal cord enhancement. IMPRESSION: No evidence of demyelinating disease affecting the thoracic cord. -------- FINAL REPORT -------- Dictated By: Tommy Quezada Dictated Date: 08/21/2024 08:46 ET Assigned Physician: Tommy Quezada Reviewed and Electronically Signed By: Tommy Quezada Signed Date: 08/21/2024 09:43 ET Workstation ID: [id number] Transcribed By: Self Edit Transcribed Date: 08/21/2024 08:47 ET Cornelio Olivier MD [facility] MRI PROCEDURES Final Result * MR Cervical Spine wo and w Contrast (08/16/2024 2:42 PM EDT) Anatomical Region Laterality Modality C-spine, Spine Magnetic Resonan ce 08/21/2024 8:35 AM EDT Impressions 08/21/2024 9:58 AM EDT Patient motion limits evaluation for demyelinating lesions affecting the cord. There is no convincing cord signal abnormality. No abnormal cord enhancement. -------- FINAL REPORT -------- Dictated By: Tommy Quezada Dictated Date: 08/21/2024 08:35 ET Assigned Physician: Tommy Quezada Reviewed and Electronically Signed By: Tommy Quezada Signed Date: 08/21/2024 09:58 ET Workstation ID: [id number] Transcribed By: Self Edit Transcribed Date: 08/21/2024 08:36 ET Narrative 08/21/2024 9:58 AM EDT PROCEDURE: MRI of the cervical spine with intravenous contrast. HISTORY: Multiple sclerosis, monitor. COMPARISON: None. TECHNIQUE: Sagittal and axial multisequence MRI of the cervical spine with and without intravenous contrast. IV contrast dose:. 17 mL Dotarem from a 20 mL vial with 3 mL discarded. FINDINGS: Please see the accompanying dedicated MRI brain report for findings affecting the brain and skull base. The paraspinous soft tissues are normal. Alignment is normal. There is a small hemangioma in the T5 vertebral body. No concerning marrow infiltrative lesion. Patient motion limits evaluation of the cord. No definite cord signal abnormality. No abnormal cord enhancement. Cervical disc levels: C2-3: Mild endplate irregularity. Minimal bilateral uncovertebral spurs and minimal degenerative irregularity of the facet joints. No spinal or foraminal stenosis. C3-4: Minimal endplate irregularity. Moderate left and small right uncovertebral spurs. Mild left facet arthropathy. No significant spinal stenosis. Moderate left foraminal stenosis. C4-5: Minimal endplate irregularity and minimal bilateral uncovertebral spurs. Mild right facet arthropathy. No significant spinal or foraminal stenosis. C5-6: Mild bilateral facet arthropathy. No spinal or foraminal stenosis. C6-7: Mild bilateral facet arthropathy. No significant spinal or foraminal stenosis. C7-T1: No significant disc or facet abnormality. No spinal or foraminal stenosis. Procedure Note Tommy Quezada MD - 08/21/2024 PROCEDURE: MRI of the cervical spine with intravenous contrast. HISTORY: Multiple sclerosis, monitor. COMPARISON: None. TECHNIQUE: Sagittal and axial multisequence MRI of the cervical spine withand without intravenous contrast. IV contrast dose:. 17 mL Dotarem from a 20 mL vial with 3 mL discarded. FINDINGS: Please see the accompanying dedicated MRI brain report for findingsaffecting the brain and skull base. The paraspinous soft tissues are normal. Alignment is normal. There is a small hemangioma in the T5 vertebralbody. No concerning marrow infiltrative lesion. Patient motion limits evaluation of the cord. No definite cord signalabnormality. No abnormal cord enhancement. Cervical disc levels: C2-3: Mild endplate irregularity. Minimal bilateral uncovertebral spursand minimal degenerative irregularity of the facet joints. No spinal orforaminal stenosis. C3-4: Minimal endplate irregularity. Moderate left and small rightuncovertebral spurs. Mild left facet arthropathy. No significant spinalstenosis. Moderate left foraminal stenosis. C4-5: Minimal endplate irregularity and minimal bilateral uncovertebralspurs. Mild right facet arthropathy. No significant spinal or foraminalstenosis. C5-6: Mild bilateral facet arthropathy. No spinal or foraminalstenosis. C6-7: Mild bilateral facet arthropathy. No significant spinal orforaminal stenosis. C7-T1: No significant disc or facet abnormality. No spinal or foraminalstenosis. IMPRESSION: Patient motion limits evaluation for demyelinating lesions affecting thecord. There is no convincing cord signal abnormality. No abnormal cordenhancement. -------- FINAL REPORT -------- Dictated By: Tommy Quezada Dictated Date: 08/21/2024 08:35 ET Assigned Physician: Tommy Quezada Reviewed and Electronically Signed By: Tommy Quezada Signed Date: 08/21/2024 09:58 ET Workstation ID: [id number] Transcribed By: Self Edit Transcribed Date: 08/21/2024 08:36 ET Cornelio Olivier MD IM MRI PROCEDURES Final Result * MR Brain wo and w Contrast (08/16/2024 2:41 PM EDT) Anatomical Region Laterality Modality Head and Neck Magnetic Resonan ce 08/21/2024 8:47 AM EDT Impressions 08/21/2024 9:12 AM EDT 1. This study is limited by patient motion. 2. There are many small demyelinating lesions evident on today's examination which are not seen on the prior outside study. This is suspected to be secondary to the less sensitive technique utilized on the comparison exam. However, there is a definitely new lesion in the left periventricular white matter which demonstrates associated enhancement suggestive of active demyelination. -------- FINAL REPORT -------- Dictated By: Tommy Quezada Dictated Date: 08/21/2024 08:47 ET Assigned Physician: Tommy Quezada Reviewed and Electronically Signed By: Tommy Quezada Signed Date: 08/21/2024 09:12 ET Workstation ID: [id number] Transcribed By: Self Edit Transcribed Date: 08/21/2024 08:47 ET Narrative 08/21/2024 9:12 AM EDT PROCEDURE: Contrast-enhanced MRI of the brain. HISTORY: Multiple sclerosis, monitor. TECHNIQUE: Multiplanar multisequence MRI of the brain with and without intravenous contrast. IV CONTRAST DOSE: 17 mL Dotarem from a 20 mL vial with 3 mL discarded. COMPARISON: Outside exam dated 06/08/2024. FINDINGS: The study is limited by patient motion. BRAIN: Multifocal juxtacortical and periventricular supratentorial T2 hyperintense lesions consistent with demyelinating plaques. There is also a lesion in the left cerebellum. The comparison outside study was not performed with thin section volume acquisition FLAIR sequence images, which limits comparison for interval change. Many lesions are evident on today's examination which are not seen on the previous study but this may be due to more sensitive technique utilized today. However, there is a definitively new lesion in the left frontal juxtacortical white matter, which enhances following contrast administration (series 28 image 66). Some of the lesions are hypointense on the T1-weighted spin-echo sequence; the T1 lesion burden is unchanged. There is focal thinning of the posterior body of the corpus callosum. No diffusion abnormality. No mass or extra-axial fluid collection. No hydrocephalus. The major intracranial flow voids are preserved. Age commensurate ventricles and sulci. No abnormal enhancement. 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 ORBITS: Normal. Optic nerves appear normal in signal. Limited evaluation due to motion. SINUSES/MASTOIDS: Mild mucosal thickening in the ethmoids and inferior right maxillary antrum. Bilateral max bullosa, right larger than left. CALVARIUM: Normal. OTHER: The visualized skull base soft tissues are normal. Mild degenerative changes of the visualized cervical spine. Procedure Note Tommy Quezada MD - 08/21/2024 PROCEDURE: Contrast-enhanced MRI of the brain. HISTORY: Multiple sclerosis, monitor. TECHNIQUE: Multiplanar multisequence MRI of the brain with and withoutintravenous contrast. IV CONTRAST DOSE: 17 mL Dotarem from a 20 mL vial with 3 mL discarded. COMPARISON: Outside exam dated 06/08/2024. FINDINGS: The study is limited by patient motion. BRAIN: Multifocal juxtacortical and periventricular supratentorial [id number] lesions consistent with demyelinating plaques. There is alsoa lesion in the left cerebellum. The comparison outside study was notperformed with thin section volume acquisition FLAIR sequence images,which limits comparison for interval change. Many lesions are evident ontoday's examination which are not seen on the previous study but this maybe due to more sensitive technique utilized today. However, there is adefinitively new lesion in the left frontal juxtacortical white matter,which enhances following contrast administration (series 28 image 66).Some of the lesions are hypointense on the T1-weighted spin-echo sequence;the T1 lesion burden is unchanged. There is focal thinning of theposterior body of the corpus callosum. No diffusion abnormality. No mass or extra-axial fluid collection. Nohydrocephalus. The major intracranial flow voids are preserved. Agecommensurate ventricles and sulci. No abnormal enhancement. Incidentalnote of a developmental venous anomaly in the left frontal lobe. ORBITS: Normal. Optic nerves appear normal in signal. Limited evaluationdue to motion. SINUSES/MASTOIDS: Mild mucosal thickening in the ethmoids and inferiorright maxillary antrum. Bilateral max bullosa, right larger thanleft. CALVARIUM: Normal. OTHER: The visualized skull base soft tissues are normal. Milddegenerative changes of the visualized cervical spine. IMPRESSION: 1. This study is limited by patient motion. 2. There are many small demyelinating lesions evident on today'sexamination which are not seen on the prior outside study. This issuspected to be secondary to the less sensitive technique utilized on thecomparison exam. However, there is a definitely new lesion in the leftperiventricular white matter which demonstrates associated enhancementsuggestive of active demyelination. -------- FINAL REPORT -------- Dictated By: Tommy Quezada Dictated Date: 08/21/2024 08:47 ET Assigned Physician: Tommy Quezada Reviewed and Electronically Signed By: Tommy Quezada Signed Date: 08/21/2024 09:12 ET Workstation ID: [id number] Transcribed By: Self Edit Transcribed Date: 08/21/2024 08:47 ET Cornelio Olivier MD IMG MRI PROCEDURES Final Result from Last 3 Months Insurance [facility] [employer] Member Subscriber Plan / Payer (Ef fective 2024-Present) Name:Juan Monroe Relation to Subscriber:Self Name:Juan Monroe Payer ID:[id number] Group ID:Not on file Type:Not on file Address: [place] [address] [address] [id number] Care Teams Furniture Sales Consultant Relationship Specialty Start Date End Date Tamiko Jimenez MD [address] [facility] , [address] [facility] D/B/A: [facility] ANNETTA Reaves PCP - General Internal Medicine 03/13/24
--- OUTSIDE RECORDS SUMMARY | 2024-10-29 13:26 | XMS_ITS | Clinical Summary ---
Author Organization [facility] Address [address] [place] [id number] Phone Care Team Providers Care Hogshead Liner Name Role Phone Unavailable Primary Care Provider Unavailabl e Social History Tobacco Use Types Packs/Day Years Used Date Smoking Tobacco: Never Assessed Education Answer Date Recorded Are you interested in more education? Not on moises e 09/19/2022 Are you concerned about learning? Not on file 09/19/2022 No 09/19/2022 No 09/19/2022 Digital Access Answer Date Recorded No 09/19/2022 No 09/19/2022 Reliable internet access at home? Not on file 09/19/2022 Device with a working camera? Not on file Sex and Gender Information Value Date Recorded Sex Assigned at Not on file Legal Sex Male 2:56 PM EDT Gender Identity Not on file Sexual Orientation Not on file Plan of Treatment Not on file Medical Devices Not on file Additional Source Comments The information contained in this document represents components of the legal health record. It is not the complete legal health record.[facility]
== END 2024-10-29 13:56 | disposition home or self-care (01) ==
LOC: HO.HSMS 12:52
PROVIDERS: PCP Internal Medicine; Visit Provider Physician Assistant Medical
DX: G47.33 Obstructive sleep apnea (adult) (pediatric) (principal); G25.81 Restless legs syndrome; M72.2 Plantar fascial fibromatosis; G47.52 REM sleep behavior disorder
CPT/HCPCS: 99214; G2211

== ENCOUNTER → 2024-10-29 12:51 | Outpatient (BNVA) | payer OTHER, SELFPAY | PROVIDERS: PCP Internal Medicine; Visit Provider Physician Assistant Medical | DX: G47.33 Obstructive sleep apnea (adult) (pediatric) (principal); Z99.89 Dependence on other enabling machines and devices; G25.81 Restless legs syndrome; M72.2 Plantar fascial fibromatosis; G47.52 REM sleep behavior disorder | CPT/HCPCS: 99212 ==

== ENCOUNTER 2024-11-19 10:32 | Outpatient (REF) | payer OTHER, SELFPAY ==
--- OUTSIDE RECORDS SUMMARY | 2024-11-19 11:19 | XMS_ITS | Encounter Summary ---
Author Organization [employer] Address [address] [place] [address] [address] [place] [address] Care Team Providers Care Mold Loft Worker Name Role Phone Unavailable Primary Care Provider Unavailabl e Reason for Visit * Reason Comments Med Refill Encounter Details Date Type Department Care Team ([facility] st Contact Info) Description 10/27/2022 Refill [facility] [address] [place] [address] Josué Valencia MD [address] [place] [address] Social History Tobacco Use Types Packs/Day Years [...]
--- OUTSIDE RECORDS SUMMARY | 2024-11-19 11:19 | XMS_ITS | Clinical Summary ---
Author Organization [facility] Address [address] [place] [phone] Phone Care Team Providers Care Business Systems Developer Name Role Phone Unavailable Primary Care [...] It is not the complete legal health record.[facility]
--- OUTSIDE RECORDS SUMMARY | 2024-11-19 11:19 | XMS_ITS | Encounter Summary ---
Author Organization [employer] Address [address] [place] [address] [address] [place] [address] Care Team Providers Care Experimental Preflight Mechanic Name Role Phone Unavailable Primary Care Provider Unavailabl e Reason for Visit * Reason Comments Med Refill Encounter Details Date Type Department Care Team ([facility] st Contact Info) Description 07/20/2022 Refill [facility] [address] [place] [address] Josué [place] MD [address] [place] [address] Social History Tobacco Use Types Packs/Day Years [...]
--- OUTSIDE RECORDS SUMMARY | 2024-11-19 11:19 | XMS_ITS | Encounter Summary ---
Author Organization [employer] Address [address] [place] [address] [address] [place] [address] Care Team Providers Care Garden Worker Name Role Phone Unavailable Primary Care Provider Unavailabl e Encounter Details Date Type Department Care Team (Latest Contact Info) Description 09/22/2020 Abstract [facility] CONVERSIONS Dental, Provider, DDS Social History Tobacco [...]
--- OUTSIDE RECORDS SUMMARY | 2024-11-19 11:19 | XMS_ITS | Encounter Summary ---
Author Organization [employer] Address [address] [place] [address] [address] [place] [address] Care Team Providers Care Senior Producer Name Role Phone Unavailable Primary Care Provider Unavailabl e Reason for Visit * Reason Comments Med Refill Encounter Details Date Type Department Care Team ([facility] st Contact Info) Description 04/04/2022 Refill [facility] MEDICINE [address] [place] [address] Josué [place] MD [address] [place] [address] Social History Tobacco Use Types Packs/Day Years [...]
--- OUTSIDE RECORDS SUMMARY | 2024-11-19 11:19 | XMS_ITS | Encounter Summary ---
Author Organization [employer] Address [address] [place] [address] [address] [address] Care Team Providers Care Special Needs Librarian Name Role Phone Unavailable Primary Care Provider Unavailabl e Encounter Details Date Type Department Care Team (Latest Contact Info) Description 12/31/2021 Abstract [facility] CONVERSIONS Dental, Provider, DDS Social History [...]
--- OUTSIDE RECORDS SUMMARY | 2024-11-19 11:19 | XMS_ITS | Clinical Summary ---
Author Organization [employer] Address [address] [place] [address] 7t [place] [address] Care Team Providers Care Oil Burner Technician Name Role Phone Unavailable Primary Care [...] Positive antinuclear antibody 06/25/2012 Tinnitus 06/25/2012 Immunizations Immunization Administration Dates Next Due INFLUENZA INJECTABLE QUADRIV [...] 2023 03/23/2021, 07/15/2020, 06/17/2020 Influenza Vaccine (#1) 2024 , 01/07/2022, 03/09/2021, Additional history exists Lipid [...] [facility] Comment: Reference range: <100 Desirable range <100 mg/dL for primary prevention; <70 mg/dL for patients with CHD or diabetic patients with > or = 2 CHD risk factors. LDL-C is now calculated using the Mejia-Ellsworth calculation, which is a validated novel method providing better accuracy than the Friedewald equation in the estimation of LDL-C. Mejia SS et al. EFRAÍN. 2013;310(19): 1346-1877 (http://education.Ringz.TV.com/faq/LPY692) Non-HDL Cholesterol 158(H) <130 mg/dL (calc) [facility] Comment: For patients with diabetes plus 1 major ASCVD risk factor, treating to a non-HDL-C goal of <100 mg/dL (LDL-C of <70 mg/dL) is considered a therapeutic option. Triglycerides 351(H) <150 mg/dL [facility] Comment: If a non-fasting specimen was collected, consider repeat triglyceride testing on a fasting specimen if clinically indicated. Rodrigo et al. J. of Clin. Lipidol. 2015;9:129-169. 08/14/2020 9:42 AM EDT us Josué Winkler MD LAB BLOOD ORDERABLES Final Result [facility] [address] from Last 3 Months or Most Recently Relevant to Health Maintenance Insurance [facility] [employer] OPTIONS (O D-SNP) [place] [id number]
--- OUTSIDE RECORDS SUMMARY | 2024-11-19 11:19 | XMS_ITS | Encounter Summary ---
Author Organization [employer] Address [address] [place] [address] [address] [address] Care Team Providers Care Ice Skater Name Role Phone Unavailable Primary Care Provider Unavailabl e Reason for Visit * Reason Comments Med Refill Encounter Details Date Type Department Care Team ([facility] st Contact Info) Description 04/18/2022 Refill [facility] MEDICINE [address] [place] [address] Josué [place] MD 230 [place], [place] [phone] Social History Tobacco Use Types Packs/Day Years [...]
--- OUTSIDE RECORDS SUMMARY | 2024-11-19 11:19 | XMS_ITS | Clinical Summary ---
Author Organization [address] [facility] Address [address] [place] [address] Phone Care Team Providers Care Chainstitch Tunnel Elastic Operator Name Role Phone Cathy Jimenez MD Primary Care Provider [phone] Allergies Active Allergy Reactions Criticality Noted Date [...] Noted Date Diagnosed Date MS (multiple sclerosis) ([facility]/HCC V24, CMS/HCC V2 8) 10/11/2024 Encounters Date Type Department Care Team Description 11/13/2024 8:30 AM EDT Office Visit [address] [phone] Cornelio Olivier MD Gait abnormality (Primary Dx); MS (multiple sclerosis) (CMS/HCC V24, CMS/HCC V28); Dizziness 10/24/2024 11:00 AM EDT Office Visit [address] [phone] Cornelio Olivier MD MS (multiple sclerosis) ([facility] V24, CMS/HCC V28) (Primary Dx); Gait abnormality; Urinary symptom or sign 10/21/2024 3:15 PM EDT Treatment [facility] [address] [place] [phone] Liz Garcia, BARN MANAGER Dysphagia, oropharyngeal (Primary Dx); Multiple sclerosis (CMS/HCC V24, CMS/HCC V28) 10/21/2024 2:30 PM EDT Treatment [facility] - [address] [phone] Preethi Jung, PT Multiple sclerosis (CMS/HCC V24, CMS/HCC V28) (Primary Dx) 10/16/2024 8:46 AM EDT - 10/16/2024 11:59 PM EDT Hospital Encounter [facility] - [address] [phone] MS (multiple sclerosis) (CMS/HCC V24, CMS/HCC V28) (Primary Dx) Discharge Disposition: Home or Self Care 10/15/2024 9:48 AM EDT - 10/15/2024 11:59 PM EDT Hospital Encounter [facility] [phone] MS (multiple sclerosis) (CMS/HCC V24, CMS/HCC V28) (Primary Dx) Discharge Disposition: Home or Self Care 10/11/2024 9:42 AM EDT - 10/11/2024 11:59 PM EDT Hospital En[facility] [phone] MS (multiple sclerosis) (CMS/HCC V24, CMS/HCC V28) (Primary Dx) Discharge Disposition: Home or Self Care 10/11/2024 Telephone [facility] MS [address] [phone] Cornelio Olivier MD 10/10/2024 4:00 PM EDT Office Visit [address] [phone] Cornelio Olivier MD Multiple sclerosis (CMS/HCC V24, CMS/HCC V28) (Primary Dx); Gait abnormality; Urinary symptom or sign 10/02/2024 2:30 PM EDT Treatment [address] [phone] Preethi Jung, PT Multiple sclerosis (CMS/HCC V24, CMS/HCC V28) (Primary Dx) 09/30/2024 3:30 PM EDT Treatment [address] [phone] Preethi Jung, PT Multiple sclerosis (CMS/HCC V24, CMS/HCC V28) (Primary Dx) 09/25/2024 2:00 PM EDT Treatment [address] [phone] Emily Gonzalez, PT Multiple sclerosis (CMS/HCC V24, CMS/HCC V28) (Primary Dx) 09/23/2024 2:30 PM EDT Treatment [facility] [address] [phone] Sarthak Hsu, PEDIATRIC DIETICIAN Multiple sclerosis (CMS/HCC V24, CMS/HCC V28) (Primary Dx) 09/19/2024 2:45 PM EDT Evaluation [address] [phone] Liz Garcia, BARN MANAGER Dysphagia, oropharyngeal (Primary Dx); Multiple sclerosis (CMS/HCC V24, CMS/HCC V28); Gait abnormality 09/19/2024 1:00 PM EDT Treatment [address] [phone] Preethi Jung, PT Multiple sclerosis (CMS/HCC V24, CMS/HCC V28) (Primary Dx) 09/19/2024 Plan of Care Documentation [facility] [address] [phone] 09/17/2024 2:30 PM EDT Treatment [address] [phone] Robert Peacock, PEDIATRIC DIETICIAN Multiple sclerosis (CMS/HCC V24, CMS/HCC V28) (Primary Dx) 09/12/2024 3:30 PM EDT Treatment [address] [phone] Sarthak Hsu, PEDIATRIC DIETICIAN Multiple sclerosis (CMS/HCC V24, CMS/HCC V28) (Primary Dx) 09/10/2024 9:00 AM EDT Treatment [address] [phone] Robert Peacock, PEDIATRIC DIETICIAN Multiple sclerosis (CMS/HCC V24, CMS/HCC V28) (Primary Dx); Gait abnormality 09/04/2024 1:30 PM EDT Treatment [facility] [address] [phone] Sarthak Hsu, PEDIATRIC DIETICIAN Multiple sclerosis ([facility] V24, [facility] V28) (Primary Dx) 08/27/2024 9:30 AM EDT Evaluation [address] [phone] Preethi Jung, PT Multiple sclerosis ([facility] V24, CMS/[facility] V28) (Primary Dx); Gait abnormality from Last 3 Months Medical History Medical History Date Comments Diabetes mellitus ([facility] V24, [facility] V28) Social History Tobacco Use Types Packs/Day [...] Sign Reading Time Taken Comments Blood Pressure 106/73 11/13/2024 8:40 AM EDT Pulse 96 11/13/2024 8:40 AM EDT Temperature 36.1 C (96.9 F) 11/13/2024 8:40 AM EDT Respiratory Rate 16 10/16/2024 10:33 AM EDT Oxygen Saturation 95% 11/13/2024 8:40 AM EDT Inhaled Oxygen Concentration - - Weight 83 kg (183 lb) 11/13/2024 8:40 AM EDT Height 172.7 cm (5' 8 ) 11/13/2024 8:40 AM EDT Body Mass Index 27.83 11/13/2024 8:40 AM EDT Plan of Treatment Upcoming Encounters Date Type Department Care Team (Late st Contact Info) Description 11/19/2024 1:30 PM EDT Evaluation [facility] [address] [place] [phone] Megan Coronel, OT 12/17/2024 10:30 AM EDT Evaluation [address] [phone] Vesta Vilchis, PT 12/25/2024 9:00 AM EDT Appointment [facility] [address] [place] [address] 02/13/2025 1:00 PM EST Office Visit [facility] [address] [facility] [address] [place] [address] Debbi Brown, PA [facility] [place] [address] Health Maintenance Due Date Last Done Comments [...] Type Associated Problems Recent Progress Patient-Stated? Author BARN MANAGER LTG General No Liz Garcia, BARN MANAGER Note: Pt will consume least restrictive PO diet without changes to medical or respiratory status to maintain adequate oral nutrition hydration BARN MANAGER STGs General No Liz Garcia, BARN MANAGER Note: Pt will participate in MBS for [...] Hepatitis C antibody (10/11/2024 9:37 AM EDT) Hepatitis C Antibody Negative Negative LAB CHEMISTRY METHOD 10/11/2024 4:55 PM EDT [facility] Blood Venous blood specimen / Unknown Venipuncture / Unknown 10/11/2024 9:37 AM EDT 10/11/2024 9:37 AM EDT us Cornelio Olivier MD LAB BLOOD ORDERABLES Fin al Result Performing Organization Address [facility] Co de Phone Number [facility] [address] [place] [address], [place] [phone] * HIV 1,2 antibody, p24 antigen with reflex to differentiation (10/11/2024 9:37 AM EDT) [facility] HIV Combo AB/AG Negative Negative LAB CHEMISTRY METHOD 10/11/2024 4:56 PM EDT [facility] Blood Venous blood specimen / Unknown Venipuncture / Unknown 10/11/2024 9:37 AM EDT 10/11/2024 9:37 AM EDT Narrative [facility] - 10/11/2024 4:56 PM EDT This [...] ORDERABLES Fin al Result Performing Organization Address [facility] de Phone Number [facility] [address] [place] [address], [place] [phone] * Interferon gamma interpretation (10/11/2024 9:37 AM EDT) [facility] Quantiferon Plus Interpretation Negative Negative LAB CHEMISTRY METHOD 10/12/2024 11:12 AM EDT [facility] Blood Venous blood specimen / Unknown Venipuncture / Unknown 10/11/2024 9:37 AM EDT 10/11/2024 9:37 AM EDT us Cornelio Olivier MD LAB BLOOD ORDERABLES Fin al Result Performing Organization Address City/[facility] Co de Phone Number [facility] [address] [place] [address], [place] [phone] * Interferon gamma antigen 2 (10/11/2024 9:37 AM EDT) Blood Venous blood specimen / Unknown Venipuncture / Unknown 10/11/2024 9:37 AM EDT 10/11/2024 9:37 AM EDT us Cornelio Olivier MD LAB BLOOD ORDERABLES Fin al Result [facility] [address] [place] [address], * Interferon gamma antigen 1 (10/11/2024 9:37 AM EDT) Blood Venous blood specimen / Unknown Venipuncture / Unknown 10/11/2024 9:37 AM EDT 10/11/2024 9:37 AM EDT us Cornelio Olivier MD LAB BLOOD ORDERABLES Fin al Result [facility] [address] [place] [address], [place] [phone] * Interferon gamma mitogen (10/11/2024 9:37 AM EDT) Blood Venous blood specimen / Unknown Venipuncture / Unknown 10/11/2024 9:37 AM EDT 10/11/2024 9:37 AM EDT us Cornelio Olivier MD LAB BLOOD ORDERABLES Fin al Result [facility] [address] [place] [address], [place] [phone] * Interferon gamma NIL (10/11/2024 9:37 AM EDT) Blood Venous blood specimen / Unknown Venipuncture / Unknown 10/11/2024 9:37 AM EDT 10/11/2024 9:37 AM EDT Cornelio Olivier MD LAB BLOOD ORDERABLES Fin al Result Performing Organization Address [facility]/ZIP Co de Phone Number [facility] [address] [place] [address], [place] [phone] * Hepatitis B surface antigen with reflex to confirmation (10/11/2024 9:37 AM EDT) Pathologist [facility] Hepatitis B Surface Ag Negative Negative LAB CHEMISTRY METHOD 10/11/2024 4:27 PM EDT [facility] Blood Venous blood specimen / Unknown Venipuncture / Unknown 10/11/2024 9:37 AM EDT 10/11/2024 9:37 AM EDT Narrative [facility] - 10/11/2024 4:27 PM EDT Over the counter supplements containing high doses of biotin may interfere with this assay. If interference is suspected, patients shoud be retested after refraining from biotin supplements for 72 hours. us Cornelio Olivier MD LAB BLOOD ORDERABLES Fin al Result Performing Organization Address [facility] Co de Phone Number [facility] [address] [place] [address], [place] [phone] * (ABNORMAL) JCV polyoma virus antibody with reflex to inhibition assay (10/11/2024 9:37 AM EDT) [facility] Index Value 2.09 10/21/2024 1:05 PM [...] - 10/21/2024 1:05 PM EDT Performed at: - [employer] [facility] [address] [place] [id number] Telegraphic Typewriter Mechanic: Madelin Brambila MD, Phone: [phone] Cornelio Olivier MD LAB BLOOD ORDERABLES Fin al Result [facility] * Hepatitis B core antibody IgM (10/11/2024 9:37 AM EDT) [facility] Hep B Core IgM Negative Negative LAB CHEMISTRY METHOD 10/11/2024 4:55 PM EDT [facility] Blood Venous blood specimen / Unknown Venipuncture / Unknown 10/11/2024 9:37 AM EDT 10/11/2024 9:37 AM EDT [facility] - 10/11/2024 4:55 PM EDT Over the counter supplements containing high doses of biotin may interfere with this assay. If interference is suspected, patients shoud be retested after refraining from biotin supplements for 72 hours. us Cornelio Olivier MD LAB BLOOD ORDERABLES Fin al Result Performing Organization Address [facility] de Phone Number [facility] [address] [place] [address], [place] [phone] * Varicella zoster antibody IgG (10/11/2024 9:37 AM EDT) Pathologist [facility] Varicella IgG Positive Positive LAB CHEMISTRY METHOD 10/11/2024 11:10 AM EDT [facility] Varicella Zoster IgG 28.70 >=1.00 S/CO LAB CHEMISTRY METHOD 10/11/2024 11:10 AM EDT [facility] Blood Venous blood specimen / Unknown Venipuncture / Unknown 10/11/2024 9:37 AM EDT 10/11/2024 9:37 AM EDT Narrative [facility] - 10/11/2024 11:10 AM EDT Interpretation >= 1.00 S/CO is considered to be consistent with Immunity us Cornelio Olivier MD LAB BLOOD ORDERABLES Fin al Result Performing Organization Address [facility] de Phone Number [facility] [address] [place] [address], [place] [phone] * (ABNORMAL) Immunoglobulin IgA (10/11/2024 9:37 AM EDT) IgA 369(H) 61 - 348 mg/dL LAB CHEMISTRY METHOD 10/11/2024 6:51 PM EDT [facility] Blood Venous blood specimen / Unknown Venipuncture / Unknown 10/11/2024 9:37 AM EDT 10/11/2024 9:37 AM EDT us Cornelio Olivier MD LAB BLOOD ORDERABLES Fin al Result Performing Organization Address City/[facility]/ZIP Co de Phone Number [facility] [address] [place] [address], [place] [phone] * Immunoglobulin IgM (10/11/2024 9:37 AM EDT) IgM 34 23 - 259 mg/dL LAB CHEMISTRY METHOD 10/11/2024 6:58 PM EDT [facility] Blood Venous blood specimen / Unknown Venipuncture / Unknown 10/11/2024 9:37 AM EDT 10/11/2024 9:37 AM EDT Cornelio Olivier MD LAB BLOOD ORDERABLES Fin al Result Performing Organization Address [facility] Co de Phone Number [facility] [address] [place] [address], [place] [phone] * Immunoglobulin IgG (10/11/2024 9:37 AM EDT) Total IgG 1,420 549 - 1,584 mg/dL LAB CHEMISTRY METHOD 10/11/2024 6:51 PM EDT [facility] Blood Venous blood specimen / Unknown Venipuncture / Unknown 10/11/2024 9:37 AM EDT 10/11/2024 9:37 AM EDT Cornelio Olivier MD LAB BLOOD ORDERABLES Fin al Result Performing Organization Address City/[facility]/ZIP Co de Phone Number [facility] [address] [place] [address], [place] [phone] from Last 3 Months Insurance [facility] OPTIONS Member Subscriber Plan / Payer (Ef fective 2022-Present) Name:Juan Monroe A Relation to Subscriber:Self Name:Juan Monroe Payer ID:[id number] Group ID:Not on file Type:Not on file Address: [address] [address] Care Teams Chainstitch Tunnel Elastic Operator Relationship Specialty Start Date End Date Cathy Jimenez MD [facility] , [address] [place] [address] Physician Associ D/B/A: [facility] ANNETTA Reaves PCP - General Internal Medicine 03/13/24
[2024-11-19 12:28] LABS: Thyroid Stimulating Hormone 0.01 uIU/mL (0.32-4.0)
== END 2024-11-19 10:33 | disposition home or self-care (01) ==
LOC: HO.LAB 10:32
PROVIDERS: PCP Internal Medicine; Visit Provider Internal Medicine
DX: E06.3 Autoimmune thyroiditis (principal)
CPT/HCPCS: 36415; 84443

== ENCOUNTER 2024-12-02 10:52 | Outpatient (AMB) | payer OTHER, SELFPAY ==
--- NOTE | 2024-12-02 11:02 | A.OFFVIS_ITS ---
Vital Signs 3 12/02/24 11:06 Height 5 ft 8 in Weight 186 lb BMI 28.3 Intake Visit Reasons: New Pt- Plantar Fasciitis Intake Note: Juan is a 69 year old male who presents today as a new patient for plantar fasciitis of the left foot. He mentions having immense pain while ambulating and has not tried taking OTC medication for the pain. Patient reports he has had the pain his left foot for about 15 years. FINDINGS: Plantar calcaneal spur. No fracture identified. Alignment is anatomic. Joint spaces are maintained. Soft tissues appear unremarkable. Cio Required: Yes Cio Services: Cio Present Cio Name: [id number] Allergies tramadol Allergy (Intermediate, Verified 12/02/24 11:05) Hives Medication List - Last Reconciled 12/02/24 by Angelique Rosales DPM atorvastatin (Lipitor) 40 mg PO BEDTIME 90 days cholecalciferol (vitamin D3) 25 mcg PO DAILY 90 days citalopram 20 mg PO DAILY 90 days clotrimazole 10 mg PO cyclobenzaprine 10 mg PO Q8H PRN 30 days dulaglutide (Trulicity) 1.5 mg (0.5 mL) subcut QWEEK 90 days fenofibrate 54 mg PO DAILY 90 days gabapentin 600 mg (2 x 300 mg) PO BEDTIME 1 month MDD 300mg lancets (FreeStyle Lancets) As directed lancets (TRUEplus Lancets) As directed levothyroxine 200 mcg PO DAILY 90 days lisinopril 10 mg PO DAILY 90 days mecobalamin (vitamin B12) 1,000 mcg sublingual BEDTIME 3 months MDD 1000mcg melatonin 6 mg (2 x 3 mg) PO BEDTIME PRN 30 days metformin 1,000 mg PO BID 90 days naproxen 500 mg PO BID PRN [nonslip bath mat As directed] nystatin 1 appl topical BID 15 days pantoprazole 40 mg PO DAILY quetiapine 25 mg PO BID sumatriptan succinate 50 mg PO DAILY PRN tadalafil 20 mg PO ONCE PRN 30 days terazosin 5 mg PO BEDTIME 90 days HPI Comments Details: This is a 69-year-old male with a past medical history as seen below who presents to the office for left foot pain. Patient states he has noticed a bump at the plantar aspect of his left foot for approximately 15 years. He denies currently taking any NSAIDs for the pain. He states warm water in a warm compress help minimally. He denies any inciting injury or insect bites. Patient states he experiences pain localized to the area with burning noted. Patient denies any previous treatment for this condition. Patient also presents with concerns of itching and discoloration to bilateral feet noted to the medial aspect of the heels and feet. He denies any other pedal concerns. Denies any nausea vomiting fever or chills. Patient's A1c is 6.5 and he states his blood glucose has been high recently. [facility] Medical History Voice hoarseness ROLDAN (obstructive sleep apnea) Hypovitaminosis D Type 2 diabetes mellitus, with long-term current use of insulin Moderate recurrent major depression Erectile dysfunction History of urinary hesitancy Prostate nodule Enlarged prostate without lower urinary tract symptoms (luts) Flatus Unspecified constipation Medial meniscus tear OA (osteoarthritis) Arthralgia TAMIKO positive Hypothyroidism Multiple sclerosis Surgical History History of surgery Family History Mother Diabetes mellitus Father No problems noted. Social History Household Members Other:: and daughter Housing: House Alcohol intake: never Patient Tobacco Use Status: Never used Tobacco e-Cigarette/Vaping Use: Never Used Second Hand Smoke Exposure: No service: No Current occupational status: disabled Cognitive needs: Yes Hearing needs: No Vision needs: Yes Review of Systems Const All systems reviewed & are unremarkable except as noted in HPI and below Physical Exam Vital Signs: BMI result Body Mass Index 28.3 Extrem Other: Bilateral lower extremity focused exam: Derm: Left-soft tissue mass noted to the plantar aspect of the left foot in the area of the 5th metatarsal head. Mass noted to measure approximately 1 x 1.5 cm. No erythema noted. Upon aspiration serous fluid noted. Discoloration and xerosis noted to the medial aspects of the foot in heel bilaterally. No clinical signs of infection. Vascular: DP palpable bilaterally, PT palpable on the right. PT nonpalpable on the left. No varicosities noted. Pedal hair present to the proximal aspect of the legs but absent to the distal aspect of the legs. Neuro: Protective sensation is grossly intact. Musculoskeletal: Pain on palpation to the soft tissue mass noted to the left foot. No soft tissue crepitus noted. Soft tissue mass noted to be fluctuant in nature and mobile. Range of motion of the forefoot and hindfoot within normal limits. Ankle/foot/toe images: 2 1. Left foot cyst/soft tissue mass Office Procedures AMB Ganglion Cyst Podiatry Procedure: Left foot aspiration of soft tissue mass: Cleansed the affected area with an alcohol swab and betadine. Next sprayed ehtyl chloride to the affected area and using a #18 gauge needle and 6 mL, the affected area was aspirated. Serous fluid was noted. Next, the area was cleansed with hydrogen peroxide and was dressed with betadine and a bandaid. The specimen obtained was sent to pathology. Aspiration and/or injection of ganglion cyst(s) any location Procedure code (CPT) selection complete Office Meds ethyl chloride 100 % topical spray Performing Provider: Angelique Rosales DPM Performing Location: [facility] Podiatry-[facility] Administered by: Angelique Rosales DPM on 12/02/24 12:08 2 Dose Route Admin Location Dispensed Lot Number Expiration Date [facility] Intelligence Operations Specialist 3 appl topical 116 mL [id number] Cytodyn. Results Reviewed Results Reviewed: Ordered left foot MRI to be performed prior to next appointment. Left foot x-ray podiatry read: Mild osteophytic changes noted to the distal phalanx of the hallux. Mild plantar calcaneal spurring noted. No acute fractures or dislocations noted. Left foot x-ray (01/17/2024): FINDINGS: Plantar calcaneal spur. No fracture identified. Alignment is anatomic. Joint spaces are maintained. Soft tissues appear unremarkable. IMPRESSION: No acute finding. Assessment & Plan Assessment & Plan (1) Mass of left foot: Code(s): R22.42 - Localized swelling, mass and lump, left lower limb Category: Medical (2) Ganglion cyst of left foot: Code(s): M67.472 - Ganglion, left ankle and foot Category: Medical (3) Subcutaneous mass of left foot: Code(s): R22.42 - Localized swelling, mass and lump, left lower limb Category: Medical (4) Athletes foot: Code(s): B35.3 - Tinea pedis Category: Medical Qualifiers: Laterality: bilateral Qualified Code(s): B35.3 - Tinea pedis (5) Left foot pain: Code(s): M79.672 - Pain in left foot Category: Medical Plan Discussed with patient diagnosis of cyst and tinea pedis. At this time aspiration of ganglion cyst is recommended. Aspirated the left foot cyst with no incidents. Specimen contents to be sent to pathology. Provided patient with an offloading felt device to be applied to the affected area of the left foot in order to offload the cystic area to alleviate pain. Advised patient to monitor his feet daily, avoid barefoot walking, and keep the feet clean and dry. Provided patient with diabetic foot education and discussed importance of monitoring and lowering his current blood glucose level to prevent adverse events. Advised patient to continue to wear supportive shoe gear. Prescribed patient with clotrimazole cream to be applied twice a day to the affected areas of bilateral feet. Ordered a left foot MRI to be performed prior to the next visit. Patient is to return to the office in 2 weeks. Further treatment pending MRI results. Discussed with patient possible need for surgical intervention if cyst worsens. Discussed with patient high reoccurrence rate of cysts. Orders: Orders 2 AMB Ganglion Cyst Injection/Aspiration Podiatry Today M67.472 - Ganglion, left ankle and foot, M79.672 - Pain in left foot, R22.42 - Localized swelling, mass and lump, left lower limb MR foot LT wo/w con Today M6.472 - Ganglion, left ankle and foot, R22.42 - Localized swelling, mass and lump, left lower limb Surgical Today M6.472 - Ganglion, left ankle and foot, R22.42 - Localized swelling, mass and lump, left lower limb Medications: New 2 clotrimazole 1% 1 appl topical BID 30 grams 0RF Athlete's Foot B35.3 - Tinea pedis Discontinued 2 nystatin Discontinued Reason: Doctor's Order 1 appl topical BID 15 days 15 grams 2RF Coding Level of Care Code New Pt Level 4 (77200) Diagnoses Mass of left foot R22.42 Ganglion cyst of left foot M67.472 Subcutaneous mass of left foot R22.42 Tinea pedis of both feet B35.3 Laterality: bilateral Left foot pain M79.672 CPT Codes Ganglion Cyst Aspiration/injection - [id number]: [id number] Aspiration and/or injection of ganglion cyst(s) any location ([id number]) Time Spent (min) 60
[2024-12-02 11:06] VITALS: BMI 28.3
--- OUTSIDE RECORDS SUMMARY | 2024-12-02 13:13 | XMS_ITS | Encounter Summary ---
Author Organization [employer] Address [address] [place] [address] [address] [place] [address] Care Team Providers Care Special Officer Automat Name Role Phone Unavailable Primary Care Provider Unavailabl e Reason for Visit * Reason Comments Med Refill Encounter Details Date Type Department Care Team ([facility] st Contact Info) Description 04/04/2022 Refill [facility] [address] [place] [address] Josué Valencia MD [address] [place], [place] [phone] Social History Tobacco Use Types Packs/Day Years [...]
--- OUTSIDE RECORDS SUMMARY | 2024-12-02 13:14 | XMS_ITS | Encounter Summary ---
Author Organization [employer] Address [address] [place] [address] [address] [place] [address] Care Team Providers Care Infectious Diseases Physician Name Role Phone Unavailable Primary Care Provider Unavailabl e Encounter Details Date Type Department Care Team (Latest Contact Info) Description 09/22/2020 Abstract [facility] CONVERSIONS Dental, Provider, DDS Social History [...]
--- OUTSIDE RECORDS SUMMARY | 2024-12-02 13:14 | XMS_ITS | Encounter Summary ---
Author Organization [employer] Address [address] [place] [address] [address] [place] [address] Care Team Providers Care Inspector Subassemblies Name Role Phone Unavailable Primary Care Provider Unavailabl e Encounter Details Date Type Department Care Team (Latest Contact Info) Description 12/31/2021 Abstract [facility] CONVERSIONS Dental, Provider, DDS Social [...]
--- OUTSIDE RECORDS SUMMARY | 2024-12-02 13:14 | XMS_ITS | Clinical Summary ---
Author Organization [facility] Address [address] [place] [phone] Phone Care Team Providers Care Improvement Analyst Name Role Phone Unavailable Primary Care Provider [...] It is not the complete legal health record.[facility]
--- OUTSIDE RECORDS SUMMARY | 2024-12-02 13:14 | XMS_ITS | Encounter Summary ---
Author Organization [employer] Address [address] [place] [address] [address] [address] Care Team Providers Care Molder Machine Tender Name Role Phone Unavailable Primary Care Provider Unavailabl e Reason for Visit * Reason Comments Med Refill Encounter Details Date Type Department Care Team ([facility] st Contact Info) Description 04/18/2022 Refill [facility] [address] [place] [address] Josué Valencia MD [address] [place], [place] [phone] Social History Tobacco Use Types Packs/Day Years [...]
--- OUTSIDE RECORDS SUMMARY | 2024-12-02 13:14 | XMS_ITS | Encounter Summary ---
Author Organization [employer] Address [address] [place] [address] [address] [address] Care Team Providers Care Recordings Librarian Name Role Phone Unavailable Primary Care Provider Unavailabl e Reason for Visit * Reason Comments Med Refill Encounter Details Date Type Department Care Team ([facility] st Contact Info) Description 10/27/2022 Refill [facility]INE [address] [place] [address] Josué Valencia MD [address] [place] [address] Social History Tobacco Use Types Packs/Day Years [...]
--- OUTSIDE RECORDS SUMMARY | 2024-12-02 13:14 | XMS_ITS | Encounter Summary ---
Author Organization [employer] Address [address] [place] [address] [address] [place] [address] Care Team Providers Care Deputy Insurance Commissioner Name Role Phone Unavailable Primary Care Provider Unavailabl e Reason for Visit * Reason Comments Med Refill Encounter Details Date Type Department Care Team ([facility] st Contact Info) Description 07/20/2022 Refill [facility] [address] [place] [address] Josué Valencia MD [address] [place] [address] Social History Tobacco Use Types Packs/Day Years [...]
--- OUTSIDE RECORDS SUMMARY | 2024-12-02 13:14 | XMS_ITS | Clinical Summary ---
Author Organization 175 [facility] Address [address] [place] [address] Phone Care Team Providers Care Tenant Selector Name Role Phone Cathy Jimenez MD Primary Care Provider [phone] Allergies Active Allergy Reactions Criticality Noted Date Comments Tramadol 06/17/2010 Other reaction(s): unspecified Medications meclizine (ANTIVERT) 25 mg tablet Take 1 tablet (25 mg total) by mouth. at bedtime. 5 Active gabapentin (NEURONTIN) 300 mg capsule Take 1 capsule (300 mg total) by mouth 2 (two) times a day. at bedtime 5 Active levothyroxine (SYNTHROID, LEVOTHROID) 200 mcg tablet Take 1 tablet (200 mcg total) by mouth 1 (one) time each day. 5 Active lisinopriL (PRINIVIL,ZESTR IL) 10 mg tablet Take 2 tablets (20 mg total) by mouth 1 (one) time each day. 5 Active metFORMIN (GLUCOPHAGE) 850 mg tablet Take 1 tablet (850 mg total) by mouth every 12 hours. 2 Active QUEtiapine (SEROquel) 25 mg tablet Take [...] (one) time each day. 30 each 11 5 10/11/19 26 Active cladribine,mult iple sclerosis, (Mavenclad, 10 tablet pack,) 10 mg tablet Take 2 tablets (20 mg) by mouth one time a day for 4 days. If you take other drugs by mouth, take them at least 3 hours before or 3 hours after this drug. Take with or without 8 tablet 11/27/2024 11:23 AM EDT 5 12/26/19 25 Active cladribine,mult iple sclerosis, (Mavenclad, 10 tablet pack,) 10 mg tablet Take 10 mg by mouth 1 (one) time each day. 11/22/19 25 Discontinu ed(Reorder ) cladribine,mult iple sclerosis, (Mavenclad, 10 tablet pack,) 10 mg tablet Take 10 mg by mouth 1 (one) time each day. 10 tablet 5 11/27/19 25 Discontinu ed(Reorder ) cladribine,mult iple sclerosis, 10 mg tablet msot 10 tablet 5 11/23/19 25 Discontinu ed(Reorder ) cladribine,mult iple sclerosis, (Mavenclad, 10 tablet pack,) 10 mg tablet Take 10 mg by mouth 2 (two) times a day for 4 days. 8 tablet 5 11/23/19 25 Discontinu ed(Reorder ) Active Problems Problem Noted Date Diagnosed Date MS (multiple sclerosis) (CMS/[facility] V24, CMS/[facility] V2 8) 10/11/2024 Encounters Date Type Department Care Team Description 11/19/2024 1:30 PM EDT Evaluation [facility] Occupational Therapy [address] [place] [phone] Megan Coronel, OT Gait abnormality; MS (multiple sclerosis) (CMS/HCC V24, CMS/HCC V28); Dizziness 11/13/2024 8:30 AM EDT Office Visit [address] [phone] Cornelio Olivier MD Gait abnormality (Primary Dx); MS (multiple sclerosis) (CMS/HCC V24, CMS/HCC V28); Dizziness 10/24/2024 11:00 AM EDT Office Visit [address] [phone] Cornelio Olivier MD MS (multiple sclerosis) (CMS/HCC V24, CMS/HCC V28) (Primary Dx); Gait abnormality; Urinary symptom or sign 10/21/2024 3:15 PM EDT Treatment [facility] Speech Therapy [address] [place] [phone] Liz Garcia, SANDER OPERATOR Dysphagia, oropharyngeal (Primary Dx); Multiple sclerosis (CMS/HCC V24, CMS/HCC V28) 10/21/2024 2:30 PM EDT Treatment [facility] Outpatient [address] [phone] Preethi Jung, PT Multiple sclerosis (CMS/HCC V24, CMS/HCC V28) (Primary Dx) 10/16/2024 8:46 AM EDT - 10/16/2024 11:59 PM EDT Hospital Encounter [facility] Outpatient Rehabilititation [address] [phone] MS (multiple sclerosis) (CMS/HCC V24, CMS/HCC V28) (Primary Dx) Discharge Disposition: Home or Self Care 10/15/2024 9:48 AM EDT - 10/15/2024 11:59 PM EDT Hospital Encounter [facility] Outpatient Rehabilititation [address] [phone] MS (multiple sclerosis) (CMS/HCC V24, CMS/HCC V28) (Primary Dx) Discharge Disposition: Home or Self Care 10/11/2024 9:42 AM EDT - 10/11/2024 11:59 PM EDT Hospital [facility] [address] [facility] [address] [place] [phone] MS (multiple sclerosis) (CMS/HCC V24, CMS/HCC V28) (Primary Dx) Discharge Disposition: Home or Self Care 10/11/[address] [facility] [address] [place] [phone] Cornelio Olivier MD 10/10/2024 4:00 PM EDT Office Visit [facility] MS [facility] 175 [facility] [address] [place] [phone] Cornelio Olivier MD Multiple sclerosis (CMS/HCC V24, CMS/HCC V28) (Primary Dx); Gait abnormality; Urinary symptom or sign 10/02/2024 2:30 PM EDT Treatment [address] [phone] Preethi Jung, PT Multiple sclerosis (CMS/HCC V24, CMS/HCC V28) (Primary Dx) 09/30/2024 3:30 PM EDT Treatment [facility] [address] [phone] Preethi Jung, PT Multiple sclerosis (CMS/HCC V24, CMS/HCC V28) (Primary Dx) 09/25/2024 2:00 PM EDT Treatment [facility] [address] [phone] Emily Gonzalez, PT Multiple sclerosis (CMS/HCC V24, CMS/HCC V28) (Primary Dx) 09/23/2024 2:30 PM EDT Treatment [facility] [address] [phone] Sarthak Hsu, CONTENT EDITOR Multiple sclerosis (CMS/HCC V24, CMS/HCC V28) (Primary Dx) 09/19/2024 2:45 PM EDT Evaluation [facility] Speech Therapy [address] [phone] Liz Garcia, SANDER OPERATOR Dysphagia, oropharyngeal (Primary Dx); Multiple sclerosis (CMS/HCC V24, CMS/HCC V28); Gait abnormality 09/19/2024 1:00 PM EDT Treatment [address] [phone] Preethi Jung, PT Multiple sclerosis (CMS/HCC V24, CMS/HCC V28) (Primary Dx) 09/19/2024 Plan of Care Documentation [facility] Speech Therapy [address] [phone] 09/17/2024 2:30 PM EDT Treatment [address] [phone] Robert Peacock, CONTENT EDITOR Multiple sclerosis (CMS/HCC V24, CMS/HCC V28) (Primary Dx) 09/12/2024 3:30 PM EDT Treatment [address] [phone] Sarthak Hsu, CONTENT EDITOR Multiple sclerosis (CMS/HCC V24, CMS/HCC V28) (Primary Dx) 09/10/2024 9:00 AM EDT Treatment [address] [phone] Robert Peacock, CONTENT EDITOR Multiple sclerosis (CMS/HCC V24, CMS/HCC V28) (Primary Dx); Gait abnormality 09/04/2024 1:30 PM EDT Treatment [address] [phone] Sarthak Hsu, CONTENT EDITOR Multiple sclerosis (CMS/HCC V24, CMS/HCC V28) (Primary Dx) from Last 3 Months Medical History Medical History Date Comments Diabetes mellitus (CMS/HCC V24, CMS/HCC V28) Social History Tobacco Use [...] Care Team (Late st Contact Info) Description 12/06/2024 10:45 AM EDT Treatment [facility] Occupational Therapy [address] [phone] Megan Coronel, OT 12/12/2024 11:30 AM EDT Treatment [facility] Occupational Therapy [address] [phone] Megan Coronel, OT 12/17/2024 10:30 AM EDT Evaluation [facility] Outpatient [facility] [address] [phone] Vesta Vilchis, PT 12/25/2024 9:00 AM EDT Appointment [facility] Xray [address] [place] [phone] 02/13/2025 1:00 PM EST Office Visit [facility] [address] [phone] Debbi Brown PA [address] [phone] Health Maintenance Due Date Last Done Comments Zoster Vaccines (2 of 2) 09/08/2022 07/14/2022 Abdominal Aortic Aneurysm (AAA) Screen 03/13/2024 Colorectal Cancer Screening: Colonoscopy 03/13/2024 Falls Risk Assessment 03/13/2024 Medicare Annual Wellness Visit 03/13/2024 Social Influencers of Health Screening 03/13/2024 Depression Screening 03/27/2024 COVID-19 Vaccine ( season) 2024 03/23/2021, 07/15/2020, 06/17/2020 Influenza Vaccine (#1) 2024 , 01/19/2023, 01/07/2022, [...] Type Associated Problems Recent Progress Patient-Stated? Author SANDER OPERATOR LTG General No Liz Garcia, SANDER OPERATOR Note: Pt will consume least restrictive PO diet without changes to medical or respiratory status to maintain adequate oral nutrition hydration SANDER OPERATOR STGs General No Liz Garcia, SANDER OPERATOR Note: Pt will participate in MBS for further assessment of oral pharyngeal swallow Pt will consume recommended diet textures and utilize swallow strategies given min verbal or visual cues Pt will participate in development of personalized HEP and perform 3-4xs/wk with min assist for modifications OT stg General No Megan Coronel, OT Note: Pt will return demo approp HEP (Habituation for dizziness) Pt will report no > than mild dizziness , not exceed intermittent frequency Procedures Procedure Name Priority Date/Time Associated Diagnosis [...] LAB CHEMISTRY METHOD 10/11/2024 4:55 PM EDT [facility] Blood Venous blood specimen / Unknown Venipuncture / Unknown 10/11/2024 9:37 AM EDT 10/11/2024 9:37 AM EDT Cornelio Olivier MD LAB BLOOD ORDERABLES Fin al Result [facility] [address] [place] [address], [place] [phone] * HIV 1,2 antibody, p24 antigen with reflex to differentiation (10/11/2024 9:37 AM EDT) [facility] HIV Combo AB/AG Negative Negative LAB CHEMISTRY METHOD 10/11/2024 4:56 PM EDT [facility] Blood Venous blood specimen / Unknown Venipuncture / Unknown 10/11/2024 9:37 AM EDT 10/11/2024 9:37 AM EDT Narrative [facility] - 10/11/2024 4:56 PM [...] MD LAB BLOOD ORDERABLES Fin al Result [facility] [address] [place] [address], [place] [phone] * Interferon gamma interpretation (10/11/2024 9:37 AM EDT) [facility] Quantiferon Plus Interpretation Negative Negative LAB CHEMISTRY METHOD 10/12/2024 11:12 AM EDT [facility] Blood Venous blood specimen / Unknown Venipuncture / Unknown 10/11/2024 9:37 AM EDT 10/11/2024 9:37 AM EDT us Cornelio Olivier MD LAB BLOOD ORDERABLES Fin al Result [facility] [address] [place] [address], * Interferon gamma antigen 2 (10/11/2024 9:37 AM EDT) Blood Venous blood specimen / Unknown Venipuncture / Unknown 10/11/2024 9:37 AM EDT 10/11/2024 9:37 AM EDT us Cornelio Olivier MD LAB BLOOD ORDERABLES Fin al Result Performing Organization Address City/[facility]/ZIP Co de Phone Number [facility] [address] [place] [address], [place] [phone] * Interferon gamma antigen 1 (10/11/2024 9:37 AM EDT) Blood Venous blood specimen / Unknown Venipuncture / Unknown 10/11/2024 9:37 AM EDT 10/11/2024 9:37 AM EDT us Cornelio Olivier MD LAB BLOOD ORDERABLES Fin al Result Performing Organization Address [facility] Co de Phone Number [facility] [address] [place] [address], [place] [phone] * Interferon gamma mitogen (10/11/2024 9:37 AM EDT) Blood Venous blood specimen / Unknown Venipuncture / Unknown 10/11/2024 9:37 AM EDT 10/11/2024 9:37 AM EDT us Cornelio Olivier MD LAB BLOOD ORDERABLES Fin al Result Performing Organization Address [facility] Co de Phone Number [facility] [address] [place] [address], [place] [phone] * Interferon gamma NIL (10/11/2024 9:37 AM EDT) Blood Venous blood specimen / Unknown Venipuncture / Unknown 10/11/2024 9:37 AM EDT 10/11/2024 9:37 AM EDT us Cornelio Olivier MD LAB BLOOD ORDERABLES Fin al Result Performing Organization Address [facility] Co de Phone Number [facility] [address] [place] [address], [place] [phone] * Hepatitis B surface antigen with reflex to confirmation (10/11/2024 9:37 AM EDT) Pathologist [facility] Hepatitis B Surface Ag Negative Negative LAB CHEMISTRY METHOD 10/11/2024 4:27 PM EDT [facility] Blood Venous blood specimen / Unknown Venipuncture / Unknown 10/11/2024 9:37 AM EDT 10/11/2024 9:37 AM EDT Narrative [facility] - 10/11/2024 4:27 PM EDT Over the counter supplements containing high doses of biotin may interfere with this assay. If interference is suspected, patients shoud be retested after refraining from biotin supplements for 72 hours. Cornelio Olivier MD LAB BLOOD ORDERABLES Fin al Result [facility] [address] [place] [address], * (ABNORMAL) JCV polyoma virus antibody with reflex to inhibition assay (10/11/2024 9:37 AM EDT) [facility] Index Value 2.09 10/21/2024 1:05 PM EDT [...] - 10/21/2024 1:05 PM EDT Performed at: [facility] [employer] [facility] [address] [place] [id number] Adult High School Instructor: Madelin Brambila MD, Phone: [phone] Cornelio Olivier MD LAB BLOOD ORDERABLES Fin al Result [facility] * Hepatitis B core antibody IgM (10/11/2024 9:37 AM EDT) [facility] Hep B Core IgM Negative Negative LAB CHEMISTRY METHOD 10/11/2024 4:55 PM EDT [facility] Blood Venous blood specimen / Unknown Venipuncture / Unknown 10/11/2024 9:37 AM EDT 10/11/2024 9:37 AM EDT Narrative [facility] - 10/11/2024 4:55 PM EDT Over the counter supplements containing high doses of biotin may interfere with this assay. If interference is suspected, patients shoud be retested after refraining from biotin supplements for 72 hours. Cornelio Olivier MD LAB BLOOD ORDERABLES Fin al Result Performing Organization Address City/[facility]/ZIP Co de Phone Number [facility] [address] [place] [address], [place] [phone] * Varicella zoster antibody IgG (10/11/2024 9:37 AM EDT) [facility] Varicella IgG Positive Positive LAB CHEMISTRY METHOD 10/11/2024 11:10 AM EDT [facility] Varicella Zoster IgG 28.70 >=1.00 S/CO LAB CHEMISTRY METHOD 10/11/2024 11:10 AM EDT [facility] Blood Venous blood specimen / Unknown Venipuncture / Unknown 10/11/2024 9:37 AM EDT 10/11/2024 9:37 AM EDT Narrative [facility] - 10/11/2024 11:10 AM EDT Interpretation >= 1.00 S/CO is considered to be consistent with Immunity us Cornelio Olivier MD LAB BLOOD ORDERABLES Fin al Result Performing Organization Address [facility] de Phone Number [facility] [address] [place] [address], [place] [phone] * (ABNORMAL) Immunoglobulin IgA (10/11/2024 9:37 AM EDT) [facility] IgA 369(H) 61 - 348 mg/dL LAB CHEMISTRY METHOD 10/11/2024 6:51 PM EDT [facility] Blood Venous blood specimen / Unknown Venipuncture / Unknown 10/11/2024 9:37 AM EDT 10/11/2024 9:37 AM EDT us Cornelio Olivier MD LAB BLOOD ORDERABLES Fin al Result Performing Organization Address [facility]/ZIP Tx de Phone Number [facility] [address] [place] [address], [place] [phone] * Immunoglobulin IgM (10/11/2024 9:37 AM EDT) IgM 34 23 - 259 mg/dL LAB CHEMISTRY METHOD 10/11/2024 6:58 PM EDT [facility] Blood Venous blood specimen / Unknown Venipuncture / Unknown 10/11/2024 9:37 AM EDT 10/11/2024 9:37 AM EDT us Cornelio Olivier MD LAB BLOOD ORDERABLES Fin al Result Performing Organization Address City/[facility]/ZIP Co de Phone Number [facility] [address] [place] [address], [place] [phone] * Immunoglobulin IgG (10/11/2024 9:37 AM EDT) Pathologist [facility] Total IgG 1,420 549 - 1,584 mg/dL LAB CHEMISTRY METHOD 10/11/2024 6:51 PM EDT [facility] Blood Venous blood specimen / Unknown Venipuncture / Unknown 10/11/2024 9:37 AM EDT 10/11/2024 9:37 AM EDT us Cornelio Olivier MD LAB BLOOD ORDERABLES Fin al Result Performing Organization Address [facility] de Phone Number [facility] [address] [place] [address], [place] [phone] from Last 3 Months Insurance [facility] [employer] Member Subscriber Plan / Payer (Ef fective 2022-Present) Name:Juan Monroe Relation to Subscriber:Self Name:Juan Monroe Payer ID:[id number] Group ID:Not on file Type:Not on file Address: [place] [address] [place] [address] Care Teams Tenant Selector Relationship Specialty Start Date End Date Cathy Jimenez MD 2 [facility] , [address] Physician Associ D/B/A: [facility] ANNETTA Reaves PCP - General Internal Medicine 03/13/24
--- OUTSIDE RECORDS SUMMARY | 2024-12-02 13:14 | XMS_ITS | Clinical Summary ---
Author Organization [employer] Address [address] [place] [address] [address] [place] [address] Care Team Providers Care Blindstitch Machine Operator Name Role Phone Unavailable Primary [...] of 2) 09/08/2022 07/14/2022 COVID-19 Vaccine ( - season) 2024 03/23/2021, 07/15/2020, 06/17/2020 Influenza Vaccine [...] LDL-C. Mejia SS et al. EFRAÍN. 2013;310(19): 8849-2406 (http://education.Planex.com/faq/UDJ874) Non-HDL Cholesterol 158(H) <130 mg/dL (calc) [facility] [...] MD LAB BLOOD ORDERABLES Final Result [facility] [address] from Last 3 Months or Most Recently Relevant to Health Maintenance Insurance [facility] RETIREMENT OPTIONS (O D-SNP) [place] [id number]
== END 2024-12-02 12:05 | disposition home or self-care (01) ==
LOC: HO.HPODS 10:53
PROVIDERS: PCP Internal Medicine; Visit Provider Student in an Organized Health Care Education/Training Program
DX: R22.42 Localized swelling, mass and lump, left lower limb (principal); M67.472 Ganglion, left ankle and foot; B35.3 Tinea pedis; M79.672 Pain in left foot
CPT/HCPCS: 20612; 99204

== ENCOUNTER 2024-12-02 10:52 | Outpatient (REF) | payer OTHER, SELFPAY | END 2024-12-02 10:53 | disposition home or self-care (01) | LOC: HO.LNP 10:52 | PROVIDERS: PCP Internal Medicine; Visit Provider Student in an Organized Health Care Education/Training Program | DX: M67.472 Ganglion, left ankle and foot (principal); R22.42 Localized swelling, mass and lump, left lower limb; M79.672 Pain in left foot; B35.3 Tinea pedis | CPT/HCPCS: 20612; 88304; 99202 ==

== ENCOUNTER 2024-12-16 12:40 | Outpatient (AMB) | payer OTHER, SELFPAY ==
--- NOTE | 2024-12-16 12:51 | MHC.OFFVIS ---
Intake Visit Reasons: Follow Up Plantar Fasciitis Intake Note: Juan is a 69 year old male who presents today for a follow up on his Left foot Plantar Fasciitis and athletes foot. Patient reports that he has pain but it has improved since his last visit. he mentions at this time he is not taking any medicine for the pain. Patient would like to discuss potential surgery options Wash Oil Cooler Operator Required: Yes Wash Oil Cooler Operator Services: Wash Oil Cooler Operator Present Wash Oil Cooler Operator Name: [id number] Allergies tramadol Allergy (Intermediate, Verified 12/16/24 12:51) Hives HPI Comments Details: The patient is a 69-year-old male presenting for follow-up of a soft tissue mass to the plantar lateral aspect of the left foot. Patient states after previous aspiration he has noticed a decrease in pain to the area. The patient reports that the offloading pad placed in the area has alleviated the pain significantly, although some discomfort persists intermittently. The patient states he has been using the clotrimazole cream and has noticed an improvement to his feet bilaterally. The patient has not yet undergone an MRI, which is scheduled for later this week. He denies any new inciting injuries. He denies any other pedal concerns. He denies any current nausea, vomiting, fever, or chills. Patient's A1c is 6.5 and he states his blood glucose has been high recently. [facility] Medical History (Updated 12/02/24 @ 12:38 by Angelique Rosales DPM) Athletes foot Left foot pain Subcutaneous mass of left foot Ganglion cyst of left foot Voice hoarseness RODLAN (obstructive sleep apnea) Hypovitaminosis D Type 2 diabetes mellitus, with long-term current use of insulin Moderate recurrent major depression Erectile dysfunction History of urinary hesitancy Prostate nodule Enlarged prostate without lower urinary tract symptoms (luts) Flatus Unspecified constipation Medial meniscus tear OA (osteoarthritis) Arthralgia TAMIKO positive Hypothyroidism Multiple sclerosis Surgical History History of surgery Family History Mother Diabetes mellitus Father No problems noted. Social History Household Members Other:: and daughter Housing: House Alcohol intake: never Patient Tobacco Use Status: Never used Tobacco e-Cigarette/Vaping Use: Never Used Second Hand Smoke Exposure: No service: No Current occupational status: disabled Cognitive needs: Yes Hearing needs: No Vision needs: Yes Review of Systems Const Details: Musculoskeletal: Palpable soft tissue mass noted to the plantar lateral aspect of the left foot in the area of the 5th metatarsal head. All systems reviewed & are unremarkable except as noted in HPI and below Physical Exam Extrem Other: Bilateral lower extremity focused exam: Derm: Left-soft tissue mass noted to the plantar aspect of the left foot in the area of the 5th metatarsal head. Mass noted to measure approximately 1 x 1.5 cm (no change in size). No erythema noted. Improvment to xerosis noted. No clinical signs of infection. Vascular: DP palpable bilaterally, PT palpable on the right. PT nonpalpable on the left. No varicosities noted. Pedal hair present to the proximal aspect of the legs but absent to the distal aspect of the legs. Neuro: Protective sensation is grossly intact. Musculoskeletal: Minimal pain on palpation to the soft tissue mass noted to the left foot, improved from last visit. No soft tissue crepitus noted. Soft tissue mass noted to be soft in nature and mobile. Range of motion of the forefoot and hindfoot within normal limits. Results Reviewed Results Reviewed: Ordered left foot MRI to be performed prior to next appointment - scheduled for later this week. Left foot x-ray podiatry read: Mild osteophytic changes noted to the distal phalanx of the hallux. Mild plantar calcaneal spurring noted. No acute fractures or dislocations noted. Left foot x-ray (01/17/2024): FINDINGS: Plantar calcaneal spur. No fracture identified. Alignment is anatomic. Joint spaces are maintained. Soft tissues appear unremarkable. IMPRESSION: No acute finding. Assessment & Plan Assessment & Plan (1) Mass of left foot: Code(s): R22.42 - Localized swelling, mass and lump, left lower limb Category: Medical (2) Ganglion cyst of left foot: Code(s): M67.472 - Ganglion, left ankle and foot Category: Medical (3) Subcutaneous mass of left foot: Code(s): R22.42 - Localized swelling, mass and lump, left lower limb Category: Medical (4) Athletes foot: Code(s): B35.3 - Tinea pedis Category: Medical Qualifiers: Laterality: bilateral Qualified Code(s): B35.3 - Tinea pedis (5) Left foot pain: Code(s): M79.672 - Pain in left foot Category: Medical Plan Patient was informed and verbally consented to the use of an ambient scribe for clinic note documentation during this visit. I discussed with the patient the possibility of a cyst in the foot and the potential need for surgery if it is causing significant pain. We talked about the risks of surgery, including scarring, recurrence, and infection, and the need to walk on the heel for two weeks post-surgery. I advised continuing the use of the cushion and clotrimazole cream and scheduled a follow-up in two weeks to review the MRI results. 1. Soft tissue mass, left foot: - Continue using the offloading pad in the shoe to alleviate pressure on the foot. Provided patient with a new offloading pad. - Obtain MRI to evaluate the cyst's/ soft tissue mass size and depth. 2. Tinea Pedis B/L: - Continue applying the clotrimazole cream to the foot as previously instructed. Follow-up appointment in two weeks to review MRI results and routine nail care Coding Level of Care Code Est Pt Level 3 (01425) Diagnoses Mass of left foot R22.42 Ganglion cyst of left foot M67.472 Subcutaneous mass of left foot R22.42 Tinea pedis of both feet B35.3 Laterality: bilateral Left foot pain M79.672 Time Spent (min) 30
--- OUTSIDE RECORDS SUMMARY | 2024-12-16 15:09 | XMS_ITS | Clinical Summary ---
Author Organization 175 [facility] Brit Address 175 [facility]
--- OUTSIDE RECORDS SUMMARY | 2024-12-16 15:09 | XMS_ITS | Encounter Summary ---
Author Organization [employer]
== END 2024-12-16 13:24 | disposition home or self-care (01) ==
LOC: HO.HPODS 12:41
PROVIDERS: PCP Internal Medicine; Visit Provider Student in an Organized Health Care Education/Training Program
DX: R22.42 Localized swelling, mass and lump, left lower limb (principal); M67.472 Ganglion, left ankle and foot; B35.3 Tinea pedis; M79.672 Pain in left foot
CPT/HCPCS: 99213

== ENCOUNTER → 2024-12-16 12:40 | Outpatient (BNVA) | payer OTHER, SELFPAY | PROVIDERS: PCP Internal Medicine; Visit Provider Student in an Organized Health Care Education/Training Program | DX: R22.42 Localized swelling, mass and lump, left lower limb (principal); M67.472 Ganglion, left ankle and foot; B35.3 Tinea pedis; M79.672 Pain in left foot | CPT/HCPCS: 99212 ==

== ENCOUNTER 2024-12-19 14:57 | Outpatient (REF) | payer OTHER, SELFPAY ==
--- OUTSIDE RECORDS SUMMARY | 2024-12-17 10:30 | XMS_ITS | Encounter Summary ---
Author Organization [facility] Address [id number] [place] [address] Care Team Providers Care Production Worker Name Role Phone Cathy Jimenez MD Primary Care Provider [phone] Reason for Visit * Consultation (Routine) - Authorized Specialty Diagnoses / Procedures Referred By Ghanshyam duncan Referred To Contact Physical Therapy Diagnoses Gait abnormality MS (multiple sclerosis) Dizziness Cornelio Olivier MD Phone: tel: fax: Referral ID Status Reason Start Date Expiration Date Visits Requested Visits Authorized [id number] Authorized Specialty Services Required 11/13/2024 11/13/2025 20 9 Encounter Details Date Type Department Care Team (Latest Contact Info) Description 12/17/2024 10:30 AM EDT Evaluation [address] [address] Vesta Vilchis PT Gait abnormality (Primary Dx); MS (multiple sclerosis) (CMS/HCC V24, CMS/HCC V28); Dizziness Social History Tobacco Use Types Packs/Day Years Used Date Smoking Tobacco: Never Assessed Sex and Gender Information Value Date Recorded Sex Assigned at Male 08/13/2024 8:54 AM EDT Legal Sex Male 11:29 AM EST Gender Identity Male 08/13/2024 8:54 AM EDT Sexual Orientation Straight 08/13/2024 8: 54 AM EDT documented as of this encounter Progress Notes * Vesta Vilchis, PT - 12/17/2024 10:30 AM EDT [facility] - Outpatient PHYSICAL THERAPY EVALUATION Date: 12/17/2024 Visit Number: 1 Patient Name: Juan Casillas : 1955 Age: 69 y.o. Gender: male Diagnosis: ICD-10-CM ICD-9-CM 1. Gait abnormality R26.9 781.2 Ambulatory referral to Physical Therapy and Athletic Training 2. MS (multiple sclerosis) ([facility] V24, [facility] V28) [id number] Ambulatory referral to Physical Therapy and Athletic Training 3. Dizziness R42 780.4 Ambulatory referral to Physical Therapy and Athletic Training Date of Onset/Surgery: 12/17/2024 Referring Provider: Cornelio Olivier, * Insurance: Payor: [facility] ASSISTED OPTIONS / Plan: [facility] ASSISTED OPTIONS / Product Type: *No Product type* / Patient identified by: Vesta Vilchis PT Language: Video Information Manager service provided for pt. preferred language of Greenlandic. Information Manager # Herbert [id number] Chart Reviewed: Yes Medications: Current Outpatient Medications on File Prior to Visit Medication Sig Dispense Refill cholecalciferol (VITAMIN D-3) 50 mcg (2,000 unit) tablet Take 1 tablet (2,000 Units total) by mouth1 (one) time each day. citalopram (CeleXA) 20 mg tablet Take 1 tablet (20 mg total) by mouth 1 (one) time each day. cladribine,multiple sclerosis, (M[employer]ad, 10 tablet pack,) 10 mg tablet Take 2 tablets (20 mg) by mouth one time a day for 4 days. If you take other drugs by mouth, take them at least 3 hours beforeor 3 hours after this drug. Take with or without 8 tablet 0 cyanocobalamin (VITAMIN B-12) 1,000 mcg tablet Take 1 tablet (1,000 mcg total) by mouth 1 (one) time each day. 30 each 11 gabapentin (NEURONTIN) 300 mg capsule Take 1 [...] facility-administered medications on file prior to visit. Discussed current medications that may impact therapy. Medication list obtained and reviewed. Referto document in medical record. Advised Patient to contact MD with any questions regarding medications and importance of managing medication information. has a past medical history of Diabetes mellitus (CMS/[facility] V24, [facility] V28). has no past surgical history on file. is allergic to tramadol. Precautions: MS, occasional dizziness Concurrent Services: No Concurrent Services SUBJECTIVE History: Patient presents to clinic with gait impairment and imbalance. Diagnosed with Multiple Sclerosis. Has done PT in the past (last time was in September). Saw Megan in OT for 2 visits for dizziness complaints (see her note for specifics). MEDICATIONS: see doctor note- feels like the medications have helped SYMPTOMS: Heat sensitivity? None noted Fatigue? yes Pain? Chronic abdominal pain Other: has occasional dizziness MOBILITY: Falls? Yes, 4 days ago- he was in the bathroom and lost his balance Gait/transfers/bed mobility: walks unassisted but feels like his R leg moves slower, occasional useof cane but tries not to; independent tranfers/bed mobility Current exercise and/or physical activity: some home exercises provided by last PT DIAGNOSTIC TESTS: see epic GOALS: walk better, feel more light on his feet Home Environment: lives with and daughter. 3 steps to enter the home with railing. Once in home, pt has 1 level. Prior Level of Function: independent Current Functional Limitations: Reported by Patient limitations with balance, occasionally with gait Is the patient at Risk for Falls: at fall risk according to FGA, able to walk unassisted on even surface with good overall balance OBJECTIVE *P=Pain, NT=Not tested Vitals: There were no vitals filed for this visit.; Gait: amb unassisted with decreased R heel strike and push off, no imbalance on even ground LOWER EXTREMITY MYOTOMES: Myotome Right Left Hip Flexion (L2) 4/5 4+/5 Knee Extension (L3) 4/5 4+/5 Ankle Dorsiflexion (L4) 4+/5 5/5 Big Toe Extension (L5) NT/5 NT/5 Ankle Plantar Flexion (S1) >2+/5 >2+/5 Knee flexion (S2) 4/5 4+/5 Other strength: Able to perform partial bridge Hip abduction and adduction >2+/5 Functional Mobility: Transfers independent and minimal use of upper extremities Stairs: able to complete step over step pattern with use of one handrail Outcome measures: 5xSTS: 20.1 sec 6MWT: 1450 no device prior BP 127/62 mmHg, HR 81, O2 100% post BP 131/76 mmHg, HR 84, O2 100% FGA: TREATMENT INTERVENTION Procedures: none Home exercise program: Continue previously prescribed home exercise program by last PT ASSESSMENT/Response to Treatment: Juan Casillas is a 69 y.o. male presenting for outpatient physical therapy evaluation withcomplaints of gait impairment and imbalance. He has MS. Significant clinical findings include: decreased lower extremity strength, impaired balance, and impaired gait. He is at fall risk as per FGA. Compared to his last PT discharge note, he is doing better with his 6MWT and FGA score. His 5xSTS isslightly slower. Patients progress may be limited by MS symptoms/course. Skilled Physical therapy is medically necessary to address these limitations. Rehabilitation Potential: Rehab Potential: Condition Has Potential to Improve Motivation for Rehab: Good Support Structure: Good Learning Needs: Were Patient Learning needs assessed: Yes Learning Preferences: Printed Materials Barriers to Learning: No Barriers to Learning Patient Education: [x] Discussed, with patient and/or caregiver, the recommended plan of care/goals, the importance oftherapy and appointment compliance in order to achieve goals in a timely manner. Education provided: home exercise program and plan of care Education Provided To: Patient utilizing Explanation as mode(s) of education. Response to Education: Verbal Understanding GOALS Short Term Goals/nursing home goals (will be achieved in 6-8 sessions) 1. Patient will be independent with home exercise program to maintain therapeutic gains. 3. Patient will improve lower extremity strength by 1/3 grade on manual muscle testing. 4. Patient will improve 5x STS by >2 sec. 5. Patient will improve FGA score by >2 points. 6. Patient will improve 6MWT to 1500 or better. PLAN POC Development/Review: Initial Evaluation; Participants: Patient Skilled Therapy Plan Required: YES- Reasons for Rehab and Medical Necessity -- Reduce Need for Assist with Functional Activity/ADL's/Mobility and Function in Community Frequency/Duration of Treatment: 2x a week for 8 sessions (up to 10-12 sessions if needed) Plan for next session(s): general lower extremity strengthening, balance, and gait training. Planned Therapy Interventions: Gait Training, Manual Therapy, Neuromuscular Re- education, Patient /Family Education, Therapeutic Activity, and Therapeutic Exercise Recommended Consults: none Equipment Recommended: none; Equipment Provided: none BILLING TOTAL TREATMENT TIME: 55 Minutes Evaluation High Complexity Justification ::: An examination of body systems using standardized tests and measures addressing a total of 4 or more elements from any of the following: body structures and functions, activity limitations, and/or participation restrictions Documentation completed by Vesta Vilchis PT [address] [address] Dept: [phone] Dept PATIENT NAME: Juan Casillas : 1955 Certification: This is to certify that the above named patient, who is under my care, requires skilled Therapy services as described in the above treatment plan. I further certify that the services outlined in this plan are skilled and medically necessary. I have reviewed this plan for rehabilitation services, and I recommend that these services continue to meet the above stated goals and plan. SIGNATURE: DATE Cornelio Olivier, Fermin Referring provider documented in this encounter Plan of Treatment Upcoming Encounters Date Type Department Care Team (Late st Contact Info) Description 12/24/2024 4:00 PM EDT Treatment [facility] [address] [phone] Robert Peacock, ENVIRONMENT ARTIST 12/25/2024 9:00 AM EDT Appointment [facility] Xray [address] [place] [phone] 01/07/2025 1:30 PM EDT Treatment [facility] [address] [address] Sarthak Hsu, ENVIRONMENT ARTIST 01/09/2025 12:00 PM EDT Treatment [facility] [address] [phone] Sarthak Hsu, ENVIRONMENT ARTIST 01/13/2025 2:00 PM EDT Treatment [facility] [address] [address] Robert Peacock, ENVIRONMENT ARTIST 01/15/2025 2:00 PM EDT Treatment [facility] [address] [address] Sarthak Hsu, ENVIRONMENT ARTIST 01/20/2025 2:00 PM EDT Treatment [facility] [address] [address] Sarthak Hsu, ENVIRONMENT ARTIST 01/22/2025 2:00 PM EDT Treatment [facility] [address] [address] Vesta Vilchis, PT 02/13/2025 1:00 PM EST Office Visit [facility] [address] [phone] Debbi Brown PA [address] [address] documented as of this encounter Goals Goal Patient Goal Type Associated Problems Recent Progress Patient-Stated? Author TELEPHONE MECHANIC LTG General No Liz Garcia, TELEPHONE MECHANIC Note: Pt will consume least restrictive PO diet without changes to medical or respiratory status to maintain adequate oral nutrition hydration TELEPHONE MECHANIC STGs General No Liz Garcia, TELEPHONE MECHANIC Note: Pt will participate in MBS for further assessment of oral pharyngeal swallow Pt will consume recommended diet textures and utilize swallow strategies given min verbal or visual cues Pt will participate in development of personalized HEP and perform 3-4xs/wk with min assist for modifications OT stg General No Megan Coronel OT Note: Pt will return demo approp HEP (Habituation for dizziness) 12/06/24 met Pt will report no > than mild dizziness , not exceed intermittent frequency 12/06/24 no appreciable difference from baseline documented as of this encounter Visit Diagnoses Diagnosis Gait abnormality- Primary Abnormality of gait MS (multiple sclerosis) Multiple sclerosis Dizziness Dizziness and giddiness documented in this encounter Orders Outpatient Referral Count Last Ordered Date Fir st Ordered Date AMB REFERRAL TO PHYSICAL [facility] 1 12/17/2024 documented in this encounter Care Teams Production Worker Relationship Specialty Start Date End Date Cathy Jimenez MD [address] [place] [address] , [facility] [place], [place] PCP - General Internal Medicine 03/13/24 documented as of this encounter
--- NOTE | ~2024-12-19 | MR_ITS ---
EXAM: MR Foot Lt Wo/w Con TECHNIQUE: Multiplanar multisequence MR imaging was performed through the left forefoot without and with IV contrast. Contrast: 8.5 mL Gadavist INDICATION: R22.42 - Localized swelling, mass and lump, left lower limb PRIOR: X-ray January 17, 2024 FINDINGS: Lisfranc ligament: Intact and unremarkable. Soft tissues: There is a lesion in the subcutaneous soft tissues plantar to the base of the fourth proximal phalanx extending toward the fourth webspace. It contacts the deep plantar dermis. It has somewhat lobulated margins and measures 12 x 8 x 14 mm (AP by cc by transverse). It has a few thin internal septations. T1 imaging, it is slightly hyperintense to skeletal muscle. On fluid sensitive sequences, it is hyperintense with dependent low signal internal septations. With contrast, it demonstrates hyperenhancement except for a 7 mm region along the proximal medial aspect of the mass that demonstrates punctate peripheral enhancement. Also, the thin septations do not enhance. Metatarsophalangeal (MTP) joint and sesamoids of the great toe: There is a small volume of joint fluid. Joint capsular and plantar plate complex structures appear intact. There is trace fluid in the first webspace bursa. Lesser MTP joints & Plantar plates: A small volume of synovial fluid is present in the fourth and fifth MTP joints. Joint capsule structures are intact. Plantar plate complexes appear intact. Bones/Marrow: The marrow signal is physiologic. There are no destructive changes. MR/MR foot LT wo/w con IMPRESSION: There is a solid enhancing lesion in the plantar subcutaneous soft tissues in the base of the fourth proximal phalanx and plantar region of the fourth webspace. There are no bony destructive changes. It measures 12 x 8 x 14 mm (AP by cc by transverse). It could represent a peripheral nerve sheath tumor, thick walled inflamed multiloculated cystic lesion, giant cell tumor, vascular leiomyoma, or less likely a sarcoma. Electronically signed by: Carlos Mcdaniel MD 12/19/2024 04:16 PM EDT
--- OUTSIDE RECORDS SUMMARY | 2024-12-19 19:18 | XMS_ITS | Encounter Summary ---
Author Organization [employer] Address [address] [place] [address] [address] [place] [address] Care Team Providers Care Dining Service Supervisor Name Role Phone Unavailable Primary Care Provider Unavailabl e Reason for Visit * Reason Comments Med Refill Encounter Details Date Type Department Care Team ([facility] st Contact Info) Description 04/18/2022 Refill [facility] MEDICINE [address] [place] [address] Josué Valencia MD [address] [place], [place] [phone] Social History Tobacco Use Types Packs/Day Years [...]
--- OUTSIDE RECORDS SUMMARY | 2024-12-19 19:18 | XMS_ITS | Clinical Summary ---
Author Organization [facility] Address [address] [place] [address] Phone Care Team Providers Care Supervisor Electronics Inspection Name Role Phone Unavailable Primary Care Provider [...] It is not the complete legal health record.[facility]
--- OUTSIDE RECORDS SUMMARY | 2024-12-19 19:18 | XMS_ITS | Encounter Summary ---
Author Organization [employer] Address [address] [place] [address] [address] [address] Care Team Providers Care Afterschool Name Role Phone Unavailable Primary Care Provider Unavailabl e Encounter Details Date Type Department Care Team (Latest Contact Info) Description 12/31/2021 Abstract [facility] CONVERSIONS Dental, Provider, DDS Social History Tobacco [...]
--- OUTSIDE RECORDS SUMMARY | 2024-12-19 19:18 | XMS_ITS | Encounter Summary ---
Author Organization [employer] Address [address] [place] [address] [address] [address] Care Team Providers Care Die Repairer Forging Name Role Phone Unavailable Primary Care Provider Unavailabl e Encounter Details Date Type Department Care Team (Latest Contact Info) Description 09/22/2020 Abstract [facility] CONVERSIONS Dental, Provider, DDS Social History [...]
--- OUTSIDE RECORDS SUMMARY | 2024-12-19 19:18 | XMS_ITS | Clinical Summary ---
Author Organization [employer] Address [address] [place] [address] [address] [address] Care Team Providers Care Machining Department Supervisor Name Role Phone Unavailable Primary Care [...] estimation of LDL-C. Mejia SS et al. EFRANÍ. 2013;310(19): 4989-1986 (http://education.Mailgun.com/faq/QQN002) Non-HDL Cholesterol 158(H) <130 mg/dL (calc) FOUNDATION [...] Winkler MD LAB BLOOD ORDERABLES Final Result [facility] [address] from Last 3 Months or Most Recently Relevant to Health Maintenance Insurance [facility] OPTIONS (O D-SNP) [place] [id number]
--- OUTSIDE RECORDS SUMMARY | 2024-12-19 19:18 | XMS_ITS | Encounter Summary ---
Author Organization [employer] Address [address] [place] [address] [address] [address] Care Team Providers Care Independent Driver Name Role Phone Unavailable Primary Care Provider Unavailabl e Reason for Visit * Reason Comments Med Refill Encounter Details Date Type Department Care Team ([facility] st Contact Info) Description 04/04/2022 Refill [facility] [address] [place] [address] Josué Valencia MD [address] [place], [place] [phone] Social History Tobacco Use Types Packs/Day Years [...]
--- OUTSIDE RECORDS SUMMARY | 2024-12-19 19:18 | XMS_ITS | Encounter Summary ---
Author Organization [employer] Address [address] [place] [address] [address] [address] Care Team Providers Care Lane Attendant Name Role Phone Unavailable Primary Care Provider Unavailabl e Reason for Visit * Reason Comments Med Refill Encounter Details Date Type Department Care Team ([facility] st Contact Info) Description 10/27/2022 Refill [facility]INE [address] [place] [address] Josué Valencia MD [address] [place] [address] Social History Tobacco Use Types Packs/Day Years [...]
--- OUTSIDE RECORDS SUMMARY | 2024-12-19 19:18 | XMS_ITS | Encounter Summary ---
Author Organization [employer] Address [address] [place] [address] [address] [place] [address] Care Team Providers Care Surveyor Rod Helper Name Role Phone Unavailable Primary Care Provider Unavailabl e Reason for Visit * Reason Comments Med Refill Encounter Details Date Type Department Care Team ([facility] st Contact Info) Description 07/20/2022 Refill [facility] MEDICINE [address] [place] [address] Josué Valencia MD [address] [place] [address] Social History Tobacco Use Types Packs/Day Years [...]
== END 2024-12-19 14:58 | disposition home or self-care (01) ==
LOC: HO.MRI 14:57
PROVIDERS: PCP Internal Medicine; Visit Provider Student in an Organized Health Care Education/Training Program
DX: M67.472 Ganglion, left ankle and foot (principal); R22.42 Localized swelling, mass and lump, left lower limb
CPT/HCPCS: 73720; A9585

== ENCOUNTER → 2024-12-19 15:02 | Outpatient (BNV) | payer OTHER, SELFPAY | PROVIDERS: PCP Internal Medicine; Visit Provider Radiology Diagnostic Radiology | DX: M72.2 Plantar fascial fibromatosis (principal); R22.42 Localized swelling, mass and lump, left lower limb | CPT/HCPCS: 73720 ==

== ENCOUNTER 2024-12-24 08:02 | Outpatient (REF) | payer OTHER, SELFPAY ==
--- OUTSIDE RECORDS SUMMARY | 2024-12-24 08:11 | XMS_ITS | Encounter Summary ---
Author Organization [employer] Address [address] [place] [address] [address] [place] [address] Care Team Providers Care Pre Wave Assembler Name Role Phone Unavailable Primary Care Provider Unavailabl e Reason for Visit * Reason Comments Med Refill Encounter Details Date Type Department Care Team ([facility] st Contact Info) Description 04/04/2022 Refill [facility]IC[facility] [address] [place] [address] Josué Valencia MD [address] [place], [place] [phone] Social History Tobacco Use Types Packs/Day Years [...]
--- OUTSIDE RECORDS SUMMARY | 2024-12-24 08:12 | XMS_ITS | Encounter Summary ---
Author Organization [employer] Address [address] [place] [address] [address] [address] Care Team Providers Care Inspector Optical Instrument Name Role Phone Unavailable Primary Care Provider Unavailabl e Encounter Details Date Type Department Care Team (Latest Contact Info) Description 09/22/2020 Abstract [facility] CONVERSIONS Dental, Provider, DDS Social History [...]
--- OUTSIDE RECORDS SUMMARY | 2024-12-24 08:12 | XMS_ITS | Clinical Summary ---
Author Organization [facility] Address [address] [place] [address] Phone Care Team Providers Care Hospice Team Lead Name Role Phone Unavailable Primary Care Provider [...] is not the complete legal health record.[facility]
--- OUTSIDE RECORDS SUMMARY | 2024-12-24 08:12 | XMS_ITS | Clinical Summary ---
Author Organization [employer] Address [address] [place] [address] [address] [place] [address] Care Team Providers Care Cosmetology Professor Name Role Phone Unavailable Primary Care Provider [...] LDL-C. Mejia SS et al. EFRAÍN. 2013;310(19): 8642-8793 (http://education.Loudr.com/faq/THM819) Non-HDL Cholesterol 158(H) <130 mg/dL (calc) [facility] [...] [facility] [address] from Last 3 Months or Most Recently Relevant to Health Maintenance Insurance [facility] ALF OPTIONS (O D-SNP) [place] [phone]
--- OUTSIDE RECORDS SUMMARY | 2024-12-24 08:12 | XMS_ITS | Encounter Summary ---
Author Organization [employer] Address [address] [place] [address] [address] [address] Care Team Providers Care Referral Rn Name Role Phone Unavailable Primary Care Provider Unavailabl e Encounter Details Date Type Department Care Team (Latest Contact Info) Description 12/31/2021 Abstract [facility] CONVERSIONS Dental, Provider, DDS Social [...]
--- OUTSIDE RECORDS SUMMARY | 2024-12-24 08:13 | XMS_ITS | Encounter Summary ---
Author Organization [employer] Address [address] [place] [address] [address] [address] Care Team Providers Care Director Software Development Name Role Phone Unavailable Primary Care Provider Unavailabl e Reason for Visit * Reason Comments Med Refill Encounter Details Date Type Department Care Team ([facility] st Contact Info) Description 07/20/2022 Refill [facility] [address] [place] [address] Josué Vlaencia MD [address] [place], [place] [phone] Social History Tobacco Use Types Packs/Day Years [...]
--- OUTSIDE RECORDS SUMMARY | 2024-12-24 08:13 | XMS_ITS | Encounter Summary ---
Author Organization [employer] Address [address] [place] [address] [address] [address] Care Team Providers Care Mate Relief Name Role Phone Unavailable Primary Care Provider Unavailabl e Reason for Visit * Reason Comments Med Refill Encounter Details Date Type Department Care Team ([facility] st Contact Info) Description 04/18/[address] [facility] MEDICINE [address] [place] [address] Josué Valencia MD 230 [place], [place] [phone] Social History Tobacco Use Types Packs/Day Years [...]
--- OUTSIDE RECORDS SUMMARY | 2024-12-24 08:13 | XMS_ITS | Encounter Summary ---
Author Organization [employer] Address [address] [place] [address] [address] [address] Care Team Providers Care Patient Care Provider Name Role Phone Unavailable Primary Care Provider Unavailabl e Reason for Visit * Reason Comments Med Refill Encounter Details Date Type Department Care Team ([facility] st Contact Info) Description 10/27/2022 Refill [facility] [address] [place] [address] Josué Valencia MD [address] [place], [place] [phone] Social History Tobacco Use Types Packs/Day Years [...]
--- OUTSIDE RECORDS SUMMARY | 2024-12-24 08:14 | XMS_ITS | Clinical Summary ---
Author Organization 175 [facility] Address [address] [place] [address] Phone Care Team Providers Care Gore Cutter Name Role Phone Cathy Jimenez MD Primary Care Provider [phone] Allergies Active Allergy Reactions Criticality Noted Date [...] 10/11/19 26 Active cladribine,mult iple sclerosis, (Mavenclad, 8 tablet pack,) 10 mg tablet Take 2 tablets (20 mg) by mouth one time a day for 4 days. If you take other drugs by mouth, take them at least 3 hours before or 3 hours after this drug. Take with or without food. 8 tablet 12/23/2024 11:04 AM EDT 5 01/21/20 25 Active cladribine,mult iple sclerosis, (Mavenclad, 10 [...] 8 tablet 11/27/2024 11:23 AM EDT 5 12/19/19 25 Discontinu ed(Reorder ) Active Problems Problem Noted Date Diagnosed Date MS (multiple sclerosis) 10/11/2024 Encounters Date Type Department Care Team Description 12/17/2024 10:30 AM EDT Evaluation [facility] Outpatient Rehabilitation [facility] [address] [phone] Vesta Vilchis, CAROLYNN Gait abnormality (Primary Dx); MS (multiple sclerosis) (CMS/HCC V24, CMS/HCC V28); Dizziness 12/06/2024 10:45 AM EDT Treatment [facility] Occupational [address] [phone] Megan Coronel, OT Dizziness (Primary Dx) 11/19/2024 1:30 PM EDT Evaluation [facility] Occupational Therapy [address] [phone] Megan Coronel, OT Gait abnormality; MS (multiple sclerosis) (CMS/HCC V24, CMS/HCC V28); Dizziness 11/13/2024 8:30 AM EDT Office Visit [address] [phone] Cornelio Olivier MD Gait abnormality (Primary Dx); MS (multiple sclerosis) (CMS/HCC V24, CMS/HCC V28); Dizziness 10/24/2024 11:00 AM EDT Office Visit [address] [phone] Cornelio Olivier MD MS (multiple sclerosis) (CMS/HCC V24, CMS/HCC V28) (Primary Dx); Gait abnormality; Urinary symptom or sign 10/21/2024 3:15 PM EDT Treatment [facility] Speech Therapy [address] [place] [phone] Liz Garcia, SCREEN PRINTING LOADER UNLOADER Dysphagia, oropharyngeal (Primary Dx); Multiple sclerosis (CMS/HCC V24, CMS/HCC V28) 10/21/2024 2:30 PM EDT Treatment [facility] Outpatient Rehabilitation [address] [phone] Preethi Jung, PT Multiple sclerosis (CMS/HCC V24, CMS/HCC V28) (Primary Dx) 10/16/2024 8:46 AM EDT - 10/16/2024 11:59 PM EDT Hospital Encounter [facility] [place] Outpatient Rehabilititation [address] [phone] MS (multiple sclerosis) (CMS/HCC V24, CMS/HCC V28) (Primary Dx) Discharge Disposition: Home or Self Care 10/15/2024 9:48 AM EDT - 10/15/2024 11:59 PM EDT Hospital Encounter [facility] [place] Outpatient Rehabilititation [address] [phone] MS (multiple sclerosis) (CMS/HCC V24, CMS/HCC V28) (Primary Dx) Discharge Disposition: Home or Self Care 10/11/2024 9:42 AM EDT - 10/11/2024 11:59 PM EDT Hospital [facility] [address] [phone] MS (multiple sclerosis) (CMS/HCC V24, CMS/HCC V28) (Primary Dx) Discharge Disposition: Home or Self Care 10/11/2024 Telephone [facility] [address] [phone] Cornelio Olivier MD 10/10/2024 4:00 PM EDT Office Visit [facility] MS [address] [phone] Cornelio Olivier MD Multiple sclerosis (CMS/HCC V24, CMS/HCC V28) (Primary Dx); Gait abnormality; Urinary symptom or sign 10/02/2024 2:30 PM EDT Treatment [address] [phone] Preethi Jung, PT Multiple sclerosis (CMS/HCC V24, CMS/HCC V28) (Primary Dx) 09/30/2024 3:30 PM EDT Treatment [address] [phone] Preethi Jung, PT Multiple sclerosis (CMS/HCC V24, CMS/HCC V28) (Primary Dx) 09/25/2024 2:00 PM EDT Treatment [address] [phone] Emily Gonzalez, PT Multiple sclerosis (CMS/HCC V24, CMS/HCC V28) (Primary Dx) 09/23/2024 2:30 PM EDT Treatment [address] [phone] Sarthak Hsu, SHELBY Multiple sclerosis ([facility]/HCC V24, [facility] V28) (Primary Dx) from Last 3 Months Medical History Medical History Date Comments Diabetes mellitus ([facility]/HCC V24, [facility] V28) Social History Tobacco Use [...] Upcoming Encounters Date Type Department Care Team (Latest Contact Info) Description 12/24/2024 4:00 PM EDT Treatment [facility] [address] [phone] Robert Peacock PTA 12/25/2024 9:00 AM EDT Hospital Encounter [facility] Xray [address] [place] [phone] 01/07/2025 1:30 PM EDT Treatment [facility] [address] [phone] Sarthak Hsu PTA 01/09/2025 12:00 PM EDT Treatment [facility] [address] [phone] Sarthak Hsu, GASKET MAKER 01/13/2025 2:00 PM EDT Treatment [facility] [address] [phone] Robert Peacock, GASKET MAKER 01/15/2025 2:00 PM EDT Treatment [facility] [address] [phone] Sarthak Hsu, GASKET MAKER 01/20/2025 2:00 PM EDT Treatment [facility] [address] [phone] Sarthak Hsu, GASKET MAKER 01/22/2025 2:00 PM EDT Treatment [facility] [address] [phone] Vesta Vilchis, PT 02/13/2025 1:00 PM EST Office Visit [facility] [address] [phone] Debbi Brown PA [address] [phone] Health Maintenance Due Date Last Done Comments Colorectal Cancer Screening: Colonoscopy 1955 Zoster Vaccines (2 of 2) 09/08/2022 07/14/2022 Abdominal Aortic Aneurysm (AAA) Screen 03/13/2024 Falls Risk Assessment 03/13/2024 Medicare Annual [...] Type Associated Problems Recent Progress Patient-Stated? Author SCREEN PRINTING LOADER UNLOADER LTG General No Liz Garcia, SCREEN PRINTING LOADER UNLOADER Note: Pt will consume least restrictive PO diet without changes to medical or respiratory status to maintain adequate oral nutrition hydration SCREEN PRINTING LOADER UNLOADER STGs General No Liz Garcia, SCREEN PRINTING LOADER UNLOADER Note: Pt will participate in MBS for [...] frequency 12/06/24 no appreciable difference from baseline Procedures Procedure Name Priority Date/Time Associated Diagnosis [...] Hepatitis C antibody (10/11/2024 9:37 AM EDT) Pathologist [facility] Hepatitis C Antibody Negative Negative LAB CHEMISTRY METHOD 10/11/2024 4:55 PM EDT [facility] Blood Venous blood specimen / Unknown Venipuncture / Unknown 10/11/2024 9:37 AM EDT 10/11/2024 9:37 AM EDT Cornelio Olivier MD LAB BLOOD ORDERABLES Fin al Result [facility] [address] [place] [address], * HIV 1,2 antibody, p24 antigen with reflex to differentiation (10/11/2024 9:37 AM EDT) Pathologist [facility] HIV Combo AB/AG Negative Negative LAB CHEMISTRY METHOD 10/11/2024 4:56 PM EDT [facility] Blood Venous blood specimen / Unknown Venipuncture / Unknown 10/11/2024 9:37 AM EDT 10/11/2024 9:37 AM EDT Narrative [facility] - 10/11/2024 4:56 PM EDT [...] ORDERABLES Fin al Result Performing Organization Address City/[facility]/ZIP Co de Phone Number [facility] [address] [place] [address], [place] [phone] * Interferon gamma interpretation (10/11/2024 9:37 AM EDT) [facility] Quantiferon Plus Interpretation Negative Negative LAB CHEMISTRY METHOD 10/12/2024 11:12 AM EDT [facility] Blood Venous blood specimen / Unknown Venipuncture / Unknown 10/11/2024 9:37 AM EDT 10/11/2024 9:37 AM EDT us Cornelio Olivier MD LAB BLOOD ORDERABLES Fin al Result Performing Organization Address City/[facility]/ZIP Co de Phone Number [facility] [address] [place] [address], [place] [phone] * Interferon gamma antigen 2 (10/11/2024 9:37 AM EDT) Blood Venous blood specimen / Unknown Venipuncture / Unknown 10/11/2024 9:37 AM EDT 10/11/2024 9:37 AM EDT us Cornelio Olivier MD LAB BLOOD ORDERABLES Fin al Result Performing Organization Address City/[facility] Co de Phone Number [facility] [address] [place] [address], [place] [phone] * Interferon gamma antigen 1 (10/11/2024 9:37 AM EDT) Blood Venous blood specimen / Unknown Venipuncture / Unknown 10/11/2024 9:37 AM EDT 10/11/2024 9:37 AM EDT us Cornelio Olivier MD LAB BLOOD ORDERABLES Fin al Result Performing Organization Address City/[facility]/ZIP Co de Phone Number [facility] [address] [place] [address], [place] [phone] * Interferon gamma mitogen (10/11/2024 9:37 AM EDT) Blood Venous blood specimen / Unknown Venipuncture / Unknown 10/11/2024 9:37 AM EDT 10/11/2024 9:37 AM EDT us Cornelio Olivier MD LAB BLOOD ORDERABLES Fin al Result Performing Organization Address [facility] Co de Phone Number [facility] [address] [place] [address], [place] [phone] * Interferon gamma NIL (10/11/2024 9:37 AM EDT) Blood Venous blood specimen / Unknown Venipuncture / Unknown 10/11/2024 9:37 AM EDT 10/11/2024 9:37 AM EDT us Cornelio Olivier MD LAB BLOOD ORDERABLES Fin al Result Performing Organization Address [facility] de Phone Number [facility] [address] [place] [address], [place] [phone] * Hepatitis B surface antigen with reflex to confirmation (10/11/2024 9:37 AM EDT) Hepatitis B Surface Ag Negative Negative LAB CHEMISTRY METHOD 10/11/2024 4:27 PM EDT [facility] Blood Venous blood specimen / Unknown Venipuncture / Unknown 10/11/2024 9:37 AM EDT 10/11/2024 9:37 AM EDT Narrative [facility] - 10/11/2024 4:27 PM EDT Over the counter supplements containing high doses of biotin may interfere with this assay. If interference is suspected, patients shoud be retested after refraining from biotin supplements for 72 hours. Cornelio Olivier MD LAB BLOOD ORDERABLES Fin al Result [facility] [address] [place] [address], [place] [phone] * (ABNORMAL) JCV polyoma virus antibody with reflex to inhibition assay (10/11/2024 9:37 AM EDT) [facility] Index Value 2.09 10/21/2024 1:05 PM [...] 1:05 PM EDT Performed at: 01 - [facility] [address] [address] [place] [id number] [employer] Licensee: Madelin Brambila MD, Phone: [phone] Cornelio Olivier MD LAB BLOOD ORDERABLES Fin al Result Performing Organization Address City/[facility] de Phone Number [id number] * Hepatitis B core antibody IgM (10/11/2024 9:37 AM EDT) Hep B Core IgM Negative Negative LAB CHEMISTRY METHOD 10/11/2024 4:55 PM EDT [facility] Blood Venous blood specimen / Unknown Venipuncture / Unknown 10/11/2024 9:37 AM EDT 10/11/2024 9:37 AM EDT Narrative [facility] - 10/11/2024 4:55 PM EDT Over the counter supplements containing high doses of biotin may interfere with this assay. If interference is suspected, patients shoud be retested after refraining from biotin supplements for 72 hours. us Cornelio Olivier MD LAB BLOOD ORDERABLES Fin al Result Performing Organization Address [facility] de Phone Number [facility] [address] [place] [address], * Varicella zoster antibody IgG (10/11/2024 9:37 AM EDT) Varicella IgG Positive Positive LAB CHEMISTRY METHOD 10/11/2024 11:10 AM EDT [facility] Varicella Zoster IgG 28.70 >=1.00 S/CO LAB CHEMISTRY METHOD 10/11/2024 11:10 AM EDT [facility] Blood Venous blood specimen / Unknown Venipuncture / Unknown 10/11/2024 9:37 AM EDT 10/11/2024 9:37 AM EDT Narrative [facility] - 10/11/2024 11:10 AM EDT Interpretation >= 1.00 S/CO is considered to be consistent with Immunity us Cornelio Olivier MD LAB BLOOD ORDERABLES Fin al Result Performing Organization Address [facility] de Phone Number [facility] [address] [place] [address], [place] [phone] * (ABNORMAL) Immunoglobulin IgA (10/11/2024 9:37 AM EDT) IgA 369(H) 61 - 348 mg/dL LAB CHEMISTRY METHOD 10/11/2024 6:51 PM EDT [facility] Blood Venous blood specimen / Unknown Venipuncture / Unknown 10/11/2024 9:37 AM EDT 10/11/2024 9:37 AM EDT us Cornelio Olivier MD LAB BLOOD ORDERABLES Fin al Result Performing Organization Address [facility] de Phone Number [facility] [address] [place] [address], [place] [phone] * Immunoglobulin IgM (10/11/2024 9:37 AM EDT) IgM 34 23 - 259 mg/dL LAB CHEMISTRY METHOD 10/11/2024 6:58 PM EDT [facility] Blood Venous blood specimen / Unknown Venipuncture / Unknown 10/11/2024 9:37 AM EDT 10/11/2024 9:37 AM EDT us Cornelio Olivier MD LAB BLOOD ORDERABLES Fin al Result Performing Organization Address [facility] de Phone Number [facility] [address] [place] [address], [place] [phone] * Immunoglobulin IgG (10/11/2024 9:37 AM EDT) Total IgG 1,420 549 - 1,584 mg/dL LAB CHEMISTRY METHOD 10/11/2024 6:51 PM EDT [facility] Blood Venous blood specimen / Unknown Venipuncture / Unknown 10/11/2024 9:37 AM EDT 10/11/2024 9:37 AM EDT us Cornelio Olivier MD LAB BLOOD ORDERABLES Fin al Result [facility] ([facility]) [facility] [address] [place] [address], [place] [phone] from Last 3 Months Insurance [facility] [employer] Member Subscriber Plan / Payer (Ef fective 2022-Present) Name:Juan Monroe Relation to Subscriber:Self Name:Juan Monroe Payer ID:[id number] Group ID:Not on file Type:Not on file Address: [place] [address] [place] [place] [address] Care Teams Gore Cutter Relationship Specialty Start Date End Date Cathy Jimenez MD [address] [facility] , [address] [facility] Physician Associ D/B/A: [facility] [place], [place] PCP - General Internal Medicine 03/13/24
[2024-12-24 09:40] LABS: Thyroid Stimulating Hormone < 0.01 uIU/mL (0.32-4.0)
== END 2024-12-24 08:03 | disposition home or self-care (01) ==
LOC: HO.LAB 08:02
PROVIDERS: PCP Internal Medicine; Visit Provider Internal Medicine
DX: E03.9 Hypothyroidism, unspecified (principal)
CPT/HCPCS: 36415; 84443

== ENCOUNTER 2025-01-01 12:02 | Outpatient (AMB) | payer OTHER, SELFPAY ==
--- NOTE | 2025-01-01 12:32 | A.OFFVIS_ITS ---
Vital Signs 01/01/25 12:33 Height 5 ft 8 in Weight 186 lb BMI 28.3 Intake Visit Reasons: after MRI - cyst left foot Intake Note: Juan is a 69 year old , Estonian speaking, male who presents today for a follow up/MRI review of the Left Foot, Bilateral Tinea Pedis and Routine Nail Care. At the last visit an MRI was ordered to evaluate the mass on his left foot and he was given a new offloading pad. Pt states he is doing well and he currently is not experiencing any pain just slight discomfort. MR/MR foot LT wo/w con IMPRESSION: There is a solid enhancing lesion in the plantar subcutaneous soft tissues in the base of the fourth proximal phalanx and plantar region of the fourth webspace. There are no bony destructive changes. It measures 12 x 8 x 14 mm (AP by cc by transverse). It could represent a peripheral nerve sheath tumor, thick walled inflamed multiloculated cystic lesion, giant cell tumor, vascular leiomyoma, or less likely a sarcoma. Looseleaf Binder Coverer Required: Yes Looseleaf Binder Coverer Services: Looseleaf Binder Coverer Present Looseleaf Binder Coverer Name: [id number] Allergies tramadol Allergy (Intermediate, Verified 01/01/25 12:36) Hives HPI Comments Details: The patient is a 69-year-old male presenting for a follow-up of a soft tissue mass to the plantar lateral aspect of the left foot. The patient reports he used to use the offloading pad which assists in alleviating pain. Patient recently had an MRI of the left foot suggesting the presence of a tumor at the plantar aspect of the foot, which could be either a nerve or soft tissue tumor. The MRI results indicated that the tumor is likely benign, but further confirmation is required through surgical removal and pathological examination. The patient denies any drainage, purulence, or bleeding from the site. He denies any new pedal injuries. He denies any other pedal concerns. Patient is here today for a pre-operative visit. Prior conservative management including footwear modification, offloading, rest, and/or aspiration has provided some relief. The mass has been consistent in size, but due to suspicion of benign tumor, surgical intervention is recommended. [facility] Medical History (Updated 01/02/25 @ 09:03 by Angelique Rosales DPM) Encounter for preoperative assessment Pre-procedural examination Athletes foot Left foot pain Subcutaneous mass of left foot Ganglion cyst of left foot Voice hoarseness ROLDAN (obstructive sleep apnea) Hypovitaminosis D Type 2 diabetes mellitus, with long-term current use of insulin Moderate recurrent major depression Erectile dysfunction History of urinary hesitancy Prostate nodule Enlarged prostate without lower urinary tract symptoms (luts) Flatus Unspecified constipation Medial meniscus tear OA (osteoarthritis) Arthralgia TAMIKO positive Hypothyroidism Multiple sclerosis Surgical History History of surgery Family History Mother Diabetes mellitus Father No problems noted. Social History Household Members Other:: and daughter Housing: House Alcohol intake: never Patient Tobacco Use Status: Never used Tobacco e-Cigarette/Vaping Use: Never Used Second Hand Smoke Exposure: No service: No Current occupational status: disabled Cognitive needs: Yes Hearing needs: No Vision needs: Yes Review of Systems Const Details: Musculoskeletal: Palpable soft tissue mass noted to the plantar lateral aspect of the left foot in the area of the 4th and 5th metatarsal heads. All systems reviewed & are unremarkable except as noted in HPI and below Physical Exam Vital Signs: BMI result Body Mass Index 28.3 Extrem Other: Bilateral lower extremity focused exam: Derm: Left- soft tissue mass noted to the plantar aspect of the left foot in the area of the 4th and 5th metatarsal heads. Mass is soft in nature and is not mobile. Mass noted to measure approximately 1 x 1.5 cm (no change in size). No erythema noted. No drainage, purulence, or bleeding noted. Scarring from previous aspiration of mass noted. Improvement to xerosis noted. No clinical signs of infection. Right- No gross abnormalities noted. Vascular: DP palpable bilaterally, PT palpable on the right. PT nonpalpable on the left. No varicosities noted. Pedal hair present to the proximal aspect of the legs but absent to the distal aspect of the legs. Neuro: Protective sensation is grossly intact. Musculoskeletal: Mild pain on palpation to the soft tissue mass noted to the le ft foot. No soft tissue crepitus noted. Range of motion of the forefoot, hindfoot, and ankles within normal limits. Mildly antalgic gait noted. Results Reviewed Results Reviewed: Podiatry Read of Left foot MRI (12/19/24): Lobulated Soft tissue mass noted to the subcutaneous area of the plantar aspect of the left foot in the area between the 4th and 5th metatarsal heads. Left foot MRI (12/19/24): FINDINGS: Lisfranc ligament: Intact and unremarkable. Soft tissues: There is a lesion in the subcutaneous soft tissues plantar to the base of the fourth proximal phalanx extending toward the fourth webspace. It contacts the deep plantar dermis. It has somewhat lobulated margins and measures 12 x 8 x 14 mm (AP by cc by transverse). It has a few thin internal septations. T1 imaging, it is slightly hyperintense to skeletal muscle. On fluid sensitive sequences, it is hyperintense with dependent low signal internal septations. With contrast, it demonstrates hyperenhancement except for a 7 mm region along the proximal medial aspect of the mass that demonstrates punctate peripheral enhancement. Also, the thin septations do not enhance. Metatarsophalangeal (MTP) joint and sesamoids of the great toe: There is a small volume of joint fluid. Joint capsular and plantar plate complex structures appear intact. There is trace fluid in the first webspace bursa. Lesser MTP joints & Plantar plates: A small volume of synovial fluid is present in the fourth and fifth MTP joints. Joint capsule structures are intact. Plantar plate complexes appear intact. Bones/Marrow: The marrow signal is physiologic. There are no destructive changes. IMPRESSION: There is a solid enhancing lesion in the plantar subcutaneous soft tissues in the base of the fourth proximal phalanx and plantar region of the fourth webspace. There are no bony destructive changes. It measures 12 x 8 x 14 mm (AP by cc by transverse). It could represent a peripheral nerve sheath tumor, thick walled inflamed multiloculated cystic lesion, giant cell tumor, vascular leiomyoma, or less likely a sarcoma. Left foot x-ray podiatry read: Mild osteophytic changes noted to the distal phalanx of the hallux. Mild plantar calcaneal spurring noted. No acute fractures or dislocations noted. Left foot x-ray (01/17/2024): FINDINGS: Plantar calcaneal spur. No fracture identified. Alignment is anatomic. Joint spaces are maintained. Soft tissues appear unremarkable. IMPRESSION: No acute finding. Assessment & Plan Assessment & Plan (1) Pre-procedural examination: Code(s): Z01.818 - Encounter for other preprocedural examination Category: Medical (2) Mass of left foot: Code(s): R22.42 - Localized swelling, mass and lump, left lower limb Category: Medical (3) Ganglion cyst of left foot: Code(s): M67.472 - Ganglion, left ankle and foot Category: Medical (4) Subcutaneous mass of left foot: Code(s): R22.42 - Localized swelling, mass and lump, left lower limb Category: Medical (5) Athletes foot: Code(s): B35.3 - Tinea pedis Category: Medical Qualifiers: Laterality: bilateral Qualified Code(s): B35.3 - Tinea pedis (6) Left foot pain: Code(s): M79.672 - Pain in left foot Category: Medical (7) Encounter for preoperative assessment: Code(s): Z01.818 - Encounter for other preprocedural examination Category: Medical Plan Patient was informed and verbally consented to the use of an ambient scribe for clinic note documentation during this visit. I discussed with the patient that the MRI suggests a potential benign tumor in the foot, which could be a nerve or soft tissue tumor, or possibly a cyst. We agreed that surgical removal is necessary to confirm the diagnosis through pathology. I explained the procedure, including the risks of bleeding, pain, infection, re-occurence, scarring, numbness, tingling, and infection, and the need for medical clearance. The patient was informed about the pre-operative and post-operative instructions, and the plan for same-day discharge after surgery. We scheduled the surgery for January 24 and will follow up with the patient post-operatively. Surgical Rationale Surgical excision is indicated due to: -Need for histopathologic confirmation to rule out neoplastic process. - Mechanical interference with footwear or ambulation. Patient was counseled extensively regarding indications, benefits, and risks of surgery. Surgical Plan 1. Procedure: Excision of soft tissue mass,left foot. 2. Postoperative Care: Partial weightbearing to the left heel. Follow up 1 week after surgery. Risks and Complications Discussed risks including but are not limited to: pain, scarring, bleeding, infection, hematoma, delayed healing, scarring, recurrence, nerve injury with residual numbness or hypersensitivity, need for revision surgery, or anesthesia-related complications. Patient demonstrates understanding and elects to proceed. Preoperative Orders & Instructions ? Obtain preoperative clearance from PCP. ? Discontinue anticoagulants and NSAIDs 5 days pre-op. ? NPO after midnight on the day prior to surgery. ? Arrange postoperative transportation and caregiver support. All patient questions answered. Informed consent obtained. Patient verbalized understanding and agreement to proceed with surgery. Tentative Date of surgery: 01/24/25 at 8 AM - Obtain medical clearance from the primary care physician prior to surgery. - Pathological examination of the excised mass to confirm diagnosis. - Pre-operative instructions include fasting from midnight before surgery and cessation of blood thinners or NSAIDs a week prior. - Post-operative care includes heel walking to avoid pressure on the stitches and follow-up one week after surgery. - Continue using the offloading pad in the shoe to alleviate pressure on the foot. Tinea Pedis B/L: - Continue applying the clotrimazole cream to the foot as previously instructed. Follow-up 1 week post-op. Orders: Orders Basic Metabolic Panel 01/01/25 Z01.812 - Encounter for preprocedural laboratory examination Type and Screen 01/01/25 Z01.812 - Encounter for preprocedural laboratory examination Hemoglobin A1c 01/01/25 Z01.812 - Encounter for preprocedural laboratory examination ECG 12 lead EKG 01/01/25 Z01.810 - Encounter for preprocedural cardiovascular examination Complete Blood Count Auto Diff 01/01/25 Z01.812 - Encounter for preprocedural laboratory examination XR chest 2V 01/01/25 Z01.818 - Encounter for other preprocedural examination Referrals Podiatry Procedure Notification M67.472 - Ganglion, left ankle and foot, R22.42 - Localized swelling, mass and lump, left lower limb Coding Level of Care Code Est Pt Level 4 (85777) Diagnoses Pre-procedural examination Z01.818 Mass of left foot R22.42 Ganglion cyst of left foot M67.472 Subcutaneous mass of left foot R22.42 Tinea pedis of both feet B35.3 Laterality: bilateral Left foot pain M79.672 Encounter for preoperative assessment Z01.818 Time Spent (min) 75 Comment 57 modifier - decision for surgery
[2025-01-01 12:33] VITALS: BMI 28.3
== END 2025-01-01 16:16 | disposition home or self-care (01) ==
LOC: HO.HPODS 12:02
PROVIDERS: PCP Internal Medicine; Visit Provider Student in an Organized Health Care Education/Training Program
DX: M67.472 Ganglion, left ankle and foot (principal); Z01.818 Encounter for other preprocedural examination; M79.672 Pain in left foot; R22.42 Localized swelling, mass and lump, left lower limb; B35.3 Tinea pedis
CPT/HCPCS: 99214

== ENCOUNTER → 2025-01-01 12:02 | Outpatient (BNVA) | payer OTHER, SELFPAY | PROVIDERS: PCP Internal Medicine; Visit Provider Student in an Organized Health Care Education/Training Program | DX: Z01.818 Encounter for other preprocedural examination (principal); R22.42 Localized swelling, mass and lump, left lower limb; M67.472 Ganglion, left ankle and foot | CPT/HCPCS: 99212 ==

== ENCOUNTER 2025-01-09 10:14 | Outpatient (AMB) | payer OTHER, SELFPAY ==
--- OUTSIDE RECORDS SUMMARY | 2025-01-07 13:30 | XMS_ITS | Encounter Summary ---
Author Organization [facility] Address [id number] [place] [id number] Care Team Providers Care Forest Examiner Name Role Phone Cathy Jimenez MD Primary Care Provider [phone] Reason for Visit * Consultation (Routine) - Authorized Specialty Diagnoses / Procedures Referred By Ghanshyam duncan Referred To Contact Physical Therapy Diagnoses Gait abnormality MS (multiple sclerosis) Dizziness Cornelio Olivier MD Phone: tel: fax: Referral ID Status Reason Start Date Expiration Date Visits Requested Visits Authorized [id number] Authorized Specialty Services Required 11/13/2024 11/13/2025 20 9 Encounter Details Date Type Department Care Team (Late st Contact Info) Description 01/07/2025 1:30 PM EDT Treatment [address] [id number] Sarthak Hsu PTA Gait abnormality (Primary Dx) Social History Tobacco Use Types Packs/Day Years Used Date Smoking Tobacco: Never Assessed Sex and Gender Information Value Date Recorded Sex Assigned at Male 08/13/2024 8:54 AM EDT Legal Sex Male 11:29 AM EST Gender Identity Male 08/13/2024 8:54 AM EDT Sexual Orientation Straight 08/13/2024 8: 54 AM EDT documented as of this encounter Progress Notes * Sarthak Hsu PTA - 01/07/2025 1:30 PM EDT [facility] - Outpatient PHYSICAL THERAPY DAILY TREATMENT NOTE - OP Date: 01/07/2025 Visit Number: 3 Patient Name: Juan Casillas : 1955 Age: 69 y.o. Gender: male Diagnosis: ICD-10-CM ICD-9-CM 1. Gait abnormality R26.9 781.2 Date of Onset/Surgery: 12/17/2024 Referring Provider: Cornelio Olivier, Fermin Insurance: Payor: [employer] ASSISTED OPTIONS / Plan: [facility] ASSISTED OPTIONS / Product Type: *No Product type* / Patient Identified by: Sarthak Hsu PTA Language: Pt. speaks Soanish as preferred language, however declines air control electronics operator treating MANAGER DRILLING speaks preferred language Medications: Medications Ordered Prior to Encounter[1] Allergies: is allergic to tramadol. Precautions: occassional dizziness, MS Fall risk: No SUBJECTIVE Subjective Report: Patient reports his senior electronics engineer is referring him to have surgery on his foot Chart Reviewed: Yes Pain: 5/10 L foot TREATMENT INTERVENTION: Nu step x 5mins Calf stretch on slant board B LE marching 30 reps Hip abd, ext with blue theraband 30 reps ASSESSMENT/Response to Treatment Good tolerance with exercises, patient able to perform R LE WB exercises with wt distributed onto Lheel. Patient Education: Education provided: yes Education Provided To: Patient utilizing Explanation mode(s) of education Response to Education: Verbal Understanding PLAN POC Development/Review: No Change in the Plan of Care; Participants: Patient Interventions Time Entry: Modalities: Therapeutic procedures: Therapeutic Exercise Time Entry: 25 Total Treatment Time: 25 mins Documentation completed by Sarthak Hsu PTA [1] Current Outpatient Medications on File Prior to Visit Medication Sig Dispense Refill cholecalciferol (VITAMIN D-3) 50 mcg (2,000 unit) tablet Take 1 tablet (2,000 Units total) by mouth1 (one) time each day. citalopram (CeleXA) 20 mg tablet Take 1 tablet (20 mg total) by mouth 1 (one) time each day. cladribine,multiple sclerosis, (Mavenclad, 8 tablet pack,) 10 mg tablet Take 2 tablets (20 mg) by mouth one time a day for 4 days. If you take other drugs by mouth, take them at least 3 hours before or 3 hours after this drug. Take with or without food. 8 tablet 0 cyanocobalamin (VITAMIN B-12) 1,000 [...] facility-administered medications on file prior to visit. documented in this encounter Plan of Treatment Upcoming Encounters Date Type Department Care Team (Late st Contact Info) Description 02/13/2025 1:00 PM EST Office Visit [facility] [address] [place] [address] Debbi Brown PA [address] [place] [address] documented as of this encounter Goals Goal Patient Goal Type Associated Problems Recent Progress Patient-Stated? Author FRAME BENDER LTG General No Liz Garcia, FRAME BENDER Note: Pt will consume least restrictive PO diet without changes to medical or respiratory status to maintain adequate oral nutrition hydration FRAME BENDER STGs General No Liz Garcia, FRAME BENDER Note: Pt will participate in MBS for further assessment of oral pharyngeal swallow Pt will consume recommended diet textures and utilize swallow strategies given min verbal or visual cues Pt will participate in development of personalized HEP and perform 3-4xs/wk with min assist for modifications OT stg General Megan Carlisle, OT Note: Pt will return demo approp HEP (Habituation for dizziness) 12/06/24 met Pt will report no > than mild dizziness , not exceed intermittent frequency 12/06/24 no appreciable difference from baseline documented as of this encounter Visit Diagnoses Diagnosis Gait abnormality- Primary Abnormality of gait documented in this encounter Care Teams Forest Examiner Relationship Specialty Start Date End Date Cathy Jimenez MD [address] [place] [address] , [address] [facility] D[facility]A: [facility] [place], [place] PCP - General Internal Medicine 03/13/24 documented as of this encounter
[2025-01-09 10:48] VITALS: BP 106/62; PULSE 109; TEMP 36.3; O2SAT 97; BMI 27.1
--- NOTE | 2025-01-09 10:48 | MHC.PC.OV ---
Vital Signs 01/09/25 10:48 Height 5 ft 8 in Weight 178 lb 6 oz BMI 27.1 BP 106/62 Blood Pressure Location Lt brachial Position Sitting Pulse 109 H Pulse Source Pulse Oximeter Temp 97.3 F Temp Source Temporal Artery Scan Pulse Oximetry (%) 97 Oxygen Delivery Method Room Air Intake Visit Reasons: Podiatry Removal of soft tissue of toes jonelle 01/24 Civil Structural Engineer Required: Yes Civil Structural Engineer Language: Estonian Allergies tramadol Allergy (Intermediate, Verified 01/09/25 10:53) Hives Tobacco use date assessed: 01/09/25 Fall risk assessment: No Falls in past year Last assessed Fall Risk: 01/09/25 Dental Screening Dental Screen Date: 01/09/25 Did you have a dental visit in the last 12 months?: No Did you have a dental problem in the last 6 months where you did not have access to dental care?: No Was dental information given to patient?: No HPI HPI Comments History of Present Illness Details The patient is a 69-year-old male presenting for preoperative clearance for foot surgery. The patient denies any Chest pain, history of heart problems. HE is due for surgery with podiatry (low risk). Podaitry were planning on getting EKG which we will get in clinic. The patient reports being prediabetic, which was identified during the consultation. [facility] Medical History Encounter for preoperative assessment Pre-procedural examination Athletes foot Left foot pain Subcutaneous mass of left foot Ganglion cyst of left foot Voice hoarseness ROLDAN (obstructive sleep apnea) Hypovitaminosis D Type 2 diabetes mellitus, with long-term current use of insulin Moderate recurrent major depression Erectile dysfunction History of urinary hesitancy Prostate nodule Enlarged prostate without lower urinary tract symptoms (luts) Flatus Unspecified constipation Medial meniscus tear OA (osteoarthritis) Arthralgia TAMIKO positive Hypothyroidism Multiple sclerosis Surgical History History of surgery Family History Mother Diabetes mellitus Father No problems noted. Social History Household Members Other:: and daughter Housing: House Alcohol intake: never Patient Tobacco Use Status: Never used Tobacco e-Cigarette/Vaping Use: Never Used Second Hand Smoke Exposure: No service: No Current occupational status: disabled Cognitive needs: Yes Hearing needs: No Vision needs: Yes Questionnaire PHQ-9 Over the last 2 weeks, how often have you been bothered by any of the following problems? 1. Little interest or pleasure in doing things: not at all 2. Feeling down, depressed, or hopeless: not at all 3. Trouble falling or staying asleep, or sleeping too much: not at all 4. Feeling tired or having little energy: not at all 5. Poor appetite or overeating: not at all 6. Feeling bad about yourself - or that you are a failure or have let yourself or your family down: not at all 7. Trouble concentrating on things, such as reading the newspaper or watching television: not at all 8. Moving or speaking so slowly that other people could have noticed. Or the opposite - being so fidgety or restless that you have been moving around a lot more than usual: not at all 9. Thoughts that you would be better off or of hurting yourself in some way: not at all Total score: 0 Depression Screening Interpretation: Negative Depression Screening Done: Yes Source: Developed by Drs. Jonas Rodriguez, Kelly Santo, Kingsley Keen and colleagues, with an educational alda from [employer]. Thrive Questionnaire Date Thrive assessed: 09/10/24 I am a: Patient What is your living situation today?: I have a steady place to live Within the past 12 months, did the food you bought not last and you didn't have the money to get more?: Never true Within the past 12 months, did you worry whether your food would run out before you got money to buy more?: Never true Do you have trouble paying for medicines?: No Do you have trouble getting transportation to medical appointments?: No Do you have trouble paying your heating and electricity bill?: No Do you have trouble taking care of your child, family member or friend?: No Do you have trouble with day-to-day activities such as bathing, preparing meals, shopping, managing finances, etc.?: No Are you currently unemployed and looking for a job?: I choose not to answer this question Are you interested in more education?: Yes Please select the resources that you would like help with: None Currently or been in a relationship where the following occur: No concerns reported THRIVE Score: 0 AUDIT C Alcohol Use Questionnaire (AUDIT-C) 1. How often do you have a drink containing alcohol?: Never 3. How often do you have six or more drinks on one occasion?: Never Total Score: 0 RODDY-7 AMB Questionnaire RODDY-7 Date RODDY - 7 assessed: 05/13/24 Feeling nervous, anxious, or on edge: 0 = Not at all Not being able to stop or control worryin = Several days Worrying too much about different things: 1 = Several days Trouble relaxin = Several days Being so restless that it is hard to sit still: 1 = Several days Becoming easily annoyed or irritable: 1 = Several days Feeling afraid as if something awful might happen: 1 = Several days Total RODDY-7 score (0-4 normal; 5-9 mild; 10-14 moderate; 15-21 severe): 6 Source: Developed by Drs. Jonas Rodriguez, Kelly Santo, Kingsley Keen and colleagues, with an educational alda from [employer]. Review of Systems Const Details: Positives besides what was mentioned in HPI are in BOLD Constitutional: No Weight Change, No Fever, No Chills, No Night Sweats, No Fatigue, No Malaise ENT/Mouth: No Hearing Changes, No Ear Pain, No Nasal Congestion, No Sinus Pain, No Hoarseness, No sore throat, No Rhinorrhea, No Swallowing Difficulty Eyes: No Eye Pain, No Swelling, No Redness, No Foreign Body, No Discharge, No Vision Changes Cardiovascular: No Chest Pain, No SOB, No PND, No Dyspnea on Exertion, No Orthopnea, No Claudication, No Edema, No Palpitations Respiratory: No Cough, No Sputum, No Wheezing, No Smoke Exposure, No Dyspnea Gastrointestinal: No Nausea, No Vomiting, No Diarrhea, No Constipation, No Pain, No Heartburn, No Anorexia, No Dysphagia, No Hematochezia, No Melena, No Flatulence, No Jaundice Genitourinary: No Dysmenorrhea, No DUB, No Dyspareunia, No Dysuria, No Urinary Frequency, No Hematuria, No Urinary Incontinence, No Urgency, No Flank Pain, No Urinary Flow Changes, No Hesitancy Musculoskeletal: No Arthralgias, No Myalgias, No Joint Swelling, No Joint Stiffness, No Back Pain, No Neck Pain, No Injury History Skin: No Skin Lesions, No Pruritis, No Hair Changes, No Breast/Skin Changes, No Nipple Discharge Neuro: No Weakness, No Numbness, No Paresthesias, No Loss of Consciousness, No Syncope, No Dizziness, No Headache, No Coordination Changes, No Recent Falls Psych: No Anxiety/Panic, No Depression, No Insomnia, No Personality Changes, No Delusions, No Rumination, No SI/HI/AH/VH, No Social Issues, No Memory Changes, No Violence/Abuse Hx., No Eating Concerns Heme/Lymph: No Bruising, No Bleeding, No Transfusions History, No Lymphadenopathy Endocrine: No Polyuria, No Polydipsia, No Temperature Intolerance Physical exam (Primary Care) Vital Signs: Last Vital Signs Temp 97.3 F 01/09/25 10:48 Pulse 109 H 01/09/25 10:48 BP 106/62 01/09/25 10:48 Pulse Ox 97 01/09/25 10:48 Oxygen Delivery Method Room Air 01/09/25 10:48 BMI result Body Mass Index 27.1 Tobacco/Smoking Status: Tobacco use Status Tobacco use date assessed 01/09/25 01/09/25 10:55 Patient Tobacco Use Status Never used Tobacco 01/09/25 10:55 e-Cigarette/Vaping Use Never Used 01/09/25 10:55 PHQ-9: PHQ-9 Score PHQ-9: Total score 0 01/09/25 11:04 Depression Screening Interpretation: Negative Thrive Assessment: Date of Thrive Assessment Date Thrive assessed 09/10/24 01/09/25 10:55 Currently or been in a relationship where the following occur: No concerns reported Const Other: Pertinent findings are in BOLD GENERAL APPEARANCE NAD, activity normal for age, well developed/ well nourished, no cyanosis, pallor, or diaphoresis. EYES lids/conjunctiva normal. EARS/NOSE/THROAT Mucous membranes moist, nares normal, lips/teeth normal uvula midline without oral pharyngeal erythema, exudate or swelling TMs normal bilaterally. No lymphangitis/lymphedema. HEAD/NECK normocephalic atraumatic, no facial trauma, neck is supple. RESPIRATORY respiratory effort normal, speaks in full sentences, no tripod position, no accessory muscle use. Lungs clear to auscultation without rhonchi, wheezes, rales CARDIAC Regular rate and rhythm, no edema. ABDOMINAL Soft, ND/NT. No evidence of fluid wave. No pulsatile masses on exam, rebound tenderness, Bonilla sign or pain over Mcburney's point. MUSCLES/EXTREMITIES No abnormal range of motion, no swelling. SKIN Warm, pink and dry. No rashes, dermatoses, petechiae or lesions. NEUROLOGICAL Speech is clear and appropriate. Normal level of consciousness. Gait and coordination are normal. 5/5 strength in all extremities. PSYCH Normal mood and affect. Judgement/competence is appropriate Office Procedures EKG [id number], Complete Results AMB Hemoglobin A1c AMB Hemoglobin A1c 5.7 % Last Edit by Shayy Kendrick CMA on 01/09/25 11:00 Results Reviewed Results Reviewed: Laboratory Last Values Hgb A1c (Clinic) 5.7 % (4.0-6.0) 01/09/25 10:55 Coding Level of Care Code Est Pt Level 3 (43772) Diagnoses Pre-procedural examination Z01.818 CPT Codes EKG - CPT: 79618-[id number], Complete ([id number]) Assessment & Plan Assessment & Plan (1) Pre-procedural examination: Code(s): Z01.818 - Encounter for other preprocedural examination Category: Medical Plan: Low risk surgery. No signs or symptoms of heart disease. No history of kidney problem. EKG with sinus rythm. RCRI: 0 pts with 0.5% risk of complications. Recent labs reviewed with no pertinent findings. No need to repeat labs at this time. - Patient is cleared for surgery with podiatry. Plan I discussed with the patient the need for an EKG prior to his foot surgery to ensure cardiac clearance. The patient was informed that labs have already been completed and do not need to be repeated. Orders: Orders AMB Hemoglobin A1c Today Z13.9 - Encounter for screening, unspecified AMB EKG-In Office Today Z01.818 - Encounter for other preprocedural examination
--- OUTSIDE RECORDS SUMMARY | 2025-01-09 12:36 | XMS_ITS | Encounter Summary ---
Author Organization [employer] Address [address] [place] [address] [address] [place] [address] Care Team Providers Care Integrated Logistics Programs Director Name Role Phone Unavailable Primary Care Provider Unavailabl e Encounter Details Date Type Department Care Team (Latest Contact Info) Description 12/31/2021 Abstract [facility] CONVERSION[facility] Dental, Provider, DDS Social History [...]
--- OUTSIDE RECORDS SUMMARY | 2025-01-09 12:36 | XMS_ITS | Encounter Summary ---
Author Organization [employer] Address [address] [place] [address] [address] [place] [address] Care Team Providers Care Electrical Controls Engineer Name Role Phone Unavailable Primary Care Provider Unavailabl e Reason for Visit * Reason Comments Med Refill Encounter Details Date Type Department Care Team ([facility] st Contact Info) Description 04/04/2022 Refill [facility] [address] [place] [address] Josué Valencia MD [address] [place], [place] [id number] Social History Tobacco Use Types Packs/Day Years [...]
--- OUTSIDE RECORDS SUMMARY | 2025-01-09 12:36 | XMS_ITS | Encounter Summary ---
Author Organization [employer] Address [address] [place] [address] [address] [place] [address] Care Team Providers Care Director Of Religious Life Name Role Phone Unavailable Primary Care Provider Unavailabl e Reason for Visit * Reason Comments Med Refill Encounter Details Date Type Department Care Team ([facility] st Contact Info) Description 07/20/2022 Refill [facility] [address] [place] [address] Josué Valencia MD [address] [place] [address] Social History Tobacco Use Types Packs/Day Years [...]
--- OUTSIDE RECORDS SUMMARY | 2025-01-09 12:36 | XMS_ITS | Clinical Summary ---
Author Organization 175 [facility] Address [address] [place] [address] Phone Care Team Providers Care Cobbler Apprentice Name Role Phone Cathy Jimenez MD Primary Care Provider [phone] Allergies Active Allergy Reactions Criticality Noted Date [...] Encounters Date Type Department Care Team Description 01/07/2025 1:30 PM EDT Treatment [address] [phone] Sarthak Hsu PTA Gait abnormality (Primary Dx) 12/25/2024 8:30 AM EDT - 12/25/2024 11:59 PM EDT Hospital Encounter [facility] Xray [address] [place] [address] Denise Parsons, [facility]-SENIOR DIRECTOR OF [employer] Multiple sclerosis; Dysphagia, oropharyngeal phase Discharge Disposition: Home or Self Care 12/24/2024 4:00 PM EDT Treatment [facility] [address] [phone] Robert Peacock PTA Gait abnormality (Primary Dx) 12/17/2024 10:30 AM EDT Evaluation [facility] [address] [phone] Vesta Vilchis, PT Gait abnormality (Primary Dx); MS (multiple sclerosis) (CMS/HCC V24, CMS/HCC V28); Dizziness 12/06/2024 10:45 AM EDT Treatment [facility] [address] [phone] Megan Coronel, OT Dizziness (Primary Dx) 11/19/2024 1:30 PM EDT Evaluation [facility] [address] [phone] Megan Coronel, OT Gait abnormality; MS (multiple sclerosis) (CMS/HCC V24, CMS/HCC V28); Dizziness 11/13/2024 8:30 AM EDT Office Visit [facility] 175 [facility] [address] [place] [phone] Cornelio Olivier MD Gait abnormality (Primary Dx); MS (multiple sclerosis) (CMS/HCC V24, CMS/HCC V28); Dizziness 10/24/2024 11:00 AM EDT Office Visit [facility] 175 [facility] [address] [place] [phone] Cornelio Olivier MD MS (multiple sclerosis) (CMS/HCC V24, CMS/HCC V28) (Primary Dx); Gait abnormality; Urinary symptom or sign 10/21/2024 3:15 PM EDT Treatment [facility] Speech Therapy [address] [phone] Liz Garcia, SENIOR DIRECTOR OF [employer] Dysphagia, oropharyngeal (Primary Dx); Multiple sclerosis (CMS/HCC V24, CMS/HCC V28) 10/21/2024 2:30 PM EDT Treatment [facility] [address] [phone] Preethi Jung, PT Multiple sclerosis (CMS/HCC V24, CMS/HCC V28) (Primary Dx) 10/16/2024 8:46 AM EDT - 10/16/2024 11:59 PM EDT Hospital Encounter [facility] [phone] MS (multiple sclerosis) ([facility]/HCC V24, [facility]/HCC V28) (Primary Dx) Discharge Disposition: Home or Self Care 10/15/2024 9:48 AM EDT - 10/15/2024 11:59 PM EDT Hospital Encounter [facility] [phone] MS (multiple sclerosis) ([facility]/HCC V24, [facility] V28) (Primary Dx) Discharge Disposition: Home or Self Care 10/11/2024 9:42 AM EDT - 10/11/2024 11:59 PM EDT Hospital Encounter [facility] [phone] MS (multiple sclerosis) ([facility] V24, [facility] V28) (Primary Dx) Discharge Disposition: Home or Self Care 10/11/2024 Telephone [facility] [phone] Cornelio Olivier MD 10/10/2024 4:00 PM EDT Office Visit [facility] MS [address] [phone] Cornelio Olivier MD Multiple sclerosis ([facility]/HCC V24, CMS/[facility] V28) (Primary Dx); Gait abnormality; Urinary symptom or sign from Last 3 Months Medical History Medical History Date Comments Diabetes mellitus ([facility] V24, [facility] V28) Social History Tobacco Use Types Packs/Day [...] Description 02/13/2025 1:00 PM EST Office Visit [facility] 175 [facility] [employer] [address] [place] [address] Debbi Brown PA [address] [place] [address] Health Maintenance Due Date Last Done Comments Colorectal Cancer Screening: Colonoscopy 1955 Zoster Vaccines (2 of 2) 09/08/2022 07/14/2022 Abdominal Aortic Aneurysm (AAA) Screen 03/13/2024 Falls Risk Assessment 03/13/2024 Medicare Annual Wellness Visit 03/13/2024 Social Influencers of Health Screening 03/13/2024 Depression Screening 03/27/2024 COVID-19 Vaccine ( - season) 2024 03/23/2021, [...] Type Associated Problems Recent Progress Patient-Stated? Author SENIOR DIRECTOR OF [employer] LTG General No Liz Garcia, SENIOR DIRECTOR OF [employer] Note: Pt will consume least restrictive PO diet without changes to medical or respiratory status to maintain adequate oral nutrition hydration SENIOR DIRECTOR OF [employer] STGs General No Liz Garcia, SENIOR DIRECTOR [employer] Note: Pt will participate in MBS for further assessment of oral pharyngeal swallow Pt will consume recommended diet textures and utilize swallow strategies given min verbal or visual cues Pt will participate in development of personalized HEP and perform 3-4xs/wk with min assist for modifications OT stg General No Megan Coronel, ODELL Note: Pt will return demo approp HEP (Habituation for dizziness) 12/06/24 met Pt will report no > than mild dizziness , not exceed intermittent frequency 12/06/24 no appreciable difference from baseline Procedures Procedure Name Priority Date/Time Associated Diagnosis Comments XR BARIUM SWALLOW WITH VIDEO AND SPEECH Routine 12/25/2024 10:06 AM EDT Multiple sclerosis Dysphagia, oropharyngeal phase SENIOR [employer]OR [employer] VIDEOFLUOROSCOPIC SWALLOW STUDY WITH BARIUM Routine 12/25/2024 9:00 AM EDT Multiple sclerosis Dysphagia, oropharyngeal phase INTERFERON GAMMA INTERPRETATION Routine 10/11/2024 9:37 AM EDT Multiple sclerosis (CMS/HCC V24, CMS/HCC V28) Gait abnormality INTERFERON GAMMA ANTIGEN 2 Routine 10/11/2024 9:37 AM EDT Multiple sclerosis (CMS/HCC V24, CMS/HCC V28) Gait abnormality INTERFERON GAMMA ANTIGEN 1 Routine 10/11/2024 9:37 AM EDT Multiple sclerosis (CMS/HCC V24, CMS/HCC V28) Gait abnormality INTERFERON GAMMA MITOGEN Routine 025 9:37 AM EDT Multiple sclerosis (CMS/HCC V24, [...] V28) from Last 3 Months Results * XR Barium Swallow with Video and Speech (12/25/2024 10:06 AM EDT) Anatomical Region Laterality Modality Head and Neck Radiographic Charu ging 12/25/2024 12:1 9 PM EDT Impressions 12/25/2024 12:23 PM EDT Flash laryngeal penetration without mariah aspiration on large sips of thin barium, otherwise normal swallowing function. Please refer to the dedicated speech pathologist report for further details as clinically indicated. -------- FINAL REPORT -------- Dictated By: Terra Gracia Dictated Date: 12/25/2024 12:19 ET Assigned Physician: Shashank Santillan Reviewed and Electronically Signed By: Shashank Santillan Signed Date: 12/25/2024 12:23 ET Workstation ID: [id number] Transcribed By: Self Edit Transcribed Date: 12/25/2024 12:21 ET Resident/PA/INTERNATIONAL ACCOUNTANT: Terra Gracia Narrative 12/25/2024 12:23 PM EDT CLINICAL HISTORY: multiple sclerosis. STUDY: Modified barium swallow study COMPARISON: None. HISTORY: Patient is a 69-year-old male with history of multiple sclerosis, dysphagia. TECHNIQUE: Multiple sequential fluoroscopic images of the lateral neck were obtained for a swallowing function study. Barium enhanced consistencies of pudding, honey, nectar, thin liquid, semi- solid, and a 13 mm barium tablet were utilized for evaluation. Examination was performed with the speech therapist present. FINDINGS: There is flash laryngeal penetration without mariah aspiration on large sips of thin barium. There was no evidence for penetration or aspiration of any of the other various consistencies. 13mm barium tablet was swallowed without difficulty with prompt passage of pill past the hypopharynx. DAP: 0.37 Gycm^2 Procedure Note Shashank Santillan MD - 12/25/2024 CLINICAL HISTORY: multiple sclerosis. STUDY: Modified barium swallow study COMPARISON: None. HISTORY: Patient is a 69-year-old male with history of multiple sclerosis,dysphagia. TECHNIQUE: Multiple sequential fluoroscopic images of the lateral neckwere obtained for a swallowing function study. Barium enhancedconsistencies of pudding, honey, nectar, thin liquid, semi-solid, and a 13mm barium tablet were utilized for evaluation. Examination was performedwith the speech therapist present. FINDINGS: There is flash laryngeal penetration without mariah aspiration on largesips of thin barium. There was no evidence for penetration or aspirationof any of the other various consistencies. 13mm barium tablet wasswallowed without difficulty with prompt passage of pill past thehypopharynx. DAP: 0.37 Gycm^2 IMPRESSION: Flash laryngeal penetration without mariah aspiration on large sips of thinbarium, otherwise normal swallowing function. Please refer to the dedicated speech pathologist report for furtherdetails as clinically indicated. -------- FINAL REPORT -------- Dictated By: Terra Gracia Dictated Date: 12/25/2024 12:19 ET Assigned Physician: Shashank Santillan Reviewed and Electronically Signed By: Shashank Santillan Signed Date: 12/25/2024 12:23 ET Workstation ID: [id number] Transcribed By: Self Edit Transcribed Date: 12/25/2024 12:21 ET Resident/PA/INTERNATIONAL ACCOUNTANT: Terra Gracia us Cornelio Olivier MD IMG FLUOROSCOPY PROCEDUR ES Final Result * SENIOR DIRECTOR OF [employer] videofluoroscopic swallow study with barium (12/25/2024 9:00 AM EDT) Narrative Denise Parsons, [facility]-SENIOR DIRECTOR OF [employer] - 12/25/2024 9:00 [address] Denise Parsons [facility]-SENIOR DIRECTOR OF [employer] 12/25/2024 2:59 PM OUTPATIENT MODIFIED BARIUM SWALLOW STUDY/ VIDEOFLUOROSCOPIC EVALUATION OF THE SWALLOW NAME: Juan Casillas DATE OF : 1955 DATE: 12/25/2024 RECOMMENDATIONS: Recommendations/Treat Recommendations: Continued dysphagia therapy, ENT evaluation Recommendations Comment: Pt expressed interest in continuing to work w/ OP on pharyngeal strengthening exercises. ENT consult recommended due to reported changes in voice. Solid Consistency: IDDSI Level 7 Regular Liquid Consistency: Thin liquids Liquid Administration Via: Cup Recommended Medication Route: PO Recommended Medication Administration: One pill at a time Supervision: Independent Compensations: Small sips/bites, Alternating liquids and solids, Slow rate Postural Changes and/or Swallow Maneuvers: Upright TREATMENT RECOMMENDATIONS: Patient would benefit from Outpatient SENIOR DIRECTOR [employer] Services following this Instrumental Assessment Summary and Impressions: Juan Casillas is a 69 y.o. who presents with mild pharyngeal dysphagia secondary to MS. Pt's swallowing was characterized by WFL oral phase, adequate hyolaryngeal elevation, adequate clearance through the PES, and pharyngeal residue. Decreased epiglottic inversion and incomplete laryngeal vestibular closure contributed to laryngeal penetration (PAS 2) of large sips of thin liquids. No tracheal aspiration across consistencies. Barium pill passed through the pharynx without difficulty. TIME IN: 930 TIME OUT: 1000 MINUTES: 30 CHAIR CAR ATTENDANT REQUIRED: (Yes : CHAIR CAR ATTENDANT NUMBER: #[id number] LANGUAGE: Uzbek) GENERAL INFORMATION: Ordering Physician: Cornelio Olivier MD Radiologist: Terra Gracia PA-C Date of Evaluation: 12/25/24 Type of Study: Initial MBS Reason for Study: Pt reported a frequent choking sensation w/ solids and liquids and constant globus sensation. Pt reported that he has had difficulty swallowing all of his life but it has become increasing worse in the past year. Pt reported that his voice has also changed, it is more hoarse, around the time of the onset w/ difficulty swallowing for the past year. Pt reported a hx of sleep apnea and was diagnosed w/ MS 15 years ago but had a flare-up 5 years ago. Pt denied PNA and unintentional weight loss. Pt reported that he feels like he might have acid reflux but does not take meds for it. Diet Prior to this Study: Regular/thin liquids Dysphagia Diagnosis: Mild pharyngeal stage dysphagia SUBJECTIVE: Pt was ambulatory and able to provide adequate medical history Multiple sclerosis [G35.D] Dysphagia, oropharyngeal phase [R13.12] SENIOR DIRECTOR OF [employer] VIDEOFLUOROSCOPIC SWALLOW STUDY WITH BARIUM [[id number]] XR BARIUM SWALLOW WITH VIDEO AND SPEECH [[id number]] ALLERGIES: Allergies[1] OBJECTIVE Respiratory status: Room air DYSPHAGIA HISTORY/PREVIOUS MBSs Pt reported a frequent choking sensation w/ solids and liquids and constant globus sensation. Pt reported that he has had difficulty swallowing all of his life but it has become increasing worse in the past year. Pt reported that his voice has also changed, it is more hoarse, around the time of the onset w/ difficulty swallowing for the past year. Pt reported a hx of sleep apnea and was diagnosed w/ MS 15 years ago but had a flare-up 5 years ago. Pt denied PNA and unintentional weight loss. Pt reported that he feels like he might have acid reflux but does not take meds for it. Pt saw OP SENIOR [employer]OR [employer] services x2 for swallowing strategies, who recommended the MBS. DYSPHAGIA SYMPTOMS REPORTED: Choking, Difficulty swallowing food, Difficulty swallowing liquids, and Food gets stuck MENTAL STATUS: Alert , Responsive, and Cooperative Oral/Motor: Labial ROM:Within Functional Limits Labial Symmetry:Within Functional Limits Labial Strength:Within Functional Limits Labial Sensation:Within Functional Limits Lingual ROM: Within Functional Limits Lingual Symmetry: Within Functional Limits Lingual Strength: Within Functional Limits Secretion Management: No Issue Oral Hygiene:Good Vocal Function: WNL Dentition: Adequate Oral Motor Comments: WFL for swallowing function Fluoroscopy View: Lateral Position during Eval: Upright in chair CONSISTENCIES TRIALED FOOD: IDDSI Level 7 Regular and IDDSI Level 4 Puree LIQUID: IDDSI Level 3 Moderately Thick, IDDSI Level 2 Mildly Thick, and IDDSI Level 0 Thin BARIUM TABLET: 1 barium pill whole w/ water Oral Phase: Oral Phase: Within Functional Limits Oral Phase: Within Functional Limits Oral Phase - Comment Oral Phase - Comment: Pt demonstrated adequate labial seal across consistencies. Pt had timely mastication and bolus transport. Minimal oral residue across trials that cleared by the end of the study. Pharyngeal swallow was initiated at the level of the pryiforms. Barium pill required multiple sips of water to pass through the oral cavity to the pharynx. Pharyngeal Phase: Pharyngeal Phase: Impaired Pharyngeal Phase: Impaired Pharyngeal Phase - Comment Pharyngeal Comment: Pt was noted to have adequate hyolaryngeal elevation and soft palate elevation. Pt had partial epiglottic inversion and incomplete laryngeal vestibular closure. Pt demonstrated a diminished pharyngeal stripping wave and tract column of contrast between the base of the tongue and pharyngeal wall w/ the large sip of thin liquids. Pt had adequate clearance through the PES, no retention. Trace pharyngeal residue w/ liquids and vellecular residue w/ the regular solid. Laryngeal penetration (PAS 2) w/ large sip of thin liquids. No tracheal aspiration across consistencies. Barium pill passed through the pharynx without difficulty. Cricopharyngeal/Esophageal Phase: Cricopharyngeal Phase: Within Functional Limits Cricopharyngeal Phase: Within Functional Limits Cricopharyngeal Comment: Adequate clearance through the PES and barium passed passed through the pharynx without retention. Cricopharyngeal Comment: Adequate clearance through the PES and barium passed passed through the pharynx without retention. 8- Point Penetration Aspiration Scale (PAS) Consistency- (IDDSI level) Score Comments Moderate thick liquids (3) 1- Material does not enter airway. Mildly thick liquids (2) 1- Material does not enter airway. Thin liquids (0) 2- Material enters the airway, remains above the vocal folds, and is ejected from the airway. Laryngeal penetration w/ large sip of thin liquids. Puree (4) 1- Material does not enter airway. Regular solids (7) 1- Material does not enter airway. Barium tablet 1- Material does not enter airway. Other: PORSCHE Elena, Lynnette Donahue, Mehrdad HOSKINS, TASH Tee, & TASH Delgadillo. A Penetration-Aspiration Scale. Dysphagia 11:93-98, 1996. EDUCATION Education: Education provided: Reviewed MBS video Diet Recommendations Aspiration precautions Oral hygiene Swallow strategies Recommended referral Verbal Understanding Denise Parsons, [facility]-SENIOR DIRECTOR OF [employer] 12/25/2024 Please note that swallowing is a dynamic process and the skills reflected during this brief assessment may not necessarily represent the patient's swallowing function during an entire meal. Ongoing clinical judgment is strongly advised. [1] Allergies Allergen Reactions Tramadol Other reaction(s): unspecified Cornelio Olivier MD S[employer]IOR [employer] ORDERABLES Final Re sult * Hepatitis C antibody (10/11/2024 9:37 AM EDT) [facility] Hepatitis C Antibody Negative Negative LAB CHEMISTRY METHOD 10/11/2024 4:55 PM EDT [facility] Blood Venous blood specimen / Unknown Venipuncture / Unknown 10/11/2024 9:37 AM EDT 10/11/2024 9:37 AM EDT us Cornelio Olivier MD LAB BLOOD ORDERABLES Fin al Result Performing Organization Address City/[facility]/ZIP Co de Phone Number [facility] [address] [place] [address], [place] [phone] * HIV 1,2 antibody, p24 antigen with reflex to differentiation (10/11/2024 9:37 AM EDT) [facility] HIV Combo AB/AG Negative Negative LAB CHEMISTRY [...] ORDERABLES Fin al Result Performing Organization Address City/[facility]/ZIP Co de Phone Number [facility] [address] [place] [address], [place] [phone] * Interferon gamma interpretation (10/11/2024 9:37 AM EDT) [facility] Quantiferon Plus Interpretation Negative Negative LAB CHEMISTRY METHOD 10/12/2024 11:12 AM EDT [facility] Blood Venous blood specimen / Unknown Venipuncture / Unknown 10/11/2024 9:37 AM EDT 10/11/2024 9:37 AM EDT us Cornelio Olivier MD LAB BLOOD ORDERABLES Fin al Result Performing Organization Address City/[facility]/ZIP Co de Phone Number [facility] [address] [place] [address], [place] [phone] * Interferon gamma antigen 2 (10/11/2024 9:37 AM EDT) Blood Venous blood specimen / Unknown Venipuncture / Unknown 10/11/2024 9:37 AM EDT 10/11/2024 9:37 AM EDT us Cornelio Olivier MD LAB BLOOD ORDERABLES Fin al Result Performing Organization Address [facility] Co de Phone Number [facility] [address] [place] [address], [place] [phone] * Interferon gamma antigen 1 (10/11/2024 9:37 AM EDT) Blood Venous blood specimen / Unknown Venipuncture / Unknown 10/11/2024 9:37 AM EDT 10/11/2024 9:37 AM EDT us Cornelio Olivier MD LAB BLOOD ORDERABLES Fin al Result Performing Organization Address [facility] Co de Phone Number [facility] [address] [place] [address], [place] [phone] * Interferon gamma mitogen (10/11/2024 9:37 AM EDT) Blood Venous blood specimen / Unknown Venipuncture / Unknown 10/11/2024 9:37 AM EDT 10/11/2024 9:37 AM EDT us Cornelio Olivier MD LAB BLOOD ORDERABLES Fin al Result Performing Organization Address City/[facility]/ZIP Co de Phone Number [facility] [address] [place] [address], * Interferon gamma NIL (10/11/2024 9:37 AM EDT) Blood Venous blood specimen / Unknown Venipuncture / Unknown 10/11/2024 9:37 AM EDT 10/11/2024 9:37 AM EDT Cornelio Olivier MD LAB BLOOD ORDERABLES Fin al Result Performing Organization Address [facility] Co de Phone Number [facility] [address] [place] [address], * Hepatitis B surface antigen with reflex to confirmation (10/11/2024 9:37 AM EDT) Pathologist [facility] [place] Hepatitis B Surface Ag Negative Negative LAB [...] ORDERABLES Fin al Result Performing Organization Address City/[facility]/ZIP Co de Phone Number [facility] [address] [place] [address], [place] [phone] * (ABNORMAL) JCV polyoma virus antibody with reflex to inhibition assay (10/11/2024 9:37 AM EDT) Index Value 2.09 10/21/2024 1:05 PM EDT [...] 1:05 PM EDT Performed at: 01 - [facility] [address] [address] [place] [id number] Guide Dog Trainer: Madelin Brambila MD, Phone: [phone] Cornelio Olivier MD LAB BLOOD ORDERABLES Fin al Result [facility] * Hepatitis B core antibody IgM (10/11/2024 9:37 AM EDT) Pathologist [facility] [place] Hep B Core IgM Negative Negative LAB CHEMISTRY METHOD 10/11/2024 4:55 PM EDT [facility] Blood Venous blood specimen / Unknown Venipuncture / Unknown 10/11/2024 9:37 AM EDT 10/11/2024 9:37 AM EDT [facility] - 10/11/2024 4:55 PM EDT Over the counter supplements containing high doses of biotin may interfere with this assay. If interference is suspected, patients shoud be retested after refraining from biotin supplements for 72 hours. us Cornelio Olivier MD LAB BLOOD ORDERABLES Fin al Result Performing Organization Address [facility] de Phone Number [facility] [address] [place] [address], * Varicella zoster antibody IgG (10/11/2024 9:37 AM EDT) [facility] Varicella IgG Positive Positive LAB CHEMISTRY METHOD 10/11/2024 11:10 AM EDT [facility] Varicella Zoster IgG 28.70 >=1.00 S/CO LAB CHEMISTRY METHOD 10/11/2024 11:10 AM EDT [facility] Blood Venous blood specimen / Unknown Venipuncture / Unknown 10/11/2024 9:37 AM EDT 10/11/2024 9:37 AM EDT [facility] - 10/11/2024 11:10 AM EDT Interpretation >= 1.00 S/CO is considered to be consistent with Immunity us Cornelio Olivier MD LAB BLOOD ORDERABLES Fin al Result Performing Organization Address [facility] Co de Phone Number [facility] [address] [place] [address], * (ABNORMAL) Immunoglobulin IgA (10/11/2024 9:37 AM EDT) IgA 369(H) 61 - 348 mg/dL LAB CHEMISTRY METHOD 10/11/2024 6:51 PM EDT [facility] Blood Venous blood specimen / Unknown Venipuncture / Unknown 10/11/2024 9:37 AM EDT 10/11/2024 9:37 AM EDT us Cornelio Olivier MD LAB BLOOD ORDERABLES Fin al Result [facility] [address] [place] [address], [place] [phone] * Immunoglobulin IgM (10/11/2024 9:37 AM EDT) Pathologist [facility] [place] IgM 34 23 - 259 mg/dL LAB CHEMISTRY METHOD 10/11/2024 6:58 PM EDT [facility] Blood Venous blood specimen / Unknown Venipuncture / Unknown 10/11/2024 9:37 AM EDT 10/11/2024 9:37 AM EDT us Cornelio Olivier MD LAB BLOOD ORDERABLES Fin al Result [facility] [address] [place] [address], [place] [phone] * Immunoglobulin IgG (10/11/2024 9:37 AM EDT) Pathologist [facility] [place] Total IgG 1,420 549 - 1,584 mg/dL LAB CHEMISTRY METHOD 10/11/2024 6:51 PM EDT [facility] Blood Venous blood specimen / Unknown Venipuncture / Unknown 10/11/2024 9:37 AM EDT 10/11/2024 9:37 AM EDT us Cornelio Olivier MD LAB BLOOD ORDERABLES Fin al Result [facility] [place] [facility] [address] [place] [address], [place] [phone] from Last 3 Months Insurance [facility] [employer] Member Subscriber Plan / Payer (Ef fective 2022-Present) Name:Juan Monroe Relation to Subscriber:Self Name:Juan Monroe Payer ID:[id number] Group ID:Not on file Type:Not on file Address: [place] [address] [place] [id number] Care Teams Cobbler Apprentice Relationship Specialty Start Date End Date Cathy Jimenez MD [address] [facility] , [address] [facility] Physician Associ D/B/A: [facility] [place] PCP - General Internal Medicine 03/13/24
--- OUTSIDE RECORDS SUMMARY | 2025-01-09 12:36 | XMS_ITS | Encounter Summary ---
Author Organization [employer] Address [address] [place] [address] [address] [address] Care Team Providers Care Computer Game Tester Name Role Phone Unavailable Primary Care Provider Unavailabl e Encounter Details Date Type Department Care Team (Latest Contact Info) Description 09/22/2020 Abstract [facility] CONVERSIONS Dental, Provider, DDS Social History [...]
--- OUTSIDE RECORDS SUMMARY | 2025-01-09 12:36 | XMS_ITS | Clinical Summary ---
Author Organization [facility] Address [address] [place] [phone] Phone Care Team Providers Care Digital Content Producer Name Role Phone Unavailable Primary Care [...] It is not the complete legal health record.[facility]
--- OUTSIDE RECORDS SUMMARY | 2025-01-09 12:36 | XMS_ITS | Encounter Summary ---
Author Organization [employer] Address [address] [place] [address] [address] [address] Care Team Providers Care Motion Picture Printer Name Role Phone Unavailable Primary Care Provider Unavailabl e Reason for Visit * Reason Comments Med Refill Encounter Details Date Type Department Care Team ([facility] st Contact Info) Description 04/18/2022 Refill [facility] [address] [place] [address] Josué Valencia MD [address] [place], [place] [phone] Social History Tobacco Use Types Packs/Day Years [...]
--- OUTSIDE RECORDS SUMMARY | 2025-01-09 12:36 | XMS_ITS | Encounter Summary ---
Author Organization [employer] Address [address] [place] [address] [address] [place] [address] Care Team Providers Care Cook Jelly Name Role Phone Unavailable Primary Care Provider Unavailabl e Reason for Visit * Reason Comments Med Refill Encounter Details Date Type Department Care Team ([facility] st Contact Info) Description 10/27/2022 Refill [facility] MEDICINE [address] [place] [address] Josué Valencia MD [address] [place] [address] Social History Tobacco Use Types Packs/Day Years [...]
--- OUTSIDE RECORDS SUMMARY | 2025-01-09 12:36 | XMS_ITS | Clinical Summary ---
Author Organization [employer] Address [address] [place] [address] [address] [place] [address] Care Team Providers Care Welding Foreman Name Role Phone Unavailable Primary Care Provider [...] 2024 , 01/19/2023, 01/07/2022, Additional history exists Lipid Panel 08/14/2025 08/14/2020, [...] LDL-C. Mejia SS et al. EFRAÍN. 2013;310(19): 8468-1525 (http://education.QQTechnology.com/faq/BTM508) Non-HDL Cholesterol 158(H) <130 mg/dL (calc) FOUNDATION [...] Winkler MD LAB BLOOD ORDERABLES Final Result [facility] [address] from Last 3 Months or Most Recently Relevant to Health Maintenance Insurance [facility] [employer] (O D-SNP) [place] [id number]
== END 2025-01-09 11:28 | disposition home or self-care (01) ==
LOC: HO.HMCH 10:15
PROVIDERS: PCP Internal Medicine; Visit Provider Internal Medicine
DX: Z13.9 Encounter for screening, unspecified (principal); Z01.818 Encounter for other preprocedural examination

== ENCOUNTER → 2025-01-09 10:14 | Outpatient (BNVA) | payer OTHER, SELFPAY | PROVIDERS: PCP Internal Medicine; Visit Provider Internal Medicine | DX: Z01.818 Encounter for other preprocedural examination (principal) | CPT/HCPCS: 83036; 93005; 96127; 99212 ==

== ENCOUNTER 2025-01-10 | Outpatient (REF) | payer OTHER, SELFPAY ==
--- NOTE | ~2025-01-10 | XR_ITS ---
EXAMINATION: XR CHEST 2 VIEWS HISTORY: Z01.818 - Encounter for other preprocedural examination COMPARISON: Comparison is made with the prior examination dated 08/29/2023. FINDINGS: PA and lateral views of the chest are submitted. The lungs are expanded and clear. There is no pleural effusion, pneumothorax, or pulmonary vascular congestion. The heart is normal in size. The bones are intact. XR/XR chest 2V IMPRESSION: No acute cardiopulmonary abnormality. Electronically signed by: Jonas Miguel MD 01/10/2025 09:51 AM EDT
--- NOTE | 2025-01-10 09:05 | ECG_ITS ---
Test Reason : PRE OP Blood Pressure : */* mmHG Vent. Rate : 94 BPM Atrial Rate : 94 BPM P-R Int : 156 ms QRS Dur : 90 ms QT Int : 368 ms P-R-T Axes : 81 40 56 degrees QTcB Int : 460 ms Normal sinus rhythm Normal ECG When compared with ECG of 27-Jul-2022 10:16, QT has lengthened Referred By: Angelique Rosales Electronically Signed By: Reji Green
[2025-01-10 09:34] LABS: MANUAL DIFF FLAG NO
[2025-01-10 09:59] LABS: Hematocrit 39.1 % (42.0-52.0); Hemoglobin 13.6 g/dl (14.0-18.0); Imm Gran Abs Auto 0.01 X10*3/uL (0.00-0.03); Imm Gran Pct Auto 0.3 % (0.0-0.4); Lymphocytes Absolute Auto 1.0 X10*3/uL (1.2-4.9); Mean Corpuscular HGB Conc 34.8 g/dl (31.0-36.0); Mean Corpuscular Hemoglobin 30.3 pg (27.0-33.0); Mean Corpuscular Volume 87.1 fL (80.0-98.0); NRBC Abs Auto 0.000 X10*3/uL (0.0-0.012); NRBC Pct Auto 0.0 /100WBC (0.0-0.2); Platelet Count 155 X10*3/uL (160-400); Red Blood Count 4.49 X10*6/uL (4.60-5.80); White Blood Count 3.9 X10*3/uL (4.8-10.8)
[2025-01-10 13:57] LABS: Anion Gap 11 (12-20); Blood Urea Nitrogen 12 mg/dL (9-16); Calcium 8.8 mg/dL (8.4-10.2); Carbon Dioxide 25 mmol/L (22-29); Chloride 111 mmol/L (96-108); Estimated Glomerular Filt Rate > 60; Potassium 3.6 mmol/L (3.3-5.1); Sodium 143 mmol/L (135-145)
--- NOTE | 2025-01-21 11:29 | HO.ANESPROP2 ---
HPI - Anesthesia Eval Consult details Narrative: 69 yr old male for left Foot Tissue Excision Mass scheduled for 02/07/25 Multiple sclerosis: not currently on tx, follows with [facility] ROLDAN: on CPAP Anesthesia Pre-Procedure Meds Is the patient on any of the following meds?: GLP1/DPP4 PMFSH Active Problems Active Problems: All Active Problems (Updated 01/13/25 @ 13:17 by Cathy Jimenez MD) Dysphagia (Acute) Encounter for preoperative assessment (Acute) Pre-procedural examination (Acute) Athletes foot (Acute) Left foot pain (Acute) Subcutaneous mass of left foot (Acute) Ganglion cyst of left foot (Acute) REM behavioral disorder (Acute) Plantar fasciitis, left (Acute) Environmental allergies (Acute) RLS (restless legs syndrome) (Acute) Migraines (Acute) GERD (gastroesophageal reflux disease) (Acute) Abscess of face (Acute) Mass of left foot (Acute) Chest wall pain (Acute) Lung nodule (Acute) Shortness of breath (Acute) Chest pain (Acute) Diabetes mellitus (Acute) Hypertension (Acute) Hyperlipidemia LDL goal <70 (Acute) Mark's disease (Acute) Physical exam (Acute) Left knee pain (Acute) BPH w urinary obs/LUTS (Acute) Erectile dysfunction associated with type 2 diabetes mellitus (Acute) Voice hoarseness (Acute) ROLDAN (obstructive sleep apnea) (Acute) Hypovitaminosis D (Acute) Multiple sclerosis (Acute) Hypothyroidism (Acute) CATHY positive (Acute) Moderate recurrent major depression (Acute) Enlarged prostate without lower urinary tract symptoms (luts) (Acute) Past Medical History Medical History Encounter for preoperative assessment Pre-procedural examination Athletes foot Left foot pain Subcutaneous mass of left foot Ganglion cyst of left foot Voice hoarseness ROLDAN (obstructive sleep apnea) Hypovitaminosis D Type 2 diabetes mellitus, with long-term current use of insulin Moderate recurrent major depression Erectile dysfunction History of urinary hesitancy Prostate nodule Enlarged prostate without lower urinary tract symptoms (luts) Flatus Unspecified constipation Medial meniscus tear OA (osteoarthritis) Arthralgia CATHY positive Hypothyroidism Multiple sclerosis Family History Family History Mother Diabetes mellitus Father No problems noted. Surgical History Surgical History History of surgery Social History Social History Household Members Other:: and daughter Housing: House Alcohol intake: never Patient Tobacco Use Status: Never used Tobacco e-Cigarette/Vaping Use: Never Used Second Hand Smoke Exposure: No service: No Current occupational status: disabled Cognitive needs: Yes Hearing needs: No Vision needs: Yes Meds Allergies Allergy/AdvReac Type Severity Reaction Status Date / Time tramadol Allergy Intermediate Hives Verified 01/28/25 09:43 Home Medications ?Medication ?Instructions ?Recorded ?Confirmed ?Last Taken ?Type quetiapine 25 mg tablet 25 mg PO BID 07/20/21 01/13/25 Unknown History clotrimazole 10 mg radha 10 mg PO 07/21/21 01/13/25 Unknown History lancets 33 gauge (TRUEplus Lancets) #100 ea 07/21/21 01/13/25 Unknown History sumatriptan succinate 50 mg tablet 50 mg PO DAILY PRN 02/08/22 01/13/25 Unknown History Exam Pertinent Lab Results Pertinent Lab Results: Laboratory Tests 01/10/25 01/10/25 09:21 09:32 WBC 3.9 L RBC 4.49 L Hgb 13.6 L Hct 39.1 L MCV 87.1 MCH 30.3 MCHC 34.8 RDW 13.3 Plt Count 155 L MPV 11.1 Immature Gran % (Auto) 0.3 Neut % (Auto) 54.5 Lymph % (Auto) 25.7 Banner % (Auto) 14.3 H Eos % (Auto) 4.2 H Baso % (Auto) 1.0 Lymph # (Auto) 1.0 L Banner # (Auto) 0.6 Eos # (Auto) 0.2 Baso # (Auto) 0.0 Abs Immat Gran (auto) 0.01 Absolute Neuts (auto) 2.1 Absolute Nucleated RBC 0.000 Nucleated RBC % (auto) 0.0 Sodium 143 Potassium 3.6 Chloride 111 H Carbon Dioxide 25 Anion Gap 11 L BUN 12 Creatinine 0.95 Estim Creat Clear Calc TNP Estimated GFR > 60 Random Glucose 94 Estimat Average Glucose 117 Hemoglobin A1c % 5.7 Calcium 8.8 Blood Type O Positive Antibody Screen NEGATIVE Narrative Narrative: EKG 10/17/25 Vent. Rate : 94 BPM Atrial Rate : 94 BPM P-R Int : 156 ms QRS Dur : 90 ms QT Int : 368 ms P-R-T Axes : 81 40 56 degrees QTcB Int : 460 ms Normal sinus rhythm Normal ECG When compared with ECG of 27-Jul-2022 10:16, QT has lengthened
--- OUTSIDE RECORDS SUMMARY | 2025-04-17 09:00 | XMS_ITS | Encounter Summary ---
Author Organization [employer] Address [address] [place] [address] [address] [place] [address] Care Team Providers Care Artistic Associate Name Role Phone Unavailable Primary Care Provider Unavailabl e Reason for Visit * Reason Comments Med Refill Encounter Details Date Type Department Care Team ([facility] st Contact Info) Description 07/20/2022 Refill [facility] [address] [place] [address] Josué Valencia MD [address] [place] [address] Social History Tobacco Use Types Packs/Day Years [...]
--- OUTSIDE RECORDS SUMMARY | 2025-04-17 09:00 | XMS_ITS | Encounter Summary ---
Author Organization [employer] Address [address] [place] [address] [address] [address] Care Team Providers Care Pattern Cleaner Name Role Phone Unavailable Primary Care Provider Unavailabl e Encounter Details Date Type Department Care Team (Latest Contact Info) Description 12/31/2021 Abstract [facility] CONVERSIONS Dental, Provider, DDS Social History [...]
--- OUTSIDE RECORDS SUMMARY | 2025-04-17 09:00 | XMS_ITS | Clinical Summary ---
Author Organization [facility] Address [address] [place] [phone] Phone Care Team Providers Care Manager Of Housekeeping Name Role Phone Unavailable Primary Care Provider [...]
--- OUTSIDE RECORDS SUMMARY | 2025-04-17 09:00 | XMS_ITS | Encounter Summary ---
Author Organization [employer] Address [address] [place] [address] [address] [place] [address] Care Team Providers Care Cyber Systems Administrator Name Role Phone Unavailable Primary Care Provider Unavailabl e Reason for Visit * Reason Comments Med Refill Encounter Details Date Type Department Care Team ([facility] st Contact Info) Description 04/18/2022 Refill [facility] MEDICINE [address] [place] [address] Josué Valencia MD [address] [place], [place] [phone] Social History Tobacco Use Types Packs/Day Years [...]
--- OUTSIDE RECORDS SUMMARY | 2025-04-17 09:00 | XMS_ITS | Encounter Summary ---
Author Organization [employer] Address [address] [place] [address] [address] [address] Care Team Providers Care Lead Systems Developer Name Role Phone Unavailable Primary [...]
--- OUTSIDE RECORDS SUMMARY | 2025-04-17 09:00 | XMS_ITS | Clinical Summary ---
Author Organization [address] [facility] Address [address] [place] [address] Phone Care Team Providers Care Hypertrichologist Name Role Phone Cathy Jimenez MD Primary Care Provider [phone] Allergies Active Allergy Reactions Criticality Noted Date [...] PM EST Lab Draw Station - [address] [facility] [address] [place] [address] MS (multiple sclerosis) 02/13/2025 1:00 PM EST Office Visit [facility] [place] - [place] [address] [facility] [address] [place] [address] Debbi Brown PA MS (multiple sclerosis) (Primary Dx) from Last 3 Months Medical [...] Description 06/12/2025 1:30 PM EDT Office Visit [facility] [address] [facility] [address] [place] [address] Cornelio Olivier MD [address] [place] [address] Health Maintenance Due Date Last Done Comments Colorectal Cancer Screening: Colonoscopy 1957 Zoster Vaccines (2 of 2) 09/08/2022 07/14/2022 Abdominal Aortic Aneurysm (AAA) Screen 03/13/2024 Falls Risk Assessment 03/13/2024 Medicare Annual Wellness Visit 03/13/2024 Social Influencers of Health Screening 03/13/2024 COVID-19 Vaccine ( season) 2024 03/23/2021, 07/15/2020, 06/17/2020 Depression Screening 03/27/2025 Cholesterol Screening (Lipid Panel) 08/14/2025 08/14/2020 DTaP,Tdap,and [...] Type Associated Problems Recent Progress Patient-Stated? Author GAME TRAPPER LTG General No Liz Garcia, GAME TRAPPER Note: Pt will consume least restrictive PO diet without changes to medical or respiratory status to maintain adequate oral nutrition hydration GAME TRAPPER STGs General No Liz Garcia, GAME TRAPPER Note: Pt will participate in MBS for [...] MS (multiple sclerosis) HEPATIC FUNCTION PANEL Routine 02/13/2025 1:37 PM EST MS (multiple sclerosis) HEPATITIS C ANTIBODY Routine 10/11/2024 9:37 AM EDT Multiple sclerosis (CMS/HCC V24, CMS/HCC V28) Gait abnormality from Last 3 Months or Most Recently Relevant to Health Maintenance Results * (ABNORMAL) CBC auto differential (02/13/2025 1:37 PM EST) WBC 4.8 4.8 - 10.8 K/[facility] LAB HEMETOLOGY METHOD 02/13/2025 2:10 PM EST [facility] RBC 4.90 4.50 - 5.50 M/[facility] LAB HEMETOLOGY METHOD 02/13/2025 2:10 PM [facility] Hemoglobin 14.8 13.5 - 17.5 g/dL LAB HEMETOLOGY METHOD 02/13/2025 2:10 PM [facility] Hematocrit 43.6 42.0 - 54.0 % LAB HEMETOLOGY METHOD 02/13/2025 2:10 PM [facility] MCV 89.0 79.0 - 98.0 FL LAB HEMETOLOGY METHOD 02/13/2025 2:10 PM [facility] MCH 30.2 27.0 - 32.0 pcg LAB HEMETOLOGY METHOD 02/13/2025 2:10 PM [facility] MCHC 33.9 32.0 - 37.0 g/dL LAB HEMETOLOGY METHOD 02/13/2025 2:10 PM [facility] RDW 13.5 11.0 - 15.0 % LAB HEMETOLOGY METHOD 02/13/2025 2:10 PM [facility] Platelets 160 130 - 400 K/mcL LAB HEMETOLOGY METHOD 02/13/2025 2:10 PM [facility] MPV 11.4(H) 7.0 - 11.0 FL LAB HEMETOLOGY METHOD 02/13/2025 2:10 PM [facility] NRBC 0.0 <1.0 % LAB HEMETOLOGY METHOD 02/13/2025 2:10 PM [facility] NRBC Absolute 0.00 <0.10 K/mcL LAB HEMETOLOGY METHOD 02/13/2025 2:10 PM [facility] Neutrophils Relative 53.9 % LAB HEMETOLOGY METHOD 02/13/2025 2:10 PM [facility] Lymphocytes Relative 29.3 % LAB HEMETOLOGY METHOD 02/13/2025 2:10 PM [facility] Monocytes Relative 11.6 % LAB HEMETOLOGY METHOD 02/13/2025 2:10 PM EST [facility] Eosinophils Relative 4.6 % LAB HEMETOLOGY METHOD 02/13/2025 2:10 PM [facility] Basophils Relative 0.4 % LAB HEMETOLOGY METHOD 02/13/2025 2:10 PM [facility] Immature Granulocytes Relative 0.2 % LAB HEMETOLOGY METHOD 02/13/2025 2:10 PM EST [facility] Neutrophils Absolute 2.59 1.50 - 7.00 K/mcL LAB HEMETOLOGY METHOD 02/13/2025 2:10 PM EST [facility] Lymphocytes Absolute 1.41 1.00 - 5.00 K/mcL LAB HEMETOLOGY METHOD 02/13/2025 2:10 PM [facility] Monocytes Absolute 0.56 0.20 - 1.00 K/mcL LAB HEMETOLOGY METHOD 02/13/2025 2:10 PM EST [facility] Eosinophils Absolute 0.22 0.00 - 0.50 K/mcL LAB HEMETOLOGY METHOD 02/13/2025 2:10 PM EST [facility] Basophils Absolute 0.02 0.00 - 0.20 K/mcL LAB HEMETOLOGY METHOD 02/13/2025 2:10 PM EST [facility] Immature Granulocytes Absolute 0.01 0.00 - 0.03 K/mcL LAB HEMETOLOGY METHOD 02/13/2025 2:10 PM EST [facility] Blood Venous blood specimen / Unknown Venipuncture / Unknown 02/13/2025 1:37 PM EST 02/13/2025 1:37 PM EST us Debbi VANN LAB BLOOD ORDERABLES Final R esult [facility] [address] [place] [address], [place] [phone] * (ABNORMAL) Hepatic function panel (02/13/2025 1:37 PM EST) [facility] Total Protein 7.4 6.0 - 8.0 g/dL 02/13/2025 2:45 PM EST [facility] Albumin 4.4 3.2 - 5.0 g/dL 02/13/2025 2:45 PM EST [facility] Total Bilirubin 1.0 0.0 - 1.4 mg/dL 02/13/2025 2:45 PM [facility] Bilirubin, Direct 0.4(H) 0.0 - 0.3 mg/dL 02/13/2025 2:45 PM [facility] Bilirubin, Indirect 0.6 0.0 - 1.1 mg/dL 02/13/2025 2:45 PM [facility] ALT (SGPT) 30 10 - 60 unit/L 02/13/2025 2:45 PM [facility] AST (SGOT) 33 10 - 42 unit/L 02/13/2025 2:45 PM [facility] Alkaline Phosphatase 78 42 - 121 unit/L 02/13/2025 2:45 PM [facility] Blood Venous blood specimen / Unknown Venipuncture / Unknown 02/13/2025 1:37 PM EST 02/13/2025 1:37 PM EST us Debbi VANN LAB BLOOD ORDERABLES Final R esult [facility] [address] [place] [address], * Hepatitis C antibody (10/11/2024 9:37 AM EDT) [facility] Hepatitis C Antibody Negative Negative LAB CHEMISTRY METHOD 10/11/2024 4:55 PM EDT [facility] Blood Venous blood specimen / Unknown Venipuncture / Unknown 10/11/2024 9:37 AM EDT 10/11/2024 9:37 AM EDT Cornelio Olivier MD LAB BLOOD ORDERABLES Fin al Result [facility] [address] [place] [address], from Last 3 Months or Most Recently Relevant to Health Maintenance Insurance [facility] OPTIONS Member Subscriber Plan / Payer (Ef fective 2022-Present) Name:KALPESH MONROE Relation to Subscriber:Self Name:Kalpesh Monroe Payer ID:[id number] Group ID:[id number] Type:Not on file Address: [place] [address] [place] [id number] Care Teams Hypertrichologist Relationship Specialty Start Date End Date Cathy Jimenez MD [address] [facility] [address] [facility] [place], [place] PCP - General Internal Medicine 03/13/24
--- OUTSIDE RECORDS SUMMARY | 2025-04-17 09:00 | XMS_ITS | Clinical Summary ---
Author Organization [employer] Address [address] [place] [address] [address] [place] [address] Care Team Providers Care Vp Organizational Development Name Role Phone Unavailable Primary Care [...] LDL-C. Mejia SS et al. EFRAÍN. 2013;310(19): 2295-8619 ([email or web address]://[email or web address]) Non-HDL Cholesterol 158(H) <130 mg/dL (calc) [facility] [...] Peterson MD LAB BLOOD ORDERABLES Final Result [facility] [address] from Last 3 Months or Most Recently Relevant to Health Maintenance Insurance [facility] [employer]P OPTIONS (O D-SNP) [place] [id number]
--- OUTSIDE RECORDS SUMMARY | 2025-04-17 09:00 | XMS_ITS | Encounter Summary ---
Author Organization [employer] Address [address] [place] [address] [address] [address] Care Team Providers Care Seismic Observer Name Role Phone Unavailable Primary Care Provider Unavailabl e Reason for Visit * Reason Comments Med Refill Encounter Details Date Type Department Care Team ([facility] st Contact Info) Description 10/27/2022 Refill [facility] MEDICINE [address] [place] [address] Josué Valencia MD [address] [place] [address] Social History Tobacco Use Types Packs/Day Years [...]
--- OUTSIDE RECORDS SUMMARY | 2025-04-17 09:00 | XMS_ITS | Encounter Summary ---
Author Organization [employer] Address [address] [place] [address] [address] [address] Care Team Providers Care Assistant Distribution Manager Name Role Phone Unavailable Primary Care Provider Unavailabl e Reason for Visit * Reason Comments Med Refill Encounter Details Date Type Department Care Team ([facility] st Contact Info) Description 04/04/2022 Refill [facility] MEDICINE [address] [place] [address] Josué Valencia MD [address] [place] [address] Social History Tobacco Use Types Packs/Day Years [...]
== END 2025-01-10 00:01 ==
LOC: HO.PAT
PROVIDERS: PCP Internal Medicine; Visit Provider Student in an Organized Health Care Education/Training Program
DX: Z01.810 Encounter for preprocedural cardiovascular examination (principal); Z01.812 Encounter for preprocedural laboratory examination; Z01.84 Encounter for antibody response examination; R22.42 Localized swelling, mass and lump, left lower limb; Z01.818 Encounter for other preprocedural examination; M67.472 Ganglion, left ankle and foot; Z13.1 Encounter for screening for diabetes mellitus
CPT/HCPCS: 36415; 71046; 80048; 83036; 85025; 86850; 86900; 86901; 93005

== ENCOUNTER → 2025-01-10 09:05 | Outpatient (BNV) | payer OTHER, SELFPAY | PROVIDERS: PCP Internal Medicine; Visit Provider Internal Medicine Cardiovascular Disease | DX: Z01.810 Encounter for preprocedural cardiovascular examination (principal) | CPT/HCPCS: 93010 ==

== ENCOUNTER → 2025-01-10 09:31 | Outpatient (BNV) | payer OTHER, SELFPAY | PROVIDERS: PCP Internal Medicine; Visit Provider Radiology Diagnostic Radiology | DX: Z00.00 Encounter for general adult medical examination without abnormal findings (principal) | CPT/HCPCS: 71046 ==

== ENCOUNTER 2025-01-13 12:44 | Outpatient (AMB) | payer OTHER, SELFPAY ==
--- NOTE | 2025-01-13 12:49 | MHC.PC.OV ---
Vital Signs 01/13/25 12:50 Height 5 ft 8 in Weight 177 lb 8 oz BMI 27.0 BP 120/70 Blood Pressure Location Lt brachial Position Sitting Pulse 106 H Pulse Source Pulse Oximeter Temp 97.3 F Temp Source Temporal Artery Scan Pulse Oximetry (%) 97 Oxygen Delivery Method Room Air Intake Visit Reasons: annual exam- A1C needed Intake Note: Patient is here today for a physical. Cutter Inspector Required: Yes Cutter Inspector Language: Swedish Information Interpreted: non-clinical & clinical Caster Investment Casting: Not Required per policy Accompanied by: Self / Same As Patient Allergies tramadol Allergy (Intermediate, Verified 01/13/25 13:06) Hives Medication List - Last Reconciled 01/13/25 by Cathy Jimenez MD atorvastatin (Lipitor) 40 mg PO BEDTIME 90 days cholecalciferol (vitamin D3) 25 mcg PO DAILY 90 days citalopram 20 mg PO DAILY 90 days clotrimazole 10 mg PO clotrimazole 1% 1 appl topical BID cyclobenzaprine 10 mg PO Q8H PRN 30 days dulaglutide (Trulicity) 1.5 mg (0.5 mL) subcut QWEEK 90 days fenofibrate 54 mg PO DAILY 90 days gabapentin 600 mg (2 x 300 mg) PO BEDTIME 1 month MDD 300mg lancets (FreeStyle Lancets) As directed lancets (TRUEplus Lancets) As directed levothyroxine (Unithroid) 150 mcg PO DAILY 90 days lisinopril 10 mg PO DAILY 90 days mecobalamin (vitamin B12) 1,000 mcg sublingual BEDTIME 3 months MDD 1000mcg melatonin 6 mg (2 x 3 mg) PO BEDTIME PRN 30 days metformin 1,000 mg PO BID 90 days [nonslip bath mat As directed] pantoprazole 40 mg PO DAILY quetiapine 25 mg PO BID sumatriptan succinate 50 mg PO DAILY PRN tadalafil 20 mg PO ONCE PRN 30 days terazosin 5 mg PO BEDTIME 90 days Tobacco use date assessed: 01/13/25 Fall risk assessment: No Falls in past year Last assessed Fall Risk: 01/13/25 Dental Screening Dental Screen Date: 01/09/25 HPI HPI Comments History of Present Illness Details The patient is a 69-year-old male presenting with an annual physical examination and review of his multiple sclerosis management. The patient was diagnosed with multiple sclerosis, and recent MRI findings in July revealed new lesions. He was prescribed a two-week course of medication to manage the condition. He has a history of diabetes mellitus, managed with Trulicity once a week. His last hemoglobin A1c was 5.7, indicating good glycemic control. The patient also has depression with anxiety, for which he takes citalopram and Seroquel. He does not currently see a psychiatrist. He reports neuropathy, managed with gabapentin, and hypothyroidism, for which he takes levothyroxine. His medical history includes gastroesophageal reflux disease managed with pantoprazole, migraines treated with sumatriptan, hypertension managed with lisinopril, and hyperlipidemia managed with atorvastatin and fenofibrate. Preventative care includes a pneumococcal vaccination at age 67 and a Tdap vaccination in 2020. [facility] Medical History Encounter for preoperative assessment Pre-procedural examination Athletes foot Left foot pain Subcutaneous mass of left foot Ganglion cyst of left foot Voice hoarseness ROLDAN (obstructive sleep apnea) Hypovitaminosis D Type 2 diabetes mellitus, with long-term current use of insulin Moderate recurrent major depression Erectile dysfunction History of urinary hesitancy Prostate nodule Enlarged prostate without lower urinary tract symptoms (luts) Flatus Unspecified constipation Medial meniscus tear OA (osteoarthritis) Arthralgia CATHY positive Hypothyroidism Multiple sclerosis Surgical History History of surgery Family History Mother Diabetes mellitus Father No problems noted. Social History Household Members Other:: and daughter Housing: House Alcohol intake: never Patient Tobacco Use Status: Never used Tobacco e-Cigarette/Vaping Use: Never Used Second Hand Smoke Exposure: No service: No Current occupational status: disabled Cognitive needs: Yes Hearing needs: No Vision needs: Yes Questionnaire PHQ-9 Over the last 2 weeks, how often have you been bothered by any of the following problems? 1. Little interest or pleasure in doing things: not at all 2. Feeling down, depressed, or hopeless: not at all 3. Trouble falling or staying asleep, or sleeping too much: not at all 4. Feeling tired or having little energy: not at all 5. Poor appetite or overeating: not at all 6. Feeling bad about yourself - or that you are a failure or have let yourself or your family down: not at all 7. Trouble concentrating on things, such as reading the newspaper or watching television: not at all 8. Moving or speaking so slowly that other people could have noticed. Or the opposite - being so fidgety or restless that you have been moving around a lot more than usual: not at all 9. Thoughts that you would be better off or of hurting yourself in some way: not at all Total score: 0 Depression Screening Interpretation: Negative Depression Screening Done: Yes 71743 - PHQ-9 Billing: Yes Source: Developed by Drs. Jonas Rodriguez, Kelly Santo, Kingsley Keen and colleagues, with an educational alda from [employer]. Thrive Questionnaire Date Thrive assessed: 09/10/24 I am a: Patient What is your living situation today?: I have a steady place to live Within the past 12 months, did the food you bought not last and you didn't have the money to get more?: Never true Within the past 12 months, did you worry whether your food would run out before you got money to buy more?: Never true Do you have trouble paying for medicines?: No Do you have trouble getting transportation to medical appointments?: No Do you have trouble paying your heating and electricity bill?: No Do you have trouble taking care of your child, family member or friend?: No Do you have trouble with day-to-day activities such as bathing, preparing meals, shopping, managing finances, etc.?: No Are you currently unemployed and looking for a job?: I choose not to answer this question Are you interested in more education?: Yes Please select the resources that you would like help with: None Currently or been in a relationship where the following occur: No concerns reported THRIVE Score: 0 RODDY-7 AMB Questionnaire RODDY-7 Date RODDY - 7 assessed: 05/13/24 Source: Developed by Drs. Jonas Rodriguez, Kelly Santo, Kingsley Keen and colleagues, with an educational alda from [employer]. Review of Systems Const All systems reviewed & are unremarkable except as noted in HPI and below Card Denies chest pain at rest, Denies chest pain with activity, Denies edema, Denies irregular heart rhythm, Denies claudication, Denies dyspnea, Denies dyspnea on exertion, Denies orthopnea, Denies paroxysmal nocturnal dyspnea and Denies slow heart rate Resp Denies cough, Denies dyspnea and Denies dyspnea on exertion GI Denies abdominal pain, Denies change in bowel habits, Denies excessive flatus, Denies nausea and Denies vomiting Physical exam (Primary Care) Vital Signs: Last Vital Signs Temp 97.3 F 01/13/25 12:50 Pulse 106 H 01/13/25 12:50 BP 120/70 01/13/25 12:50 Pulse Ox 97 01/13/25 12:50 Oxygen Delivery Method Room Air 01/13/25 12:50 BMI result Body Mass Index 27.0 Tobacco/Smoking Status: Tobacco use Status Tobacco use date assessed 01/13/25 01/13/25 12:54 Patient Tobacco Use Status Never used Tobacco 01/13/25 12:54 e-Cigarette/Vaping Use Never Used 01/13/25 12:54 PHQ-9: PHQ-9 Score PHQ-9: Total score 0 01/13/25 13:21 Depression Screening Interpretation: Negative Thrive Assessment: Date of Thrive Assessment Date Thrive assessed 09/10/24 01/13/25 12:54 Currently or been in a relationship where the following occur: No concerns reported [facility] Head: Yes normal to inspection, Yes normocephalic and Yes atraumatic Ears: external ears normal Eyes General: appearance normal, both eyes and all related structures Eyelids: Yes eyelids normal Conjunctivae: conjunctivae normal Neck Neck: Yes normal visual inspection and Yes supple Resp Effort & Inspection: normal respiratory effort Auscultation: clear to auscultation bilaterally Cardio Jugular venous distension: no JVD Rate: regular rate Rhythm: regular rhythm Heart sounds: S1 normal heart sound present and S2 normal heart sound present GI Inspection: Yes normal to inspection Palpation (GI): Soft to palpation and nontender Auscultation: normal bowel sounds Skin General skin exam: no rashes or lesions noted Neuro General: no focal motor deficits Extrem General: Yes full ROM Psych Appearance: grossly normal Office Procedures Flu Questionnaire Does the patient have a severe egg allergy?: No Does the patient have severe life threatening allergies?: No Does the patient have a fever or illness today?: No Has the patient ever had Guillain-Catarina Syndrome?: No Has the patient ever had any past reaction to a flu shot?: No Immunizations Fluarix [id number] (PF) 45 mcg (15 mcg x 3)/0.5 mL IM syringe Performing Provider: Cathy Jimenez MD [facility] Administered by: Shayy Kendrick CMA on 01/13/25 13:24 Dose Route Admin Location Dispensed Lot Number Expiration Date NDC Oral Surgery Technician 0.5 mL IM Left Deltoid 0.5 mL [id number] 09/23/25 [id number] [employer] VIS Given Date VIS Provided VIS Publication Date 01/13/25 Single Vaccine 24 Eligibility Eligibility Date Funding Source Not [facility] Eligible 01/13/25 Private Coding Level of Care Code Est Pt Level 3 (95856) Est Pt Prev Care >65y(25065) Diagnoses Physical exam Z00.00 Multiple sclerosis G35 Type 2 diabetes mellitus with hyperglycemia, without long-term current use of insulin E11.65 Diabetes mellitus complication status: with hyperglycemia Diabetes mellitus [facility] insulin use: without [facility] use Diabetes mellitus type: type 2 Moderate recurrent major depression F33.1 Dysphagia R13.10 Additional Codes PHQ-9 - 95146 - PHQ-9 Billing: Yes ([id number]) Time Spent (min) 33 Assessment & Plan Assessment & Plan (1) Physical exam: Code(s): Z00.00 - Encounter for general adult medical examination without abnormal findings Category: Medical (2) Multiple sclerosis: Code(s): G35 - Multiple sclerosis Category: Medical (3) Diabetes mellitus: Code(s): E11.9 - Type 2 diabetes mellitus without complications Category: Medical Qualifiers: Diabetes mellitus complication status: with hyperglycemia Diabetes mellitus long term care administrator insulin use: without [facility] use Diabetes mellitus type: type 2 Qualified Code(s): E11.65 - Type 2 diabetes mellitus with hyperglycemia (4) Moderate recurrent major depression: Code(s): F33.1 - Major depressive disorder, recurrent, moderate Category: Medical (5) Dysphagia: Code(s): R13.10 - Dysphagia, unspecified Category: Medical Plan Plan Patient was informed and verbally consented to the use of an ambient scribe for clinic note documentation during this visit. 1. Encounter for general adult medical examination without abnormal findings Z00.00 The patient received a pneumococcal vaccination at age 67 and a Tdap vaccination in 2020. He is up to date with his vaccinations and will receive a flu vaccine today. 2. Multiple sclerosis, unspecified G35.D The patient was diagnosed with multiple sclerosis, with recent MRI findings revealing new lesions. He was prescribed a two-week course of medication to manage the condition. Continued monitoring and follow-up are necessary to assess the progression and response to treatment. 3. Type 2 diabetes mellitus without complications E11.9 HCC 19 The patient's diabetes mellitus is managed with Trulicity once a week. His last hemoglobin A1c was 5.7, indicating good glycemic control. Regular monitoring of blood glucose levels and A1c is recommended to maintain control. 4. Major depressive disorder, recurrent, mild F33.0 HCC 59 The patient is treated for depression with anxiety using citalopram and Seroquel. He does not currently see a psychiatrist, and it may be beneficial to consider psychiatric consultation for comprehensive management. Orders: Orders Microalbumin, Random (w Creat) Today R80.9 - Proteinuria, unspecified Comprehensive [place]. Panel Fast Today I10 - Essential (primary) hypertension Vitamin B12 and Folate Today E53.8 - Deficiency of other specified B group vitamins Influenza [id number] Immunization Today Z23 - Encounter for immunization Lipid Panel Today E78.5 - Hyperlipidemia, unspecified Vitamin D 25-OH Total Today E55.9 - Vitamin D deficiency, unspecified Referrals Gastroenterology Referral R13.10 - Dysphagia, unspecified
[2025-01-13 12:50] VITALS: BP 120/70; PULSE 106; TEMP 36.3; O2SAT 97; BMI 27.0
== END 2025-01-13 13:25 | disposition home or self-care (01) ==
LOC: HO.HMCH 12:45
PROVIDERS: PCP Internal Medicine; Visit Provider Internal Medicine
DX: Z00.00 Encounter for general adult medical examination without abnormal findings (principal); G35.D Multiple sclerosis, unspecified; E11.65 Type 2 diabetes mellitus with hyperglycemia; F33.1 Major depressive disorder, recurrent, moderate; R13.10 Dysphagia, unspecified; Z23 Encounter for immunization

== ENCOUNTER → 2025-01-13 12:44 | Outpatient (BNVA) | payer OTHER, SELFPAY | PROVIDERS: PCP Internal Medicine; Visit Provider Internal Medicine | DX: Z00.00 Encounter for general adult medical examination without abnormal findings (principal); G35.D Multiple sclerosis, unspecified; F33.1 Major depressive disorder, recurrent, moderate; F41.9 Anxiety disorder, unspecified; G62.9 Polyneuropathy, unspecified; E03.9 Hypothyroidism, unspecified; K21.9 Gastro-esophageal reflux disease without esophagitis; E11.65 Type 2 diabetes mellitus with hyperglycemia; R13.10 Dysphagia, unspecified; Z23 Encounter for immunization | CPT/HCPCS: 90471; 90656; 96127; 99397 ==

== ENCOUNTER 2025-01-28 09:35 | Outpatient (AMB) | payer OTHER, SELFPAY ==
--- NOTE | 2025-01-28 09:35 | MHC.OFFVIS ---
Vital Signs 01/28/25 09:36 Height 5 ft 8 in Weight 181 lb 4 oz BMI 27.6 BP 112/68 Blood Pressure Location Rt brachial Position Sitting Pulse 83 Pulse Source Pulse Oximeter Pulse Oximetry (%) 96 Oxygen Delivery Method Room Air Intake Visit Reasons: 3 mo follow up Intake Note: Patient presents follow up ROLDAN/RLS. 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 He is accompanied by his Regina today. PMH In 1990 he was diagnosed with MS, by Dr. Street, in 2016 he started to have symptoms of relapsing and remitting episodes and did not start any medications. He is now being followed by the [facility] for weekly PT. ROLDAN Compliance Report 10/2024 - 12/2024 reviewed with pt today. Total 46/ days >4 hours 31% avg use is 2 hours 36min Press [id number] and Leaks 6.5cmH20 and AHI is 0.7/hr He washes his mask, rinses hoses, changes filters and refills reservoir with water daily. He pulls his mask off at night due night terrors. He received a new mask though says it is still uncomfortable on his nose/ skin and he would like a softer one. He occasionally notices a choking sensation initially when falling asleep, in the middle of the night he screams, then wakes up in fear. He says seroquel 25mg po bid improved sleep induction, though he still has a pit of seed in his throat, as his throat becomes dry at night. His memory is poor, fluency has decreased has to think about what to says, gets lost in conversation, denies forgetting appts. Forgets names of locations and friends, he must write everything down. For MS he is followed by the [facility], he has dysphagia with solids and liquids, barium swallow study was normal. Vision is blurry, has diplopia, denies pain with lateral gaze, 1-2x /month during the night or day his eyes feel gritty as if on fire. He has a l. foot soft tissue mass, plantar aspect with radiating pain between the 4th and 5th metatarsal heads. RLS symptoms of uncomfortable sensation traveling down the r. side of the hip to foot, radiating down to the posterior aspect of knee with a dull numbness. His feet hurt bilaterally, left > right foot. His l. foot feels like he is walking on a lump or a ball in the plantar surface with pressure, pins, needles, numbness, at night. He has spasms, shooting jolts of cramps in the calves and quads. Podiatry referral and note reviewed with pt. MARK Medical History Encounter for preoperative assessment Pre-procedural examination Athletes foot Left foot pain Subcutaneous mass of left foot Ganglion cyst of left foot Voice hoarseness ROLDAN (obstructive sleep apnea) Hypovitaminosis D Type 2 diabetes mellitus, with long-term current use of insulin Moderate recurrent major depression Erectile dysfunction History of urinary hesitancy Prostate nodule Enlarged prostate without lower urinary tract symptoms (luts) Flatus Unspecified constipation Medial meniscus tear OA (osteoarthritis) Arthralgia TAMIKO positive Hypothyroidism Multiple sclerosis Surgical History History of surgery Family History Mother Diabetes mellitus Father No problems noted. Social History Household Members Other:: and daughter Housing: House Alcohol intake: never Patient Tobacco Use Status: Never used Tobacco e-Cigarette/Vaping Use: Never Used Second Hand Smoke Exposure: No service: No Current occupational status: disabled Cognitive needs: Yes Hearing needs: No Vision needs: Yes Physical Exam Vital Signs: Last Vital Signs Pulse 83 01/28/25 09:36 BP 112/68 01/28/25 09:36 Pulse Ox 96 01/28/25 09:36 Oxygen Delivery Method Room Air 01/28/25 09:36 BMI result Body Mass Index 27.6 Const General: cooperative, comfortable and no acute distress Nutritional Appearance: overweight Orientation/consciousness: patient oriented x3 Limitations: language barrier (indonesian only) HEENT Face and sinus: Yes face symmetric Neck Neck: Yes full ROM and Yes supple Resp Effort & Inspection: normal respiratory effort and able to speak in complete sentences Neuro Other: facial tremor/ oral tremor Bilateral upper ext. tremors finger to nose dysmetria reflexes lower ext hyper gait limps due to l. foot pain, leans to the right- antalgic General: patient oriented x3, gait normal and moves all extremities Cranial nerves: Yes Normal accommodation reflex present, Yes Normal facial strength present, Yes Ability to bilaterally rotate head present and Yes Ability to bilaterally elevate shoulders present Cognition (Neuro): normal cognition Gait exam (Neuro): Antalgic gait present Motor exam (neuro): 5/5 motor strength present throughout and Normal motor muscle tone present throughout Deep tendon reflexes (DTR's): Right triceps reflex intensity grade: 2+, Left triceps reflex intensity grade: 2+, Rt Biceps (C5, C6): 2+, Left biceps reflex intensity grade: 2+, Right brachioradialis reflex intensity grade: 2+, Left brachioradialis reflex intensity grade: 2+, Right patellar reflex intensity grade: 3+ and Left patellar reflex intensity grade: 3+ Psych Appearance: grossly normal Mental Status: mental status grossly normal Thought process: Normal thought process present Thought content: Normal thought content present Insight: Good insight present (Psych) Results Reviewed Results Reviewed: Podiatry referral l. foot mass reviewed with pt. ROLDAN Compliance Report 10/2024 - 12/2024 reviewed with pt today. Total 46/ days >4 hours 31% avg use is 2 hours 36min Press 27pwH67 and Leaks 6.5cmH20 and AHI is 0.7/hr Assessment & Plan Assessment & Plan (1) ROLDAN (obstructive sleep apnea): Comment: Severe degree of sleep apnea with increased in REM. The total AHI was 28/hr, REM was 48/hr, oxygen oren was 79%. Code(s): G47.33 - Obstructive sleep apnea (adult) (pediatric) Category: Medical Plan: Continue using CPAP [id number], wash mask, change filters and fill reservoir as needed. Compliance is re-emphasized as pt has MS and memory is poor, we would like to optimize sleep. (2) RLS (restless legs syndrome): Comment: Gabapentin Code(s): G25.81 - Restless legs syndrome Category: Medical (3) Plantar fasciitis, left: Code(s): M72.2 - Plantar fascial fibromatosis Category: Medical (4) REM behavioral disorder: Comment: will evaluate with a psg if not improved with gabapentin and melatonin Code(s): G47.52 - REM sleep behavior disorder Category: Medical (5) Sleep related abnormal swallowing: Code(s): G47.8 - Other sleep disorders; R13.19 - Other dysphagia Category: Medical (6) Hypovitaminosis D: Code(s): E55.9 - Vitamin D deficiency, unspecified Category: Medical (7) Iron deficiency anemia: Code(s): D50.9 - Iron deficiency anemia, unspecified Category: Medical Qualifiers: Iron deficiency anemia type: unspecified iron deficiency Qualified Code(s): D50.9 - Iron deficiency anemia, unspecified Plan ROLDAN continue CPAP at 20spC9E, REM disorder, will send him for mask fitting, so that he can find a mask which he is unable to pull off his face with chinstraps, due to abnormal / night terror behavior. RLS gabapentin 300mg po daily at bedtime to 600mg po daily at bedtime. Sleep difficulties continue Seroquel 25mg po BID and Melatonin 6 mg po daily 3 hours prior to bedtime. Start magnesium 400mg po daily at bedtime. Podiatry note reviewed with pt for plantar fasciitis and orthotics. Reviewed imaging xray of feet, bone spur, will do an EMG/NCS if worsens. 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 Labs reviewed b12/ Both homo and mma is elevated, B12 is low/ normal, start and continue B12 1000mcg daily will assess at next visit, vitamin d is insufficient continue vitamin d 25mcg daily. LEEANNA start ferrous sulfate 325 mg po daily with orange juice, if not tolerated or s/e of constipation, eat beets or drink beet juice. A1c is elevated f/u with pcp. 3 months for compliance and continue PT with [facility] for MS symptoms Vision diplopia painful gritty sensation with a firelike sensation coming from eyes, f/u with [facility]. Medications: New [[facility]ra Tonic Motor Activator] As directed 2 ea 0RF Rest less leg syndrome G25.81 - Restless legs syndrome [[facility]idra Tonic Motor Activator] As directed 2 ea 0RF Rest less leg syndrome G25.81 - Restless legs syndrome ferrous sulfate 325 mg PO DAILY 90 tabs 3RF iron deficiency anemia 3 months MDD 325mg D50.9 - Iron deficiency anemia, unspecified, G25.81 - Restless legs syndrome Patient Instructions: Podiatry referral l. foot mass: reviewed with pt. Lobulated Soft tissue mass noted to the subcutaneous area of the plantar aspect of the left foot in the area between the 4th and 5th metatarsal heads. refilled gabapentin - Nidra - Tonic motor action rx. Diplopia double vision in his eyes it feels like his eyes are on fire sometimes once a month at night and or day, [facility] manages. Coding Level of Care Code Est Pt Level 4 (84902) Diagnoses ROLDAN (obstructive sleep apnea) G47.33 RLS (restless legs syndrome) G25.81 Plantar fasciitis, left M72.2 REM behavioral disorder G47.52 Sleep related abnormal swallowing G47.8; R13.19 Hypovitaminosis D E55.9 Iron deficiency anemia, unspecified iron deficiency anemia type D50.9 Iron deficiency anemia type: unspecified iron deficiency
[2025-01-28 09:36] VITALS: BP 112/68; PULSE 83; O2SAT 96; BMI 27.6
--- OUTSIDE RECORDS SUMMARY | 2025-01-28 10:48 | XMS_ITS | Clinical Summary ---
Author Organization [facility] Address [address] [place] [phone] Phone Care Team Providers Care Railroad Brakeman Name Role Phone Unavailable Primary Care Provider [...] It is not the complete legal health record.[facility]
--- OUTSIDE RECORDS SUMMARY | 2025-01-28 10:48 | XMS_ITS | Encounter Summary ---
Author Organization [employer] Address [address] [place] [address] [address] [place] [address] Care Team Providers Care Apprentice Name Role Phone Unavailable Primary Care Provider Unavailabl e Encounter Details Date Type Department Care Team (Latest Contact Info) Description 12/31/2021 Abstract [facility] CONVERSIONS Dental, Provider, DDS Social History [...]
--- OUTSIDE RECORDS SUMMARY | 2025-01-28 10:48 | XMS_ITS | Clinical Summary ---
Author Organization [address] [facility] Address [address] [place] [address] Phone Care Team Providers Care Filament Tester Name Role Phone Cathy Jimenez MD Primary Care Provider [phone] Allergies Active Allergy Reactions Criticality Noted Date [...] time each day. 30 each 11 10/10/2024 10/11/19 26 Active cladribine,mult iple sclerosis, (Mavenclad, 8 tablet pack,) 10 mg tablet Take 2 tablets (20 mg) by mouth one time a day for 4 days. If you take other drugs by mouth, take them at least 3 hours before or 3 hours after this drug. Take with or without food. 8 tablet 12/23/2024 11:04 AM EDT 12/18/2024 01/21/20 25 Active Problems Problem Noted Date Diagnosed Date MS (multiple sclerosis) 10/11/2024 Encounters Date Type Department Care Team Description 01/07/2025 1:30 PM EDT Treatment [facility] [address] [phone] Sarthak Hsu PTA Gait abnormality (Primary Dx) 12/25/2024 8:30 AM EDT - 12/25/2024 11:59 PM EDT Hospital Encounter [facility] Xray [address] [place] [phone] Denise Parsons, STAR-BRAID MAKER Multiple sclerosis; Dysphagia, oropharyngeal phase Discharge Disposition: Home or Self Care 12/24/2024 4:00 PM EDT Treatment [facility] [address] [phone] Robert Peacock PTA Gait abnormality (Primary Dx) 12/17/2024 10:30 AM EDT Evaluation [address] [phone] Vesta Vilchis, PT Gait abnormality (Primary Dx); MS (multiple sclerosis) (CMS/HCC V24, CMS/HCC V28); Dizziness 12/06/2024 10:45 AM EDT Treatment [facility] [address] [phone] Megan Coronel OT Dizziness (Primary Dx) 11/19/2024 1:30 PM EDT Evaluation [facility] 175 [facility] [address] [place] [address] Megan Coronel, OT Gait abnormality; MS (multiple sclerosis) ([facility] V24, [facility] V28); Dizziness 11/13/2024 8:30 AM EDT [facility] [address] [place] [address] Cornelio Olivier MD Gait abnormality (Primary Dx); MS (multiple sclerosis) ([facility] V24, [facility] V28); Dizziness from Last 3 Months Medical History Medical History Date Comments Diabetes mellitus ([facility] V24, [facility] V28) Social History Tobacco Use Types Packs/Day [...] Description 02/13/2025 1:00 PM EST [facility] [address] [place] [address] Debbi Brown PA [facility] [place] [address] Health Maintenance Due Date Last Done Comments [...] Type Associated Problems Recent Progress Patient-Stated? Author BRAID MAKER LTG General No Liz Garcia, BRAID MAKER Note: Pt will consume least restrictive PO diet without changes to medical or respiratory status to maintain adequate oral nutrition hydration BRAID MAKER STGs General No Liz Gacria, BRAID MAKER Note: Pt will participate in MBS for [...] AM EDT Multiple sclerosis Dysphagia, oropharyngeal phase BRAID MAKER VIDEOFLUOROSCOPIC SWALLOW STUDY WITH BARIUM Routine 12/25/2024 9:00 AM EDT Multiple sclerosis Dysphagia, oropharyngeal phase HEPATITIS C ANTIBODY Routine 10/11/2024 9:37 AM EDT Multiple sclerosis (CMS/HCC V24, CMS/HCC V28) Gait abnormality from Last 3 Months or Most Recently Relevant to Health Maintenance Results * XR Barium Swallow with Video [...] Signed Date: 12/25/2024 12:23 ET Workstation ID: [id number] Transcribed By: Self Edit Transcribed Date: 12/25/2024 12:21 ET Resident/PA/METER SHOP SUPERINTENDENT: Terra Gracia Narrative 12/25/2024 12:23 PM EDT [...] Signed Date: 12/25/2024 12:23 ET Workstation ID: [id number] Transcribed By: Self Edit Transcribed Date: 12/25/2024 12:21 ET Resident/PA/METER SHOP SUPERINTENDENT: Terra Gracia Cornelio Olivier MD IMG FLUOROSCOPY PROCEDUR ES Final Result * BRAID MAKER videofluoroscopic swallow study with barium (12/25/2024 9:00 AM EDT) Denise Edouard CCC-ODETTE - 12/25/2024 9:00 AM EDT SRIDHAR Savage 12/25/2024 2:59 PM OUTPATIENT MODIFIED BARIUM SWALLOW [...] TREATMENT RECOMMENDATIONS: Patient would benefit from Outpatient BRAID MAKER Services following this Instrumental Assessment Summary and [...] IN: 930 TIME OUT: 1000 MINUTES: 30 CLAY WASHER REQUIRED: (Yes : CLAY WASHER NUMBER: #[id number] LANGUAGE: Mozambican) GENERAL INFORMATION: Ordering Physician: Cornelio Olivier MD [...] Multiple sclerosis [G35.D] Dysphagia, oropharyngeal phase [R13.12] BRAID MAKER VIDEOFLUOROSCOPIC SWALLOW STUDY WITH BARIUM [[id number]] XR BARIUM SWALLOW WITH VIDEO AND SPEECH [[id number]] ALLERGIES: Allergies[1] OBJECTIVE Respiratory status: Room air [...] take meds for it. Pt saw OP BRAID MAKER services x2 for swallowing strategies, who recommended [...] strategies Recommended referral Verbal Understanding Denise Parsons, STAR-BRAID MAKER 12/25/2024 Please note that swallowing is a dynamic process and the skills reflected during this brief assessment may not necessarily represent the patient's swallowing function during an entire meal. Ongoing clinical judgment is strongly advised. [1] Allergies Allergen Reactions Tramadol Other reaction(s): unspecified us Cornelio Olivier MD BRAID MAKER ORDERABLES Final Re sult * Hepatitis C antibody (10/11/2024 9:37 AM EDT) Hepatitis C Antibody Negative Negative LAB CHEMISTRY METHOD 10/11/2024 4:55 PM EDT [facility] Blood Venous blood specimen / Unknown Venipuncture / Unknown 10/11/2024 9:37 AM EDT 10/11/2024 9:37 AM EDT us Cornelio Olivier MD LAB BLOOD ORDERABLES Fin al Result [facility] [address] [place] [address], from Last 3 Months or Most Recently Relevant to Health Maintenance Insurance [facility] JAIL OPTIONS Member Subscriber Plan / Payer (Ef fective 2022-Present) Name:Juan Monroe Relation to Subscriber:Self Name:Juan Monroe Payer ID:[id number] Group ID:Not on file Type:Not on file Address: [place] [address] [place] [id number] Care Teams Filament Tester Relationship Specialty Start Date End Date Cathy Jimenez MD [address] [facility] , [address] [facility] D/B/A: [facility] ANNETTA Reaves PCP - General Internal Medicine 03/13/24
--- OUTSIDE RECORDS SUMMARY | 2025-01-28 10:48 | XMS_ITS | Encounter Summary ---
Author Organization [employer] Address [address] [place] [address] [address] [address] Care Team Providers Care Alcohol Law Enforcement Agent Name Role Phone Unavailable Primary Care Provider Unavailabl e Reason for Visit * Reason Comments Med Refill Encounter Details Date Type Department Care Team ([facility] st Contact Info) Description 04/04/2022 Refill [facility] [address] [place] [address] Josué Valencia MD [address] [place] [address] Social History Tobacco Use Types Packs/Day Years [...]
--- OUTSIDE RECORDS SUMMARY | 2025-01-28 10:48 | XMS_ITS | Encounter Summary ---
Author Organization [employer] Address [address] [place] [address] [address] [place] [address] Care Team Providers Care Cut Filer Name Role Phone Unavailable Primary Care Provider Unavailabl e Encounter Details Date Type Department Care Team (Latest Contact Info) Description 09/22/2020 Abstract [facility] CONVERSIONS Dental, Provider, DDS Social History Tobacco [...]
--- OUTSIDE RECORDS SUMMARY | 2025-01-28 10:49 | XMS_ITS | Encounter Summary ---
Author Organization [employer] Address [address] [place] [address] [address] [place] [address] Care Team Providers Care Manager Community Development Name Role Phone Unavailable Primary Care Provider Unavailabl e Reason for Visit * Reason Comments Med Refill Encounter Details Date Type Department Care Team ([facility] st Contact Info) Description 04/18/2022 Refill [facility] [address] [place] [address] Josué Valencia MD [address] [place], [place] [phone] Social History Tobacco Use Types Packs/Day Years [...]
--- OUTSIDE RECORDS SUMMARY | 2025-01-28 10:49 | XMS_ITS | Encounter Summary ---
Author Organization [employer] Address [address] [place] [address] [address] [place] [address] Care Team Providers Care Designer And Patternmaker Name Role Phone Unavailable Primary Care Provider Unavailabl e Reason for Visit * Reason Comments Med Refill Encounter Details Date Type Department Care Team ([facility] st Contact Info) Description 07/20/2022 Refill [facility] [address] [place] [address] Josué Valencia MD [address] [place] [address] Social History Tobacco Use Types Packs/Day Years [...]
--- OUTSIDE RECORDS SUMMARY | 2025-01-28 10:49 | XMS_ITS | Clinical Summary ---
Author Organization [employer] Address [address] [place] [address] [address] [place] [address] Care Team Providers Care Research Test Engine Operator Name Role Phone Unavailable Primary Care [...] 2) 09/08/2022 07/14/2022 COVID-19 Vaccine ( season) 2024 03/23/2021, 07/15/2020, 06/17/2020 Lipid Panel 08/14/2025 08/14/2020, 01/13/2020 DTaP/Tdap/Td Vaccines (2 - Td or Tdap) 03/09/2031 03/09/2021, 07/24/2008 RSV Patients and Patients Aged 60 years or older (1 - 1-dose 75+ series) 2032 Pneumococcal Vaccine: 50+ Years Completed 07/14/2022, 04/18/2014 Influenza Vaccine Completed 01/13/2025, , 01/19/2023, Additional history exists HIB Vaccines Aged Out No longer eligi [...] LDL-C. Mejia SS et al. EFRAÍN. 2013;310(19): 6143-8537 (http://education.Everwise.Medicago/faq/ZDF032) Non-HDL Cholesterol 158(H) <130 mg/dL (calc) [facility]ATION [...] 2015;9:129-169. 08/14/2020 9:42 AM EDT us Josué Kelly Peterson MD LAB BLOOD ORDERABLES Final Result [facility] [address] from Last 3 Months or Most Recently Relevant to Health Maintenance Insurance [facility] OPTIONS (O D-SNP) [place] [phone]
--- OUTSIDE RECORDS SUMMARY | 2025-01-28 10:49 | XMS_ITS | Encounter Summary ---
Author Organization [employer] Address [address] [place] [address] [address] [address] Care Team Providers Care Almond Huller Name Role Phone Unavailable Primary Care Provider Unavailabl e Reason for Visit * Reason Comments Med Refill Encounter Details Date Type Department Care Team ([facility] st Contact Info) Description 10/27/2022 Refill [facility] [address] [place] [address] Josué Valencia MD [address] [place] [address] Social History Tobacco Use Types Packs/Day Years [...]
== END 2025-01-28 10:50 | disposition home or self-care (01) ==
LOC: HO.HSMS 09:35
PROVIDERS: PCP Internal Medicine; Visit Provider Physician Assistant Medical
DX: G47.33 Obstructive sleep apnea (adult) (pediatric) (principal); G25.81 Restless legs syndrome; M72.2 Plantar fascial fibromatosis; G47.52 REM sleep behavior disorder; G47.8 Other sleep disorders; R13.19 Other dysphagia; E55.9 Vitamin D deficiency, unspecified; D50.9 Iron deficiency anemia, unspecified
CPT/HCPCS: 99214

== ENCOUNTER → 2025-01-28 09:35 | Outpatient (BNVA) | payer OTHER, SELFPAY | PROVIDERS: PCP Internal Medicine; Visit Provider Physician Assistant Medical | DX: G47.33 Obstructive sleep apnea (adult) (pediatric) (principal); G25.81 Restless legs syndrome; G35.D Multiple sclerosis, unspecified; M72.2 Plantar fascial fibromatosis; G47.52 REM sleep behavior disorder; G47.8 Other sleep disorders; R13.19 Other dysphagia; E55.9 Vitamin D deficiency, unspecified; D50.9 Iron deficiency anemia, unspecified | CPT/HCPCS: 99212 ==

== ENCOUNTER 2025-02-26 10:27 | Outpatient (AMB) | payer MEDICARE, MEDICAID, SELFPAY ==
--- NOTE | 2025-02-26 10:44 | A.OFFVIS_ITS ---
Vital Signs 02/26/25 10:45 Height 5 ft 8 in Weight 181 lb BMI 27.5 Intake Visit Reasons: fu surgery cx due to taking trulicity Intake Note: Juan is a 69 year old male who presents today for a follow up on his plantar mass. Patient reports he is still experiencing slight pain in his left foot while ambulating. He states the mass has grown in size since the last time he was seen Professional Employer Consultant Required: Yes Professional Employer Consultant Services: Professional Employer Consultant Present Professional Employer Consultant Name: [id number] Allergies tramadol Allergy (Intermediate, Verified 01/28/25 09:43) Hives HPI Comments Details: The patient is a 69 year old individual presenting for a pre-operative evaluation for a left foot soft tissue mass excision. Patient has had this surgery rescheduled 2 times due to taking Trulicity prior to surgical dates. Patient is here today for re-evaluation and to reschedule surgical date. Continuation of this medication is a contraindication for anesthesia, and the patient has been informed it must be discontinued for at least one week prior to the planned procedure. [facility] Medical History Encounter for preoperative assessment Pre-procedural examination Athletes foot Left foot pain Subcutaneous mass of left foot Ganglion cyst of left foot Voice hoarseness ROLDAN (obstructive sleep apnea) Hypovitaminosis D Type 2 diabetes mellitus, with long-term current use of insulin Moderate recurrent major depression Erectile dysfunction History of urinary hesitancy Prostate nodule Enlarged prostate without lower urinary tract symptoms (luts) Flatus Unspecified constipation Medial meniscus tear OA (osteoarthritis) Arthralgia TAMIKO positive Hypothyroidism Multiple sclerosis Surgical History History of surgery Family History Mother Diabetes mellitus Father No problems noted. Social History Household Members Other:: and daughter Housing: House Alcohol intake: never Patient Tobacco Use Status: Never used Tobacco e-Cigarette/Vaping Use: Never Used Second Hand Smoke Exposure: No service: No Current occupational status: disabled Cognitive needs: Yes Hearing needs: No Vision needs: Yes Review of Systems Const Details: Musculoskeletal: Palpable soft tissue mass noted to the plantar lateral aspect of the left foot in the area of the 4th and 5th metatarsal heads. All systems reviewed & are unremarkable except as noted in HPI and below Physical Exam Vital Signs: BMI result Body Mass Index 27.5 Extrem Other: Bilateral lower extremity focused exam: Derm: Left- soft tissue mass noted to the plantar aspect of the left foot in the area of the 4th and 5th metatarsal heads. Mass is soft in nature and is not mobile. Mass noted to measure approximately 1 x 1.5 cm. No erythema noted. No drainage, purulence, or bleeding noted. Scarring from previous aspiration of mass noted. Improvement to xerosis noted. No clinical signs of infection. Right- No gross abnormalities noted. Vascular: DP palpable bilaterally, PT palpable on the right. PT nonpalpable on the left. No varicosities noted. Pedal hair present to the proximal aspect of the legs but absent to the distal aspect of the legs. Neuro: Protective sensation is grossly intact. Musculoskeletal: Mild pain on palpation to the soft tissue mass noted to the left foot. No soft tissue crepitus noted. Range of motion of the forefoot, hindfoot, and ankles within normal limits. Mildly antalgic gait noted. Office Procedures AMB Podiatry Dressing Details of Procedure: Applied a offloading felt pad to the left foot in the area of the soft tissue mass. 20243 Strapping of foot/toe Procedure code (CPT) selection complete Results Reviewed Results Reviewed: Podiatry Read of Left foot MRI (12/19/24): Lobulated Soft tissue mass noted to the subcutaneous area of the plantar aspect of the left foot in the area between the 4th and 5th metatarsal heads. Left foot MRI (12/19/24): FINDINGS: Lisfranc ligament: Intact and unremarkable. Soft tissues: There is a lesion in the subcutaneous soft tissues plantar to the base of the fourth proximal phalanx extending toward the fourth webspace. It contacts the deep plantar dermis. It has somewhat lobulated margins and measures 12 x 8 x 14 mm (AP by cc by transverse). It has a few thin internal septations. T1 imaging, it is slightly hyperintense to skeletal muscle. On fluid sensitive sequences, it is hyperintense with dependent low signal internal septations. With contrast, it demonstrates hyperenhancement except for a 7 mm region along the proximal medial aspect of the mass that demonstrates punctate peripheral enhancement. Also, the thin septations do not enhance. Metatarsophalangeal (MTP) joint and sesamoids of the great toe: There is a small volume of joint fluid. Joint capsular and plantar plate complex structures appear intact. There is trace fluid in the first webspace bursa. Lesser MTP joints & Plantar plates: A small volume of synovial fluid is present in the fourth and fifth MTP joints. Joint capsule structures are intact. Plantar plate complexes appear intact. Bones/Marrow: The marrow signal is physiologic. There are no destructive changes. IMPRESSION: There is a solid enhancing lesion in the plantar subcutaneous soft tissues in the base of the fourth proximal phalanx and plantar region of the fourth webspace. There are no bony destructive changes. It measures 12 x 8 x 14 mm (AP by cc by transverse). It could represent a peripheral nerve sheath tumor, thick walled inflamed multiloculated cystic lesion, giant cell tumor, vascular leiomyoma, or less likely a sarcoma. Left foot x-ray podiatry read: Mild osteophytic changes noted to the distal phalanx of the hallux. Mild plantar calcaneal spurring noted. No acute fractures or dislocations noted. Left foot x-ray (01/17/2024): FINDINGS: Plantar calcaneal spur. No fracture identified. Alignment is anatomic. Joint spaces are maintained. Soft tissues appear unremarkable. IMPRESSION: No acute finding. Assessment & Plan Assessment & Plan (1) Pre-procedural examination: Code(s): Z01.818 - Encounter for other preprocedural examination Category: Medical (2) Mass of left foot: Code(s): R22.42 - Localized swelling, mass and lump, left lower limb Category: Medical (3) Ganglion cyst of left foot: Code(s): M67.472 - Ganglion, left ankle and foot Category: Medical (4) Subcutaneous mass of left foot: Code(s): R22.42 - Localized swelling, mass and lump, left lower limb Category: Medical (5) Athletes foot: Code(s): B35.3 - Tinea pedis Category: Medical Qualifiers: Laterality: bilateral Qualified Code(s): B35.3 - Tinea pedis (6) Left foot pain: Code(s): M79.672 - Pain in left foot Category: Medical (7) Encounter for preoperative assessment: Code(s): Z01.818 - Encounter for other preprocedural examination Category: Medical (8) Localized swelling, mass and lump, left lower limb: Code(s): R22.42 - Localized swelling, mass and lump, left lower limb Category: Medical Plan Patient was informed and verbally consented to the use of an ambient scribe for clinic note documentation during this visit. I discussed the plan for foot surgery with the patient. I explained that because the patient is taking Trulicity, it must be stopped for at least one week prior to the procedure to allow for anesthesia. I informed the patient that we are tentatively scheduling the surgery for within the next few weeks and that our office will call to confirm the final date. I also explained that the tissue removed from the foot during this visit will be sent to the pathology lab for analysis. Pre-operative instructions, including being NPO the night before surgery, were also reviewed. - Plan for foot surgery, date and time to be determined. - The patient must discontinue Trulicity for at least one week prior to the surgery to allow for anesthesia. - The patient is instructed to be NPO (nothing by mouth) the night before the surgery. - An offloading pad was placed on the patient's foot, and the patient was instructed it can be placed on the foot or inside the shoe. - Office will contact the patient to confirm the surgery date. Follow-up 1 week after surgery. Orders: Orders AMB Podiatry Dressing 02/26/25 M67.472 - Ganglion, left ankle and foot, M79.672 - Pain in left foot, R22.42 - Localized swelling, mass and lump, left lower limb Coding Level of Care Code Est Pt Level 4 (77034) Diagnoses Pre-procedural examination Z01.818 Mass of left foot R22.42 Ganglion cyst of left foot M67.472 Subcutaneous mass of left foot R22.42 Tinea pedis of both feet B35.3 Laterality: bilateral Left foot pain M79.672 Encounter for preoperative assessment Z01.818 Localized swelling, mass and lump, left lower limb R22.42 CPT Codes Podiatry Dressing - CPT: 50162 Strapping of foot/toe ([id number]) Time Spent (min) 31
[2025-02-26 10:45] VITALS: BMI 27.5
--- OUTSIDE RECORDS SUMMARY | 2025-02-26 12:01 | XMS_ITS | Encounter Summary ---
Author Organization [employer] Address [address] [place] [address] [address] [place] [address] Care Team Providers Care Nail Mill Worker Name Role Phone Unavailable Primary Care Provider Unavailabl e Reason for Visit * Reason Comments Med Refill Encounter Details Date Type Department Care Team ([facility] st Contact Info) Description 04/04/2022 Refill [facility] [address] [place] [address] Josué Valencia MD [address] [place], [place] [phone] Social History Tobacco Use Types Packs/Day Years [...]
--- OUTSIDE RECORDS SUMMARY | 2025-02-26 12:01 | XMS_ITS | Encounter Summary ---
Author Organization [employer] Address [address] [place] [address] [address] [address] Care Team Providers Care Regrind Mill Operator Name Role Phone Unavailable Primary Care Provider Unavailabl e Reason for Visit * Reason Comments Med Refill Encounter Details Date Type Department Care Team ([facility] st Contact Info) Description 04/18/2022 Refill [facility] [address] [place] [address] Josué Valencia MD [address] [place], [place] [phone] Social History Tobacco Use Types Packs/Day Years [...]
--- OUTSIDE RECORDS SUMMARY | 2025-02-26 12:01 | XMS_ITS | Encounter Summary ---
Author Organization [facility] [employer] Address [address] [place] [address] [address] [place] [address] Care Team Providers Care Tracer Lathe Set Up Operator Name Role Phone Unavailable Primary Care Provider Unavailabl e Reason for Visit * Reason Comments Med Refill Encounter Details Date Type Department Care Team ([facility] st Contact Info) Description 07/20/2022 Refill [facility] [address] [place] [address] Josué Valencia MD [address] [place] [address] Social History Tobacco Use Types Packs/Day Years [...]
--- OUTSIDE RECORDS SUMMARY | 2025-02-26 12:01 | XMS_ITS | Encounter Summary ---
Author Organization [employer] Address [address] [place] [address] [address] [address] Care Team Providers Care Craft Superintendent Name Role Phone Unavailable Primary Care Provider Unavailabl e Encounter Details Date Type Department Care Team (Latest Contact Info) Description 09/22/2020 Abstract [facility] CONVERSIONS Dental, Provider, DDS Social [...]
--- OUTSIDE RECORDS SUMMARY | 2025-02-26 12:01 | XMS_ITS | Encounter Summary ---
Author Organization [employer] Address [address] [place] [address] [address] [address] Care Team Providers Care Fire Official Name Role Phone Unavailable Primary Care Provider Unavailabl e Reason for Visit * Reason Comments Med Refill Encounter Details Date Type Department Care Team ([facility] st Contact Info) Description 10/27/2022 Refill [facility] [address] [place] [address] Josué Valencia MD [address] [place] [address] Social History Tobacco Use Types Packs/Day Years [...]
--- OUTSIDE RECORDS SUMMARY | 2025-02-26 12:01 | XMS_ITS | Encounter Summary ---
Author Organization [employer] Address [address] [place] [address] [address] [address] Care Team Providers Care Office Helper Name Role Phone Unavailable Primary Care Provider Unavailabl e Encounter Details Date Type Department Care Team (Latest Contact Info) Description 12/31/2021 Abstract [facility] CONVERSIONS Dental, Provider, DDS Social [...]
--- OUTSIDE RECORDS SUMMARY | 2025-02-26 12:01 | XMS_ITS | Clinical Summary ---
Author Organization [facility] Address [address] [place] [phone] Phone Care Team Providers Care Forging Machine Operator Name Role Phone Unavailable Primary [...] It is not the complete legal health record.[facility]
--- OUTSIDE RECORDS SUMMARY | 2025-02-26 12:01 | XMS_ITS | Clinical Summary ---
Author Organization 175 [facility] Address [address] [place] [address] Phone Care Team Providers Care Production Supv Name Role Phone Cathy Jimenez MD Primary Care Provider [phone] Allergies Active Allergy Reactions Criticality Noted Date [...] 1 (one) time each day. 30 each 10/10/2024 Active Active Problems Problem Noted Date Diagnosed Date MS (multiple sclerosis) 10/11/2024 Encounters Date Type Department Care Team Description 02/13/2025 1:40 PM EST Lab Draw Station - 175 [facility] 175 [facility] [address] [place] [phone] MS (multiple sclerosis) 02/13/2025 1:00 PM EST Office Visit [facility] 175 [facility] [address] [place] [address] Debbi Brown PA MS (multiple sclerosis) (Primary Dx) 01/07/2025 1:30 PM EDT Treatment [facility] [address] [address] Sarthak Hsu PTA Gait abnormality (Primary Dx) 12/25/2024 8:30 AM EDT - 12/25/2024 11:59 PM EDT Hospital Encounter [facility] Xray [address] [place] [phone] Denise Parsons, STAR-COURTESY DRIVER Multiple sclerosis; Dysphagia, oropharyngeal phase Discharge Disposition: Home or Self Care 12/24/2024 4:00 PM EDT Treatment [facility] [address] [address] Robert Peacock PTA Gait abnormality (Primary Dx) 12/17/2024 10:30 AM EDT Evaluation [address] [address] Vesta Vilchis, PT Gait abnormality (Primary Dx); MS (multiple sclerosis) (CMS/HCC V24, CMS/HCC V28); Dizziness 12/06/2024 10:45 AM EDT Treatment [facility] Occupational Therapy [address] [address] Megan Coronel, OT Dizziness (Primary Dx) from Last 3 Months Medical History Medical History Date Comments Diabetes mellitus ([facility] V24, [facility] V28) Social History Tobacco Use Types Packs/Day [...] Sign Reading Time Taken Comments Blood Pressure 124/71 02/13/2025 1:08 PM EST Pulse 85 02/13/2025 1:08 PM EST Temperature 36.6 C (97.8 F) 02/13/2025 1:08 PM EST Respiratory Rate 16 10/16/2024 10:33 AM EDT Oxygen Saturation 99% 02/13/2025 1:08 PM EST Inhaled Oxygen Concentration - - Weight 83 kg (183 lb) 11/13/2024 8:40 AM EDT Height 172.7 cm (5' 8 ) 11/13/2024 8:40 AM EDT Body Mass Index 27.83 11/13/2024 8:40 AM EDT Plan of Treatment Upcoming Encounters Date Type Department Care Team (Late st Contact Info) Description 06/12/2025 1:30 PM EDT Office Visit [facility] 175 [facility] [address] [place] [address] Cornelio Olivier MD [address] [place] [address] Health Maintenance Due Date Last Done Comments Colorectal Cancer Screening: Colonoscopy 1957 Zoster Vaccines (2 of 2) 09/08/2022 07/14/2022 Abdominal Aortic Aneurysm (AAA) Screen 03/13/2024 Falls Risk Assessment 03/13/2024 Medicare Annual Wellness Visit 03/13/2024 Social Influencers of Health Screening 03/13/2024 Depression Screening 03/27/2024 COVID-19 Vaccine ( season) 2024 03/23/2021, 07/15/2020, 06/17/2020 Cholesterol Screening (Lipid Panel) 08/14/2025 08/14/2020 DTaP,Tdap,and Td Vaccines (3 - Td or Tdap) 03/09/2031 03/09/2021, 07/24/2008 RSV Immunization Adult Patients (1 - 1-dose 75+ series) 2032 MMR Vaccines Aged Out 07/24/2008 No longer eligi ble based on patient's age to complete this topic Pneumococcal Vaccine: 50+ Years Completed 07/14/2022, 04/18/2014 Hepatitis C Screening Completed 10/11/2024 Influenza Vaccine Completed 01/13/2025, , 01/19/2023, Additional [...] Type Associated Problems Recent Progress Patient-Stated? Author COURTESY DRIVER LTG General No Liz Garcia, COURTESY DRIVER Note: Pt will consume least restrictive PO diet without changes to medical or respiratory status to maintain adequate oral nutrition hydration COURTESY DRIVER STGs General No Liz Garcia, COURTESY DRIVER Note: Pt will participate in MBS for further assessment of oral pharyngeal swallow Pt will consume recommended diet textures and utilize swallow strategies given min verbal or visual cues Pt will participate in development of personalized HEP and perform 3-4xs/wk with min assist for modifications OT stg General No Homer Megan G, OT Note: Pt will return demo approp HEP (Habituation for dizziness) 12/06/24 met Pt will report no > than mild dizziness , not exceed intermittent frequency 12/06/24 no appreciable difference from baseline Procedures Procedure Name Priority Date/Time Associated Diagnosis Comments CBC WITH AUTO DIFFERENTIAL Routine 02/13/2025 1:37 PM EST MS (multiple sclerosis) CBC AND DIFFERENTIAL Routine 02/13/2025 1:37 PM EST MS (multiple sclerosis) HEPATIC FUNCTION PANEL Routine 1:37 PM EST MS (multiple sclerosis) XR BARIUM SWALLOW WITH VIDEO AND SPEECH Routine 12/25/2024 10:06 AM EDT Multiple sclerosis Dysphagia, oropharyngeal phase COURTESY DRIVER VIDEOFLUOROSCOPIC SWALLOW STUDY WITH BARIUM Routine 12/25/2024 9:00 AM EDT Multiple sclerosis Dysphagia, oropharyngeal phase HEPATITIS C ANTIBODY Routine 10/11/2024 9:37 AM EDT Multiple sclerosis (CMS/HCC V24, CMS/HCC V28) Gait abnormality from Last 3 Months or Most Recently Relevant to Health Maintenance Results * (ABNORMAL) CBC auto differential (02/13/2025 1:37 PM EST) WBC 4.8 4.8 - 10.8 K/mcL LAB HEMETOLOGY METHOD 02/13/2025 2:10 PM [facility] RBC 4.90 4.50 - 5.50 M/mcL LAB HEMETOLOGY METHOD 02/13/2025 2:10 PM [facility] Hemoglobin 14.8 13.5 - 17.5 g/dL LAB HEMETOLOGY METHOD 02/13/2025 2:10 PM [facility] Hematocrit 43.6 42.0 - 54.0 % LAB HEMETOLOGY METHOD 02/13/2025 2:10 PM [facility] MCV 89.0 79.0 - 98.0 FL LAB HEMETOLOGY METHOD 02/13/2025 2:10 PM [facility] MCH 30.2 27.0 - 32.0 pcg LAB HEMETOLOGY METHOD 02/13/2025 2:10 PM [facility] MCHC 33.9 32.0 - 37.0 g/dL LAB HEMETOLOGY METHOD 02/13/2025 2:10 PM [facility] RDW 13.5 11.0 - 15.0 % LAB HEMETOLOGY METHOD 02/13/2025 2:10 PM [facility] Platelets 160 130 - 400 K/mcL LAB HEMETOLOGY METHOD 02/13/2025 2:10 PM [facility] MPV 11.4(H) 7.0 - 11.0 FL LAB HEMETOLOGY METHOD 02/13/2025 2:10 PM [facility] NRBC 0.0 <1.0 % LAB HEMETOLOGY METHOD 02/13/2025 2:10 PM [facility] NRBC Absolute 0.00 <0.10 K/mcL LAB HEMETOLOGY METHOD 02/13/2025 2:10 PM [facility] Neutrophils Relative 53.9 % LAB HEMETOLOGY METHOD 02/13/2025 2:10 PM [facility] Lymphocytes Relative 29.3 % LAB HEMETOLOGY METHOD 02/13/2025 2:10 PM [facility] Monocytes Relative 11.6 % LAB HEMETOLOGY METHOD 02/13/2025 2:10 PM [facility] Eosinophils Relative 4.6 % LAB HEMETOLOGY METHOD 02/13/2025 2:10 PM [facility] Basophils Relative 0.4 % LAB HEMETOLOGY METHOD 02/13/2025 2:10 PM [facility] Immature Granulocytes Relative 0.2 % LAB HEMETOLOGY METHOD 02/13/2025 2:10 PM EST [facility] Neutrophils Absolute 2.59 1.50 - 7.00 K/mcL LAB HEMETOLOGY METHOD 02/13/2025 2:10 PM EST [facility] Lymphocytes Absolute 1.41 1.00 - 5.00 K/mcL LAB HEMETOLOGY METHOD 02/13/2025 2:10 PM EST [facility] Monocytes Absolute 0.56 0.20 - 1.00 K/mcL LAB HEMETOLOGY METHOD 02/13/2025 2:10 PM EST [facility] Eosinophils Absolute 0.22 0.00 - 0.50 K/mcL LAB HEMETOLOGY METHOD 02/13/2025 2:10 PM EST [facility] Basophils Absolute 0.02 0.00 - 0.20 K/mcL LAB HEMETOLOGY METHOD 02/13/2025 2:10 PM EST [facility] Immature Granulocytes Absolute 0.01 0.00 - 0.03 K/mcL LAB HEMETOLOGY METHOD 02/13/2025 2:10 PM EST [facility] Blood Venous blood specimen / Unknown Venipuncture / Unknown 02/13/2025 1:37 PM EST 02/13/2025 1:37 PM EST Debbi VANN LAB BLOOD ORDERABLES Final R esult [facility] [address] [place] [address], * (ABNORMAL) Hepatic function panel (02/13/2025 1:37 PM EST) Total Protein 7.4 6.0 - 8.0 g/dL 02/13/2025 2:45 PM EST [facility] Albumin 4.4 3.2 - 5.0 g/dL 02/13/2025 2:45 PM EST [facility] Total Bilirubin 1.0 0.0 - 1.4 mg/dL 02/13/2025 2:45 PM [facility] Bilirubin, Direct 0.4(H) 0.0 - 0.3 mg/dL 02/13/2025 2:45 PM [facility] Bilirubin, Indirect 0.6 0.0 - 1.1 mg/dL 02/13/2025 2:45 PM [facility] ALT (SGPT) 30 10 - 60 unit/L 02/13/2025 2:45 PM [facility] AST (SGOT) 33 10 - 42 unit/L 02/13/2025 2:45 PM [facility] Alkaline Phosphatase 78 42 - 121 unit/L 02/13/2025 2:45 PM [facility] Blood Venous blood specimen / Unknown Venipuncture / Unknown 02/13/2025 1:37 PM EST 02/13/2025 1:37 PM EST Debbi VANN LAB BLOOD ORDERABLES Final R esult [facility] [address] [place] [address], [place] [phone] * XR Barium Swallow with Video and [...] Signed Date: 12/25/2024 12:23 ET Workstation ID: [id number] Transcribed By: Self Edit Transcribed Date: 12/25/2024 12:21 ET Resident/PA/THIRD RIGGER: Terra Gracia Narrative 12/25/2024 12:23 PM EDT [...] Signed Date: 12/25/2024 12:23 ET Workstation ID: [id number] Transcribed By: Self Edit Transcribed Date: 12/25/2024 12:21 ET Resident/PA/THIRD RIGGER: Terra Gracia Cornelio Olivier MD IMG FLUOROSCOPY PROCEDUR ES Final Result * COURTESY DRIVER videofluoroscopic swallow study with barium (12/25/2024 9:00 [...] TREATMENT RECOMMENDATIONS: Patient would benefit from Outpatient COURTESY DRIVER Services following this Instrumental Assessment Summary and [...] IN: 930 TIME OUT: 1000 MINUTES: 30 HAND I BLOCKER REQUIRED: (Yes : HAND I BLOCKER NUMBER: #[id number] LANGUAGE: Georgian) GENERAL INFORMATION: Ordering Physician: Cornelio Olivier MD [...] Multiple sclerosis [G35.D] Dysphagia, oropharyngeal phase [R13.12] COURTESY DRIVER VIDEOFLUOROSCOPIC SWALLOW STUDY WITH BARIUM [[id number]] XR BARIUM SWALLOW WITH VIDEO AND SPEECH [[id number]] ALLERGIES: Allergies[1] OBJECTIVE Respiratory status: Room air [...] take meds for it. Pt saw OP COURTESY DRIVER services x2 for swallowing strategies, who recommended [...] strategies Recommended referral Verbal Understanding Denise Parsons, STAR-COURTESY DRIVER 12/25/2024 Please note that swallowing is a dynamic process and the skills reflected during this brief assessment may not necessarily represent the patient's swallowing function during an entire meal. Ongoing clinical judgment is strongly advised. [1] Allergies Allergen Reactions Tramadol Other reaction(s): unspecified us Cornelio Olivier MD COURTESY DRIVER ORDERABLES Final Re sult * Hepatitis C antibody (10/11/2024 9:37 AM EDT) Hepatitis C Antibody Negative Negative LAB CHEMISTRY METHOD 10/11/2024 4:55 PM EDT [facility] Blood Venous blood specimen / Unknown Venipuncture / Unknown 10/11/2024 9:37 AM EDT 10/11/2024 9:37 AM EDT us Cornelio Olivier MD LAB BLOOD ORDERABLES Fin al Result Performing Organization Address City/State/[facility] Co de Phone Number [facility] [address] [place] [address], [place] [phone] from Last 3 Months or Most Recently Relevant to Health Maintenance Insurance [facility] [employer] OPTIONS Member Subscriber Plan / Payer (Ef fective 2022-Present) Name:JUAN MARLEY Relation to Subscriber:Self Name:Juan Marley Payer ID:[id number] Group ID:[id number] Type:Not on file Address: [place] [address] [place] [address] Care Teams Production Supv Relationship Specialty Start Date End Date Cathy Jimenez MD [address] [facility] , [address] [place] [address] Physician Associ D/B/A: [facility] ANNETTA Reaves PCP - General Internal Medicine 03/13/24
--- OUTSIDE RECORDS SUMMARY | 2025-02-26 12:01 | XMS_ITS | Clinical Summary ---
Author Organization [employer] Address [address] [place] [address] [address] [place] [address] Care Team Providers Care Building Maintenance Worker Name Role Phone Unavailable Primary Care [...] LDL-C. Mejia SS et al. EFRAÍN. 2013;310(19): 4927-6348 (http://education.Fundrise.[employer]/faq/AQA818) Non-HDL Cholesterol 158(H) <130 mg/dL (calc) [facility]OUNDATION [...] Peterson MD LAB BLOOD ORDERABLES Final Result [facility] [address] from Last 3 Months or Most Recently Relevant to Health Maintenance Insurance [facility] DETENTION OPTIONS (O D-SNP) [place] [id number]
== END 2025-02-26 10:59 | disposition home or self-care (01) ==
PROVIDERS: PCP Internal Medicine; Visit Provider Student in an Organized Health Care Education/Training Program
DX: R22.42 Localized swelling, mass and lump, left lower limb (principal); M67.472 Ganglion, left ankle and foot; B35.3 Tinea pedis; Z01.818 Encounter for other preprocedural examination; M79.672 Pain in left foot
CPT/HCPCS: 29550; 99214

== ENCOUNTER → 2025-02-26 10:27 | Outpatient (BNVA) | payer MEDICARE, OTHER, SELFPAY | PROVIDERS: PCP Internal Medicine; Visit Provider Student in an Organized Health Care Education/Training Program | DX: Z01.818 Encounter for other preprocedural examination (principal); R22.42 Localized swelling, mass and lump, left lower limb; M67.472 Ganglion, left ankle and foot; B35.3 Tinea pedis; M79.672 Pain in left foot | CPT/HCPCS: 29550; 99212 ==

== ENCOUNTER 2025-03-07 08:19 | Outpatient (REF) | payer MEDICARE, MEDICAID, SELFPAY ==
[2025-03-07 08:31] LABS: MANUAL DIFF FLAG NO
[2025-03-07 08:59] LABS: Hematocrit 43.8 % (42.0-52.0); Hemoglobin 14.8 g/dl (14.0-18.0); Imm Gran Abs Auto 0.00 X10*3/uL (0.00-0.03); Imm Gran Pct Auto 0.0 % (0.0-0.4); Lymphocytes Absolute Auto 1.7 X10*3/uL (1.2-4.9); Mean Corpuscular HGB Conc 33.8 g/dl (31.0-36.0); Mean Corpuscular Hemoglobin 30.1 pg (27.0-33.0); Mean Corpuscular Volume 89.2 fL (80.0-98.0); NRBC Abs Auto 0.000 X10*3/uL (0.0-0.012); NRBC Pct Auto 0.0 /100WBC (0.0-0.2); Platelet Count 171 X10*3/uL (160-400); Red Blood Count 4.91 X10*6/uL (4.60-5.80); White Blood Count 4.2 X10*3/uL (4.8-10.8)
[2025-03-07 09:21] LABS: Anion Gap 8 (12-20); Blood Urea Nitrogen 9 mg/dL (9-16); Calcium 9.0 mg/dL (8.4-10.2); Carbon Dioxide 30 mmol/L (22-29); Chloride 107 mmol/L (96-108); Estimated Glomerular Filt Rate > 60; Potassium 4.2 mmol/L (3.3-5.1); Sodium 141 mmol/L (135-145)
== END 2025-03-07 08:20 | disposition home or self-care (01) ==
LOC: HO.LAB 08:19
PROVIDERS: PCP Internal Medicine; Visit Provider Student in an Organized Health Care Education/Training Program
DX: Z01.818 Encounter for other preprocedural examination (principal)
CPT/HCPCS: 36415; 80048; 85025

== ENCOUNTER 2025-03-14 10:09 | Day surgery (SDC) | payer MEDICARE, MEDICAID, SELFPAY ==
--- OUTSIDE RECORDS SUMMARY | 2025-02-28 06:37 | XMS_ITS | Encounter Summary ---
Author Organization [employer] Address [address] [place] [address] [address] [place] [address] Care Team Providers Care Care Worker Name Role Phone Unavailable Primary Care Provider Unavailabl e Reason for Visit * Reason Comments Med Refill Encounter Details Date Type Department Care Team ([facility] st Contact Info) Description 10/27/2022 Refill [facility] [address] [place] [address] Josué Valencia MD [address] [place] [address] Social History Tobacco Use Types Packs/Day Years [...]
--- OUTSIDE RECORDS SUMMARY | 2025-02-28 06:37 | XMS_ITS | Encounter Summary ---
Author Organization [employer] Address [address] [place] [address] [address] [place] [address] Care Team Providers Care Food Service Supervisor Name Role Phone Unavailable Primary Care Provider Unavailabl e Reason for Visit * Reason Comments Med Refill Encounter Details Date Type Department Care Team ([facility] st Contact Info) Description 07/20/2022 Refill [facility] [address] [place] [address] Josué Valencia MD [address] [place] [address] Social History Tobacco Use Types Packs/Day Years [...]
--- OUTSIDE RECORDS SUMMARY | 2025-02-28 06:37 | XMS_ITS | Clinical Summary ---
Author Organization [facility] Address [address] [place] [address] Phone Care Team Providers Care Stockroom Associate Name Role Phone Unavailable Primary Care Provider [...] It is not the complete legal health record.[facility]
--- OUTSIDE RECORDS SUMMARY | 2025-02-28 06:37 | XMS_ITS | Encounter Summary ---
Author Organization [employer] Address [address] [place] [address] [address] [place] [address] Care Team Providers Care Fire Suppression Captain Name Role Phone Unavailable Primary Care Provider Unavailabl e Reason for Visit * Reason Comments Med Refill Encounter Details Date Type Department Care Team ([facility] st Contact Info) Description 04/18/2022 Refill [facility] [address] [place] [address] Josué Valencia MD [address] [place], [place] [phone] Social History Tobacco Use Types Packs/Day Years [...]
--- OUTSIDE RECORDS SUMMARY | 2025-02-28 06:37 | XMS_ITS | Encounter Summary ---
Author Organization [facility] Address [address] [place] [address] [address] [place] [address] Care Team Providers Care Nursing Coordinator Name Role Phone Unavailable Primary Care Provider Unavailabl e Encounter Details Date Type Department Care Team (Latest Contact Info) Description 12/31/[address] [facility] CONVERSIONS Dental, Provider, DDS Social History [...]
--- OUTSIDE RECORDS SUMMARY | 2025-02-28 06:37 | XMS_ITS | Encounter Summary ---
Author Organization [employer] Address [address] [place] [address] [address] [address] Care Team Providers Care Beef Splitter Name Role Phone Unavailable Primary Care Provider Unavailabl e Reason for Visit * Reason Comments Med Refill Encounter Details Date Type Department Care Team ([facility] st Contact Info) Description 04/04/2022 Refill [facility] [address] [place] [address] Josué Valencia MD [address] [place], [place] [phone] Social History Tobacco Use Types Packs/Day Years [...]
--- OUTSIDE RECORDS SUMMARY | 2025-02-28 06:37 | XMS_ITS | Encounter Summary ---
Author Organization [employer] Address [address] [place] [address] [address] [place] [address] Care Team Providers Care Bookkeeping Machine Mechanic Name Role Phone Unavailable Primary Care Provider Unavailabl e Encounter Details Date Type Department Care Team (Latest Contact Info) Description 09/22/2020 Abstract [facility] CONVERSIONS Dental, Provider, DDS Social [...]
--- OUTSIDE RECORDS SUMMARY | 2025-02-28 06:37 | XMS_ITS | Clinical Summary ---
Author Organization [employer] Address [address] [place] [address] [address] [place] [address] Care Team Providers Care Sailing Instructor Name Role Phone Unavailable Primary Care Provider [...] LDL-C. Mejia SS et al. EFRAÍN. 2013;310(19): 6456-4899 (http://education.KS12.[employer]/faq/COW855) Non-HDL Cholesterol 158(H) <130 mg/dL (calc) FOUNDATION [...] [facility] [address] from Last 3 Months or Most Recently Relevant to Health Maintenance Insurance [facility] OPTIONS (O D-SNP) [place] [phone]
--- OUTSIDE RECORDS SUMMARY | 2025-02-28 06:37 | XMS_ITS | Clinical Summary ---
Author Organization 175 [facility] Address [address] [place] [address] Phone Care Team Providers Care Blocker And Sewer Name Role Phone Cathy Jimenez MD Primary Care Provider [phone] Allergies Active Allergy Reactions Criticality Noted Date [...] PM EST Lab Draw Station - 175 [facility] 175 [facility] [address] [place] [id number] MS (multiple sclerosis) 02/13/2025 1:00 PM EST Office Visit [facility] 175 [facility] [address] [place] [address] Debbi Brown PA MS (multiple sclerosis) (Primary Dx) 01/07/2025 1:30 PM EDT Treatment [facility] [address] [address] Sarthak Hsu PTA Gait abnormality (Primary Dx) 12/25/2024 8:30 AM EDT - 12/25/2024 11:59 PM EDT Hospital Encounter [facility] Xray [address] [place] [phone] Denise Parsons, STAR-ORDER PICKER/ASSEMBLER Multiple sclerosis; Dysphagia, oropharyngeal phase Discharge Disposition: Home or Self Care 12/24/2024 4:00 PM EDT Treatment [facility] [address] [address] Robert Peacock PTA Gait abnormality (Primary Dx) 12/17/2024 10:30 AM EDT Evaluation [address] [address] Vesta Vilchis, PT Gait abnormality (Primary Dx); MS (multiple sclerosis) (CMS/HCC V24, CMS/HCC V28); Dizziness 12/06/2024 10:45 AM EDT Treatment [facility] [address] [address] Megan Coronel, OT Dizziness (Primary Dx) from Last 3 Months Medical History Medical History Date Comments Diabetes mellitus ([facility] V24, [facility] V28) Social History Tobacco Use Types Packs/Day [...] Description 06/12/2025 1:30 PM EDT Office Visit [facility] 175 [facility] [address] [place] [address] Cornelio Olivier MD [address] [place] [address] Health Maintenance Due Date Last Done Comments [...] Type Associated Problems Recent Progress Patient-Stated? Author ORDER PICKER/ASSEMBLER LTG General No Liz Garcia, ORDER PICKER/ASSEMBLER Note: Pt will consume least restrictive PO diet without changes to medical or respiratory status to maintain adequate oral nutrition hydration ORDER PICKER/ASSEMBLER STGs General No Liz Garcia, ORDER PICKER/ASSEMBLER Note: Pt will participate in MBS for [...] AM EDT Multiple sclerosis Dysphagia, oropharyngeal phase ORDER PICKER/ASSEMBLER VIDEOFLUOROSCOPIC SWALLOW STUDY WITH BARIUM Routine 12/25/2024 [...] K/mcL LAB HEMETOLOGY METHOD 02/13/2025 2:10 PM [facility] RBC 4.90 4.50 - 5.50 M/mcL LAB HEMETOLOGY METHOD 02/13/2025 2:10 PM [facility] Hemoglobin 14.8 13.5 - 17.5 g/dL LAB HEMETOLOGY METHOD 02/13/2025 2:10 PM [facility] Hematocrit 43.6 42.0 - 54.0 % LAB HEMETOLOGY METHOD 02/13/2025 2:10 PM [facility] MCV 89.0 79.0 - 98.0 FL LAB HEMETOLOGY METHOD 02/13/2025 2:10 PM [facility] MCH 30.2 27.0 - 32.0 pcg LAB HEMETOLOGY METHOD 02/13/2025 2:10 PM [facility] MCHC 33.9 32.0 - 37.0 g/dL LAB HEMETOLOGY METHOD 02/13/2025 2:10 PM [facility] RDW 13.5 11.0 - 15.0 % LAB HEMETOLOGY METHOD 02/13/2025 2:10 PM [facility] Platelets 160 130 - 400 K/mcL LAB HEMETOLOGY METHOD 02/13/2025 2:10 PM [facility] MPV 11.4(H) 7.0 - 11.0 FL LAB HEMETOLOGY METHOD 02/13/2025 2:10 PM [facility] NRBC 0.0 <1.0 % LAB HEMETOLOGY METHOD 02/13/2025 2:10 PM [facility] NRBC Absolute 0.00 <0.10 K/mcL LAB HEMETOLOGY METHOD 02/13/2025 2:10 PM [facility] Neutrophils Relative 53.9 % LAB HEMETOLOGY METHOD 02/13/2025 2:10 PM [facility] Lymphocytes Relative 29.3 % LAB HEMETOLOGY METHOD 02/13/2025 2:10 PM [facility] Monocytes Relative 11.6 % LAB HEMETOLOGY METHOD 02/13/2025 2:10 PM [facility] Eosinophils Relative 4.6 % LAB HEMETOLOGY METHOD 02/13/2025 2:10 PM [facility] Basophils Relative 0.4 % LAB HEMETOLOGY METHOD 02/13/2025 2:10 PM [facility] Immature Granulocytes Relative 0.2 % LAB HEMETOLOGY METHOD 02/13/2025 2:10 PM EST [facility] Neutrophils Absolute 2.59 1.50 - 7.00 K/mcL LAB HEMETOLOGY METHOD 02/13/2025 2:10 PM EST [facility] Lymphocytes Absolute 1.41 1.00 - 5.00 K/mcL LAB HEMETOLOGY METHOD 02/13/2025 2:10 PM EST [facility] Monocytes Absolute 0.56 0.20 - 1.00 K/mcL LAB HEMETOLOGY METHOD 02/13/2025 2:10 PM EST [facility] Eosinophils Absolute 0.22 0.00 - 0.50 K/mcL LAB HEMETOLOGY METHOD 02/13/2025 2:10 PM EST [facility] Basophils Absolute 0.02 0.00 - 0.20 K/mcL LAB HEMETOLOGY METHOD 02/13/2025 2:10 PM EST [facility] Immature Granulocytes Absolute 0.01 0.00 - 0.03 K/mcL LAB HEMETOLOGY METHOD 02/13/2025 2:10 PM EST [facility] Blood Venous blood specimen / Unknown Venipuncture / Unknown 02/13/2025 1:37 PM EST 02/13/2025 1:37 PM EST Debbi VANN LAB BLOOD ORDERABLES Final R esult [facility] [address] [place] [address], * (ABNORMAL) Hepatic function panel (02/13/2025 1:37 PM EST) Total Protein 7.4 6.0 - 8.0 g/dL 02/13/2025 2:45 PM EST [facility] Albumin 4.4 3.2 - 5.0 g/dL 02/13/2025 2:45 PM EST [facility] Total Bilirubin 1.0 0.0 - 1.4 mg/dL 02/13/2025 2:45 PM [facility] Bilirubin, Direct 0.4(H) 0.0 - 0.3 mg/dL 02/13/2025 2:45 PM [facility] Bilirubin, Indirect 0.6 0.0 - 1.1 mg/dL 02/13/2025 2:45 PM [facility] ALT (SGPT) 30 10 - 60 unit/L 02/13/2025 2:45 PM [facility] AST (SGOT) 33 10 - 42 unit/L 02/13/2025 2:45 PM [facility] Alkaline Phosphatase 78 42 - 121 unit/L 02/13/2025 2:45 PM [facility] Blood Venous blood specimen / Unknown Venipuncture / Unknown 02/13/2025 1:37 PM EST 02/13/2025 1:37 PM EST Debbi VANN LAB BLOOD ORDERABLES Final R esult [facility] [address] [place] [address], [place] [phone] * XR Barium Swallow with Video and [...] Shashank Santillan Reviewed and Electronically Signed By: Shashnak Santillan Signed Date: 12/25/2024 12:23 ET Workstation ID: [id number] Transcribed By: Self Edit Transcribed Date: 12/25/2024 12:21 ET Resident/PA/BURGLAR ALARM MECHANIC: Terra Gracia Narrative 12/25/2024 12:23 PM EDT [...] Signed Date: 12/25/2024 12:23 ET Workstation ID: [id number] Transcribed By: Self Edit Transcribed Date: 12/25/2024 12:21 ET Resident/PA/BURGLAR ALARM MECHANIC: Terra Gracia Cornelio Olivier MD IMG FLUOROSCOPY PROCEDUR ES Final Result * ORDER PICKER/ASSEMBLER videofluoroscopic swallow study with barium (12/25/2024 9:00 [...] TREATMENT RECOMMENDATIONS: Patient would benefit from Outpatient ORDER PICKER/ASSEMBLER Services following this Instrumental Assessment Summary and [...] IN: 930 TIME OUT: 1000 MINUTES: 30 RELAY TESTER HELPER REQUIRED: (Yes : RELAY TESTER HELPER NUMBER: #[id number] LANGUAGE: Pashto) GENERAL INFORMATION: Ordering Physician: Cornelio Olivier MD [...] Multiple sclerosis [G35.D] Dysphagia, oropharyngeal phase [R13.12] ORDER PICKER/ASSEMBLER VIDEOFLUOROSCOPIC SWALLOW STUDY WITH BARIUM [[id number]] XR BARIUM SWALLOW WITH VIDEO AND SPEECH [[id number]] ALLERGIES: Allergies[1] OBJECTIVE Respiratory status: Room air [...] take meds for it. Pt saw OP ORDER PICKER/ASSEMBLER services x2 for swallowing strategies, who recommended [...] strategies Recommended referral Verbal Understanding Denise Parsons, STAR-ORDER PICKER/ASSEMBLER 12/25/2024 Please note that swallowing is a dynamic process and the skills reflected during this brief assessment may not necessarily represent the patient's swallowing function during an entire meal. Ongoing clinical judgment is strongly advised. [1] Allergies Allergen Reactions Tramadol Other reaction(s): unspecified us Cornelio Olivier MD ORDER PICKER/ASSEMBLER ORDERABLES Final Re sult * Hepatitis C antibody (10/11/2024 9:37 AM EDT) Hepatitis C Antibody Negative Negative LAB CHEMISTRY METHOD 10/11/2024 4:55 PM EDT [facility] Blood Venous blood specimen / Unknown Venipuncture / Unknown 10/11/2024 9:37 AM EDT 10/11/2024 9:37 AM EDT us Cornelio Olivier MD LAB BLOOD ORDERABLES Fin al Result Performing Organization Address City/State/[facility] Co de Phone Number [facility] [address] [place] [address], [place] [phone] from Last 3 Months or Most Recently Relevant to Health Maintenance Insurance [facility] [employer] Member Subscriber Plan / Payer (Ef fective 2022-Present) Name:JUAN MARLEY Relation to Subscriber:Self Name:Juan Marley Payer ID:[id number] Group ID:[id number] Type:Not on file Address: [place] [address] [place] [address] Care Teams Blocker And Sewer Relationship Specialty Start Date End Date Cathy Jimenez MD 2 [facility] , [address] [place] [address] Physician Associ D/B/A: [facility] ANNETTA Reaves PCP - General Internal Medicine 03/13/24
--- NOTE | 2025-03-11 11:46 | HO.ANESPROP2 ---
Documented by User: Mary Ashford NP 03/11/25 11:49 HPI - Anesthesia Eval Consult details Narrative: 69 yr old male for left Excision of Soft Tissue Mass on Foot Medically optimized for above procedure at PCP visit 03/05/25: EKG done in the office and shows no acute changes, similar to prior EKG from 01/10/2025 Anesthesia Pre-Procedure Meds Is the patient on any of the following meds?: GLP1/DPP4 PMFSH Active Problems Active Problems: All Active Problems (Updated 03/01/25 @ 12:53 by Angelique Rosales DPM) Localized swelling, mass and lump, left lower limb (Acute) Iron deficiency anemia (Acute) Sleep related abnormal swallowing (Acute) Dysphagia (Acute) Encounter for preoperative assessment (Acute) Pre-procedural examination (Acute) Athletes foot (Acute) Left foot pain (Acute) Subcutaneous mass of left foot (Acute) Ganglion cyst of left foot (Acute) REM behavioral disorder (Acute) Plantar fasciitis, left (Acute) Environmental allergies (Acute) RLS (restless legs syndrome) (Acute) Migraines (Acute) GERD (gastroesophageal reflux disease) (Acute) Abscess of face (Acute) Mass of left foot (Acute) Chest wall pain (Acute) Lung nodule (Acute) Shortness of breath (Acute) Chest pain (Acute) Diabetes mellitus (Acute) Hypertension (Acute) Hyperlipidemia LDL goal <70 (Acute) Mark's disease (Acute) Physical exam (Acute) Left knee pain (Acute) BPH w urinary obs/LUTS (Acute) Erectile dysfunction associated with type 2 diabetes mellitus (Acute) Voice hoarseness (Acute) ROLDAN (obstructive sleep apnea) (Acute) Hypovitaminosis D (Acute) Multiple sclerosis (Acute) Hypothyroidism (Acute) TAMIKO positive (Acute) Moderate recurrent major depression (Acute) Enlarged prostate without lower urinary tract symptoms (luts) (Acute) Past Medical History Medical History Elevated cholesterol HTN (hypertension) Localized swelling, mass and lump, left lower limb Encounter for preoperative assessment Pre-procedural examination Athletes foot Left foot pain Subcutaneous mass of left foot Ganglion cyst of left foot Voice hoarseness ROLDAN (obstructive sleep apnea) Hypovitaminosis D Type 2 diabetes mellitus, with long-term current use of insulin Moderate recurrent major depression Erectile dysfunction History of urinary hesitancy Prostate nodule Enlarged prostate without lower urinary tract symptoms (luts) Flatus Unspecified constipation Medial meniscus tear OA (osteoarthritis) Arthralgia TAMIKO positive Hypothyroidism Multiple sclerosis Family History Family History Mother Diabetes mellitus Father No problems noted. Surgical History Surgical History History of surgery Social History Social History Household Members Other:: and daughter Housing: House Alcohol intake: never Patient Tobacco Use Status: Never used Tobacco e-Cigarette/Vaping Use: Never Used Second Hand Smoke Exposure: No Use of substances other than those prescribed or required for medical reasons: No Are you DNR?: No Advance Directives: No Advance Directives Information Provided: Yes service: No Current occupational status: disabled Cognitive needs: Yes Hearing needs: No Vision needs: Yes Meds Allergies Allergy/AdvReac Type Severity Reaction Status Date / Time tramadol Allergy Intermediate Hives Verified 03/14/25 11:50 Home Medications ?Medication ?Instructions ?Recorded ?Confirmed ?Last Taken ?Type quetiapine 25 mg tablet 25 mg PO BID 07/20/21 03/12/25 Unknown History lancets 33 gauge (TRUEplus Lancets) #100 ea 07/21/21 03/05/25 Unknown History Exam Pertinent Lab Results Pertinent Lab Results: Laboratory Tests 03/07/25 08:29 WBC 4.2 L RBC 4.91 Hgb 14.8 Hct 43.8 Plt Count 171 Sodium 141 Potassium 4.2 BUN 9 Creatinine 1.06 Narrative Narrative: EKG 03/05/25 NSR, rate 65 Documented by User: Angela Donis MD 03/14/25 13:57 PMFSH Past Medical History Medical History Elevated cholesterol HTN (hypertension) Localized swelling, mass and lump, left lower limb Encounter for preoperative assessment Pre-procedural examination Athletes foot Left foot pain Subcutaneous mass of left foot Ganglion cyst of left foot Voice hoarseness ROLDAN (obstructive sleep apnea) Hypovitaminosis D Type 2 diabetes mellitus, with long-term current use of insulin Moderate recurrent major depression Erectile dysfunction History of urinary hesitancy Prostate nodule Enlarged prostate without lower urinary tract symptoms (luts) Flatus Unspecified constipation Medial meniscus tear OA (osteoarthritis) Arthralgia TAMIKO positive Hypothyroidism Multiple sclerosis Family History Family History Mother Diabetes mellitus Father No problems noted. Surgical History Surgical History History of surgery History of Problems with Anesthesia: No Social History Social History Household Members Other:: and daughter Housing: House Alcohol intake: never Patient Tobacco Use Status: Never used Tobacco e-Cigarette/Vaping Use: Never Used Second Hand Smoke Exposure: No Use of substances other than those prescribed or required for medical reasons: No Are you DNR?: No Advance Directives: No Advance Directives Information Provided: Yes service: No Current occupational status: disabled Cognitive needs: Yes Hearing needs: No Vision needs: Yes Meds Allergies Allergy/AdvReac Type Severity Reaction Status Date / Time tramadol Allergy Intermediate Hives Verified 03/14/25 11:50 Home Medications ?Medication ?Instructions ?Recorded ?Confirmed ?Last Taken ?Type quetiapine 25 mg tablet 25 mg PO BID 07/20/21 03/12/25 Unknown History lancets 33 gauge (TRUEplus Lancets) #100 ea 07/21/21 03/05/25 Unknown History Exam Airway Mallampati Class: III TM Dist: >3cm Neck ROM: Full Loose/Missing/Broken Teeth: No Heart: RRR Lungs: CTA Assessment and Plan Assessment Anesthesia Assessment: Anesthesia Plan Discussed and Chart Reviewed Final Anesthetic Review History of Problems with Anesthesia: No NPO: Yes ASA Class: III Final Preanesthetic Review: Meds/Allgs Chart Reviewed, Consent Obtained/Reviewed and Anes Risks/Benef Reviewed Patient Risk: Intermediate Procedure Risk: Low Anesthetic Plan Anesthetic Plan: MAC: Disposition: Standard PACU
[2025-03-12 14:37] VITALS: BMI 27.7
[2025-03-14] VITALS (8 sets, daily range): BP systolic 100–124; BP diastolic 46–78; PULSE 65–73; RESP 15–18; TEMP 36.2–37; O2SAT 93–98; BMI 27.4
[2025-03-14] MEDS: Lactated Ringers 1,000 ML 100 ML IVCONT (11:49)
[2025-03-14 11:56] LABS: Glucose, Whole Blood 114 mg/dL (60-115)
--- NOTE | 2025-03-14 14:18 | P.BOP_ITS ---
Brief Operative Note Date of Service: 03/14/25 Pre-op diagnosis: Left foot painful soft tissue mass Post-op diagnosis: same Procedure: Left foot soft tissue mass excision Implants: 20 cc of 1:1 mix of 1% lidocaine plain & 0.5% marcaine plain ; then 10 cc of 0.5% marcaine plain 3-0 vicryl, 4-0 prolene, betadine soaked adaptic, 4x4, ruslan, cast padding, YULISA Surgeon: Angelqiue Rosales DPM Anesthesia: local and other (IV sedation) Was an Utility Arborist used for this Procedure?: No Estimated blood loss (mL): 3 Tourniquet time (min): 12 Pathology: other (Left foot soft tissue mass) Condition: stable Disposition: PACU Complications (if any): None
--- NOTE | 2025-03-14 14:19 | W.PM.OPN ---
Operative Note Operative Note Date of Service: 03/14/25 Narrative: Anesthesia: IV sedation & Local 20 cc of a 1:1 mix of 1% lidocaine plain 0.5% marcaine plain at the beginning of the case and 10 cc of 0.5% marcaine plain at the end of the case Pre-Operative Diagnoses: Left foot painful soft tissue mass Post-Operative Diagnoses: Same as above Name of Procedure: Left foot soft tissue mass excision Indications:? The patient is a?69 year-old male with the above diagnoses.?The patient has exhausted conservative treatment at this time and now requests surgical intervention.?The patient signed the consent after careful explanation of risks, benefits, complications, and alternatives for surgical procedure.?No guarantees were given nor implied. NPO status was confirmed prior to taking patient to the OR. Preparation:? The patient was brought to the operating room and placed on the operating room table in the supine position. An ankle pneumatic tourniquet was applied to the left ankle in the supramalleolar position and was inflated to 250 mmHg prior to the start of the case.?The patient received a total of 20 cc of a 1:1 mix of 1% lidocaine plain and 0.5% marcaine plain at the beginning of the case and 10 cc of 0.5% marcaine plain at the end of the case. Once IV anesthesia was achieved, the left lower extremity was prepped and draped in usual sterile manner, and the procedure began. Procedure 1: Left foot soft tissue mass excision Attention was directed to the plantar lateral aspect of the left foot in the sub 4/5 met area where a soft tissue palpable mass was noted. A linear incision was made with #15 blade and was extended to deeper layers using blunt dissection. Care was taken to retract, ligate, and bovie all neurovascular structures as deemed necessary. Using an adson brown pickup and iris scissors, the mass was carefully excised and was then passed from the surgical field to be sent for pathology. The mass measured approximately 1 x 1 cm. The surgical site was copiously irrigated with sterile normal saline. The subcutaneous layers were reapproximated with 3-0 vicryl and the skin edges were reapproximated with 4-0 prolene. The surgical site was then dressed with Betadine-soaked Adaptic, 4 x 4 gauze, Deshaun, cast padding, and Esdras bandage with the use of a postop shoe. Postoperative Condition:? The patient tolerated the anesthesia and procedure well and was escorted to the recovery room with vital signs stable and neurovascular status intact to the left lower extremity. The patient is to be partial weight-bearing to the left heel in a postop shoe with the use of an assistive device. The patient is to be discharged home when criteria has been met and is to follow up in my office within 1 week.
== END 2025-03-14 15:41 | disposition home or self-care (01) ==
PROVIDERS: PCP Internal Medicine; Visit Provider Student in an Organized Health Care Education/Training Program
PROC: (CPT 28043; principal; 2025-03-14 12:10)
DX: D36.7 Benign neoplasm of other specified sites (principal); R22.42 Localized swelling, mass and lump, left lower limb; M79.672 Pain in left foot; R26.2 Difficulty in walking, not elsewhere classified; E11.9 Type 2 diabetes mellitus without complications; G35.D Multiple sclerosis, unspecified; G47.33 Obstructive sleep apnea (adult) (pediatric); Z79.85 Long-term (current) use of injectable non-insulin antidiabetic drugs; Z79.84 Long term (current) use of oral hypoglycemic drugs; Z99.89 Dependence on other enabling machines and devices; Z88.8 Allergy status to other drugs, medicaments and biological substances; Z98.890 Other specified postprocedural states
CPT/HCPCS: 28043; 82947; 86850; 86900; 86901; 88305; J0665; J0690; J2003; J2250; J2704; J3010

== ENCOUNTER → 2025-03-14 10:09 | Outpatient (BNV) | payer MEDICARE, MEDICAID, SELFPAY | PROVIDERS: PCP Internal Medicine; Visit Provider Student in an Organized Health Care Education/Training Program | DX: D21.22 Benign neoplasm of connective and other soft tissue of left lower limb, including hip (principal) ==

== ENCOUNTER 2025-03-24 12:13 | Outpatient (AMB) | payer MEDICARE, MEDICAID, SELFPAY ==
[2025-03-24 12:38] VITALS: BMI 27.4
--- NOTE | 2025-03-24 12:38 | MHC.OFFVIS ---
Vital Signs 03/24/25 12:38 Height 5 ft 8 in Weight 180 lb BMI 27.4 Intake Visit Reasons: Left foot soft tissue mass excision Intake Note: Juan is a 69 year old male coming in today for a left foot mass post op . Patient states everything is going well and has no questions or concerns at this time. Chemical Engineering Professor Required: Yes Chemical Engineering Professor Services: Chemical Engineering Professor Present Chemical Engineering Professor Name: patients daughter Allergies tramadol Allergy (Intermediate, Verified 03/24/25 12:39) Hives HPI Comments Details: The patient is a 69 year old male presenting for a postoperative follow-up visit S/P Left foot soft tissue mass excision (DOS:03/14/25). He states his symptoms have significantly improved since the procedure. Patient was seen with surgical dressing clean dry and intact. Patient was accompanied by his daughter who provided Amharic translation. Patient states his pain has reduced since the procedure. He denies any drainage from the site. He denies any other pedal concerns or pedal injuries. [facility] Medical History Elevated cholesterol HTN (hypertension) Localized swelling, mass and lump, left lower limb Encounter for preoperative assessment Pre-procedural examination Athletes foot Left foot pain Subcutaneous mass of left foot Ganglion cyst of left foot Voice hoarseness ROLDAN (obstructive sleep apnea) Hypovitaminosis D Type 2 diabetes mellitus, with long-term current use of insulin Moderate recurrent major depression Erectile dysfunction History of urinary hesitancy Prostate nodule Enlarged prostate without lower urinary tract symptoms (luts) Flatus Unspecified constipation Medial meniscus tear OA (osteoarthritis) Arthralgia TAMIKO positive Hypothyroidism Multiple sclerosis Surgical History History of surgery Family History Mother Diabetes mellitus Father No problems noted. Social History Household Members Other:: and daughter Housing: House Alcohol intake: never Patient Tobacco Use Status: Never used Tobacco e-Cigarette/Vaping Use: Never Used Second Hand Smoke Exposure: No service: No Current occupational status: disabled Cognitive needs: Yes Hearing needs: No Vision needs: Yes Review of Systems Const Details: Musculoskeletal: S/P Left foot soft tissue mass excision (DOS:03/14/25). Reports improvement in symptoms since procedure. All systems reviewed & are unremarkable except as noted in HPI and below Physical Exam Vital Signs: BMI result Body Mass Index 27.4 Extrem Other: LLE focused physical exam: Derm: Surgical site intact with sutures intact and no signs of maceration or dehiscence. No active drainage, purulence, or bleeding noted. No erythema, ecchymosis, or discoloration noted. No clinical signs of infection noted. Right- No gross abnormalities noted. Vascular: DP palpable bilaterally, PT palpable on the right. PT nonpalpable on the left. No varicosities noted. Pedal hair present to the proximal aspect of the legs but absent to the distal aspect of the legs. Minimal postsurgical edema noted. Neuro: Protective sensation is grossly intact. Musculoskeletal: Minimal discomfort noted on palpation to the surgical site. No soft tissue crepitus or fluctuance noted. Range of motion of the forefoot, hindfoot, and ankles within normal limits. Mildly antalgic gait noted with the surgical shoe. Office Procedures AMB Podiatry Dressing Details of Procedure: Applied Betadine, 4 x 4 gauze, Deshaun, stockinette, cast padding, and Esdras bandage to the left foot with the use of a surgical shoe. 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 Podiatry Read of Left foot MRI (12/19/24): Lobulated Soft tissue mass noted to the subcutaneous area of the plantar aspect of the left foot in the area between the 4th and 5th metatarsal heads. Left foot MRI (12/19/24): FINDINGS: Lisfranc ligament: Intact and unremarkable. Soft tissues: There is a lesion in the subcutaneous soft tissues plantar to the base of the fourth proximal phalanx extending toward the fourth webspace. It contacts the deep plantar dermis. It has somewhat lobulated margins and measures 12 x 8 x 14 mm (AP by cc by transverse). It has a few thin internal septations. T1 imaging, it is slightly hyperintense to skeletal muscle. On fluid sensitive sequences, it is hyperintense with dependent low signal internal septations. With contrast, it demonstrates hyperenhancement except for a 7 mm region along the proximal medial aspect of the mass that demonstrates punctate peripheral enhancement. Also, the thin septations do not enhance. Metatarsophalangeal (MTP) joint and sesamoids of the great toe: There is a small volume of joint fluid. Joint capsular and plantar plate complex structures appear intact. There is trace fluid in the first webspace bursa. Lesser MTP joints & Plantar plates: A small volume of synovial fluid is present in the fourth and fifth MTP joints. Joint capsule structures are intact. Plantar plate complexes appear intact. Bones/Marrow: The marrow signal is physiologic. There are no destructive changes. IMPRESSION: There is a solid enhancing lesion in the plantar subcutaneous soft tissues in the base of the fourth proximal phalanx and plantar region of the fourth webspace. There are no bony destructive changes. It measures 12 x 8 x 14 mm (AP by cc by transverse). It could represent a peripheral nerve sheath tumor, thick walled inflamed multiloculated cystic lesion, giant cell tumor, vascular leiomyoma, or less likely a sarcoma. Left foot x-ray podiatry read: Mild osteophytic changes noted to the distal phalanx of the hallux. Mild plantar calcaneal spurring noted. No acute fractures or dislocations noted. Left foot x-ray (01/17/2024): FINDINGS: Plantar calcaneal spur. No fracture identified. Alignment is anatomic. Joint spaces are maintained. Soft tissues appear unremarkable. IMPRESSION: No acute finding. Assessment & Plan Assessment & Plan (1) Mass of left foot: Code(s): R22.42 - Localized swelling, mass and lump, left lower limb Category: Medical (2) Subcutaneous mass of left foot: Code(s): R22.42 - Localized swelling, mass and lump, left lower limb Category: Medical (3) Athletes foot: Code(s): B35.3 - Tinea pedis Category: Medical Qualifiers: Laterality: bilateral Qualified Code(s): B35.3 - Tinea pedis (4) Left foot pain: Code(s): M79.672 - Pain in left foot Category: Medical (5) Encounter for preoperative assessment: Code(s): Z01.818 - Encounter for other preprocedural examination Category: Medical (6) Localized swelling, mass and lump, left lower limb: Code(s): R22.42 - Localized swelling, mass and lump, left lower limb Category: Medical Plan Patient was informed and verbally consented to the use of an ambient scribe for clinic note documentation during this visit. I informed the patient that the mass removed from his left foot was a benign, non-cancerous tumor of the blood vessels, which was the cause of his pain. We discussed the plan to keep the sutures in for one more week and maintain the postoperative shoe use. Advised patient to continue being partial weight-bearing to the left heel with the use of an assistive device in a surgical shoe. I provided instructions to keep the wound dry until the stitches are removed and to bring sneakers to the next visit to transition to normal footwear. - Plan for sutures to be in place for 1 more week. - Patient is to keep the dressing clean dry and intact. - Patient is to be partial weight-bearing to the left heel in a surgical shoe with the use of an assistive device. - Patient is to avoid barefoot walking. RTC in 1 week. Orders: Orders AMB Podiatry Dressing Today M79.672 - Pain in left foot, R22.42 - Localized swelling, mass and lump, left lower limb Coding Level of Care Code Global (22848) Diagnoses Mass of left foot R22.42 Subcutaneous mass of left foot R22.42 Tinea pedis of both feet B35.3 Laterality: bilateral Left foot pain M79.672 Encounter for preoperative assessment Z01.818 Localized swelling, mass and lump, left lower limb R22.42 CPT Codes Podiatry Dressing - CPT: 35640 - Short leg splint ([id number]) Time Spent (min) 35
--- OUTSIDE RECORDS SUMMARY | 2025-03-24 14:16 | XMS_ITS | Clinical Summary ---
Author Organization [facility] Address [address] [place] [address] Phone Care Team Providers Care Social Insurance Administrator Name Role Phone Unavailable Primary Care Provider [...] It is not the complete legal health record.[facility]
--- OUTSIDE RECORDS SUMMARY | 2025-03-24 14:16 | XMS_ITS | Encounter Summary ---
Author Organization [employer] Address [address] [place] [address] [address] [place] [address] Care Team Providers Care Nozzle Tender Name Role Phone Unavailable Primary Care Provider Unavailabl e Reason for Visit * Reason Comments Med Refill Encounter Details Date Type Department Care Team ([facility] st Contact Info) Description 04/04/[address] [facility] MEDICINE [address] [place] [address] Josué Valencia MD [address] [place], [place] [phone] Social History Tobacco Use Types Packs/Day Years [...]
--- OUTSIDE RECORDS SUMMARY | 2025-03-24 14:16 | XMS_ITS | Encounter Summary ---
Author Organization [employer] Address [address] [place] [address] [address] [address] Care Team Providers Care Mineral Resources Inspector Name Role Phone Unavailable Primary Care Provider Unavailabl e Encounter Details Date Type Department Care Team (Latest Contact Info) Description 12/31/[address] [facility] CONVERSIONS Dental, Provider, DDS Social [...]
--- OUTSIDE RECORDS SUMMARY | 2025-03-24 14:16 | XMS_ITS | Encounter Summary ---
Author Organization [employer] Address [address] [place] [address] [address] [address] Care Team Providers Care Light Adjuster Name Role Phone Unavailable Primary Care Provider Unavailabl e Encounter Details Date Type Department Care Team (Latest Contact Info) Description 09/22/2020 Abstract [facility] CONVERSIONS Dental, Provider, DDS Social History Tobacco [...]
--- OUTSIDE RECORDS SUMMARY | 2025-03-24 14:17 | XMS_ITS | Encounter Summary ---
Author Organization [employer] Address [address] [place] [address] [address] [address] Care Team Providers Care Highway Landscape Architect Name Role Phone Unavailable Primary Care Provider Unavailabl e Reason for Visit * Reason Comments Med Refill Encounter Details Date Type Department Care Team ([facility] st Contact Info) Description 07/20/2022 Refill [facility] MEDICINE [address] [place] [address] Josué Valencia MD [address] [place] [address] Social History Tobacco Use Types Packs/Day Years [...]
--- OUTSIDE RECORDS SUMMARY | 2025-03-24 14:17 | XMS_ITS | Encounter Summary ---
Author Organization [employer] Address [address] [place] [address] [address] [address] Care Team Providers Care Tread Tuber Machine Operator Name Role Phone Unavailable Primary Care Provider Unavailabl e Reason for Visit * Reason Comments Med Refill Encounter Details Date Type Department Care Team ([facility] st Contact Info) Description 04/18/2022 Refill [facility] [address] [place] [address] Josué Valencia MD [address] [place], [place] [phone] Social History Tobacco Use Types Packs/Day Years [...]
--- OUTSIDE RECORDS SUMMARY | 2025-03-24 14:17 | XMS_ITS | Clinical Summary ---
Author Organization [facility] Address [address] [place] [address] Phone Care Team Providers Care Maintenance Welder Name Role Phone Cathy Jimenez MD Primary Care Provider [phone] Allergies Active Allergy Reactions Criticality Noted Date [...] EST Lab Draw Station - [facility] 175 [facility] [address] [place] [address] MS (multiple sclerosis) 02/13/2025 1:00 PM EST Office Visit [facility] 175 [facility] [address] [place] [address] Debbi Brown PA MS (multiple sclerosis) (Primary Dx) 01/07/2025 1:30 PM EDT Treatment [facility] [address] [place] [address] Sarthak Hsu PTA Gait abnormality (Primary Dx) 12/25/2024 8:30 AM EDT - 12/25/2024 11:59 PM EDT Hospital Encounter [facility] Xray [address] [place] [address] Denise Parsons, STAR-ADOPTION SERVICES MANAGER Multiple sclerosis; Dysphagia, oropharyngeal phase Discharge Disposition: Home or Self Care 12/24/2024 4:00 PM EDT Treatment [facility] 175 [facility] [address] [place] [address] Robert Peacock PTA Gait abnormality (Primary Dx) from Last 3 Months Medical [...] Orientation Straight 08/13/2024 8: 54 AM EDT Last Filed Vital Signs Vital [...] Description 06/12/2025 1:30 PM EDT Office Visit [facility] [address] [place] [phone] Cornelio Olivier MD [address] [place] [address] Health Maintenance Due Date Last Done Comments [...] Type Associated Problems Recent Progress Patient-Stated? Author ADOPTION SERVICES MANAGER LTG General No Liz Garcia, ADOPTION SERVICES MANAGER Note: Pt will consume least restrictive PO diet without changes to medical or respiratory status to maintain adequate oral nutrition hydration ADOPTION SERVICES MANAGER STGs General No Liz Garcia, ADOPTION SERVICES MANAGER Note: Pt will participate in MBS [...] AM EDT Multiple sclerosis Dysphagia, oropharyngeal phase ADOPTION SERVICES MANAGER VIDEOFLUOROSCOPIC SWALLOW STUDY WITH BARIUM Routine 12/25/2024 [...] K/mcL LAB HEMETOLOGY METHOD 02/13/2025 2:10 PM [facility] RBC 4.90 4.50 - 5.50 M/mcL LAB HEMETOLOGY METHOD 02/13/2025 2:10 PM [facility] Hemoglobin 14.8 13.5 - 17.5 g/dL LAB HEMETOLOGY METHOD 02/13/2025 2:10 PM [facility] Hematocrit 43.6 42.0 - 54.0 % LAB HEMETOLOGY METHOD 02/13/2025 2:10 PM [facility] MCV 89.0 79.0 - 98.0 FL LAB HEMETOLOGY METHOD 02/13/2025 2:10 PM [facility] MCH 30.2 27.0 - 32.0 pcg LAB HEMETOLOGY METHOD 02/13/2025 2:10 PM [facility] MCHC 33.9 32.0 - 37.0 g/dL LAB HEMETOLOGY METHOD 02/13/2025 2:10 PM [facility] RDW 13.5 11.0 - 15.0 % LAB HEMETOLOGY METHOD 02/13/2025 2:10 PM [facility] Platelets 160 130 - 400 K/mcL LAB HEMETOLOGY METHOD 02/13/2025 2:10 PM [facility] MPV 11.4(H) 7.0 - 11.0 FL LAB HEMETOLOGY METHOD 02/13/2025 2:10 PM [facility] NRBC 0.0 <1.0 % LAB HEMETOLOGY METHOD 02/13/2025 2:10 PM [facility] NRBC Absolute 0.00 <0.10 K/mcL LAB HEMETOLOGY METHOD 02/13/2025 2:10 PM [facility] Neutrophils Relative 53.9 % LAB HEMETOLOGY METHOD 02/13/2025 2:10 PM [facility] Lymphocytes Relative 29.3 % LAB HEMETOLOGY METHOD 02/13/2025 2:10 PM [facility] Monocytes Relative 11.6 % LAB HEMETOLOGY METHOD 02/13/2025 2:10 PM [facility] Eosinophils Relative 4.6 % LAB HEMETOLOGY METHOD 02/13/2025 2:10 PM [facility] Basophils Relative 0.4 % LAB HEMETOLOGY METHOD 02/13/2025 2:10 PM [facility] Immature Granulocytes Relative 0.2 % LAB HEMETOLOGY METHOD 02/13/2025 2:10 PM [facility] Neutrophils Absolute 2.59 1.50 - 7.00 K/mcL LAB HEMETOLOGY METHOD 02/13/2025 2:10 PM [facility] Lymphocytes Absolute 1.41 1.00 - 5.00 K/mcL LAB HEMETOLOGY METHOD 02/13/2025 2:10 PM [facility] Monocytes Absolute 0.56 0.20 - 1.00 K/mcL LAB HEMETOLOGY METHOD 02/13/2025 2:10 PM EST [facility] Eosinophils Absolute 0.22 0.00 - 0.50 K/mcL LAB HEMETOLOGY METHOD 02/13/2025 2:10 PM EST [facility] Basophils Absolute 0.02 0.00 - 0.20 K/mcL LAB HEMETOLOGY METHOD 02/13/2025 2:10 PM EST [facility] Immature Granulocytes Absolute 0.01 0.00 - 0.03 K/mcL LAB HEMETOLOGY METHOD 02/13/2025 2:10 PM [facility] Blood Venous blood specimen / Unknown Venipuncture / Unknown 02/13/2025 1:37 PM EST 02/13/2025 1:37 PM EST Debbi VANN LAB BLOOD ORDERABLES Final R esult [facility] [address] [place] [address], [place] [phone] * (ABNORMAL) Hepatic function panel (02/13/2025 1:37 PM EST) Total Protein 7.4 6.0 - 8.0 g/dL 02/13/2025 2:45 PM [facility] Albumin 4.4 3.2 - 5.0 g/dL 02/13/2025 2:45 PM [facility] Total Bilirubin 1.0 0.0 - 1.4 mg/dL 02/13/2025 2:45 PM [facility] Bilirubin, Direct 0.4(H) 0.0 - 0.3 mg/dL 02/13/2025 2:45 PM [facility] Bilirubin, Indirect 0.6 0.0 - 1.1 mg/dL 02/13/2025 2:45 PM [facility] ALT (SGPT) 30 10 - 60 unit/L 02/13/2025 2:45 PM EST [facility] AST (SGOT) 33 10 - 42 unit/L 02/13/2025 2:45 PM EST [facility] Alkaline Phosphatase 78 42 - 121 unit/L 02/13/2025 2:45 PM EST [facility] Blood Venous blood specimen / Unknown Venipuncture / Unknown 02/13/2025 1:37 PM EST 02/13/2025 1:37 PM EST Debbi VANN LAB BLOOD ORDERABLES Final R esult [facility] [address] [place] [address], [place] [phone] * XR Barium Swallow with Video and [...] Signed Date: 12/25/2024 12:23 ET Workstation ID: [id number] Transcribed By: Self Edit Transcribed Date: 12/25/2024 12:21 ET Resident/PA/BAIL AGENT: Terra Gracia Narrative 12/25/2024 12:23 PM EDT [...] Signed Date: 12/25/2024 12:23 ET Workstation ID: [id number] Transcribed By: Self Edit Transcribed Date: 12/25/2024 12:21 ET Resident/PA/BAIL AGENT: Terra Gracia Cornelio Olivier MD IMG FLUOROSCOPY PROCEDUR ES Final Result * ADOPTION SERVICES MANAGER videofluoroscopic swallow study with barium (12/25/2024 9:00 AM EDT) Denise Edouard, STAR-ADOPTION SERVICES MANAGER - 12/25/2024 9:00 AM EDT Denise Parsons CCC-ADOPTION SERVICES MANAGER 12/25/2024 2:59 PM OUTPATIENT MODIFIED BARIUM SWALLOW [...] TREATMENT RECOMMENDATIONS: Patient would benefit from Outpatient ADOPTION SERVICES MANAGER Services following this Instrumental Assessment Summary and [...] IN: 930 TIME OUT: 1000 MINUTES: 30 NETWORK CONTROLLER REQUIRED: (Yes : NETWORK CONTROLLER NUMBER: #[id number] LANGUAGE: Thai) GENERAL INFORMATION: Ordering Physician: Cornelio Olivier MD [...] Multiple sclerosis [G35.D] Dysphagia, oropharyngeal phase [R13.12] ADOPTION SERVICES MANAGER VIDEOFLUOROSCOPIC SWALLOW STUDY WITH BARIUM [[id number]] XR BARIUM SWALLOW WITH VIDEO AND SPEECH [[id number]] ALLERGIES: Allergies[1] OBJECTIVE Respiratory status: Room air [...] take meds for it. Pt saw OP ADOPTION SERVICES MANAGER services x2 for swallowing strategies, who recommended [...] TASH Delgadillo. A Penetration-Aspiration Scale. Dysphagia 11:93-98, 1995. EDUCATION Education: Education provided: Reviewed MBS video Diet Recommendations Aspiration precautions Oral hygiene Swallow strategies Recommended referral Verbal Understanding Denise Parsons, [facility]-ADOPTION SERVICES MANAGER 12/25/2024 Please note that swallowing is a dynamic process and the skills reflected during this brief assessment may not necessarily represent the patient's swallowing function during an entire meal. Ongoing clinical judgment is strongly advised. [1] Allergies Allergen Reactions Tramadol Other reaction(s): unspecified Cornelio Olivier MD ADOPTION SERVICES MANAGER ORDERABLES Final Re sult * Hepatitis C antibody (10/11/2024 9:37 AM EDT) Hepatitis C Antibody Negative Negative LAB CHEMISTRY METHOD 10/11/2024 4:55 PM EDT [facility] Blood Venous blood specimen / Unknown Venipuncture / Unknown 10/11/2024 9:37 AM EDT 10/11/2024 9:37 AM EDT Cornelio Olivier MD LAB BLOOD ORDERABLES Fin al Result [facility] ([facility] [address] [place] [address], [place] [phone] from Last 3 Months or Most Recently Relevant to Health Maintenance Insurance [facility] [employer] OPTIONS Member Subscriber Plan / Payer (Ef fective 2022-Present) Name:JUAN MARLEY Relation to Subscriber:Self Name:Juan Marley Payer ID:[id number] Group ID:[id number] Type:Not on file Address: [place] [address] [place] [address] Care Teams Maintenance Welder Relationship Specialty Start Date End Date Cathy Jimenez MD 2 [facility] , [address] Physician Associ D/B/A: [facility] PCP - General Internal Medicine 03/13/24
--- OUTSIDE RECORDS SUMMARY | 2025-03-24 14:17 | XMS_ITS | Clinical Summary ---
Author Organization [employer] Address [address] [place] [address] [address] [place] [address] Care Team Providers Care Airline Counter Agent Name Role Phone Unavailable Primary Care [...] LDL-C. Mejia SS et al. EFRAÍN. 2013;310(19): 4711-5390 ([email or web address]) Non-HDL Cholesterol 158(H) <130 mg/dL (calc) FOUNDATION [...] Peterson MD LAB BLOOD ORDERABLES Final Result [facility] [address] from Last 3 Months or Most Recently Relevant to Health Maintenance Insurance [facility] OPTIONS (O D-SNP) [place] [id number]
--- OUTSIDE RECORDS SUMMARY | 2025-03-24 14:17 | XMS_ITS | Encounter Summary ---
Author Organization [employer] Address [address] [place] [address] [address] [address] Care Team Providers Care Insurance Business Analyst Name Role Phone Unavailable Primary Care Provider Unavailabl e Reason for Visit * Reason Comments Med Refill Encounter Details Date Type Department Care Team ([facility] st Contact Info) Description 10/27/2022 Refill [facility] MEDICINE [address] [place] [address] Josué Valencia MD [address] [place] [address] Social History Tobacco Use Types Packs/Day Years [...]
== END 2025-03-24 12:50 | disposition home or self-care (01) ==
LOC: HO.HPODS 12:14
PROVIDERS: PCP Internal Medicine; Visit Provider Student in an Organized Health Care Education/Training Program
DX: R22.42 Localized swelling, mass and lump, left lower limb (principal); B35.3 Tinea pedis; M79.672 Pain in left foot; Z01.818 Encounter for other preprocedural examination
CPT/HCPCS: 99024

== ENCOUNTER → 2025-03-24 12:13 | Outpatient (BNVA) | payer MEDICARE, SELFPAY | PROVIDERS: PCP Internal Medicine; Visit Provider Student in an Organized Health Care Education/Training Program | DX: Z47.89 Encounter for other orthopedic aftercare (principal); E11.9 Type 2 diabetes mellitus without complications; Z79.4 Long term (current) use of insulin; R22.42 Localized swelling, mass and lump, left lower limb; B35.3 Tinea pedis; M79.672 Pain in left foot | CPT/HCPCS: 99212 ==